=== PATIENT | female | born 1980 | race Caucasian/White ===

== ENCOUNTER → 2016-12-16 | Outpatient (CLI) | payer OTHER ==
--- NOTE | 2016-12-16 15:25 | NM ---
EXAMINATION TYPE: NM hepatobiliary w EF DATE OF EXAM: 12/16/2016 COMPARISON: NONE HISTORY: Pain TECHNIQUE: After the intravenous administration of 5.3 mCi Tc 99m Mebrofenin hepatobiliary scintigrap hy is performed. Immediate images post injection. FINDINGS: There is satisfactory initial accumulation of tracer by the liver. The gallbladder is visualized wit hin 60 minutes. The small bowel activity is noted within 20 minutes. At one hour 8 ounces of oral e nsure plus is given to mimic CCK and gallbladder ejection fraction is calculated at 75 %, in the norm al range. Therefore there is no scintigraphic evidence of cystic or common bile duct obstruction to suggest acute cholecystitis or gallbladder dyskinesia. IMPRESSION: Exam is within normal limits.
[2016-12-16 18:07] LABS: Amorphous Sediment,Urine Rare /hpf; Appearance,Urine Cloudy (Clear); Bacteria,Urine Rare /hpf; Bilirubin,Urine Negative (Negative); Glucose,Urine (UA) Negative (Negative); Ketones,Urine Negative (Negative); Leukocyte Esterase,Urine Negative (Negative); Mucus,Urine Rare /hpf; Nitrite,Urine Negative (Negative); Particle Count 6297; Protein,Urine Negative (Negative); Specific Gravity,Urine 1.012 (1.001-1.035); Squamous Epithelial Cell,Urine 3 /hpf (0-4); UA Billing (MACRO vs. MICRO) MICRO; Urobilinogen,Urine <2.0 mg/dL (<2.0); WBC,Urine 4 /hpf (0-5)
== END | disposition home or self-care (01) ==
LOC: RADNMMAIN 12:53
PROVIDERS: ATTEND Surgery
DX: R10.32 Left lower quadrant pain (principal)
CPT/HCPCS: 81001; 87086; 78226; A9537

== ENCOUNTER 2016-12-28 12:30 | Day surgery (SDC) | payer OTHER ==
[2016-12-22 12:40] VITALS: BMI 25.0
[~2016-12-28 12:30] MED LIST: HEPARIN SODIUM,PORCINE 5,000 UNIT/ML 1 ML VIAL SQ ONE; Pre Op ABX Message 1 EACH MISC MISCELLANE ONE
[2016-12-28] MEDS ORDERED: SCOPOLAMINE 1.5MG/72HR PATCH TRANSDERM ONE (13:25)
[2016-12-28] MEDS ORDERED: DEXAMETHASONE SOD PHOSPHATE 10 MG/ML 1 ML VIAL IV ONE (13:25)
[2016-12-28] MEDS ORDERED: LIDOCAINE 1% 20 ML VIAL (10MG/ML) FOR IV START INTRADERMA PRN (13:25)
[2016-12-28] MEDS ORDERED: MIDAZOLAM 2 MG/2 ML VIAL IV PRN (13:25)
[2016-12-28] MEDS ORDERED: ONDANSETRON 4 MG/2 ML VIAL IVP ONE (13:25)
[2016-12-28] MEDS: LACTATED RINGERS 1,000 ML IV SCH (13:29)
[2016-12-28] MEDS ORDERED: LIDOCAINE 1% 20 ML VIAL (10MG/ML) FOR IV START INTRADERMA ONE ×2 (13:30)
[2016-12-28] MEDS ORDERED: ROCURONIUM BROMIDE 10 MG/ML 10 ML VIAL IV ONE (14:50)
[2016-12-28] MEDS ORDERED: NEOSTIGMINE 1 MG/ML 10 ML VIAL ONE (14:50)
[2016-12-28] MEDS ORDERED: fentaNYL (PF) 50 MCG/ML 2 ML AMP ONE (14:50)
[2016-12-28] MEDS ORDERED: SUCCINYLCHOLINE CHLORIDE 100 MG/5 ML SYR IV ONE (14:50)
[2016-12-28] MEDS ORDERED: MIDAZOLAM 2 MG/2 ML VIAL ONE (14:50)
[2016-12-28] MEDS ORDERED: PROPOFOL 10 MG/ML 20 ML VIAL IV ONE (14:50)
[2016-12-28] MEDS ORDERED: GLYCOPYRROLATE 0.2 MG/ML 2 ML VIAL ONE (14:50)
[2016-12-28] MEDS ORDERED: LIDOCAINE 1% INJ 10MG/ML (20 ML MDV) ONE (14:50)
[2016-12-28] MEDS ORDERED: BUPIVACAINE (PF) 0.25% 30 ML VIAL SQ ONE (15:12)
[2016-12-28] MEDS ORDERED: LACTATED RINGERS 1,000 ML IV ONE (16:04)
--- NOTE | 2016-12-28 16:20 | P.OP ---
Date of Procedure: 12/28/16 Preoperative Diagnosis: Biliary dyskinesia Postoperative Diagnosis: chronic cholecystitis Procedure(s) Performed: Robot assisted laparoscoic choelcystectomy Implants: Anesthesia: SILVIA Surgeon: Claudio Nieto Pathology: other Condition: stable Disposition: PACU Indications for Procedure: Operative Findings: Description of Procedure: Patient is a 36-year-old female who presented with right upper quadrant pain and a clinical diagnosis of chronic cholecystitis was made. After appropriate informed consent and answering all the patient's questions patient taken the operating placement position and given general anesthesia with endotracheal intubation. After an unsuccessful attempt to use the Veress needle for insufflation at the left upper quadrant was identified and Veress needle was used to enter the abdominal cavity and insufflated to 18 mmHg after confirming its position with the drop test. Once the abdomen insufflated 5 mm Optiview was used to enter the abdominal cavity through that site. Three 8 mm ports were then placed for the robot in the left upper quadrant and right upper quadrant. Millimeter port was placed in the supraumbilical incision Once ports were then placed the patient was placed in appropriate position of left side down and reverse Trendelenburg. The robot was docked and Prograsp was taken in arm 3, Cardiere in arm 2. Camera was through the 12 mm umbilical port site. And a hook cautery was taken in the arm 1. Gallbladder was retracted cephalad and superiorly. Inflammatory adhesions were taken down with the help of electrocautery. Appropriate critical view was obtained in cystic duct and artery were isolated. 2 clips proximally and 1 distally were plced in the artery and cystic duct and then and transected sharply with the help of scissors. The gallbladder was then taken off the gallbladder fossa with the help of electrocautery. Gallbladder was then placed in Endo Catch bag and removed through 12 port site after undocking the robot. 12 mm port site was closed with the help of a [place] Mejias under direct laparoscopic view using 0 Vicryl. At this point the procedure was terminated and all ports were removed. Local anesthesia infiltrated into the incisions skin was closed with 4 -0 Monocryl and Dermabond was applied. Patient is tolerated the porcedure well with no complications. She was extubated and taken to recovery room in stable condition. Plan - Discharge Summary New Discharge Prescriptions: No Action Ibuprofen [Motrin] 600 - 800 mg PO DAILY PRN PRN Reason: Pain Albuterol Inhaler [Ventolin Hfa Inhaler] 1 - 2 puff INHALATION Q6HR PRN PRN Reason: Shortness Of Breath Otc Antacid 1 dose PO DAILY PRN PRN Reason: Heartburn Discharge Medication List Albuterol Inhaler [Ventolin Hfa Inhaler] 1 - 2 puff INHALATION Q6HR PRN [History] Ibuprofen [Motrin] 600 - 800 mg PO DAILY PRN 12/22/16 [History] Otc Antacid 1 dose PO DAILY PRN 12/22/16 [History]
[2016-12-28 16:25] VITALS: TEMP 97.9
[2016-12-28] MEDS: HYDROmorphone 1 MG/ML 1 ML SYRINGE IVP PRN ×3 (16:29→16:34)
[2016-12-28] MEDS ORDERED: MEPERIDINE 50 MG/ML SYRINGE IVP ONE ×3 (16:41→17:10)
[2016-12-28] MEDS: MORPHINE SULFATE 4 MG/ML SYRINGE IV ONE ×2 (16:48→16:51)
[2016-12-28 17:05] VITALS: RESP 18
[2016-12-28] MEDS ORDERED: Acetaminophen-Codeine 300-30mg TAB PO ONE (17:50)
[2016-12-28 17:57] VITALS: BP 118/79; PULSE 71
== END 2016-12-28 18:34 | disposition home or self-care (01) ==
LOC: OR 12:30
PROVIDERS: ATTEND Surgery
DX: K81.1 Chronic cholecystitis (principal); J45.909 Unspecified asthma, uncomplicated; F17.200 Nicotine dependence, unspecified, uncomplicated; I25.2 Old myocardial infarction; Z86.73 Personal history of transient ischemic attack (TIA), and cerebral infarction without residual deficits; K21.9 Gastro-esophageal reflux disease without esophagitis; Z79.1 Long term (current) use of non-steroidal anti-inflammatories (NSAID); Z79.899 Other long term (current) drug therapy
CPT/HCPCS: 81025; 47562; J2250; J2270; J1644; J1100; J2710; J2175; J2405; J2001; J3010; J1170; J0330; J2704; 88304

== ENCOUNTER → 2017-06-01 | Outpatient (CLI) | payer OTHER ==
--- NOTE | 2017-06-01 23:53 | MR ---
EXAMINATION TYPE: MR cervical spine wo con DATE OF EXAM: 06/01/2017 COMPARISON: NONE HISTORY: Cervicalgia TECHNIQUE: Multiplanar, multisequence images of the cervical spine were acquired. Findings Cervical vertebra have normal alignment. There is a minimal 2 mm anterior subluxation at C5-6. There is some narrowing of the C6-7 disc space. Cervical spinal cord has normal signal pattern. There is no edema. Brainstem appears normal. There is mild posterior hypertrophic spurring at C6-7 and slight na rrowing of the spinal canal. There are small posterior disc herniations at C5-6 and C6-7. The canal m easures 7.5 mm at C6-7. Canal is 8 mm at C5-6. I see no focal bone destruction. There is no paraspina l mass. Posterior elements are intact. There is no evidence of a fracture.. IMPRESSION: Spondylotic changes in the lower cervical spine. Posterior disc herniations at C5-6 and C6-7 with 7.5 to 8 mm spinal stenosis. There is 2 mm subluxation at C5-6.
== END | disposition home or self-care (01) ==
LOC: RADMRIMAIN 06:11
PROVIDERS: ATTEND Internal Medicine
DX: S13.160A Subluxation of C5/C6 cervical vertebrae, initial encounter (principal); M48.02 Spinal stenosis, cervical region; M50.222 Other cervical disc displacement at C5-C6 level; M47.812 Spondylosis without myelopathy or radiculopathy, cervical region
CPT/HCPCS: 72141

== ENCOUNTER → 2017-09-05 | Outpatient (CLI) | payer OTHER ==
--- NOTE | 2017-09-05 21:35 | MR ---
EXAMINATION TYPE: MR brain/lspine wo con DATE OF EXAM: 09/05/2017 COMPARISON: NONE HISTORY: 37-year-old female with low back pain, bilateral lower extremity radiculopathy, headache TECHNIQUE: Multiplanar, multisequence images of the brain and brainstem were acquired without IV con trast. Diffusion weighted imaging is performed. Subsequent multiplanar, multisequence images of the l umbar spine without IV contrast. FINDINGS: BRAIN: No evidence for acute infarction, hemorrhage, mass, mass effect, midline shift, herniation, effacemen t of basal cisterns, or extra-axial fluid collection. The ventricles and sulci are age-appropriate. Major intracranial flow voids are intact. The left vertebral artery is dominant. T2/FLAIR weighted sequences show no white matter signal abnormality. Midline structures demonstrate normal morphology. The craniocervical junction is normal. Leftward nasal septal deviation and mild mucosal thickening within the ethmoid air cells. Globes appe ar intact. LUMBAR SPINE: Uterus is retroverted. Vertebral body heights are preserved and alignment is maintained. No suspicious bone marrow replacement. Conus medullaris is normal. There may be minimal early facet degenerative change mid to lower lumbar spine. Intervertebral disc spaces and hydration is maintained. No focal disc herniation or significant spina l canal or neuroforaminal stenosis. No prevertebral or paravertebral soft tissue abnormality seen. COMBINED IMPRESSION: BRAIN: 1. No intracranial abnormality seen. LUMBAR SPINE: 1. Minimal early facet degenerative changes mid to lower lumbar spine. No focal disc herniation or si gnificant spinal canal or neuroforaminal stenosis.
== END | disposition home or self-care (01) ==
LOC: RADMRIMAIN 17:37
PROVIDERS: ATTEND Psychiatry & Neurology Pain Medicine
DX: M47.816 Spondylosis without myelopathy or radiculopathy, lumbar region (principal); R51 Headache
CPT/HCPCS: 70551; 72148

== ENCOUNTER 2017-11-03 05:34 | Observation (INO) | payer OTHER ==
[2017-11-03] MEDS ORDERED: NITROGLYCERIN OINT 1 INCH/GM PACKET TOPICAL STA (05:50)
[2017-11-03] MEDS ORDERED: ASPIRIN 81 MG PO STA (05:50)
[2017-11-03] MEDS ORDERED: SODIUM CHLORIDE 0.9% 1,000 ML IV STA (05:50)
[2017-11-03] MEDS ORDERED: MORPHINE SULFATE 4 MG/ML SYRINGE IV STA (05:50)
[2017-11-03] MEDS ORDERED: HYDROmorphone 0.5 MG/0.5 ML SYRINGE IVP STA (05:51)
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
[2017-11-03 06:05] LABS: Basophils % (A) 1 %; Eosinophils # (A) 0.2 k/uL (0-0.7); Eosinophils % (A) 3 %; HCT 39.4 % (34.0-46.0); HGB 13.1 gm/dL (11.4-16.0); Lymphocytes # (A) 3.3 k/uL (1.0-4.8); Lymphocytes % (A) 38 %; MCH 32.8 pg (25.0-35.0); MCHC 33.4 g/dL (31.0-37.0); MCV 98.3 fL (80.0-100.0); Mean Platelet Volume 6.7; Monocytes # (A) 0.5 k/uL (0-1.0); Monocytes % (A) 6 %; Neutrophils # (A) 4.4 k/uL (1.3-7.7); Neutrophils % (A) 51 %; Platelet Count 307 k/uL (150-450); RDW 13.5 % (11.5-15.5); WBC 8.6 k/uL (3.8-10.6)
[2017-11-03 06:15] LABS: ALT 30 U/L (9-52); AST 17 U/L (14-36); Alkaline Phosphatase 57 U/L (38-126); Anion Gap 10 mmol/L; Blood Urea Nitrogen 10 mg/dL (7-17); Calcium 9.3 mg/dL (8.4-10.2); Carbon Dioxide 28 mmol/L (22-30); Chloride 104 mmol/L (98-107); Glucose 98 mg/dL (74-99); Magnesium 1.8 mg/dL (1.6-2.3); Potassium 4.1 mmol/L (3.5-5.1); Sodium 142 mmol/L (137-145); Total Bilirubin 0.2 mg/dL (0.2-1.3); Total Protein 6.4 g/dL (6.3-8.2)
--- NOTE | 2017-11-03 06:15 | XR ---
EXAM: XR Chest, 2 Views CLINICAL HISTORY: Chest Pain TECHNIQUE: Frontal and lateral views of the chest. COMPARISON: No relevant prior studies available. FINDINGS: Lungs: Unremarkable. No consolidation. Pleural space: Unremarkable. No pneumothorax. Heart: Unremarkable. No cardiomegaly. Mediastinum: Unremarkable. Bones/joints: Old left ninth rib fracture. IMPRESSION: No acute findings.
[2017-11-03 06:22] LABS: D-Dimer 0.34 mg/L FEU (<0.60); Prothrombin Time 10.1 sec (9.0-12.0)
[2017-11-03 06:32] LABS: Creatine Kinase 82 U/L (30-135)
[2017-11-03 06:44] LABS: Creatine Kinase MB 0.5 ng/mL (0.0-2.4); Troponin I <0.012 ng/mL (0.000-0.034)
[2017-11-03] MEDS ORDERED: tiZANidine 4 MG TAB PO PRN (07:46)
[2017-11-03] MEDS ORDERED: BUTALB/APAP/CAFF 50-325-40MG TAB PO PRN (07:46)
[2017-11-03] MEDS ORDERED: FAMOTIDINE 20 MG TAB PO PRN (07:46)
[2017-11-03] MEDS: MORPHINE SULFATE 2 MG/ML SYRINGE IV PRN ×5 (08:35→21:24)
[2017-11-03] MEDS: HYDROcodone/APAP 10-325MG 1 EACH TAB PO SCH ×2 (09:52→22:24)
[2017-11-03 11:53] LABS: Creatine Kinase 69 U/L (30-135)
[2017-11-03 12:05] LABS: Creatine Kinase MB 0.4 ng/mL (0.0-2.4); Troponin I <0.012 ng/mL (0.000-0.034)
[2017-11-03] MEDS: NITROGLYCERIN OINT 1 INCH/GM PACKET TOPICAL SCH ×3 (13:46→23:22)
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
[2017-11-03 18:42] LABS: Creatine Kinase 68 U/L (30-135)
[2017-11-03 18:55] LABS: Creatine Kinase MB 0.4 ng/mL (0.0-2.4); Troponin I <0.012 ng/mL (0.000-0.034)
[2017-11-03] MEDS: NICOTINE 14MG/24HR PATCH TRANSDERM SCH (21:25)
[2017-11-03] MEDS: HEPARIN SODIUM,PORCINE 5,000 UNIT/ML 1 ML VIAL SQ SCH (21:25)
[2017-11-04] MEDS: MORPHINE SULFATE 2 MG/ML SYRINGE IV PRN ×2 (01:18→08:16)
[2017-11-04] MEDS: NITROGLYCERIN OINT 1 INCH/GM PACKET TOPICAL SCH ×3 (02:55→16:52)
[2017-11-04 03:10] LABS: Cholesterol 167 mg/dL (<200); HDL Cholesterol 72 mg/dL (40-60); LDL Cholesterol,Calculated 75 mg/dL (0-99); Triglycerides 98 mg/dL (<150)
[2017-11-04] MEDS: HEPARIN SODIUM,PORCINE 5,000 UNIT/ML 1 ML VIAL SQ SCH ×2 (08:17→20:58)
[2017-11-04] MEDS: NICOTINE 14MG/24HR PATCH TRANSDERM SCH (08:17)
[2017-11-04] MEDS ORDERED: ASPIRIN 325 MG TAB PO SCH (09:00)
[2017-11-04] MEDS: HYDROcodone/APAP 10-325MG 1 EACH TAB PO SCH ×2 (12:27→20:45)
--- NOTE | 2017-11-04 12:57 | ECHOS ---
STRESS ECHOCARDIOGRAM INDICATIONS: Chest pain. BASELINE HEART RATE: 66 BASELINE BLOOD PRESSURE: 135/75 MAXIMUM HEART RATE: 170 MAXIMUM BLOOD PRESSURE: 183/58 85% MPHR: 155 100% MPHR: 182 METS: 12.1 MAXIMUM STAGE REACHED: 4 TOTAL EXERCISE TIME: 11:00 CLINICAL INFORMATION: Patient was exercised for a total period of 11 minutes, peak heart rate of 170 was achieved. Maximum blood pressure of 183/58 mmHg was noted. Resting EKG shows normal sinus rhythm with normal RI interval and QRS duration and normal ST-T waves. No ST- segment depression suggestive of ischemia is noted. The baseline echocardiographic images reveals normal left ventricular chamber size with normal left ventricular systolic function. In the immediate post exercise period, normal increase in the wall thickness and contractility is noted. FINAL IMPRESSION: This stress echocardiographic study is negative for stress-induced ischemia. EKG portion of the stress test is not suggestive of ischemia. Patient's exercise tolerance is excellent. MMODL / IJN: [id number] /
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
[2017-11-04] MEDS ORDERED: LIDOCAINE 5% PATCH TOPICAL STA (15:32)
[2017-11-04] MEDS: KETOROLAC 30 MG/ML 1 ML VIAL IVP SCH (15:43)
[2017-11-04] MEDS ORDERED: LIDOCAINE 5% PATCH TOPICAL SCH (16:00)
[2017-11-04] MEDS ORDERED: ALPRAZolam 0.5 MG TAB PO PRN (17:48)
--- NOTE | 2017-11-04 18:15 | P.PN ---
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 it wasn't sudden, nonspecific on the left side of the chest radiating to the left arm, was severe air layers now moderate in severity about 5-6/10, not associated with dyspnea or dizziness. No abdominal pain, no change in bowel habits or urine habits. No fever. Patient denies history of trauma to the area. However she stated about 1 -2 weeks ago she had, and cold symptoms. Newspaper Reporter evaluated the patient. She underwent cardiac stress echo test which was negative for ischemia. Her d- dimer was negative at 0.34, wells score is 0 for example no previous history of DVT, no recent surgery in the last few months, she's been mobile before she comes to the hospital, she denies hemoptysis or history of cancer, she was not tachycardic, and clinically suspicion for DVT and PE was very low. The pain is not tearing or ripping inequality, her blood pressure was checked on both sides. No much difference, on the left side was 108/67 and heart rate 80, on the right side was 106/79 and heart rate 77, with no differences and pulses on both sides, chest x-ray shows unremarkable mediastinum as per radiologist, the suspicion for aortic dissection is very low and anymore test or treatment will have more risks than benefits. Patient chest pain showed partial improvement. pt already takes [place] for her chronic neck pain. Lidocaine patch and Toradol was been prescribed for the patient. This could be due to musculoskeletal, versus pleurisy in view of her recent upper respiratory tract infection, related to stress, versus GI causes and patient was instructed to get a GI workup if it does not resolve which can be done as an outpatient. Appointments made with her PCP which she wants to change it from Dr. Hooper and she agrees with the pcp office new appointment and its date which take her insurance Objective - Vital Signs Vital signs: Vital Signs Temp 98.1 F 11/04/17 12:00 Pulse 74 11/04/17 15:37 Resp 18 11/04/17 15:37 BP 106/74 11/04/17 15:37 Pulse Ox 99 11/04/17 12:00 Intake & Output 11/03/17 11/04/17 11/04/17 18:59 06:59 18:59 Intake Total 375 800 240 Balance 375 800 240 Weight 62.596 kg Intake: IV 800 Sodium Chloride 0.9% 1, 800 000 ml @ 100 mls/hr IV . Q10H STA Rx#:[id number] Oral 375 240 Other: Voiding Method Toilet Toilet Toilet # Voids 3 - Exam GENERAL: The patient is alert and oriented x3, not in any acute distress. Well developed, well nourished. HEENT: Pupils are round and equally reacting to light. EOMI. No scleral icterus. No conjunctival pallor. Normocephalic, atraumatic. No pharyngeal erythema. No thyromegaly. CARDIOVASCULAR: S1 and S2 present. No murmurs, rubs, or gallops. PULMONARY: Chest is clear to auscultation, no wheezing or crackles. Mind chest wall tenderness on the left lateral side ABDOMEN: Soft, nontender, nondistended, normoactive bowel sounds. No palpable organomegaly. MUSCULOSKELETAL: No joint swelling or deformity. EXTREMITIES: No cyanosis, clubbing, or pedal edema. NEUROLOGICAL: Gross neurological examination did not reveal any focal deficits. SKIN: No rashes. - Labs CBC & Chem 7: 11/03/17 05:45 11/03/17 05:45 Labs: Abnormal Lab Results - Last 24 Hours (Table) 11/03/17 Range/Units 05:25 HDL Cholesterol 72 H (40-60) mg/dL Assessment and Plan Plan: -Chest pain syndrome, her d-dimer is negative, well's criteria were 0, Will call for cardiology consultation. Patient is already on aspirin. Also patient noticed to be bradycardic with heart rates in the 50s(resolved) Her chest pain remains uncontrolled despite several pain medication like [place], Toradol, aspirin and lidocaine patch. We'll continue with Protonix and the next for her anxiety. -History of chronic neck pain, follow-up with the neurologist as an outpatient and getting local injection of the cervical spine. Continue with symptomatic treatment, and muscle relaxant. Patient was instructed to avoid epidural injection while she is on a blood thinner, NSAIDs or anticoagulants and instructed to discuss with her doctor before the procedure. Risks benefits and alternatives are explained to the patient including but not limited to paralysis she verbalized understanding and acceptance -History of GERD, continue with Protonix -History of CVA/TIA, continue with aspirin DVT prophylaxis subcutaneous heparin GI prophylaxis continue with Protonix Time with Patient: Greater than 30
[2017-11-04] MEDS: PANTOPRAZOLE 40 MG/10 ML VIAL IVP SCH (18:22)
[2017-11-05] MEDS: KETOROLAC 30 MG/ML 1 ML VIAL IVP SCH ×3 (00:39→13:37)
[2017-11-05] MEDS: NITROGLYCERIN OINT 1 INCH/GM PACKET TOPICAL SCH ×3 (00:50→13:37)
[2017-11-05] MEDS: HYDROcodone/APAP 10-325MG 1 EACH TAB PO SCH (08:04)
[2017-11-05] MEDS: PANTOPRAZOLE 40 MG/10 ML VIAL IVP SCH (08:04)
[2017-11-05] MEDS: NICOTINE 14MG/24HR PATCH TRANSDERM SCH (08:04)
[2017-11-05] MEDS: HEPARIN SODIUM,PORCINE 5,000 UNIT/ML 1 ML VIAL SQ SCH (08:05)
--- NOTE | 2017-11-05 08:32 | ECHOF ---
Referral Reason:cp MEASUREMENTS -------- HEIGHT: 157.5 cm WEIGHT: 62.6 kg BP: 102/64 RVIDd: 2.0 cm (< 3.3) IVSd: 0.9 cm (0.6 - 1.1) LVIDd: 4.4 cm (3.9 - 5.3) LVPWd: 1.0 cm (0.6 - 1.1) IVSs: 1.2 cm LVIDs: 3.2 cm LVPWs: 1.2 cm LAESV Index (A-L): 22.25 ml/m Ao Diam: 3.2 cm (2.0 - 3.7) AV Cusp: 1.9 cm (1.5 - 2.6) LA Diam: 2.6 cm (2.7 - 3.8) EPSS: 0.4 cm MV E Jesse: 0.81 m/s MV DecT: 243 ms MV A Jesse: 0.75 m/s MV E/A Ratio: 1.08 RAP: 5.00 mmHg RVSP: 12.35 mmHg MV EF SLOPE: 128.77 mm/s (70 - 150) MV EXCURSION: 2.01 cm (> 18.000) FINDINGS -------- Sinus rhythm. This was a technically good study. The left ventricular size is normal. Left ventricular wall thickness is normal. Overall left vent ricular systolic function is normal with, an EF between 55 - 60 %. The right ventricle is normal in size and function. Normal LA size by volume 22+/-6 ml/m2. The right atrium is normal in size. The aortic valve is trileaflet, and appears structurally normal. No aortic stenosis or regurgitation. The mitral valve leaflets are mildly thickened. There is trace to mild mitral regurgitation. Trace tricuspid regurgitation present. Right ventricular systolic pressure is normal at < 35 mmHg. There is no evidence of pulmonary hypertension. The pulmonic valve was not well visualized. The aortic root size is normal. Normal inferior vena cava with normal inspiratory collapse consistent with estimated right atrial pre ssure of 5 mmHg. There is no pericardial effusion. CONCLUSIONS -------- 1. Sinus rhythm. 2. This was a technically good study. 3. The left ventricular size is normal. 4. Left ventricular wall thickness is normal. 5. Overall left ventricular systolic function is normal with, an EF between 55 - 60 %. 6. Normal LA size by volume 22+/-6 ml/m2. 7. The aortic valve is trileaflet, and appears structurally normal. No aortic stenosis or regurgitati on. 8. The mitral valve leaflets are mildly thickened. 9. There is trace to mild mitral regurgitation. 10. Trace tricuspid regurgitation present. 11. Right ventricular systolic pressure is normal at < 35 mmHg. 12. There is no evidence of pulmonary hypertension. 13. The pulmonic valve was not well visualized. 14. The aortic root size is normal. 15. There is no pericardial effusion. [employer]: Nelson Roberts RDCS
[2017-11-05] MEDS ORDERED: ASPIRIN 81 MG PO SCH (09:00)
[2017-11-05] MEDS ORDERED: LIDOCAINE 5% PATCH TOPICAL SCH (09:00)
[2017-11-05 12:12] VITALS: BP 109/70; PULSE 64; RESP 16; TEMP 98.7
--- NOTE | 2017-11-05 13:25 | P.DS ---
Providers Date of admission: 11/03/17 07:41 Attending physician: Ophelia Hugo Consults: 11/03/17 07:41 Consult Physician Urgent Consulting Provider: Bruno Thompson Consult Reason/Comments: Chest pain Do you want consulting provider notified?: Yes Primary care physician: Stated None Hospital Course: Ms. 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 it wasn't sudden, nonspecific on the left side of the chest radiating to the left arm, was severe air layers now moderate in severity about 5-6/10, not associated with dyspnea or dizziness. No abdominal pain, no change in bowel habits or urine habits. No fever. Patient denies history of trauma to the area. However she stated about 1-2 weeks ago she had, and cold symptoms. Layout Mechanic evaluated the patient. She underwent cardiac stress echo test which was negative for ischemia. Her d-dimer was negative at 0.34, wells score is 0 for example no previous history of DVT, no recent surgery in the last few months, she's been mobile before she comes to the hospital, she denies hemoptysis or history of cancer, she was not tachycardic, and clinically suspicion for DVT and PE was very low. The pain is not tearing or ripping inequality, her blood pressure was checked on both sides. No much difference, on the left side was 108/67 and heart rate 80, on the right side was 106/79 and heart rate 77, with no differences and pulses on both sides, chest x-ray shows unremarkable mediastinum as per radiologist, the suspicion for aortic dissection is very low and anymore test or treatment will have more risks than benefits. Patient had a stress echocardiogram done on 11/04/2017- that was negative for inducible ischemia. She has been cleared by cardiology to be discharged home. Patient chest pain showed partial improvement. pt already takes [place] for her chronic neck pain. Lidocaine patch and Toradol was been prescribed for the patient. This could be due to musculoskeletal, versus pleurisy in view of her recent upper respiratory tract infection, related to stress, versus GI causes and patient was instructed to get a GI workup if it does not resolve which can be done as an outpatient. Appointments made with her PCP which she wants to change it from Dr. Hooper and she agrees with the pcp office new appointment and its date which take her insurance. Patient's vitals and physical exam at the time of the discharge within normal limits. DISCHARGE DIAGNOSIS Atypical chest pain History of chronic neck pain GERD History of CVA/TIA She is prescribed lidocaine patches for the musculoskeletal chest pain. Patient Condition at Discharge: Good Plan - Discharge Summary Discharge Rx Participant: No New Discharge Prescriptions: New Lidocaine 5% Patch [Lidoderm 5% Patch] 1 patch TOPICAL DAILY 4 Days #4 patch Continue Ibuprofen [Motrin] 800 mg PO Q8H PRN #30 tab PRN Reason: Pain Ranitidine HCl [Zantac] 75 mg PO BID PRN PRN Reason: Heartburn tiZANidine [Zanaflex] 4 mg PO BID PRN PRN Reason: Muscle Pain HYDROcodone/APAP 10-325MG [[place] 10-325] 1 tab PO BID Butalb/APAP/Caff 50-325-40Mg [Fioricet 50-325-40] 1 tab PO TID PRN PRN Reason: Migraine Headache Discharge Medication List Ibuprofen [Motrin] 800 mg PO Q8H PRN #30 tab 12/28/16 [Rx] Butalb/APAP/Caff 50-325-40Mg [Fioricet 50-325-40] 1 tab PO TID PRN 11/03/17 [ History] HYDROcodone/APAP 10-325MG [[place] 10-325] 1 tab PO BID 11/03/17 [History] Ranitidine HCl [Zantac] 75 mg PO BID PRN 11/03/17 [History] tiZANidine [Zanaflex] 4 mg PO BID PRN 11/03/17 [History] Lidocaine 5% Patch [Lidoderm 5% Patch] 1 patch TOPICAL DAILY 4 Days #4 patch 02/14 [Rx] Follow up Appointment(s)/Referral(s): Alessia Reyes MD [STAFF PHYSICIAN] - 2 Weeks None,Stated [Primary Care Provider] - 1-2 days Guanako Doran, BESS [REFERRING] - 11/08/17 11:00 am (your new PCP, please call your health insurance prior to your doctor visit ) Discharge Disposition: HOME SELF-CARE
== END 2017-11-05 13:34 | disposition home or self-care (01) ==
LOC: EC 05:34 → 3OBS 07:41
PROVIDERS: ADMIT Hospitalist; ATTEND Hospitalist
DX: R07.89 Other chest pain (principal); R06.02 Shortness of breath; R07.2 Precordial pain; R53.83 Other fatigue; R00.1 Bradycardia, unspecified; M54.2 Cervicalgia; G89.29 Other chronic pain; J45.909 Unspecified asthma, uncomplicated; K21.9 Gastro-esophageal reflux disease without esophagitis; M19.90 Unspecified osteoarthritis, unspecified site; I25.2 Old myocardial infarction; F41.9 Anxiety disorder, unspecified; F32.9 Major depressive disorder, single episode, unspecified; M06.9 Rheumatoid arthritis, unspecified; R20.2 Paresthesia of skin; R20.0 Anesthesia of skin; E78.5 Hyperlipidemia, unspecified; F17.210 Nicotine dependence, cigarettes, uncomplicated; Z88.5 Allergy status to narcotic agent; Z86.73 Personal history of transient ischemic attack (TIA), and cerebral infarction without residual deficits; Z87.442 Personal history of urinary calculi; Z80.1 Family history of malignant neoplasm of trachea, bronchus and lung; Z82.5 Family history of asthma and other chronic lower respiratory diseases; Z80.9 Family history of malignant neoplasm, unspecified; Z79.899 Other long term (current) drug therapy; Z79.891 Long term (current) use of opiate analgesic; Z90.49 Acquired absence of other specified parts of digestive tract; M50.20 Other cervical disc displacement, unspecified cervical region; Z82.49 Family history of ischemic heart disease and other diseases of the circulatory system
CPT/HCPCS: 99285; 96374 ×2; 96361 ×10; 96375 ×3; 96376 ×5; 96372 ×3; 36415; 94760; 93005; 93306; 93351; 97165; 85379; 80061; 80053; 80176; 82550; 82553; 83735; 84484; 85025; 85610; 85730; 84703; 71046; G0378 ×3; S4990 ×3; J1644 ×3; J1885 ×2; J2270 ×2; C9113 ×2; J1170

== ENCOUNTER → 2018-07-06 | Outpatient (CLI) | payer OTHER ==
[2018-07-06 16:31] LABS: Rheumatoid Factor 8 IU/mL (0-15)
[2018-07-07 22:46] LABS: Cyclic Citrullinated Pep IgG NEGATIVE (NEGATIVE); DNA Double-Stranded Indetermin (NEGATIVE); RNP 0.2 AI; Scleroderma SC-70 Ab <0.2 AI
== END | disposition home or self-care (01) ==
LOC: LABWHC1 09:19
PROVIDERS: ATTEND Psychiatry & Neurology Pain Medicine
DX: M25.50 Pain in unspecified joint (principal)
CPT/HCPCS: 36415; 83516; 85652; 86038; 86140; 86200; 86225; 86235; 86431

== ENCOUNTER → 2018-07-19 | Outpatient (CLI) | payer OTHER ==
--- NOTE | 2018-07-19 15:56 | MR ---
EXAMINATION TYPE: MR cspine/tspine/lspine wo con DATE OF EXAM: 07/19/2018 COMPARISON: MR cervical spine dated 06/01/2017, MR lumbar spine dated 09/05/2017, and radiographs of the spine dated 05/13/2017. HISTORY: numbness tingling upper extremities TECHNIQUE: Multiplanar, multisequence imaging of the lumbar spine is performed without IV contrast. FINDINGS: Cervical spine: There is again 2 mm anterolisthesis of C5 on C6 unchanged from the prior. The remaini ng cervical spine vertebral body heights and alignment are maintained. Cervical cord signal is unrema rkable. Posterior fossa is unremarkable. Bone marrow signal is within normal limits. Multilevel disc desiccation is seen. C2-C3: Small central disc herniation is seen narrowing the ventral subarachnoid space without spinal canal stenosis or neural foraminal narrowing. C3-C4: Facet arthropathy results in mild left neural foraminal narrowing. Small central disc herniati on creates mild spinal canal stenosis. No right-sided neural foraminal narrowing. C4-C5: Small central disc osteophyte complex and uncovertebral hypertrophy are seen creating mild melida ateral neural foraminal narrowing and mild spinal canal stenosis. C5-C6: There is a broad-based disc bulge, uncovertebral hypertrophy and facet arthropathy creating mi ld bilateral neural foraminal narrowing and mild to moderate spinal canal stenosis. This was describe d as a disc herniation on the prior but now appears as a broad-based disc bulge. C6-C7: There is a broad-based disc bulge, uncovertebral hypertrophy and facet arthropathy creating mi ld bilateral neural foraminal narrowing and mild to moderate spinal canal stenosis. This was describe d as a disc herniation on the prior but now appears as a broad-based disc bulge. C7-T1: No significant disc disease, spinal canal stenosis nor neural foraminal narrowing. Thoracic spine: The thoracic spine vertebral bodies maintain normal vertebral body heights and alignm ent. At T1-T2, T2-T3, T3-T4, T4-T5, and T5-T6 there is no significant disc disease, spinal canal sten osis or neural foraminal narrowing. At T6-T7 there is a small right paracentral disc herniation on axial T2 image 3 without spinal canal stenosis or neural foraminal narrowing. At T7-T8 there is a left paracentral disc herniation minimally narrowing the ventral subarachnoid spa ce and creating minimal spinal canal stenosis without neural foraminal narrowing. At T8-T9, and T9-T10, T10-T11, T11-T12 and T12-L1 there is no significant disc disease, spinal canal stenosis nor neural foraminal narrowing. Lumbar spine: The lumbar spine vertebral bodies maintain normal vertebral body heights and alignment. Bone marrow signal is overall slightly decreased but within normal limits. Conus medullaris is also within normal limits. L1-L2: No significant disc disease, spinal canal stenosis nor neural foraminal narrowing. L2-L3: Very small broad-based disc bulge without spinal canal stenosis nor neural foraminal narrowing . L3-L4: Small broad-based disc bulge without spinal canal stenosis nor neural foraminal narrowing. L4-L5: Broad-based disc bulge without spinal canal stenosis or neural foraminal narrowing. L5-S1: Small broad-based disc bulge without spinal canal stenosis nor neural foraminal narrowing. IMPRESSION: 1. Progression of degenerative disc disease of the cervical spine with new small central disc herniat ions at C2-C3, C4-C5, and widening of the previous disc herniations at C5-C6 and C6-C7 to now appear as broad-based disc bulges. Mild multilevel spinal canal stenosis of the cervical spine is noted at C 3-C4 and C4-C5 with mild to moderate spinal canal stenosis at C5-C6 and C6-C7. 2. Persistent grade 1 anterolisthesis of C5 on C6, unchanged from the prior (2 mm) 3. Small right paracentral disc herniation at T6-T7 without spinal canal stenosis. 4. Small left paracentral disc herniation at T7-T8 resulting in minimal spinal canal stenosis. 5. Minimal degenerative disc disease of the lumbar spine without focal herniation or spinal canal dorcas nosis.
== END ==
LOC: RADMRIMAIN 12:30
PROVIDERS: ATTEND Orthopaedic Surgery
DX: M48.02 Spinal stenosis, cervical region (principal); M43.12 Spondylolisthesis, cervical region; M50.221 Other cervical disc displacement at C4-C5 level; M50.223 Other cervical disc displacement at C6-C7 level; M51.24 Other intervertebral disc displacement, thoracic region; M51.36 Other intervertebral disc degeneration, lumbar region
CPT/HCPCS: 72141; 72146; 72148

== ENCOUNTER → 2018-08-30 | Outpatient (CLI) | payer OTHER ==
[2018-08-30 11:25] LABS: Appearance,Urine Clear (Clear); Bilirubin,Urine Negative (Negative); Blood,Urine Negative (Negative); Color,Urine Yellow; Glucose,Urine (UA) Negative (Negative); Ketones,Urine Negative (Negative); Leukocyte Esterase,Urine Negative (Negative); Nitrite,Urine Negative (Negative); Protein,Urine Trace (Negative); Specific Gravity,Urine 1.024 (1.001-1.035); Urobilinogen,Urine <2.0 mg/dL (<2.0)
[2018-08-30 11:39] LABS: Basophils # (A) 0.1 k/uL (0-0.2); Basophils % (A) 1 %; Eosinophils # (A) 0.2 k/uL (0-0.7); Eosinophils % (A) 2 %; HCT 41.3 % (34.0-46.0); HGB 13.3 gm/dL (11.4-16.0); Lymphocytes # (A) 3.3 k/uL (1.0-4.8); Lymphocytes % (A) 44 %; MCH 31.4 pg (25.0-35.0); MCHC 32.3 g/dL (31.0-37.0); MCV 97.4 fL (80.0-100.0); Mean Platelet Volume 6.5; Monocytes # (A) 0.5 k/uL (0-1.0); Monocytes % (A) 7 %; Neutrophils # (A) 3.3 k/uL (1.3-7.7); Neutrophils % (A) 44 %; Platelet Count 307 k/uL (150-450); RBC 4.24 m/uL (3.80-5.40); RDW 13.2 % (11.5-15.5); WBC 7.4 k/uL (3.8-10.6)
[2018-08-30 11:44] LABS: INR 0.9 (<1.2); Prothrombin Time 10.1 sec (9.0-12.0)
[2018-08-30 19:01] LABS: Albumin 4.9 g/dL (3.80-4.90); Albumin/Globulin Ratio 1.96 (1.60-3.17); Anion Gap 7.6 mmol/L (4.00-12.00); Calcium 9.5 mg/dL (8.7-10.3); Carbon Dioxide 25.4 mmol/L (21.6-31.8); Globulin 2.5 g/dL (1.6-3.3); Potassium 4.2 mmol/L (3.5-5.5); Total Bilirubin 0.3 mg/dL (0.3-1.2); Total Protein 7.4 g/dL (6.2-8.2)
== END ==
LOC: LABWHC1 10:12
PROVIDERS: ATTEND Neurological Surgery
DX: M50.123 Cervical disc disorder at C6-C7 level with radiculopathy (principal); M50.00 Cervical disc disorder with myelopathy, unspecified cervical region
CPT/HCPCS: 36415; 80053; 81003; 85025; 85610; 87070

== ENCOUNTER 2019-04-24 16:44 | Emergency (ER) | payer OTHER ==
[2019-04-24 17:04] VITALS: BP 121/75; PULSE 98; RESP 18; TEMP 98.2
[2019-04-24] MEDS ORDERED: AZITHROMYCIN 500 MG TAB PO STA (17:56)
[2019-04-24] MEDS ORDERED: cefTRIAXone 250 MG VIAL IM STA (17:56)
[2019-04-24 18:21] LABS: Amorphous Sediment,Urine Moderate /hpf; Appearance,Urine Cloudy (Clear); Bilirubin,Urine Negative (Negative); Blood,Urine Negative (Negative); Color,Urine Yellow; Glucose,Urine (UA) Negative (Negative); Ketones,Urine Negative (Negative); Leukocyte Esterase,Urine Negative (Negative); Mucus,Urine Rare /hpf; Nitrite,Urine Negative (Negative); Protein,Urine Negative (Negative); Specific Gravity,Urine 1.015 (1.001-1.035); Squamous Epithelial Cell,Urine 2 /hpf (0-4); Urobilinogen,Urine <2.0 mg/dL (<2.0)
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
--- NOTE | 2019-04-24 18:54 | ED ---
Medical Decision Making - Medical Decision Making Upon reevaluation patient patient reports that she believes that she may have bacterial vaginosis. Reports a slightly fishy odor. Requests empiric Treatment. Patient discharged with one week of Flagyl. - Lab Data Lab Results 04/24/19 04/24/19 Range/Units 17:59 17:59 Urine Color Yellow Urine Appearance Cloudy H (Clear) Urine pH 7.0 (5.0-8.0) Ur Specific [place] 1.015 (1.001-1.035) Urine Protein Negative (Negative) Urine Glucose (UA) Negative (Negative) Urine Ketones Negative (Negative) Urine Blood Negative (Negative) Urine Nitrite Negative (Negative) Urine Bilirubin Negative (Negative) Urine Urobilinogen <2.0 (<2.0) mg/dL Ur Leukocyte Esterase Negative (Negative) Ur Squamous Epith Cells 2 (0-4) /hpf Amorphous Sediment Moderate H (None) /hpf Urine Mucus Rare H (None) /hpf Urine HCG, Qual Not Detected (Not Detectd) Disposition Clinical Impression: Possible exposure to STD Disposition: HOME SELF-CARE Condition: Stable Instructions (If sedation given, give patient instructions): Sexually Transmitted Diseases (ED), Safe Sex (ED) Additional Instructions: Follow-up with primary care provider tomorrow. Return to ER if condition worsens in any way. Return to ER if fevers develop or any other symptoms. Prescriptions: metroNIDAZOLE [Flagyl] 500 mg PO BID 7 Days #14 tab Is patient prescribed a controlled substance at d/c from ED?: No Referrals: None,Stated [Primary Care Provider] - 1-2 days [facility] - [facility]-2 days
[2019-04-26 07:49] LABS: C. trachomatis,PCR Negative (Neg,Equiv); Chlamydia trachomatis Source Urine; N. gonorrhoeae,PCR Negative (Neg,Equiv); Neisseria Source Urine
== END 2019-04-24 19:06 | disposition home or self-care (01) ==
LOC: EC 16:44
DX: Z20.2 Contact with and (suspected) exposure to infections with a predominantly sexual mode of transmission (principal); M47.9 Spondylosis, unspecified; K21.9 Gastro-esophageal reflux disease without esophagitis; I25.2 Old myocardial infarction; F17.200 Nicotine dependence, unspecified, uncomplicated; Z79.891 Long term (current) use of opiate analgesic; Z79.899 Other long term (current) drug therapy; Z86.73 Personal history of transient ischemic attack (TIA), and cerebral infarction without residual deficits; Z98.51 Tubal ligation status; Z88.5 Allergy status to narcotic agent
CPT/HCPCS: 81001; 81025; 87491; 87591; 96372; 99284; J0696

== ENCOUNTER → 2019-06-11 | Outpatient (CLI) | payer OTHER ==
[2019-06-11 23:43] LABS: Anti-Smith Ab Interp NEGATIVE (NEGATIVE); Cyclic Citrull Pep IgG Unit <0.5 U/mL; Cyclic Citrullinated Pep IgG NEGATIVE (NEGATIVE); DNA Double-Stranded Indetermin (NEGATIVE); JO-1 IgG Antibody <0.2 AI; Scleroderma SC-70 Ab <0.2 AI
== END | disposition home or self-care (01) ==
LOC: LABWHC1 15:42
PROVIDERS: ATTEND Psychiatry & Neurology Pain Medicine
DX: M25.50 Pain in unspecified joint (principal)
CPT/HCPCS: 36415; 83516; 85652; 86038; 86200; 86225; 86235

== ENCOUNTER → 2019-08-08 | Outpatient (CLI) | payer OTHER ==
--- NOTE | 2019-08-08 08:24 | CT ---
EXAMINATION TYPE: CT cervical spine wo con DATE OF EXAM: 08/08/2019 COMPARISON: MRI 07/19/2018 HISTORY: neck pain with radiation to arms and hands, decreased range of motion. CT DLP: 231.8 mGycm Automated exposure control for dose reduction was used. TECHNIQUE: CT scan of the cervical spine is obtained without contrast, axial images are obtained, sa gittal and coronal reformatted images are also reviewed. FINDINGS: There is postsurgical change at C5-C6 and C6-C7 with straightening of the cervical spine an d loss of the normal lordotic curvature. Assessment spinal canal is limited due to artifact and resol ution. C2-C3 neural foramina are patent. Previously noted disc herniation seen by MRI is not as well identif ied by CAT scan. A chronic appearing deformity of the spinous process At C3-C4 mild hypertrophic change of the facets and uncovertebral joint hypertrophy. Mild right-sided foraminal encroachment. Minimal central disc bulging. At C4-C5 minimal uncovertebral joint hypertrophy. Neural foramina are patent. Minimal central disc bu lging. Neural foramina demonstrate mild bilateral narrowing. C5-6 there is postsurgical change. Artifact distorts the spinal canal. Assessment for disc herniation nondiagnostic. Bilateral mild foraminal encroachment suspected. C6-C7 there is posterior spur formation. Artifact distorts the spinal canal limited assessment for di sc herniation or canal stenosis. Moderate bilateral foraminal encroachment greater on the right suspe cted. At C7-T1 no obvious disc herniation or canal stenosis. No foraminal encroachment. IMPRESSION: 1. Postsurgical change C5-C6 and C6-C7. Bilateral foraminal encroachment at both level suspected. Ass essment spinal canal nondiagnostic due to artifact from the surgical change. 2. Stable appearing disc bulging and foraminal encroachment at remaining levels as discussed above.
== END | disposition home or self-care (01) ==
LOC: RADCTMAIN 07:01
PROVIDERS: ATTEND Neurological Surgery
DX: M50.11 Cervical disc disorder with radiculopathy, high cervical region (principal); Z98.890 Other specified postprocedural states
CPT/HCPCS: 72125

== ENCOUNTER → 2020-06-03 | Outpatient (CLI) | payer OTHER ==
--- NOTE | 2020-06-03 15:29 | XR ---
EXAMINATION TYPE: XR cervical spine limited DATE OF EXAM: 06/03/2020 COMPARISON: None HISTORY: Fusion TECHNIQUE: Three-view cervical spine FINDINGS: Anterior cervical fusion is present C4-C6. Disc spacers are visualized. Plate and screws ar e present. Prevertebral space is normal. No suspicious lucency is identified. IMPRESSION: 1. Post anterior cervical fusion. 2. No suspicious lucency or soft tissue abnormality to suggest underlying infection or osteomyelitis.
== END | disposition home or self-care (01) ==
LOC: RADXRMAIN 12:48
PROVIDERS: ATTEND Psychiatry & Neurology Neurology
DX: M54.2 Cervicalgia (principal); Z98.1 Arthrodesis status
CPT/HCPCS: 72040

== ENCOUNTER → 2020-10-23 | Outpatient (CLI) | payer OTHER ==
--- NOTE | 2020-10-23 09:15 | CT ---
EXAMINATION TYPE: CT cervical spine wo con DATE OF EXAM: 10/23/2020 COMPARISON: CT August 08, 2019. MRI cervical spine July 19, 2018. HISTORY: Cervicalgia, cervical disc disorder C6-C7 level with radiculopathy, status post arthrodesis. CT DLP: 300.7 mGycm. Automated Exposure Control for Dose Reduction was Utilized. TECHNIQUE: CT scan of the cervical spine is obtained without contrast, axial images are obtained, sa gittal and coronal reformatted images are also reviewed. FINDINGS: There is new anterior fusion plate and metallic disc material at C5-C7 levels on current st udy. Vertebral body heights and disc space heights are felt satisfactorily above and below surgical l evels. Mild anterior spurring C4-C5 level redemonstrated. Persistent mild multilevel anterior spurrin g in the upper thoracic spine. Alignment stable and satisfactory. Posterior bony protrusions C6 and s uperior C7 level mildly effacing anterior thecal sac, this is improved from the larger bony protrusio n at C6-C7 level prior study sagittal image 29. Axial images at C2-C3 level redemonstrate tiny central disc protrusion mildly effacing the anterior t hecal sac image 25 series 9. No significant interval change. Axial images at C3-C4 level redemonstrate mild uncovertebral facet degenerative changes with tiny edwin tral disc protrusion mildly effacing the anterior thecal sac on image 32 series 9. Patent bilateral n eural foramina. No significant interval change. Axial images at C4-C5 level show uncovertebral facet degenerative changes bilaterally. Patent bilater al neural foramina. Focal left paracentral disc protrusion image 39 series 9 is suspected slightly mo re prominent from priors. Surgical changes C5-C6 level with stable mild bilateral neural foraminal narrowing. Axial images at C6-C7 level show surgical changes with stable [id number] bilateral neural malgorzata inal narrowing. Axial images at C7-T1 level remain within normal limits. IMPRESSION: New surgical changes C5-C7 level with stable and satisfactory alignment. 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 Mild multilevel degenerative changes as detailed above, possible slightly more prominent disc herniation C4-C5 level otherwise no significant interval progression.
== END | disposition home or self-care (01) ==
LOC: RADCTMAIN 06:53
PROVIDERS: ATTEND Neurological Surgery
DX: M50.121 Cervical disc disorder at C4-C5 level with radiculopathy (principal); M47.22 Other spondylosis with radiculopathy, cervical region; M99.71 Connective tissue and disc stenosis of intervertebral foramina of cervical region; Z98.1 Arthrodesis status
CPT/HCPCS: 72125

== ENCOUNTER → 2020-12-18 | Outpatient (CLI) | payer OTHER ==
--- NOTE | 2020-12-18 15:20 | FL ---
Modified barium swallow. HISTORY: Dysphagia. Modified barium swallow was performed with the department of speech pathology. The patient was prese nted with various consistencies of barium. There is no evidence for aspiration or penetration. Full report is to follow from the department of speech pathology. Impression: Normal study.
== END | disposition home or self-care (01) ==
LOC: RADFLMAIN 10:59
PROVIDERS: ATTEND Psychiatry & Neurology Neurology
DX: R13.10 Dysphagia, unspecified (principal)
CPT/HCPCS: 74230

== ENCOUNTER 2021-01-06 02:10 | Observation (INO) | payer OTHER ==
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
[2021-01-06] MEDS ORDERED: SODIUM CHLORIDE 0.9% 1,000 ML IV STA (02:32)
[2021-01-06] MEDS ORDERED: diphenhydrAMINE 50 MG/ML 1 ML VIAL IVP STA (02:33)
[2021-01-06] MEDS ORDERED: HYDROmorphone 1 MG/ML 1 ML SYRINGE IVP STA (02:33)
[2021-01-06 02:53] LABS: Basophils # (A) 0.1 k/uL (0-0.2); Basophils % (A) 1 %; Eosinophils # (A) 0.2 k/uL (0-0.7); Eosinophils % (A) 3 %; HCT 37.1 % (34.0-46.0); HGB 12.2 gm/dL (11.4-16.0); Lymphocytes # (A) 2.2 k/uL (1.0-4.8); Lymphocytes % (A) 24 %; MCH 32.4 pg (25.0-35.0); MCHC 32.8 g/dL (31.0-37.0); MCV 98.9 fL (80.0-100.0); Macrocytosis Slight; Mean Platelet Volume 6.5; Monocytes # (A) 0.6 k/uL (0-1.0); Monocytes % (A) 6 %; Neutrophils # (A) 5.7 k/uL (1.3-7.7); Neutrophils % (A) 63 %; Platelet Count 520 k/uL (150-450); RBC 3.75 m/uL (3.80-5.40); RDW 15.3 % (11.5-15.5)
[2021-01-06] MEDS: SODIUM CHLORIDE 0.9% 1,000 ML IV STA ×3 (02:54→09:46)
[2021-01-06 03:00] LABS: Amorphous Sediment,Urine Rare /hpf; Appearance,Urine Cloudy (Clear); Bilirubin,Urine Negative (Negative); Blood,Urine Large (Negative); Color,Urine Yellow; Glucose,Urine (UA) Negative (Negative); Ketones,Urine Negative (Negative); Leukocyte Esterase,Urine Negative (Negative); Mucus,Urine Rare /hpf; Nitrite,Urine Negative (Negative); PH, Urine 6.5 (5.0-8.0); Protein,Urine Trace (Negative); RBC,Urine 98 /hpf (0-5); Specific Gravity,Urine 1.018 (1.001-1.035); Squamous Epithelial Cell,Urine <1 /hpf (0-4); Urobilinogen,Urine <2.0 mg/dL (<2.0); WBC,Urine 3 /hpf (0-5)
[2021-01-06 03:05] LABS: ALT 19 U/L (4-34); AST 24 U/L (14-36); African American GFR (CKD) >90 (>60 ml/min/1.73 sqM); Albumin 4.2 g/dL (3.5-5.0); Alkaline Phosphatase 87 U/L (38-126); Anion Gap 9 mmol/L; Blood Urea Nitrogen 13 mg/dL (7-17); Calcium 9.4 mg/dL (8.4-10.2); Carbon Dioxide 24 mmol/L (22-30); Chloride 107 mmol/L (98-107); Creatine Kinase 71 U/L (30-135); Glucose 102 mg/dL (74-99); Magnesium 2.1 mg/dL (1.6-2.3); Non-African American GFR(CKD) >90 (>60 ml/min/1.73 sqM); Phosphorus 4.7 mg/dL (2.5-4.5); Potassium 4.1 mmol/L (3.5-5.1); Sodium 140 mmol/L (137-145); Total Bilirubin 0.2 mg/dL (0.2-1.3); Total Protein 7.2 g/dL (6.3-8.2)
--- NOTE | 2021-01-06 03:21 | CT ---
EXAMINATION TYPE: CT cervical spine wo con DATE OF EXAM: 01/06/2021 COMPARISON: 10/23/2020 HISTORY: Neck pain CT DLP: 256.50 mGycm Automated exposure control for dose reduction was used. Images obtained from the skull base to T1 vertebra with no contrast. There is anterior fusion surgery from C5 to C7. There is a plate with screws. The posterior elements are intact. Facet joints are intact. Vertebra have normal alignment. There is some prevertebral soft tissue swelling at the level from C1 to C5. This measures 11 mm. This area measures 4 mm on previous exam. There is some thickening also the adenoids. The subglottic trac hea appears normal. Prevertebral soft tissues at the subglottic region appear stable compared to old exam. IMPRESSION: There is prevertebral soft tissue swelling in the upper cervical spine region that is a change compar ed to old exam. This could relate to a phlegmon or developing abscess. Follow-up recommended. No acute bony abnormality identified.
--- NOTE | 2021-01-06 03:27 | CT ---
EXAMINATION TYPE: CT ChestAbdPelvis w con DATE OF EXAM: 01/06/2021 COMPARISON: None HISTORY: neck pain CT DLP: 744.20 mGycm Automated exposure control for dose reduction was used. CONTRAST: Performed with IV Contrast, patient injected with 100 mL of Isovue 300. Images obtained from the thoracic inlet to the floor the pelvis with IV contrast. The lungs are clear of infiltrate. There is no pleural effusion. There is no mediastinal adenopathy. There are no hilar masses. Thoracic aorta is intact. There is no aneurysm or dissection. There is no pericardial effusion. Heart size is normal. Liver spleen stomach pancreas appear intact. Bile ducts are not dilated. There is no adrenal mass. Ki dneys show satisfactory contrast opacification. There is no hydronephrosis. Ureters are not dilated. The bladder distends smoothly. There is no inguinal hernia. There are clips from apparent tubal ligat ion. Uterus is normal. I see no pelvic mass. There is no free fluid in the pelvis. Cecum is low in th e right lower quadrant. Appendix is not seen. There is no sign of thickened appendix. There is some r etained fecal material in the large bowel. There is no ascites or free air. There is no sign of a bowel obstruction. There is no mesenteric omar a. The thoracic and lumbar vertebra appear intact. There is no compression fracture. Sternum is intac t. The bony pelvis is intact. Hip joints are intact. The ribs appear intact. The shoulder joints appe ar intact. IMPRESSION: There is evidence for some mild constipation. Appendix not seen. No sign of appendicitis. No signific ant abnormality in the chest.
[2021-01-06] MEDS ORDERED: AMPICILLIN-SULBACTAM 3 GM in SODIUM CHLORIDE 0.9% 100 ML IVPB STA (03:41)
[2021-01-06] MEDS ORDERED: CLINDAMYCIN 900 MG in DEXTROSE 5% IN WATER 50 ML IVPB STA ×2 (03:46)
[2021-01-06] MEDS ORDERED: DEXAMETHASONE SOD PHOSPHATE 10 MG/ML 1 ML VIAL IV STA (03:46)
[2021-01-06] MEDS ORDERED: DEXAMETHASONE SOD PHOSPHATE 4 MG/ML 1 ML VIAL IV PRN (03:46)
[2021-01-06] MEDS ORDERED: NALOXONE 0.4 MG/ML 1 ML VIAL IV PRN (03:47)
[2021-01-06] MEDS ORDERED: ONDANSETRON 4 MG/2 ML VIAL IVP PRN (03:47)
[2021-01-06] MEDS: HYDROmorphone 1 MG/ML 1 ML SYRINGE IVP PRN ×5 (05:25→21:16)
[2021-01-06] MEDS ORDERED: CLINDAMYCIN 300 MG in DEXTROSE 5% IN WATER 50 ML IVPB SCH ×2 (11:00)
[2021-01-06] MEDS: SODIUM CHLORIDE 0.9% 1,000 ML IV SCH (11:06)
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
[2021-01-06] MEDS: AMPICILLIN-SULBACTAM 3 GM in SODIUM CHLORIDE 0.9% 100 ML IVPB SCH ×2 (12:23→20:52)
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
[2021-01-06] MEDS ORDERED: VANCOMYCIN IV PER PHARMACY 1 EACH MISC MISCELLANE PRN (16:21)
[2021-01-06] MEDS: GABAPENTIN 300 MG CAP PO SCH ×2 (17:10→21:15)
[2021-01-06] MEDS: VANCOMYCIN 1,250 MG in SODIUM CHLORIDE 0.9% 250 ML IVPB SCH (17:10)
[2021-01-06] MEDS: NICOTINE 7MG/24HR PATCH TRANSDERM SCH (17:10)
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
[2021-01-06] MEDS: BACLOFEN 10 MG TAB PO SCH (20:27)
[2021-01-06] MEDS: HYDROcodone/APAP 7.5-325MG 1 EACH TAB PO PRN (23:31)
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
[2021-01-07] MEDS: VANCOMYCIN 1,250 MG in SODIUM CHLORIDE 0.9% 250 ML IVPB SCH ×3 (00:03→17:32)
[2021-01-07] MEDS: HYDROmorphone 1 MG/ML 1 ML SYRINGE IVP PRN ×6 (01:52→22:10)
[2021-01-07] MEDS: AMPICILLIN-SULBACTAM 3 GM in SODIUM CHLORIDE 0.9% 100 ML IVPB SCH ×3 (03:54→20:13)
[2021-01-07 06:03] LABS: Basophils % (A) 0 %; Eosinophils # (A) 0.1 k/uL (0-0.7); Eosinophils % (A) 2 %; Lymphocytes # (A) 2.5 k/uL (1.0-4.8); Lymphocytes % (A) 28 %; MCH 33.1 pg (25.0-35.0); MCHC 33.3 g/dL (31.0-37.0); MCV 99.6 fL (80.0-100.0); Macrocytosis Slight; Mean Platelet Volume 7.1; Monocytes # (A) 0.7 k/uL (0-1.0); Monocytes % (A) 7 %; Neutrophils # (A) 5.3 k/uL (1.3-7.7); Neutrophils % (A) 60 %; Platelet Count 407 k/uL (150-450); RBC 3.01 m/uL (3.80-5.40); RDW 14.7 % (11.5-15.5); WBC 8.8 k/uL (3.8-10.6)
[2021-01-07 06:20] LABS: African American GFR (CKD) >90 (>60 ml/min/1.73 sqM); Anion Gap 5 mmol/L; Blood Urea Nitrogen 8 mg/dL (7-17); Calcium 8.8 mg/dL (8.4-10.2); Carbon Dioxide 26 mmol/L (22-30); Chloride 107 mmol/L (98-107); Glucose 99 mg/dL (74-99); Non-African American GFR(CKD) >90 (>60 ml/min/1.73 sqM); Sodium 138 mmol/L (137-145)
[2021-01-07] MEDS: HYDROcodone/APAP 7.5-325MG 1 EACH TAB PO PRN ×4 (07:29→20:12)
[2021-01-07] MEDS ORDERED: bisacodyL 5 MG TABLET.DR PO PRN (07:59)
[2021-01-07] MEDS: SODIUM CHLORIDE 0.9% 1,000 ML IV SCH (08:01)
[2021-01-07] MEDS: ACETAMINOPHEN IV (For NPO) 1,000 MG in EMPTY BAG 1 BAG IVPB PRN ×2 (08:49→17:08)
[2021-01-07] MEDS: CYCLOBENZAPRINE 10 MG TAB PO PRN ×2 (08:50→17:08)
[2021-01-07] MEDS: GABAPENTIN 300 MG CAP PO SCH ×2 (08:50→17:14)
[2021-01-07] MEDS: NICOTINE 7MG/24HR PATCH TRANSDERM SCH ×2 (08:50→17:33)
[2021-01-07] MEDS ORDERED: BACLOFEN 10 MG TAB PO SCH (09:00)
--- NOTE | 2021-01-07 11:31 | P.PN ---
Subjective Progress Note Date: 01/07/21 Patient continues to complain of neck pain today. MRI is still pending. Objective - Vital Signs Vital signs: Vital Signs Temp 98.1 F 01/07/21 08:20 Pulse 76 01/07/21 08:20 Resp 18 01/07/21 08:20 BP 147/92 01/07/21 08:20 Pulse Ox 98 01/07/21 08:20 Intake & Output 01/06/21 01/07/21 01/07/21 18:59 06:59 18:59 Intake Total 440 Balance 440 Weight 61.235 kg Intake: Oral 440 Other: Voiding Method Toilet # Voids 2 1 - Exam General: The patient is awake and alert, in no distress Eye: there is normal conjunctiva bilaterally. Neck: The neck is supple, there is no JVD. Cardiovascular: Normal S1-S2, no S3-S4, no murmurs. Respiratory: Lungs clear to auscultation bilaterally Gastrointestinal: Abdomen is soft, nontender Musculoskeletal: There is no pedal edema. Neurological:. Speech is normal. Skin: Skin is warm and dry - Labs CBC & Chem 7: 01/07/21 05:16 01/07/21 05:16 Labs: Abnormal Lab Results - Last 24 Hours (Table) 01/06/21 01/06/21 01/07/21 Range/Units 03:48 03:48 05:16 RBC 3.01 L (3.80-5.40) m/uL Hgb 10.0 L D (11.4-16.0) gm/dL Hct 30.0 L (34.0-46.0) % ESR 37 H (0-20) mm/hr Creatinine (0.52-1.04) mg/dL C-Reactive Protein 2.1 H (<1.0) mg/dL 01/07/21 Range/Units 05:16 RBC (3.80-5.40) m/uL Hgb (11.4-16.0) gm/dL Hct (34.0-46.0) % ESR (0-20) mm/hr Creatinine 0.51 L (0.52-1.04) mg/dL C-Reactive Protein (<1.0) mg/dL Microbiology - Last 24 Hours (Table) 01/06/21 04:00 Blood Culture - Preliminary Blood No Growth after 24 hours 01/06/21 04:15 Blood Culture - Preliminary Blood No Growth after 24 hours Assessment and Plan Assessment: 1. Acute on chronic neck pain 2. Prevertebral soft tissue swelling noted on computed tomography scan from C1 to C5 concerning for possible underlying abscess 3. History of anterior cervical spine fusion from C5 to C7 Today, I reviewed her medication list and lab work results. Awaiting MRI of the cervical spine. Patient was started on broad-spectrum antibiotic with IV Unasyn and clindamycin. Culture pending. ESR and CRP only slightly elevated. Continue pain control with IV Dilaudid as needed. DVT prophylaxis with SCDs
--- NOTE | 2021-01-07 14:49 | PN ---
PROGRESS NOTE DATE: 01/07/21 REASON FOR FOLLOWUP: Neck pain with concern for prevertebral cellulitis The patient is afebrile. She has been complaining of significant pain to the neck area. Some relief with pain medication. Denies having any chest pain, shortness of breath or cough. No abdominal pain or diarrhea. PHYSICAL EXAMINATION: Blood pressure 147/92 with a pulse of 73, temperature 98.1. She is 98%. Description is a middle-aged female up in the room in no distress. HEENT examination no swelling no redness. Lungs unlabored breathing clear to auscultation anteriorly. Heart S1, S2. Regular rate and rhythm. LABS: Hemoglobin is 10.3, white count 8.8 and 37. is 2.1. MRI is pending. 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 Waiting for the MRI and this patient may be medically transferred to [facility]. Patient is covered with Unasyn and vancomycin. MMODL / IJN: [id number] /
[2021-01-07] MEDS ORDERED: VANCOMYCIN TROUGH DUE 1 EACH MISC MISCELLANE ONE (16:00)
[2021-01-07] MEDS: BACLOFEN 10 MG TAB PO SCH (20:14)
[2021-01-07] MEDS ORDERED: GABAPENTIN 300 MG CAP PO SCH (21:00)
[2021-01-08] MEDS: VANCOMYCIN 1,250 MG in SODIUM CHLORIDE 0.9% 250 ML IVPB SCH ×2 (01:02→08:45)
--- NOTE | 2021-01-08 01:08 | MR ---
EXAMINATION TYPE: MR cervical spine wo/w con DATE OF EXAM: 01/07/2021 COMPARISON: 12/16/2020 HISTORY: possible epidural abcess CONTRAST: Standard multiplanar, multisequence MRI departmental protocol utilizing 6 mL intravenous Gadavist zoya olinium contrast. Cervical vertebra have normal Alignment. There is metal artifact that obscures the cervical spine at C5-6 and C6-7 related to anterior fusion surgery. Cervical cord is somewhat obscured by the metal art ifact. It is difficult to determine if there is spinal stenosis. The upper cervical cord has normal s ignal pattern. Upper thoracic spinal cord has normal signal pattern. Brainstem is intact. There is so me epidural enhancement posteriorly at the level from C4 to C7 which measures 1 1 to 2 mm. It is not clear if this is compromising the spinal canal. this could be epidural veins and appears not changed compared to the previous exam. There is no sign of a compression fracture. The brainstem appears intact. IMPRESSION: Anterior fusion surgery. Evaluation of the size of the spinal canal is very difficult at the level of the surgery at C5-6 and C6-7. No definite evidence for spinal stenosis. There is probably no change compared to recent exam. I do not see convincing evidence for an epidural abscess.
[2021-01-08] MEDS: AMPICILLIN-SULBACTAM 3 GM in SODIUM CHLORIDE 0.9% 100 ML IVPB SCH ×2 (03:04→12:18)
[2021-01-08] MEDS: HYDROmorphone 1 MG/ML 1 ML SYRINGE IVP PRN ×3 (03:09→11:27)
[2021-01-08] MEDS: CYCLOBENZAPRINE 10 MG TAB PO PRN ×2 (03:26→11:37)
[2021-01-08] MEDS: HYDROcodone/APAP 7.5-325MG 1 EACH TAB PO PRN ×3 (04:43→12:53)
[2021-01-08] MEDS: NICOTINE 7MG/24HR PATCH TRANSDERM SCH (08:42)
[2021-01-08] MEDS ORDERED: GABAPENTIN 300 MG CAP PO SCH (09:00)
[2021-01-08 09:03] VITALS: BP 131/86; PULSE 74; RESP 18; TEMP 98.2
--- NOTE | 2021-01-08 11:30 | P.PN ---
Subjective Progress Note Date: 01/08/21 Principal diagnosis: Neck pain Patient is examined today at bedside, she is resting in her hospital bed. She continues to demonstrate the same symptoms from her initial consult. The MRI was done of the cervical spine yesterday. Dr. Hudson was able to review both the images and report from radiology. There are no acute findings suggesting an epidural abscess at this time. No emergent orthopedic spine surgical intervention recommended at this time. Objective - Vital Signs Vital signs: Vital Signs Temp 98.2 F 01/08/21 08:00 Pulse 74 01/08/21 08:00 Resp 18 01/08/21 08:00 BP 131/86 01/08/21 08:00 Pulse Ox 100 01/08/21 08:00 Intake & Output 01/07/21 01/08/21 01/08/21 18:59 06:59 18:59 Intake Total 1531 520 Balance 1531 520 Intake: Intake, IV Titration 451 Amount ACETAMINOPHEN IV (For NPO 101 ) 1,000 mg In Empty Bag 1 bag @ 400 mls/hr IVPB Q6HR PRN Rx#:[id number] Ampicillin-Sulbactam 3 gm 100 In Sodium Chloride 0.9% 100 ml @ 200 mls/hr IVPB Q8H COUNTS INCLUDE 234 BEDS AT THE [facility] Rx#:[id number] Vancomycin 1,250 mg In 250 Sodium Chloride 0.9% 250 ml @ 125 mls/hr IVPB Q8H COUNTS INCLUDE 234 BEDS AT THE [facility] Rx#:[id number] Oral 1080 520 Other: Voiding Method Toilet # Voids 1 1 - Exam Gen: AOx3, NAD VSS stable at this time Integument: Well-healed right-sided anterior neck incision, there is no fluctuance in that area. No skin changes are noted throughout the cervical, thoracic or lumbar spine on the posterior aspect Palpation: Patient has significant tenderness with palpation in the midline and paraspinal region of the cervical and superior thoracic spine. Normal discomfort in the lumbar spine region with palpation in the midline and paraspinal region ROM: Range of motion is intact in all major muscle groups in bilateral upper and lower extremities. Limited motion on the left arm due to the IV fixation on the left upper extremity Sensory Exam: [place] exam to light touch is intact C5-T1 [place] exam to light touch is intact L2-S1 Motor: 55 strength is appreciated in the right upper extremity with shoulder abduction, 40 elevation, elbow flexion, elbow extension, wrist extension, wrist flexion, finger intrinsics 45 strength appreciated in the left upper extremity with support elevation and shoulder abduction, unable to test elbow flexion and elbow extension. 4 out of 5 strength is appreciated with wrist extension and flexion 55 strength appreciated in the right lower extremity with hip flexion, knee extension, knee flexion, plantar flexion, dorsiflexion, EHL, FHL 45 strength is appreciated in the left lower extremity with hip flexion, knee extension, knee flexion, plantar flexion, dorsiflexion, EHL, FHL Reflexes: Negative Elena's bilaterally Negative clonus on the left side, positive clonus on the right 3 beats - Labs CBC & Chem 7: 01/07/21 05:16 01/07/21 05:16 Labs: Microbiology - Last 24 Hours (Table) 01/06/21 04:15 Blood Culture - Preliminary Blood No Growth after 48 hours 01/06/21 04:00 Blood Culture - Preliminary Blood No Growth after 48 hours Assessment and Plan Assessment: Cervicalgia with radiculopathy bilateral upper extremities, left worse than right Prevertebral soft tissue swelling, CT cervical spine finding Status post C5 to C7 ACDF with complicating process of previous infections Other medical comorbidities Plan: At this time, no emergent orthopedic spine surgical intervention is recommended Discussed with the patient today bedside the possibility of follow-up with either Dr. Hudson or a different orthopedic spine/neuro surgeon for further workup of her cervical spine Advise follow-up with Dr. Giles in the outpatient setting for continuing workup of her thoracic spine pathology Pain control, discussed the need to limit the IV pain medication for discharge. She does have a pain contract with Dr. Giles. I advise that she contact him regarding possible changes in medication, this to include [place] every 4 hours GI and DVT prophylaxis per primary medical service Discharge planning: On orthopedic standpoint, patient is stable for discharge and follow-up in the outpatient setting Time with Patient: Less than 30
--- NOTE | 2021-01-08 14:10 | P.DS ---
Providers Date of admission: 01/06/21 03:49 Expected date of discharge: 01/08/21 Attending physician: Rajesh Henley Consults: 01/06/21 03:48 Consult Physician Routine Consulting Provider: Gurmeet Sánchez Consult Reason/Comments: neck pain Do you want consulting provider notified?: Yes 01/06/21 09:04 Consult Physician Routine Consulting Provider: Jonathan Hudson Consult Reason/Comments: prevertebral swelling, neck pain Do you want consulting provider notified?: Yes 01/06/21 12:16 Consult Physician Routine Consulting Provider: Melinda Lua Consult Reason/Comments: Questionable prevertebral abscess Do you want consulting provider notified?: Yes Primary care physician: Stated None Hospital Course: This is a 40-year-old female who presented to the emergency room with acute on chronic neck pain. Patient was evaluated in the ER and cervical computed tomography scan showed evidence of prevertebral soft tissue swelling with possible underlying abscess. Patient was admitted to the hospital on observation and was started on broad spectrum antibiotic with infectious disease, ENT, and orthopedic consultation. Patient's inflammatory marker were within acceptable range and only slightly elevated. Blood culture remained negative and patient remained afebrile. Patient eventually had an MRI showing no evidence of any abscess formation or acute findings other than postsurgical changes involving C5 to C7 cervical spine fusion. Patient is cleared for discharge home. She will follow-up with her pain management clinic as directed. Patient was seen and evaluated by me on the day of discharge. She was requesting prescription for [place] but was advised that this would violate her pain contract with the pain clinic. She was advised to follow-up in the office as directed. Patient Condition at Discharge: Fair Plan - Discharge Summary Discharge Rx Participant: No New Discharge Prescriptions: Continue Ibuprofen [Motrin] 800 mg PO Q8H PRN #30 tab PRN Reason: Pain Butalb/APAP/Caff 50-325-40Mg [Fioricet 50-325-40] 1 tab PO TID PRN PRN Reason: Migraine Headache Gabapentin [Neurontin] 300 mg PO TID HYDROcodone/APAP 7.5-325MG [[place] 7.5-325] 1 tab PO TID PRN PRN Reason: Pain Baclofen [Lioresal] 10 mg PO DAILY Discharge Medication List Ibuprofen [Motrin] 800 mg PO Q8H PRN #30 tab 12/28/16 [Rx] Butalb/APAP/Caff 50-325-40Mg [Fioricet 50-325-40] 1 tab PO TID PRN 11/03/17 [History] Baclofen [Lioresal] 10 mg PO DAILY 01/06/21 [History] Gabapentin [Neurontin] 300 mg PO TID 01/06/21 [History] HYDROcodone/APAP 7.5-325MG [[place] 7.5-325] 1 tab PO TID PRN 01/06/21 [History] Follow up Appointment(s)/Referral(s): Yang Giles MD [Medical Doctor] - 1-2 Days None,Stated [Primary Care Provider] - 1-2 days Jonathan Hudson DO [Doctor of Osteopathic Medicine] - 01/19/21 11:00 am [employer] [NON-STAFF] - As Needed Patient Instructions/Handouts: Cervical Strain (DC), Chronic Neck Pain (DC) Discharge/Stand Alone Forms: Who Do I Call? Discharge Disposition: HOME SELF-CARE
--- NOTE | 2021-01-08 16:32 | PN ---
PROGRESS NOTE DATE OF SERVICE: 01/08/2021. REASON FOR FOLLOWUP VISIT: Neck pain with normal CT concerning for prevertebral cellulitis. INTERVAL HISTORY: Patient was seen on rounds this morning. The patient has been afebrile. Still complaining of pain to the neck area. No worsening though. No difficulty swallowing. No chest pain, shortness of breath or cough. No abdominal pain. No diarrhea. PHYSICAL EXAMINATION: Blood pressure 131/86, pulse of 74, temperature 98.2. She is 100% on room air. General description is a middle-aged female up in the bed in no distress. HEENT examination: No swelling. No redness. Lungs unlabored breathing. Clear to auscultation anteriorly. Heart S1, S2. Regular rate and rhythm. Abdomen soft, no tenderness. LABS: White count is normal. Culture has been negative. MRI did not show any cellulitis or paraspinal abscess. DIAGNOSTIC IMPRESSION AND PLAN: Patient with neck pain with abnormal CT on admission, suspicious for prevertebral cellulitis versus abscess. The patient did have MRI which has been negative. Antibiotic has been discontinued, being followed by Spine Surgery. No need for antibiotic on discharge. This was discussed with the admitting team. MMODL / IJN: [id number] /
[2021-01-09] MEDS ORDERED: VANCOMYCIN TROUGH DUE 1 EACH MISC MISCELLANE ONE (08:00)
== END 2021-01-08 13:24 | disposition home or self-care (01) ==
LOC: EC 02:10 → 6NMEDSUR 03:49 → 6PED 06:32
PROVIDERS: ADMIT Internal Medicine; ATTEND Internal Medicine
DX: G89.4 Chronic pain syndrome (principal); M54.2 Cervicalgia; L03.90 Cellulitis, unspecified; M54.10 Radiculopathy, site unspecified; Z98.1 Arthrodesis status; F17.200 Nicotine dependence, unspecified, uncomplicated; M06.9 Rheumatoid arthritis, unspecified; M19.90 Unspecified osteoarthritis, unspecified site; R20.0 Anesthesia of skin; L05.91 Pilonidal cyst without abscess; K21.9 Gastro-esophageal reflux disease without esophagitis; R20.2 Paresthesia of skin; M54.9 Dorsalgia, unspecified; F41.9 Anxiety disorder, unspecified; I25.2 Old myocardial infarction; J45.909 Unspecified asthma, uncomplicated; K59.00 Constipation, unspecified; Z79.899 Other long term (current) drug therapy; Z86.73 Personal history of transient ischemic attack (TIA), and cerebral infarction without residual deficits; Z87.442 Personal history of urinary calculi; Z80.1 Family history of malignant neoplasm of trachea, bronchus and lung; Z82.5 Family history of asthma and other chronic lower respiratory diseases; Z90.49 Acquired absence of other specified parts of digestive tract
CPT/HCPCS: 96361 ×2; 96365; 96366 ×4; 96376 ×4; 96367; 96375; 99285; 36415; 80053; 80048; 85652; 82550; 83735; 84100; 84484; 85025 ×2; 80202; 86140; 81001; 87040; 72125; 71260; 74177; 72156; G0378 ×4; S4990 ×3; J3370 ×3; J1200; J1100; J1170 ×3; J0295 ×3; J0131; Q9967; A9585

== ENCOUNTER 2021-01-21 00:12 | Emergency (ER) | payer OTHER ==
[2021-01-21] MEDS ORDERED: diazePAM 5 MG TAB PO STA (01:28)
[2021-01-21] MEDS ORDERED: HYDROmorphone 1 MG/ML 1 ML SYRINGE IM STA (01:28)
[2021-01-21] MEDS ORDERED: diphenhydrAMINE 50 MG CAP PO STA (01:28)
[2021-01-21] MEDS ORDERED: ETODOLAC 400 MG TAB PO STA (01:28)
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
[2021-01-21] MEDS ORDERED: haloperidoL 5 MG TAB PO STA (02:37)
[2021-01-21 03:26] VITALS: RESP 20
[2021-01-21 03:28] VITALS: BP 113/75; PULSE 76; TEMP 98.1
== END 2021-01-21 04:11 | disposition home or self-care (01) ==
LOC: EC 00:12
DX: M54.2 Cervicalgia (principal); R07.9 Chest pain, unspecified; J45.909 Unspecified asthma, uncomplicated; K21.9 Gastro-esophageal reflux disease without esophagitis; I25.2 Old myocardial infarction; M19.90 Unspecified osteoarthritis, unspecified site; F17.200 Nicotine dependence, unspecified, uncomplicated; F12.90 Cannabis use, unspecified, uncomplicated; Z79.1 Long term (current) use of non-steroidal anti-inflammatories (NSAID); Z79.899 Other long term (current) drug therapy; Z86.73 Personal history of transient ischemic attack (TIA), and cerebral infarction without residual deficits; Z88.1 Allergy status to other antibiotic agents; Z88.5 Allergy status to narcotic agent; Z88.8 Allergy status to other drugs, medicaments and biological substances; Z90.49 Acquired absence of other specified parts of digestive tract; Z80.1 Family history of malignant neoplasm of trachea, bronchus and lung
CPT/HCPCS: 99283; 96372; J1170

== ENCOUNTER 2021-05-12 07:30 | Inpatient (IN) | payer OTHER ==
[2021-05-19 15:52] VITALS: BMI 24.1
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
[2021-05-26] MEDS ORDERED: TRANEXAMIC ACID 1,000 MG in SODIUM CHLORIDE 0.9% 100 ML IVPB PRN ×4 (05:00)
[2021-05-26] MEDS ORDERED: ONDANSETRON 4 MG/2 ML VIAL IVP PRN ×2 (05:00→21:57)
[2021-05-26] MEDS ORDERED: GABAPENTIN 300 MG CAP PO PRN (05:00)
[2021-05-26] MEDS ORDERED: ACETAMINOPHEN TAB 500 MG TAB PO PRN (05:00)
[2021-05-26] MEDS: LIDOCAINE 1% (10MG/ML) FOR IV START INTRADERMA PRN ×2 (11:15→11:18)
[2021-05-26] MEDS ORDERED: MIDAZOLAM 2 MG/2 ML VIAL IVP ONE (11:18)
[2021-05-26] MEDS: LACTATED RINGERS 1,000 ML IV SCH (11:18)
[2021-05-26] MEDS ORDERED: ROCURONIUM 10 MG/ML (5 ML VIAL) IV ONE (14:29)
[2021-05-26] MEDS ORDERED: KETAMINE 10 MG/ML 20 ML VIAL ONE (14:29)
[2021-05-26] MEDS ORDERED: PHENYLEPHRINE-0.9% NACL SYG 1,000 MCG/10 ML SYRINGE ONE (14:29)
[2021-05-26] MEDS ORDERED: GLYCOPYRROLATE 0.2 MG/ML 2 ML VIAL ONE (14:29)
[2021-05-26] MEDS ORDERED: NEOSTIGMINE 1 MG/ML 10 ML VIAL ONE (14:29)
[2021-05-26] MEDS ORDERED: fentaNYL (PF) 50 MCG/ML 2 ML AMP ONE (14:29)
[2021-05-26] MEDS ORDERED: PROPOFOL 10 MG/ML 20 ML VIAL IV ONE (14:29)
[2021-05-26] MEDS ORDERED: MIDAZOLAM 2 MG/2 ML VIAL ONE (14:29)
[2021-05-26] MEDS ORDERED: HYDROmorphone (PF) 1 MG/ML ONE (14:29)
[2021-05-26] MEDS ORDERED: SUCCINYLCHOLINE CHLORIDE 100 MG/5 ML SYR IV ONE (14:29)
[2021-05-26] MEDS ORDERED: LIDOCAINE 1% INJ 10MG/ML (20 ML MDV) ONE (14:29)
[2021-05-26] MEDS ORDERED: SODIUM CHLORIDE 0.9% 100 ML BAG ONE (14:29)
[2021-05-26] MEDS ORDERED: TRANEXAMIC ACID 1,000 MG/10 ML VIAL ONE (14:29)
[2021-05-26] MEDS ORDERED: THROMBIN (BOVINE) 5,000 UNIT VIAL TOPICAL ONE (15:28)
[2021-05-26] MEDS ORDERED: GELATIN SPONGE,ABSORB (LARGE) 1 EACH SPONGE MISCELLANE ONE (15:28)
[2021-05-26] MEDS ORDERED: LACTATED RINGERS 1,000 ML IV ONE (16:00)
[2021-05-26] MEDS ORDERED: VANCOMYCIN 1,000 MG VIAL MISCELLANE ONE (17:23)
[2021-05-26] MEDS ORDERED: HYDROmorphone 0.5 MG/0.5 ML SYRINGE IVP PRN (18:08)
[2021-05-26] MEDS ORDERED: SENNOSIDES-DOCUSATE SODIUM 1 EACH TAB PO PRN (18:08)
[2021-05-26] MEDS ORDERED: VANCOMYCIN IV PER PHARMACY 1 EACH MISC MISCELLANE PRN (18:13)
[2021-05-26] MEDS: HYDROmorphone 0.5 MG/0.5 ML SYRINGE IVP PRN ×2 (18:15→18:33)
--- NOTE | 2021-05-26 18:30 | FL ---
Fluoroscopy History: C2-T2 DECOMPRESSION C2-T2 DECOMPRESSION for cervical stenosis. Dr Hudson. 8 images saved. fl time 59 sec
[2021-05-26] MEDS: MORPHINE SULF 5MG/10ML VL IVP ONE ×3 (19:00→19:10)
[2021-05-26] MEDS: CYCLOBENZAPRINE 10 MG TAB PO PRN (20:07)
[2021-05-26] MEDS: HYDROmorphone 1 MG/ML 1 ML SYRINGE IVP PRN ×2 (20:26→23:37)
[2021-05-26 20:47] LABS: African American GFR (CKD) >90 (>60 ml/min/1.73 sqM); Non-African American GFR(CKD) >90 (>60 ml/min/1.73 sqM)
[2021-05-26] MEDS: GABAPENTIN 300 MG CAP PO SCH (22:16)
[2021-05-26] MEDS: SODIUM CHLORIDE 0.9% 1,000 ML IV SCH (22:17)
--- NOTE | 2021-05-26 22:24 | XR ---
EXAMINATION TYPE: XR cervical spine limited DATE OF EXAM: 05/26/2021 COMPARISON: NONE HISTORY: Surgery TECHNIQUE: 9 fluoroscopic images were obtained. There is fluoroscopic time of 59 seconds. A series of multiple images show placement of rods and screws fusing posteriorly the cervical spine f rom the level of C2-T1 level. Detail limited. IMPRESSION: Successful posterior multilevel fusion surgery.
[2021-05-27] MEDS: oxyCODONE-APAP 10-325MG 1 EACH TAB PO SCH ×5 (00:52→23:57)
[2021-05-27] MEDS: HYDROmorphone 1 MG/ML 1 ML SYRINGE IVP PRN ×6 (02:52→21:31)
[2021-05-27] MEDS: VANCOMYCIN 1,000 MG in SODIUM CHLORIDE 0.9% 250 ML IVPB SCH ×3 (03:29→20:02)
[2021-05-27] MEDS: CYCLOBENZAPRINE 10 MG TAB PO PRN ×2 (06:12→16:54)
[2021-05-27 06:31] LABS: Basophils % (A) 1 %; Eosinophils # (A) 0.1 k/uL (0-0.7); Eosinophils % (A) 1 %; HCT 37.3 % (34.0-46.0); HGB 11.9 gm/dL (11.4-16.0); Hypochromasia Slight; Lymphocytes # (A) 2.4 k/uL (1.0-4.8); Lymphocytes % (A) 34 %; MCH 32.1 pg (25.0-35.0); MCV 100.4 fL (80.0-100.0); Macrocytosis Slight; Mean Platelet Volume 6.7; Monocytes # (A) 0.4 k/uL (0-1.0); Monocytes % (A) 6 %; Neutrophils # (A) 3.9 k/uL (1.3-7.7); Neutrophils % (A) 57 %; Platelet Count 282 k/uL (150-450); RBC 3.72 m/uL (3.80-5.40)
[2021-05-27 06:39] LABS: African American GFR (CKD) >90 (>60 ml/min/1.73 sqM); Non-African American GFR(CKD) >90 (>60 ml/min/1.73 sqM)
[2021-05-27] MEDS: GABAPENTIN 300 MG CAP PO SCH ×3 (07:17→19:55)
[2021-05-27] MEDS: SODIUM CHLORIDE 0.9% 1,000 ML IV SCH (07:18)
--- NOTE | 2021-05-27 08:06 | P.PN ---
Subjective Progress Note Date: 05/27/21 Patient seen and examined she is fairly sore today however is doing fairly well. She has been up to the bathroom but only once or twice. She is sitting up in bed this morning. Her c-collar is in place. She denies any fevers chills shortness of breath or chest pain overnight. No new numbness or tingling. Objective - Vital Signs Vital signs: Vital Signs Temp 98.2 F 05/27/21 04:08 Pulse 68 05/27/21 04:08 Resp 18 05/27/21 04:08 BP 144/90 05/27/21 04:08 Pulse Ox 100 05/27/21 04:08 Intake & Output 05/26/21 05/27/21 05/27/21 18:59 06:59 18:59 Intake Total 2250 Output Total 425 800 Balance 1825 -800 Weight 57.7 kg Intake: IV 2250 Output: Urine 175 800 Estimated Blood Loss 250 - Exam Patient is alert and oriented 3 appears well-nourished well-hydrated is in no acute distress. They does not appear septic. On exam the patient has no tenderness to palpation of her thoracic or lumbar spine. There is no edema or b allottement sign. Lower extremities with 5 out of 5 strength in all major muscle groups Upper extremities show 5/5 strength in all major muscle groups. 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 They are intact to light touch sensation in L2 to S1 nerve distribution. They are intact to light touch sensation in C5 to T1 nerve distribution Patient has palpable dorsalis pedis was posterior tibial pulses. Compartments are soft and compressible. Patient shows a negative Homans Positive Artis's still on the left, negative on the right negative Babinski's negative clonus bilaterally. negative straight leg raise bilaterally. No tensioning signs. Cranial nerves II through XII are grossly intact. Overall alignment is well-maintained in the sagittal coronal planes. Incision clean and dry Drain has moderate output - Labs CBC & Chem 7: 05/27/21 06:10 05/27/21 06:10 Labs: Abnormal Lab Results - Last 24 Hours (Table) 05/27/21 05/27/21 Range/Units 06:10 06:10 RBC 3.72 L (3.80-5.40) m/uL MCV 100.4 H (80.0-100.0) fL Creatinine 0.50 L (0.52-1.04) mg/dL Assessment and Plan Assessment: 40-year-old female postop day 1 C2 to T1 decompression fusion 1. Pseudoarthrosis C5-C7 2.C4-C5 adjacent segment disease 3. C3-C7 Stenosis severe at C5-6 4.Bilateral UE weakness 5. B/L UE radiculopathy 6. Cervical myelopathy Plan: -Appreciate health management consultant and team management. -Activity: Ambulate QID, OOB all meals, up and about, limit lifting bending twisting to less than 5 lbs. Use walker or cane if needed for stability. -Daily PT/OT, increase ambulation strength and balance. -Brace when up and about, not needed in bed or chair -Pain control: Adequate at this time -Meds: reviewed -GI ppx: senna, Miralax -DC hoang when up and about, bedside commode if needed -DVT PPX: OK to restart Heparin tonight -Hygiene: Shower today. Maintain dressing clean and dry. Meticulous cleaning after BMs away from incision site -Drains: Maintain for now. Record output -Encourage IS 10x/hr -Dispo: Pending
--- NOTE | 2021-05-27 08:47 | CT ---
EXAMINATION TYPE: CT cervical spine wo con DATE OF EXAM: 05/27/2021 COMPARISON: 01/06/2021 HISTORY: s/p C2-T1 decompression fusion CT DLP: [address] of the cervical spine was performed with bone and soft tissue window settings submitted . Coronal and sagittal reconstruction is obtained. There has been interval posterior cervical decompression extending from C2 through T1. Pedicular scre ws and interconnecting rods are in place. Streak artifact limits portions of the examination. At this time alignment appears anatomic. Postsurgical soft tissue changes are noted with foci of air seen. T he overlying skin lelo noted. Previous anterior cervical discectomy and fusion noted at C5-C7 appe aring stable. IMPRESSION: Interval posterior cervical decompression extending from C2 through T1. Pedicular screws and intercon necting rods are in place. Alignment appears near-anatomic. Streak artifact limits portions of the st udy.
[2021-05-27] MEDS: PANTOPRAZOLE 40 MG TABLET PO SCH (16:03)
--- NOTE | 2021-05-27 16:18 | P.OP ---
Date of Procedure: 05/26/21 Preoperative Diagnosis: 1. Cervical myelopathy 2. C3-7 Stenosis 3. s/p C5-7 ACDF 4. b/l UE radiculopathy 5. Mechanical Neck Pain Postoperative Diagnosis: 1. Cervical myelopathy 2. C3-7 Stenosis 3. s/p C5-7 ACDF 4. b/l UE radiculopathy 5. Mechanical Neck Pain Procedure(s) Performed: 1. Posteriorlateral fusion C2-T1 2. Segmental instrumentation C2-T1 3. C3-7 decompressive laminectomy 4. Use of intraoperative neuromonitoring 5. Interpretation of intraoperative flouroscopy <1 hr Implants: Polk posterior cervical Anesthesia: GETA Surgeon: Jonathan Hudson Supervisor Public Message Service #1: Daniel Loza (Was present and necessary due to the complexity of the case) Estimated Blood Loss (ml): 250 IV fluids (ml): 2,500 Urine output (ml): 500 Pathology: none sent Condition: stable Disposition: PACU Indications for Procedure: 40 yo female who has a long history of anterior cervical fusion of which was complicated with infection and revised 3 times presented with continued symptoms and worsening UE radiculopathy, weakness and difficulty with fine motor skills. She had been through conservative measures including PT, HEP, medications and minimally invasive procedures none of which helped her sx. She was found to have continued stenosis C3-7 with arthropathy. We discussed several options for the patient conservative and surgical treatments. Ultimately, she has opted for surgical intervention for her issues. We discussed risks and benefits as outlined in the risk review. She was ready and willing to proceed with surgery. Description of Procedure: The patient was seen and examined in the preoperative area. All preoperative protocols were followed. Informed consent was obtained risks and benefits of the procedure were discussed at length. Risks including bleeding infection damage to the surrounding tissue and risk of reoperation were discussed with the patient. Risk of anesthesia up to and including was a discussed with the patient. These are outlined in the risk review. They were willing to accept these risks and all of the risks of surgery. The patient was given a weight- based dose of antibiotics in the form of 2 g Ancef IVPB. The patient was seen and evaluated by the anesthesia team who deemed them fit for surgery. The site was marked, the patient was willing to proceed with the procedure. The patient was transferred to the operative suite by the Department of anesthesia. They were then drifted off to sleep by the department anesthesia and GETA was performed. The patient tolerated this well. Adams catheter was placed by nursing staff, atraumatically. Once confirmation of lines and ventilation the patient was transferred to a prone Eddi table very carefully. Lutts head clamp was placed on the patient prior to this and was secured. Once she was prone on the Steward was secured to the table with the Lutts wharf tender head is confirmed to be stable and in good position. All bony prominences including wrists, elbows, axilla, chest, hips, and thighs, and feet were padded very well. Special attention was paid to the genitalia and these were padded accordingly. SCDs were placed on bilateral lower extremities and were connected. Arms were well padded and placed tucked at her side well-padded thumbs down. Once in position, again we confirmed good ventilation capabilities and that lines were running appropriately. The patient's posterior cervical and thoracic spine was then exposed. 1010s were placed outlining the incision site. Standard alcohol was used to clean the incision site and allowed to dry. C-arm was used to biomark the patient and confirm level for incision which was marked with a skin marker. Operative briefing was performed with all teams and everyone in agreement to proceed. The patient was then prepped and draped in a normal sterile fashion. Timeout was then performed and all parties were in agreement with the procedure to be performed. Midline skin incision was made over the previously bio marked area electrocautery dissection was taken down midline until the spinous processes of C2 through T1 had been identified. Once there identified subperiosteal dissection was taken out over the lateral masses facet joints and transverse process of C2 through T1 respectively. Once dissection was complete careful dissection of the superior border of the C2 lamina and pars was identified using a Raton 4. This was then held in position by an benefits assistant for a goal post. We then proceeded to place C2 screws bilaterally using the Jones technique. Lateral fluoroscopic images were used to identify and help with starting points. High-speed bur was used to make a airplane pilot helper hole followed by a drill. We then drilled sequentially by 2 mm on the left-hand side to 16 mm and on the right- hand side to 20 mm. We then placed the left-handed screw first under fluoroscopic guidance. We then repeated this on the right-hand side and placed a 20 mm screw. These were then confirmed to be in good position on AP. Then turned our attention to the T1 screws bilaterally these were then placed using lateral fluoroscopic guidance. Bur hole was made followed by pedicle finder followed by tap followed by screw. In between each step a ball tip probe was used to ensure we are within the pedicles. We then placed lateral mass screws using a high-speed bur for airplane pilot helper hole followed by a drill to 12 mm. This is done under lateral fluoroscopic guidance. Then placed the screws. Once all screws were placed within templated a shani and bent it to achieve lordosis as well as maintain reduction at the cervical thoracic junction. Once these rods were bent they were secured into the tulip heads using set screws. Once all set screws were placed and final tightened the set screws into place. We then performed laminectomy of C3 through C7 with a undercut of C2 to allow for decompression in this area. Careful dissection was done of the ligamentum and the lamina was removed atraumatically. Motors were run after this and motors were stable. Then performed meticulous hemostasis of the area with hemostatic agents. Copiously irrigated the wound with 3 L of antibiotic sterile saline solution followed by normal sterile saline solution. We then placed a cross-link over the area Surgicel was placed over the dura and then placed autograft and allograft the posterior lateral gutters after decortication of the facet joints and lamina. This was impacted into place. We then took final fluoroscopic images which confirmed good placement of screws and rods. We then placed a drain deep through separate incision vancomycin 2 g powder was placed within the wound. We then performed a layered closure first in the muscular layer with #1 Vicryl followed by fascial layer with #1 Vicryl then in the deep subcu tissue closed placed over Vicryl in the superficial subcu tissue 2-0 Vicryl and the skin skin lelo. The wound edges approximated very well. Final motors were run and there were no intraoperative neuro monitoring changes. We then cleaned and dressed the wound sterilely with an operative foam dressing drain sponge and Tegaderm drain was secured using a drain stitch. The patient was transferred back to their hospital bed atraumatically. Drain continued to hold suction and were in good position. Patient was then awakened and extubated by the department of anesthesia having tolerated the procedure very well with no complications. They were transferred to the postoperative care unit in stable condition.
[2021-05-27] MEDS ORDERED: BUTALB/APAP/CAFF 50-325-40MG TAB PO PRN (18:21)
[2021-05-27] MEDS: HEPARIN SODIUM,PORCINE/PF 5,000 UNIT/0.5 ML SYRINGE SQ SCH (19:55)
[2021-05-27] MEDS: NICOTINE 14MG/24HR PATCH TRANSDERM SCH (19:55)
[2021-05-27] MEDS: ALBUTEROL NEBULIZED 2.5 MG/3 ML INHALATION SCH (20:13)
--- NOTE | 2021-05-27 20:16 | CONS ---
CONSULTATION REASON FOR CONSULTATION: Advice regarding asthma and other multiple medical issues requested by Dr. Hudson. HISTORY OF PRESENT ILLNESS: This 40-year-old woman with a past medical history of asthma, history of CVA, TIA, history of GERD, history of DJD, rheumatoid arthritis, being followed by Dr. Hooper in the outpatient setting, underwent posterolateral fusion C2-T1 for cervical myelopathy and C3-7 stenosis. Postoperatively, the patient is complaining of severe neck pain. Orthopedic Surgery is doing the pain management at this time. There is no history of fever, rigors or chills. No history of headache, chest pain, palpitations, shortness of breath, hematochezia, melena at this time. PAST MEDICAL HISTORY: History of DJD, history of asthma, CVA, TIA, history of GERD, DJD, rheumatoid arthritis. MEDICATIONS: Prior to admission, home medications are: Flexeril, butalbital, albuterol, Motrin, oxycodone, Neurontin. Doses reviewed. ALLERGIES: FLAGYL AND ULTRAM. FAMILY HISTORY: History of DVT. SOCIAL HISTORY: History of THC, history of smoking. Occasional alcohol intake. REVIEW OF SYSTEMS: ENT: No diminished vision. No diminished hearing. CARDIOVASCULAR system: No angina or palpitations. RESPIRATION as mentioned earlier. GI as mentioned earlier. : No dysuria. NERVOUS SYSTEM: As mentioned earlier. ALLERGY/IMMUNOLOGY: No asthma or hayfever. HEMATOLOGY/ONCOLOGY: No history of anemia. ENDOCRINE: No history of diabetes. CONSTITUTIONAL: As mentioned earlier. DERMATOLOGY: Negative. RHEUMATOLOGY: As mentioned earlier. PSYCHIATRIC: As mentioned earlier. PHYSICAL EXAMINATION: Alert and oriented x3. Pulse is 68, blood pressure 144/90, respiration 18, temperature 98.2. Pulse ox 100 percent on room air. HEENT: Conjunctivae normal. NECK is status post surgery. CARDIOVASCULAR systems: S1, S2 muffled. RESPIRATION: Breath sounds diminished in the bases. No rhonchi. No crackles. ABDOMEN: Soft, nontender. No mass palpable. LEGS: No edema. No swelling. NERVOUS SYSTEM: Higher functions as mentioned earlier. Moves all 4 limbs. No focal motor or sensory deficits. LYMPHATICS: No lymph nodes palpable in the neck, axillae or groin. SKIN: No ulcer, no rash and no bleeding. JOINTS: No active deforming arthropathy. LABS: WBC 7, MCV 100.4. ASSESSMENT: 1. Cervical myelopathy and C3 to C7 stenosis, status post posterolateral fusion C2-T1 and segmental instrumentation C2-T1 and C3-7 decompressive laminectomy. 2. Postoperative pain. 3. History of asthma. 4. History of chest pain/angina. 5. History of cerebrovascular accident, transient ischemic attack. 6. History of gastroesophageal reflux disease. 7. Degenerative joint disease. 8. History of rheumatoid arthritis. 9. History of nephrolithiasis. 10.History of lupus. 11.History of adenoidectomy. 12.History of back surgery. 13.History of cholecystectomy. 14.History of anxiety. 15.History of continued ongoing nicotine dependence. 16.History of THC. 17.FULL CODE. RECOMMENDATIONS AND DISCUSSION: This 40-year-old woman presented after surgery, at this time I recommend to continue current treatment. Resume the home medications. Smoking cessation. Otherwise DVT prophylaxis. Incentive spirometry. We will follow the patient closely with you. Pain management per Orthopedic surgery and we will follow the patient with you. The patient may be asked to follow with Dr. Hooper closely after discharge. Thank you Dr. Hudson for letting us participate in the care of this patient. See orders for details. MMODL / IJN: [id number] /
[2021-05-27] MEDS: LORazepam 0.5 MG TAB PO PRN (23:57)
[2021-05-28] MEDS: HYDROmorphone 1 MG/ML 1 ML SYRINGE IVP PRN ×6 (02:01→23:06)
[2021-05-28] MEDS: SODIUM CHLORIDE 0.9% 1,000 ML IV SCH ×2 (02:04→11:57)
[2021-05-28] MEDS: VANCOMYCIN 1,000 MG in SODIUM CHLORIDE 0.9% 250 ML IVPB SCH ×2 (04:12→11:56)
[2021-05-28] MEDS: CYCLOBENZAPRINE 10 MG TAB PO PRN ×3 (04:12→23:08)
[2021-05-28] MEDS: LACTATED RINGERS 1,000 ML IV SCH (04:13)
[2021-05-28 06:02] LABS: Basophils % (A) 0 %; Eosinophils # (A) 0.1 k/uL (0-0.7); Eosinophils % (A) 1 %; HCT 36.9 % (34.0-46.0); HGB 11.9 gm/dL (11.4-16.0); Lymphocytes # (A) 1.5 k/uL (1.0-4.8); Lymphocytes % (A) 20 %; MCH 31.5 pg (25.0-35.0); MCHC 32.3 g/dL (31.0-37.0); MCV 97.6 fL (80.0-100.0); Mean Platelet Volume 7.1; Monocytes # (A) 0.6 k/uL (0-1.0); Monocytes % (A) 8 %; Neutrophils # (A) 5.3 k/uL (1.3-7.7); Neutrophils % (A) 70 %; Platelet Count 267 k/uL (150-450); RBC 3.78 m/uL (3.80-5.40); RDW 14.4 % (11.5-15.5); WBC 7.5 k/uL (3.8-10.6)
[2021-05-28] MEDS: oxyCODONE-APAP 10-325MG 1 EACH TAB PO SCH ×4 (06:34→20:17)
[2021-05-28] MEDS: NICOTINE 14MG/24HR PATCH TRANSDERM SCH (08:07)
[2021-05-28] MEDS: PANTOPRAZOLE 40 MG TABLET PO SCH (08:07)
[2021-05-28] MEDS: HEPARIN SODIUM,PORCINE/PF 5,000 UNIT/0.5 ML SYRINGE SQ SCH ×2 (08:07→20:18)
[2021-05-28] MEDS: GABAPENTIN 300 MG CAP PO SCH ×3 (08:07→20:18)
[2021-05-28 09:47] LABS: African American GFR (CKD) 149.9 (60.0-200.0); Anion Gap 9.8 mmol/L (10.00-18.00); Blood Urea Nitrogen 2.8 mg/dL (9.0-27.0); Calcium 8.4 mg/dL (8.7-10.3); Carbon Dioxide 22.2 mmol/L (20.0-27.5); Non-African American GFR(CKD) 129.4 (60.0-200.0); Potassium 3.7 mmol/L (3.5-5.5)
[2021-05-28 10:45] LABS: African American GFR (CKD) >90 (>60 ml/min/1.73 sqM); Non-African American GFR(CKD) >90 (>60 ml/min/1.73 sqM)
[2021-05-28] MEDS ORDERED: VANCOMYCIN TROUGH DUE 1 EACH MISC MISCELLANE ONE (11:00)
[2021-05-28] MEDS: ALBUTEROL NEBULIZED 2.5 MG/3 ML INHALATION SCH (11:30)
--- NOTE | 2021-05-28 13:43 | P.PN ---
Subjective Progress Note Date: 05/28/21 Principal diagnosis: 1. Pseudoarthrosis C5-C7 2.C4-C5 adjacent segment disease 3. C3-C7 Stenosis severe at C5-6 4.Bilateral UE weakness 5. B/L UE radiculopathy 6. Cervical myelopathy Patient was seen at bedside this afternoon resting comfortably sitting up with c-collar in place. Family was at bedside throughout encounter. Patient states she is still moderate amount of pain. She says she is needing to take her pain medications every few hours to help control the pain. Patient says she does have a burning sensation in the upper part of her neck and back of her head. Patient still feels weak in her upper extremities and does feel burning sensation in both shoulders. Patient says she has not had bowel movement yet, however, patient says she has been passing gas. Patient says she had something to eat breakfast this morning and has been up around the room a couple times already today. Patient denies chest pain, fever, shortness breath, nausea, vomiting, change in vision, loss of bowel/bladder control. Objective - Vital Signs Vital signs: Vital Signs Temp 98.2 F 05/28/21 12:40 Pulse 113 H 05/28/21 12:40 Resp 18 05/28/21 12:40 BP 137/91 05/28/21 12:40 Pulse Ox 97 05/28/21 12:40 Intake & Output 05/27/21 05/28/21 05/28/21 18:59 06:59 18:59 Output Total 3630 2060 Balance -3630 -2060 Output: Drainage 30 60 Right 30 60 Urine 3600 2000 Other: Voiding Method Toilet - Exam Focused Incision clean, dry, intact. Negative for any fluctuance/purulence. Moderate output in drain. Patient sensation is equal, symmetric, bilaterally intact. Moderate TTP along incision. Patient is able to move arms bilaterally. Patient has good ROM in bilateral elbows/wrists and digits. Patient still weak in arms bilaterally. Neurovascular status intact. Cap refill <3 sec bilaterally in digits of hands. radial pulses intact bilaterally, 2+. - Labs CBC & Chem 7: 05/28/21 05:47 05/28/21 09:53 Labs: Abnormal Lab Results - Last 24 Hours (Table) 12/30/21 12/30/21 12/30/21 Range/Units 05:47 05:47 09:53 RBC 3.78 L (3.80-5.40) m/uL Anion Gap 9.80 L (10.00-18.00) mmol/L BUN 2.8 L (9.0-27.0) mg/dL Creatinine 0.4 L 0.44 L (0.6-1.5) mg/dL BUN/Creatinine Ratio 7.00 L (12.00-20.00) Ratio Calcium 8.4 L (8.7-10.3) mg/dL Assessment and Plan Assessment: 40-year-old female postop day 2 C2 to T1 decompression fusion 1. Pseudoarthrosis C5-C7 2.C4-C5 adjacent segment disease 3. C3-C7 Stenosis severe at C5-6 4.Bilateral UE weakness 5. B/L UE radiculopathy 6. Cervical myelopathy Plan: Plan: 1. Pseudoarthrosis C5-C7; C4-C5 adjacent segment disease; C3-C7 Stenosis severe at C5-6; Bilateral UE weakness; B/L UE radiculopathy; Cervical myelopathy - surgery performed 05/26/2021C2-T1 decompression/fusion - patient stable at bedside this afternoon resting comfortably sitting up in bed with C- collar in place. Drain output moderate this time. Plan to pull drain tomorrow. 2. Appreciate medical management 3. Pain management - OxyIR; gabapentin; Flexeril; Percocet 10/325 4. GI prophylaxis - Protonix; senna 5. DVT prophylaxis - mechanical 6. Encourage incentive spirometer use 7. PT/OT - weightbearing as tolerated with walker as needed. Hard cervical collar on at all times a day when up and about 8. Discharge planning - discharge home tomorrow, 05/29/2021 versus 05/30/2021 Time with Patient: Less than 30
[2021-05-28] MEDS: VANCOMYCIN 1,250 MG in SODIUM CHLORIDE 0.9% 250 ML IVPB SCH (18:05)
[2021-05-28] MEDS ORDERED: diazePAM 5 MG TAB PO STA (19:04)
--- NOTE | 2021-05-28 19:44 | PN ---
PROGRESS NOTE DATE OF SERVICE: 05/28/2021 This 40-year-old woman was admitted with cervical surgery is complaining of severe pain. No chest pain. No palpitations. No fever. PHYSICAL EXAMINATION: Alert and oriented x3. Pulse is 113, blood pressure 130/90, respiration 18, temperature 98.2, pulse ox 97% on room air. HEENT: Conjunctivae normal. Oral mucosa moist. NECK: No jugular venous distention. No lymph node enlargement. CARDIOVASCULAR: S1, S2, muffled. No S3, no S4, RESPIRATORY: Diminished breath sounds at the bases. No rhonchi, no crackles. ABDOMEN: Soft, nontender. LEGS: No edema, no swelling. NERVOUS SYSTEM: No focal deficits. LABS: Glucose 104. Other labs, CBC within normal limits. ASSESSMENT: 1. Cervical myelopathy, C3 to C7 stenosis, status post posterolateral fusion C2-T1 and segmental instrumentation C2-T1 and as well as C3-7 decompression laminectomy. 2. Postoperative pain, improving. 3. History of asthma, chronic, intermittent. 4. History of chest pain, angina. 5. History of cerebrovascular accident, transient ischemic attack. 6. History of gastroesophageal reflux disease. 7. History of degenerative joint disease. 8. History of rheumatoid arthritis. 9. History of nephrolithiasis. 10.History of lupus. 11.History of adenoidectomy. 12.History of back surgery. 13.History of cholecystectomy. 14.History of anxiety. 15.Continued ongoing nicotine dependence. 16.History of THC. 17.FULL CODE. RECOMMENDATIONS AND DISCUSSION: Recommend to continue current medications, continue symptomatic treatment. Otherwise, the pain medications. DVT prophylaxis. Incentive spirometry. Closely follow with Orthopedic Surgery. Further recommendations to follow. MMODL / IJN: [id number] /
[2021-05-29] MEDS: LORazepam 0.5 MG TAB PO PRN ×2 (01:21→07:12)
[2021-05-29] MEDS: oxyCODONE-APAP 10-325MG 1 EACH TAB PO SCH ×3 (02:27→11:41)
[2021-05-29] MEDS: HYDROmorphone 1 MG/ML 1 ML SYRINGE IVP PRN ×4 (02:28→11:42)
[2021-05-29] MEDS: LACTATED RINGERS 1,000 ML IV SCH (02:30)
[2021-05-29] MEDS: VANCOMYCIN 1,250 MG in SODIUM CHLORIDE 0.9% 250 ML IVPB SCH ×2 (02:30→10:08)
[2021-05-29] MEDS: SODIUM CHLORIDE 0.9% 1,000 ML IV SCH (04:16)
[2021-05-29] MEDS: HEPARIN SODIUM,PORCINE/PF 5,000 UNIT/0.5 ML SYRINGE SQ SCH (07:11)
[2021-05-29] MEDS: CYCLOBENZAPRINE 10 MG TAB PO PRN (07:11)
[2021-05-29] MEDS: NICOTINE 14MG/24HR PATCH TRANSDERM SCH ×2 (07:11→07:22)
[2021-05-29] MEDS: PANTOPRAZOLE 40 MG TABLET PO SCH (07:11)
[2021-05-29] MEDS: GABAPENTIN 300 MG CAP PO SCH (07:12)
[2021-05-29 07:24] LABS: African American GFR (CKD) >90 (>60 ml/min/1.73 sqM); Non-African American GFR(CKD) >90 (>60 ml/min/1.73 sqM)
[2021-05-29] MEDS: ALBUTEROL NEBULIZED 2.5 MG/3 ML INHALATION SCH (08:23)
--- NOTE | 2021-05-29 11:19 | P.PN ---
Subjective Progress Note Date: 05/29/21 Principal diagnosis: Status post C2 to T1 decompression and posterior lateral fusion Dr. Hudson and myself for both available today to examine the patient. She is resting sitting up in bed. She is ready to be discharged home today. She is having generalized pain, the medication seems to be helping. She currently denies any headaches, lightheadedness, chest pain or shortness of breath. She denies any fevers or chills at this time. Objective - Vital Signs Vital signs: Vital Signs Temp 97.8 F 05/29/21 05:20 Pulse 90 05/29/21 08:35 Resp 18 05/29/21 05:20 BP 133/85 05/29/21 05:20 Pulse Ox 97 05/29/21 05:20 Intake & Output 05/28/21 05/29/21 05/29/21 18:59 06:59 18:59 Output Total 90 Balance -90 Output: Drainage 90 Right 90 Other: Voiding Method Toilet Toilet Toilet # Voids 2 - Exam Gen: AOx3, NAD VSS stable at this time Integument: Postop bandage and drain was removed today. Incision is well healing, lelo are in good position and condition. There is no obvious fluctuance appreciated, there is no erythema or active drainage. Palpation: mild tenderness with palpation of the paraspinal region of the cervical spine, no significant tenderness noted in the midline region ROM: For range of motion in all major muscle groups of the bilateral upper and lower extremities Sensory Exam: Sensory exam to light touch is intact C5-T1 Sensory exam to light touch is intact L2-S1 Motor: 55 strength is appreciated in the bilateral upper extremities with shoulder elevation, abduction, elbow extension, elbow flexion, wrist extension, wrist flexion 55 strength is appreciated in the bilateral lower extremities with hip flexion, knee extension, knee flexion, plantar flexion, dorsiflexion, EHL, FHL Reflexes: 2/4 in all UE and LE Negative Elena's bilaterally, Babinski bilaterally, negative clonus bilaterally - Labs CBC & Chem 7: 05/28/21 05:47 05/29/21 06:42 Labs: Abnormal Lab Results - Last 24 Hours (Table) 05/29/21 Range/Units 06:42 Creatinine 0.44 L (0.52-1.04) mg/dL Assessment and Plan Assessment: Postoperative day #3 status post C2-T1 decompression and posterior lateral fusion Plan: Pain control, I did adjust medications for discharge. She'll be discharged home on Percocet 10 milligrams/325 mg. She'll also continue with Flexeril 10 mg 3 times a day. Gabapentin will also be utilized, set up taking 300 mg 3 times a day, she will take 300 mg in the morning and afternoon and increase to 600 mg at night. Valium was also prescribed to help with anxiety. We discussed at length the safety when using his medications and not overtake. She normally is prescribed most of these medications by her neurologist, we will be prescribing these medications for a short period of time. Plan is to have her switch back to her normal doses over the next 2-4 weeks. Stool softeners have been prescribed, this to include senna and MiraLAX. Recommend taking them daily until bowel regimen becomes normal Wound care, new dressing was placed. She will leave this dressing in place over the next 3 days. We did discuss showering instructions Prescription was placed for soft c-collar to be fitted prior to discharge. Patient does have a hard c-collar, is not fitting well at this time. A prescription was placed to have her follow-up Alyse Snyder this next week for adjustment Activity level instructions were discussed with the patient Medical recommendations Discharge planning: Patient is stable for discharge and follow-up on an outpatient setting Time with Patient: Less than 30
--- NOTE | 2021-05-29 11:22 | P.DS ---
Providers Date of admission: 05/26/21 10:35 Expected date of discharge: 05/29/21 Attending physician: Jonathan Hudson DO Consults: 05/27/21 15:30 Consult Physician Routine Consulting Provider: Ophelia Hugo Consult Reason/Comments: Medical Management Do you want consulting provider notified?: Yes Primary care physician: Sandie Garrett [facility] Course: Date of admission: [05/26/2021] Date of discharge: 05/29/2021 Admission diagnosis: 1. Pseudoarthrosis C5-C7 2.C4-C5 adjacent segment disease 3. 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 Bilateral UE weakness 5. B/L UE radiculopathy 6. Cervical myelopathy Discharge diagnosis: Same, status post C2-T1 decompression and posterior lateral fusion Attending physician: Dr. Hudson Surgical procedures: C2-T1 decompression and posterior lateral fusion Brief history: Patient is a 40-year-old female who was evaluated in the outpatient setting by Dr. Hudson with regards to bilateral upper extremity weakness/radiculopathy. It was determined after a lengthy workup that the patient had significant cervical pseudoarthrosis of C5-C7 along with adjacent segment disease at C4-C5. She was also diagnosed with C3-C7 stenosis most severe at C5-C6. Conservative measures were first attempted, when this was unachievable, patient was scheduled for surgical intervention. Hospital course: Details of patient's surgery can be found in operative report. Patient tolerated the procedure well and was subsequently transported to orthopedic floor. Patient's orthopeidc and medical care was provided daily. Patient had daily laboratory tests performed for evaluation of overall blood counts. Patient had daily physical therapy to include strengthening range of motion as well as education with walker ambulation. Patient was treated with heparin for their postoperative DVT prophylaxis during their inpatient stay. Patient was noted to have a relatively uneventful postoperative course. Patient reported satisfactory pain control with oral pain medications by postoperative day 2. Patient showed satisfactory progress with physical therapy. Patient moved steadily through the program and had no difficulty meeting the goals by postoperative day 3. Given patient's otherwise satisfactory course and having met physical therapy goals, plan is to discharge patient [home] on postoperative day 3. Discharge condition/disposition: Patient will be discharged [home] in stable condition. Discharge medications: Instructions are given on resumption of patient's normal daily medications per primary care recommendation, in addition patient will be prescribed Percocet 10 mg/325 mg, Flexeril 10 mg, gabapentin 300 mg, Valium 5 mg, Duricef 500 mg, senna S, MiraLAX. Spine Discharge and Recovery Instructions Medications: See medication list All medication refills should be obtained through your primary care doctor or your clinic spine surgeon. Please discuss prescription refills at your follow up appointment. Do not call the hospital for medication refills. Dressing: Leave your dressing in place for a total of 5 days post operatively. Then you may remove your dressing and leave open to air. Keep the area clean and if not able to keep area clean, then cover with sterile gauze and tape. Showering: You may shower 3 days after your procedure allowing soap and water to run over incision. Do not scrub. Do not soak. Blot dry. Follow up: Please confirm a follow up appointment with your surgeon 3 weeks post operatively. Please make an appointment to follow up with your PCP in 1-2 weeks after surgery for evaluation 3 phase, 3-week plan POST OP WEEKS 1-3 1. Lifting/carrying/pushing/pulling limited to less than 5 pounds. 2. Do not sit for longer than 15 minutes at one time. Get up and walk around. Prolonged sitting is NOT advised. If you lay down, see if you can tolerate laying down on you front (belly side) 3. Walk for periods of 15 minutes = 1 mile but no longer; do it multiple times times each day. 4. Ice your low back after activity. POST OP WEEKS 3-6 1. Lifting limited to less than 20 pounds. 2. Do not sit for longer than 30 minutes at a time. Frequently change positions. Use a sit-to stand workstation or take frequent breaks from sitting if you have returned to work. 3. Walk for 30 minutes each day. If possible, do these three or more times a day POST OP WEEKS 6+ At your 6-week appointment we will give you a physical therapy referral to focus on a core stabilization and strengthening program. You should also work on leg & buttock strengthening, hamstring & quadriceps stretching, and continue a low impact aerobic activity program such as swimming, walking, or riding a stationary bicycle. During the initial 6 weeks after your surgery, you are at the highest risk of re-injuring your spine. You should generally avoid BLTs (bending, lifting and twisting combination motions) and follow the above guidelines to reduce the chance of reinjury. You can anticipate post op appointments in our office at approximately 3 weeks and 6 weeks after your surgery. INCISION CARE: If your incision is not draining you do NOT need to cover it with a dressing. Keep your incision clean, dry and intact. In most cases, we apply skin glue, lelo or sutures to the incision at the time of surgery. This will be like a crust or have the appearance of a scab and will fall off in time on its own. The stitches or lelo need to be removed at 3 weeks post op appointment. You may begin to shower 3 days after surgery (this allows the glue to graham well). However, please avoid scrubbing the incision site or peeling off any of the skin glue. This will ensure optimal healing of your incision. Also, during this time avoid soaking the incision area in water - this includes swimming pools, hot tubs or baths. No ointments, lotions or oils on the incision until your surgeon allows. Leave lelo, sutures or glue in place. Neurological dysfunction that comes on suddenly can also be a sign of a stroke. Below some common symptoms of a stroke are listed: B - balance difficulty such as sudden onset walking or leaning to one side - NEW E - eye problem such as sudden double vision or trouble seeing on one side - NEW F - Facial weakness or numbness on one side - NEW A - Arm or leg weakness or numbness on one side - NEW S - Slurred speech or difficulty with word finding - NEW T - Time is BRAIN! Call 911 as soon as you recognize these symptoms Diet: Consume a regular diet rich in vegetables and lean protein such as chicken or fish. You should consume in a ratio of approximately 20% fats|40% carbohydrates|40%protein. Vegetables, sweet potatoes, brown rice or quinoa are examples of good carbohydrates. Chips, white bread, cookies and sweets/sugar are examples of bad carbohydrates. Limit your bad carbs, go wild with good carbs. "Life's Simple 7" Guidelines as per [place] [employer] These will help you reclaim your life after surgery and stained glass glazier helper in your recov german, keeping in mind your restrictions. (1) Get Active. Physical activity can help people lose weight, control high blood pressure and cholesterol, feel emotionally better, and sleep better. (2) Control Cholesterol. Avoid a diet high in saturated fat, trans fat, & cholesterol. Limit whole milk & cream, ice cream, butter, egg yolks, processed meats (like sausage and hot dogs), and fatty meats. Choose healthy foods that are low in saturated fat, trans fat and cholesterol which include: Fruits and vegetables, fiber rich grain products (like whole grain pasta and brown rice), lean meat such as chicken, fish, nuts, seeds, and legumes. (3) Eat Better. Eat small portions. Shop at the grocery with a list and do not stray from it. Tips for a healthy diet include: Limit sodium intake to less than 1500mg daily, avoid prepackaged, processed, and fast foods, choose a diet rich in fruits, vegetables, and whole grain, high fiber foods, and limit saturated & cholesterol in your diet. (4) Manage Blood Pressure. If you have high blood pressure, you should have a cuff at home so that you can check your blood pressure regularly. Be sure you have a good cuff. An arm one is generally better than a wrist one. Bring the cuff to a doctor's appointment to validate that the measurements that your cuff are taking are accurate. Take your blood pressure twice daily when you are sitting down and relaxing. Record the numbers in a log and bring this log with you to your doctors' appointments. (5) Lose Weight if your BMI is above 25. A healthy BMI is between 19-25. To calculate Your BMI, you may use a Standard BMI Calculator on the NIH BMI website: <www.nhlbi.nih.gov/guidelines/obesity/BMI/bmicalc.htm>. Weigh oneself daily. If you are overweight, set a goal to lose weight. A pound a week loss if needed is a good target. (6) Reduce Blood Sugar. Limit foods and liquids with "added sugars." (Added sugars include sucrose, fructose, glucose, maltose, dextrose, high fructose corn syrup, corn syrup, concentrated fruit juice and honey). (7) Stop Smoking. If you smoke, quitting smoking is one of the best things that you can do for your health. Smoking increases your risk of heart attack, stroke, and peripheral vascular disease, which is a build-up of plaque in your arteries. Please discard all the cigarettes and lighters in your house. Have a plan for what you will do when you have the urge to smoke. Direct and second- hand smoke shortens your life as well as the lives of your family, friends and others around you. For your health and the health of those around you, please consider quitting! Proper Bending Body Mechanics: Maintain a wide stance with one foot slightly in front of the other. Keep your back straight. Bend utilizing the strength in your hips and knees. Do not bend at the waist. Maintain the lifted object at your waist-level close to your body. Avoid lifting weight that causes immediately pain or pain anywhere in the body afterwards. Smoking/Nicotine If there was ever one thing that you could do to increase your overall health, decrease your risk of cardiovascular problems by about 39% the second you make the choice, it is to STOP SMOKING. Your body's most instant gratification is the second you stop smoking. We have all heard the studies, read the articles but it is true, smoking is extremely bad for your overall health, and moreover it is detrimental to your bone health. Nicotine, IN ANY FORM, kills bone cells, prevents your body from healing fractures, and significantly prolongs healing after surgery. In spine surgery specifically, it increases your risk of not healing your bones to create a fusion and increases your risk of having a revision surgery due to this up to 60%. I know it is hard. I know it feels impossible. But there are ways. Take control of your life. We are here to help you through it. And when you are ready, ask us and we can direct you to help if you desire. Use the START Plan to Quit Smoking (please visit the Helpguide.org website listed below for more information): S = Set a quit date. Choose a date within the next 2 weeks, so you have enough time to prepare without losing your motivation to quit. If you mainly smoke at work, quit on the weekend, so you have a few days to adjust to the change. T = Tell family, friends, and co-workers that you plan to quit. Let your friends and family in on your plan to quit smoking and tell them you need their support and encouragement to stop. Look for a quit charan who wants to stop smoking as well. You can help each other get through the rough times. A = Anticipate and plan for the challenges you'll face while quitting. Most people who begin smoking again do so within the first 3 months. You can help yourself make it through by preparing ahead for common challenges, such as nicotine withdrawal and cigarette cravings. R = Remove cigarettes and other tobacco products from your home, car, and work. Throw away all your cigarettes (no emergency pack!), lighters, ashtrays, and matches. Wash your clothes and freshen up anything that smells like smoke. Shampoo your car, clean your drapes and carpet, and steam your furniture. T = Talk to your doctor about getting help to quit. Your doctor can prescribe medication to help with withdrawal and suggest other alternatives. If you can't see a doctor, you can get many products over the counter at your local pharmacy or grocery store, including the nicotine patch, nicotine lozenges, and nicotine gum. Resources for Quitting Smoking: <https://www.[place].gov/documents/[facility]/Quit_Tobacco_Resources_for_patients_313 480_7.pdf> Supplementation: Take recommended dosages of Vitamin D and Calcium to help fortify your bones and help them to heal. See your health maintenance packet for dosages and recommended levels. DVT/VTE prophylaxis: You will be given compression stockings from the hospital. Wear these daily for the first two weeks after surgery. You may take them off at night. You may be prescribed a medication to help thin your blood. Take this as directed. If you are not prescribed this medication, early and frequent ambulation has been shown to be the best prophylaxis to deep vein thrombosis and sequelae related to this event. Procedures: C2T1 decompression and posterior lateral fusion Patient Condition at Discharge: Fair Plan - Discharge Summary Discharge Rx Participant: No New Discharge Prescriptions: New Cyclobenzaprine [Flexeril] 10 mg PO TID #42 tab Sennosides/Docusate Sodium [Senna-S 8.6-50 mg Tablet] 1 each PO DAILY #30 tablet diazePAM [Valium] 5 mg PO BID PRN #21 tab PRN Reason: Anxiety cefaDROXiL [Duricef] 500 mg PO Q12HR #14 cap Gabapentin 300 mg PO TID #180 cap polyethylene glycoL 3350 [Miralax] 17 gm PO DAILY #30 packet oxyCODONE-APAP 10-325MG [Percocet 10-325 mg] 1 - 2 tab PO Q6HR PRN 7 Days #56 tab PRN Reason: Pain No Action Butalb/APAP/Caff 50-325-40Mg [Fioricet 50-325-40] 1 tab PO TID PRN PRN Reason: Migraine Headache Albuterol Inhaler [Ventolin Hfa Inhaler] 1 puff INHALATION DAILY PRN PRN Reason: Dyspnea Discharge Medication List Butalb/APAP/Caff 50-325-40Mg [Fioricet 50-325-40] 1 tab PO TID PRN 11/03/17 [History] Albuterol Inhaler [Ventolin Hfa Inhaler] 1 puff INHALATION DAILY PRN 05/19/21 [History] Cyclobenzaprine [Flexeril] 10 mg PO TID #42 tab 05/29/21 [Rx] Gabapentin 300 mg PO TID #180 cap 05/29/21 [Rx] Sennosides/Docusate Sodium [Senna-S 8.6-50 mg Tablet] 1 each PO DAILY #30 tablet 05/29/21 [Rx] cefaDROXiL [Duricef] 500 mg PO Q12HR #14 cap 05/29/21 [Rx] diazePAM [Valium] 5 mg PO BID PRN #21 tab 05/29/21 [Rx] oxyCODONE-APAP 10-325MG [Percocet 10-325 mg] 1 - 2 tab PO Q6HR PRN 7 Days #56 tab 05/29/21 [Rx] polyethylene glycoL 3350 [Miralax] 17 gm PO DAILY #30 packet 05/29/21 [Rx] Follow up Appointment(s)/Referral(s): Jonathan Hudson DO [Doctor of Osteopathic Medicine] - 2 Weeks Radames Valdes [NON-STAFF] - 1 Week Patient Instructions/Handouts: Cervical Radiculopathy (GEN) Activity/Diet/Wound Care/Special Instructions: Spine Discharge and Recovery Instructions Medications: See medication list All medication refills should be obtained through your primary care doctor or your clinic spine surgeon. Please discuss prescription refills at your follow up appointment. Do not call the hospital for medication refills. Dressing: Leave your dressing in place for a total of 5 days post operatively. Then you may remove your dressing and leave open to air. Keep the area clean and if not able to keep area clean, then cover with sterile gauze and tape. Showering: You may shower 3 days after your procedure allowing soap and water to run over incision. Do not scrub. Do not soak. Blot dry. Follow up: Please confirm a follow up appointment with your surgeon 3 weeks post operatively. Please make an appointment to follow up with your PCP in 1-2 weeks after surgery for evaluation 3 phase, 3-week plan POST OP WEEKS 1-3 1. Lifting/carrying/pushing/pulling limited to less than 5 pounds. 2. Do not sit for longer than 15 minutes at one time. Get up and walk around. Prolonged sitting is NOT advised. If you lay down, see if you can tolerate laying down on you front (belly side) 3. Walk for periods of 15 minutes = 1 mile but no longer; do it multiple times times each day. 4. Ice your low back after activity. POST OP WEEKS 3-6 1. Lifting limited to less than 20 pounds. 2. Do not sit for longer than 30 minutes at a time. Frequently change posi tions. Use a sit-to stand workstation or take frequent breaks from sitting if you have returned to work. 3. Walk for 30 minutes each day. If possible, do these three or more times a day POST OP WEEKS 6+ At your 6-week appointment we will give you a physical therapy referral to focus on a core stabilization and strengthening program. You should also work on leg & buttock strengthening, hamstring & quadriceps stretching, and continue a low impact aerobic activity program such as swimming, walking, or riding a stationary bicycle. During the initial 6 weeks after your surgery, you are at the highest risk of re-injuring your spine. You should generally avoid BLTs (bending, lifting and twisting combination motions) and follow the above guidelines to reduce the chance of reinjury. You can anticipate post op appointments in our office at approximately 3 weeks and 6 weeks after your surgery. INCISION CARE: If your incision is not draining you do NOT need to cover it with a dressing. Keep your incision clean, dry and intact. In most cases, we apply skin glue, lelo or sutures to the incision at the time of surgery. This will be like a crust or have the appearance of a scab and will fall off in time on its own. The stitches or lelo need to be removed at 3 weeks post op appointment. You may begin to shower 3 days after surgery (this allows the glue to graham well). However, please avoid scrubbing the incision site or peeling off any of the skin glue. This will ensure optimal healing of your incision. Also, during this time avoid soaking the incision area in water - this includes swimming pools, hot tubs or baths. No ointments, lotions or oils on the incision until your surgeon allows. Leave lelo, sutures or glue in place. Neurological dysfunction that comes on suddenly can also be a sign of a stroke. Below some common symptoms of a stroke are listed: B - balance difficulty such as sudden onset walking or leaning to one side - NEW E - eye problem such as sudden double vision or trouble seeing on one side - NEW F - Facial weakness or numbness on one side - NEW A - Arm or leg weakness or numbness on one side - NEW S - Slurred speech or difficulty with word finding - NEW T - Time is BRAIN! Call 911 as soon as you recognize these symptoms Diet: Consume a regular diet rich in vegetables and lean protein such as chicken or fish. You should consume in a ratio of approximately 20% fats|40% carbohydrates|40%protein. Vegetables, sweet potatoes, brown rice or quinoa are examples of good carbohydrates. Chips, white bread, cookies and sweets/sugar are examples of bad carbohydrates. Limit your bad carbs, go wild with good carbs. "Life's Simple 7" Guidelines as per [place] [employer] These will help you reclaim your life after surgery and stained glass glazier helper in your recovery, keeping in mind your restrictions. (1) Get Active. Physical activity can help people lose weight, control high blood pressure and cholesterol, feel emotionally better, and sleep better. (2) Control Cholesterol. Avoid a diet high in saturated fat, trans fat, & cholesterol. Limit whole milk & cream, ice cream, butter, egg yolks, processed meats (like sausage and hot dogs), and fatty meats. Choose healthy foods that are low in saturated fat, trans fat and cholesterol which include: Fruits and vegetables, fiber rich grain products (like whole grain pasta and brown rice), lean meat such as chicken, fish, nuts, seeds, and legumes. (3) Eat Better. Eat small portions. Shop at the grocery with a list and do not stray from it. Tips for a healthy diet include: Limit sodium intake to less than 1500mg daily, avoid prepackaged, processed, and fast foods, choose a diet rich in fruits, vegetables, and whole grain, high fiber foods, and limit saturated & cholesterol in your diet. (4) Manage Blood Pressure. If you have high blood pressure, you should have a cuff at home so that you can check your blood pressure regularly. Be sure you have a good cuff. An arm one is generally better than a wrist one. Bring the cuff to a doctor's appointment to validate that the measurements that your cuff are taking are accurate. Take your blood pressure twice daily when you are sitting down and relaxing. Record the numbers in a log and bring this log with you to your doctors' appointments. (5) Lose Weight if your BMI is above 25. A healthy BMI is between 19-25. To calculate Your BMI, you may use a Standard BMI Calculator on the NIH BMI website: <www.nhlbi.nih.gov/guidelines/obesity/BMI/bmicalc.htm>. Weigh oneself daily. If you are overweight, set a goal to lose weight. A pound a week loss if needed is a good target. (6) Reduce Blood Sugar. Limit foods and liquids with "added sugars." (Added sugars include sucrose, fructose, glucose, maltose, dextrose, high fructose corn syrup, corn syrup, concentrated fruit juice and honey). (7) Stop Smoking. If you smoke, quitting smoking is one of the best things that you can do for your health. Smoking increases your risk of heart attack, stroke, and peripheral vascular disease, which is a build-up of plaque in your arteries. Please discard all the cigarettes and lighters in your house. Have a plan for what you will do when you have the urge to smoke. Direct and second- hand smoke shortens your life as well as the lives of your family, friends and others around you. For your health and the health of those around you, please consider quitting! Proper Bending Body Mechanics: Maintain a wide stance with one foot slightly in front of the other. Keep your back straight. Bend utilizing the strength in your hips and knees. Do not bend at the waist. Maintain the lifted object at your waist-level close to your body. Avoid lifting weight that causes immediately pain or pain anywhere in the body afterwards. Smoking/Nicotine If there was ever one thing that you could do to increase your overall health, decrease your risk of cardiovascular problems by about 39% the second you make the choice, it is to STOP SMOKING. Your body's most instant gratification is the second you stop smoking. We have all heard the studies, read the articles but it is true, smoking is extremely bad for your overall health, and moreover it is detrimental to your bone health. Nicotine, IN ANY FORM, kills bone cells, prevents your body from healing fractures, and significantly prolongs healing after surgery. In spine surgery specifically, it increases your risk of not healing your bones to create a fusion and increases your risk of having a revision surgery due to this up to 60%. I know it is hard. I know it feels impossible. But there are ways. Take control of your life. We are here to help you through it. And when you are ready, ask us and we can direct you to help if you desire. Use the START Plan to Quit Smoking (please visit the [employer].org website listed below for more information): S = Set a quit date. Choose a date within the next 2 weeks, so you have enough time to prepare without losing your motivation to quit. If you mainly smoke at work, quit on the weekend, so you have a few days to adjust to the change. T = Tell family, friends, and co-workers that you plan to quit. Let your friends and family in on your plan to quit smoking and tell them you need their support and encouragement to stop. Look for a quit charan who wants to stop smoking as well. You can help each other get through the rough times. A = Anticipate and plan for the challenges you'll face while quitting. Most people who begin smoking again do so within the first 3 months. You can help yourself make it through by preparing ahead for common challenges, such as nicotine withdrawal and cigarette cravings. R = Remove cigarettes and other tobacco products from your home, car, and work. Throw away all your cigarettes (no emergency pack!), lighters, ashtrays, and matches. Wash your clothes and freshen up anything that smells like smoke. Shampoo your car, clean your drapes and carpet, and steam your furniture. T = Talk to your doctor about getting help to quit. Your doctor can prescribe medication to help with withdrawal and suggest other alternatives. If you can't see a doctor, you can get many products over the counter at your local pharmacy or grocery store, including the nicotine patch, nicotine lozenges, and nicotine gum. Resources for Quitting Smoking: <https://www.[place].gov/documents/[facility]/Quit_Tobacco_Resources_for_patients_313 480_7.pdf> Supplementation: Take recommended dosages of Vitamin D and Calcium to help fortify your bones and help them to heal. See your health maintenance packet for dosages and recommended levels. DVT/VTE prophylaxis: You will be given compression stockings from the hospital. Wear these daily for the first two weeks after surgery. You may take them off at night. You may be prescribed a medication to help thin your blood. Take this as directed. If you are not prescribed this medication, early and frequent ambulation has been shown to be the best prophylaxis to deep vein thrombosis and sequelae related to this event. Discharge Disposition: HOME SELF-CARE
[2021-05-29 12:32] VITALS: BP 129/88; PULSE 103; RESP 17; TEMP 98.9
--- NOTE | 2021-05-29 17:54 | PN ---
PROGRESS NOTE DATE OF SERVICE: 05/29/2021 This 40-year-old woman who was admitted with neck surgery is improving significantly. No chest pain. No palpitations. No fever. PHYSICAL EXAMINATION: Alert and oriented x3. The pulse is 103, blood pressure 129/80, respirations 17, temperature 98.9, pulse ox 92% on room air. HEENT: Conjunctivae normal. NECK: No jugular venous distention. CARDIOVASCULAR: S1, S2 muffled. RESPIRATION: A few scattered rhonchi. ABDOMEN: Soft. NERVOUS SYSTEM: No focal deficit. LABS: Creatinine 0.44. Other labs are noted. ASSESSMENT: 1. Cervical myelopathy, C3 to 7, and stenosis, status post posterolateral fusion, C2- T1, as well as segmental instrumentation C2-T1 as well as C3-7, decompression laminectomy. 2. Postoperative pain, improved. 3. History of asthma, chronic intermittent. 4. History of chest pain, angina. 5. History of cerebrovascular accident, transient ischemic attack. 6. History of gastroesophageal reflux disease. 7. History of degenerative joint disease. 8. History of rheumatoid arthritis. 9. History of nephrolithiasis. 10.History of lupus. 11.History of adenoidectomy. 12.History of back surgery. 13.History of cholecystectomy. 14.History of anxiety. 15.Continued ongoing nicotine dependence. 16.History of THC. 17.FULL CODE. RECOMMENDATIONS AND DISCUSSION: I recommend to continue current medications, continue with the monitoring, symptomatic treatment. I would recommend that she regularly take inhalers for the next couple of weeks and incentive spirometry. Closely follow with the primary physician. Rest of the recommendations per Dr. Hudson. MMVERNONL / IJN: [id number] /
== END 2021-05-29 13:54 | disposition home or self-care (01) | DRG 472 ==
LOC: 2ORMAIN 05-26 10:35 → 5NMEDONC 05-26 18:22
PROVIDERS: ADMIT Orthopaedic Surgery; ATTEND Orthopaedic Surgery
PROC: 0RG407J Fusion of Cervicothoracic Vertebral Joint with Autologous Tissue Substitute, Posterior Approach, Anterior Column, Open Approach (ICD-10-PCS; 2021-05-26)
PROC: 01N10ZZ Release Cervical Nerve, Open Approach (ICD-10-PCS; 2021-05-26)
PROC: 01N80ZZ Release Thoracic Nerve, Open Approach (ICD-10-PCS; 2021-05-26)
PROC: 4A11X4G Monitoring of Peripheral Nervous Electrical Activity, Intraoperative, External Approach (ICD-10-PCS; 2021-05-26)
PROC: 8E09XBF Computer Assisted Procedure of Head and Neck Region, With Fluoroscopy (ICD-10-PCS; 2021-05-26)
PROC: 0RG207J Fusion of 2 or more Cervical Vertebral Joints with Autologous Tissue Substitute, Posterior Approach, Anterior Column, Open Approach (ICD-10-PCS; principal; 2021-05-26 12:30)
DX: M96.0 Pseudarthrosis after fusion or arthrodesis (principal); M50.03 Cervical disc disorder with myelopathy, cervicothoracic region; M48.03 Spinal stenosis, cervicothoracic region; M50.13 Cervical disc disorder with radiculopathy, cervicothoracic region; M46.93 Unspecified inflammatory spondylopathy, cervicothoracic region; Z20.822 Contact with and (suspected) exposure to COVID-19; D50.9 Iron deficiency anemia, unspecified; K21.9 Gastro-esophageal reflux disease without esophagitis; Y84.8 Other medical procedures as the cause of abnormal reaction of the patient, or of later complication, without mention of misadventure at the time of the procedure; F17.210 Nicotine dependence, cigarettes, uncomplicated; J45.909 Unspecified asthma, uncomplicated; M06.9 Rheumatoid arthritis, unspecified; M19.90 Unspecified osteoarthritis, unspecified site; Z79.899 Other long term (current) drug therapy; Z86.73 Personal history of transient ischemic attack (TIA), and cerebral infarction without residual deficits; Z87.442 Personal history of urinary calculi; Z90.49 Acquired absence of other specified parts of digestive tract; Z98.1 Arthrodesis status; Z88.1 Allergy status to other antibiotic agents; Z88.5 Allergy status to narcotic agent; Z82.61 Family history of arthritis; Z80.1 Family history of malignant neoplasm of trachea, bronchus and lung; Z82.5 Family history of asthma and other chronic lower respiratory diseases; Z88.8 Allergy status to other drugs, medicaments and biological substances
CPT/HCPCS: 36415; 72040; 72125; 80048; 80202; 81025; 82565; 85025; 86850; 86900; 86901; 87635; 94640

== ENCOUNTER → 2021-05-21 | Outpatient (CLI) | payer OTHER | END | disposition home or self-care (01) | LOC: LABPAT 08:22 | PROVIDERS: ATTEND Orthopaedic Surgery | DX: Z01.812 Encounter for preprocedural laboratory examination (principal); M48.02 Spinal stenosis, cervical region | CPT/HCPCS: 87070 ==

== ENCOUNTER → 2021-06-17 | Outpatient (CLI) | payer OTHER ==
--- NOTE | 2021-06-17 14:24 | US ---
EXAMINATION TYPE: US pelvis complete transvag DATE OF EXAM: 06/17/2021 COMPARISON: NONE CLINICAL HISTORY: N92.1 excessive and frequent menstruation. Heavy, painful, and long menstruation, w ith history of endometrioses and Uterine Didelphys. TECHNIQUE: Transvaginal (TV) and Transabdominal (TA) . Transabdominal sonographic images of the pel vis were acquired. Transvaginal sonographic images were medically necessary to better assess the fol lowing anatomy: Uterus Date of LMP: Patient unsure EXAM MEASUREMENTS: Right Uterus: 7.5 x 3.7 x 3.8 cm Left Uterus 6.7 x 3.3 x 2.9 cm Right Endometrial Stripe: 0.6 cm Left Endometrial Stripe: 0.5 cm Right Ovary: 2.5 x 1.3 x 1.4 cm Left Ovary: 2.7 x 1.8 x 1.6 cm 1. Uterus: Retroverted Double uterus, both are retroverted 2. Endometrium: both are wnl 3. Right Ovary: wnl 4. Left Ovary: Anechoic areas measuring 1).1.1 x 1.1 x 1.1cm 2). 1.1 x 1.4 x 1.0cm 5. Bilateral Adnexa: wnl 6. Posterior cul-de-sac: wnl Double Uterus seen with anechoic areas in the Left ovary. IMPRESSION: 1. Duplication of the uterus. 2. Left ovarian cysts.
== END | disposition home or self-care (01) ==
LOC: RADUSWWP 10:32
PROVIDERS: ATTEND Internal Medicine
DX: N83.202 Unspecified ovarian cyst, left side (principal); Q51.28 Other and unspecified doubling of uterus
CPT/HCPCS: 76830; 76856

== ENCOUNTER 2021-08-30 13:41 | Emergency (ER) | payer OTHER ==
[2021-08-30 14:19] VITALS: BP 152/93; PULSE 84; RESP 18; TEMP 98.3
[2021-08-30] MEDS ORDERED: SODIUM CHLORIDE 0.9% 500 ML 500 ML IV STA (15:26)
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
[2021-08-30 16:06] LABS: Basophils % (A) 1 %; Eosinophils # (A) 0.1 k/uL (0-0.7); Eosinophils % (A) 1 %; HCT 35.3 % (34.0-46.0); HGB 11.3 gm/dL (11.4-16.0); Lymphocytes # (A) 2.4 k/uL (1.0-4.8); Lymphocytes % (A) 33 %; MCH 30.9 pg (25.0-35.0); MCV 96.6 fL (80.0-100.0); Mean Platelet Volume 6.7; Monocytes # (A) 0.5 k/uL (0-1.0); Monocytes % (A) 6 %; Neutrophils # (A) 4.2 k/uL (1.3-7.7); Neutrophils % (A) 58 %; Platelet Count 443 k/uL (150-450); RBC 3.66 m/uL (3.80-5.40); RDW 15.8 % (11.5-15.5); WBC 7.3 k/uL (3.8-10.6)
[2021-08-30 16:16] LABS: ALT 17 U/L (4-34); AST 22 U/L (14-36); African American GFR (CKD) >90 (>60 ml/min/1.73 sqM); Albumin 3.7 g/dL (3.5-5.0); Alkaline Phosphatase 80 U/L (38-126); Anion Gap 7 mmol/L; Blood Urea Nitrogen 10 mg/dL (7-17); C Reactive Protein 1.3 mg/dL (<1.0); Calcium 8.8 mg/dL (8.4-10.2); Carbon Dioxide 24 mmol/L (22-30); Chloride 106 mmol/L (98-107); Glucose 91 mg/dL (74-99); Non-African American GFR(CKD) >90 (>60 ml/min/1.73 sqM); Potassium 3.9 mmol/L (3.5-5.1); Sodium 137 mmol/L (137-145); Total Bilirubin 0.4 mg/dL (0.2-1.3); Total Protein 6.9 g/dL (6.3-8.2)
--- NOTE | 2021-08-30 16:27 | CT ---
EXAMINATION TYPE: CT cervical spine w con DATE OF EXAM: 08/30/2021 COMPARISON: CT cervical spine 05/27/2021 HISTORY: Left sided neck pain, headache and metallic taste. History of C2-T1 fusion x3 months ago. CT DLP: 259.2 mGycm. Automated Exposure Control for Dose Reduction was Utilized. TECHNIQUE: Multiple contiguous axial CT images of the cervical spine was performed from the skull bases through the lung apices after the administration of intravenous contrast: 100 mL of Isovue-300. 2-D sagittal and coronal reformats were obtained. FINDINGS: Postsurgical changes with ACDF of C5-C7 and posterior cervical fusion of C2-T1 with total laminectomi es of C3-C7. There is interbody osseous fusion of C5-C7. Hardware appears intact. No periprosthetic l ucency. The anterior C5 screws project into the C4-5 disc space which is unchanged from prior. Interbody osseous fusion of C5-C7. Cervical vertebral body heights are maintained. Grade 1 retrolisth esis of C4-5, which is unchanged from prior. No acute fracture or traumatic subluxation. Partial degenerative osseous fusion of C4-5. Mild degenerative disc changes at the level of C7-T1 wit h osteophyte formation and disc height loss, which is unchanged from prior. Mild degenerative disc ch anges of the upper thoracic spine with osteophyte formation and normal disc height loss. Evaluation of the spinal canal due to hardware artifact; however, there is no new bony spinal canal s tenosis. There is stable mild residual neural foraminal narrowing at the level of C6-7 due to uncover tebral hypertrophy. No prevertebral soft tissue swelling. There is a nonspecific fluid collection within the laminectomy bed from the level of C3-T1, overall measuring 21 x 37 x 103 mm in the transverse, AP, CC dimensions. IMPRESSION: 1. Post surgical changes consistent with ACDF of C5-C7 with interbody osseous fusion and degenerative partial osseous fusion of C4-5, as well as posterior cervical fusion of C2-T1 with total laminectomi es of C3-C7. 2. Nonspecific fluid collection within the laminectomy bed posteriorly from C3-T1. Findings may repre sent postoperative seroma; however, underlying infection is not excluded. Appropriate clinical correl ation is recommended. 3. Evaluation of the spinal canal is limited due to hardware artifact.
[2021-08-30 16:54] LABS: Erythrocyte Sedimentation Rate 37 mm/hr (0-20)
[2021-08-30] MEDS ORDERED: KETOROLAC 15 MG/ML 1 ML VIAL IVP STA (17:11)
== END 2021-08-30 17:26 | disposition home or self-care (01) ==
LOC: EC 13:41
DX: R51.9 Headache, unspecified (principal); G89.18 Other acute postprocedural pain; J45.909 Unspecified asthma, uncomplicated; K21.9 Gastro-esophageal reflux disease without esophagitis; M19.90 Unspecified osteoarthritis, unspecified site; F41.9 Anxiety disorder, unspecified; F17.200 Nicotine dependence, unspecified, uncomplicated; F12.90 Cannabis use, unspecified, uncomplicated; Z20.822 Contact with and (suspected) exposure to COVID-19; Z88.1 Allergy status to other antibiotic agents; Z86.73 Personal history of transient ischemic attack (TIA), and cerebral infarction without residual deficits; Z87.442 Personal history of urinary calculi; Z90.49 Acquired absence of other specified parts of digestive tract; Z98.51 Tubal ligation status
CPT/HCPCS: 99284; 96374; 96361; 36415; 80053; 85652; 83605; 85025; 86140; 87635; 72126; J1885; Q9967

== ENCOUNTER 2021-09-23 14:27 | Observation (INO) | payer OTHER ==
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
[~2021-09-23 14:27] MED LIST changes: +ACETAMINOPHEN TAB 500 MG TAB PO PRN; +GABAPENTIN 300 MG CAP PO PRN; -HEPARIN SODIUM,PORCINE 5,000 UNIT/ML 1 ML VIAL SQ ONE; +ONDANSETRON 4 MG/2 ML VIAL IVP PRN; -Pre Op ABX Message 1 EACH MISC MISCELLANE ONE; +TRANEXAMIC ACID IN NACL,ISO-OS 1,000 MG in SALINE 1 100ML.BAG IVPB PRN
[2021-09-23] MEDS ORDERED: HYDROmorphone 0.5 MG/0.5 ML SYRINGE IVP PRN ×2 (14:44→17:45)
[2021-09-23] MEDS ORDERED: LACTATED RINGERS 1,000 ML IV SCH (14:44)
[2021-09-23] MEDS ORDERED: LIDOCAINE 1% (10MG/ML) FOR IV START INTRADERMA PRN ×2 (14:44)
[2021-09-23] MEDS: LACTATED RINGERS 1,000 ML IV SCH (14:53)
[2021-09-23] MEDS ORDERED: ONDANSETRON 4 MG/2 ML VIAL ONE (15:18)
[2021-09-23] MEDS ORDERED: DEXAMETHASONE SOD PHOSPHATE 4 MG/ML 1 ML VIAL IVP ONE (15:21)
[2021-09-23] MEDS ORDERED: ONDANSETRON 4 MG/2 ML VIAL IVP ONE (15:21)
[2021-09-23] MEDS ORDERED: ROCURONIUM 10 MG/ML (5 ML VIAL) IV ONE (16:04)
[2021-09-23] MEDS ORDERED: GLYCOPYRROLATE 0.2 MG/ML 2 ML VIAL ONE (16:04)
[2021-09-23] MEDS ORDERED: ePHEDrine 50 MG/ML 1 ML VIAL ONE (16:04)
[2021-09-23] MEDS ORDERED: LIDOCAINE 2% INJ 20 MG/ML (2 ML VIAL) ONE (16:04)
[2021-09-23] MEDS ORDERED: NEOSTIGMINE 1 MG/ML 10 ML VIAL ONE (16:04)
[2021-09-23] MEDS ORDERED: PHENYLEPHRINE-0.9% NACL SYG 1,000 MCG/10 ML SYRINGE ONE (16:04)
[2021-09-23] MEDS ORDERED: HYDROmorphone (PF) 1 MG/ML ONE (16:04)
[2021-09-23] MEDS ORDERED: PROPOFOL 10 MG/ML 20 ML VIAL IV ONE (16:04)
[2021-09-23] MEDS ORDERED: MIDAZOLAM 2 MG/2 ML VIAL ONE (16:04)
[2021-09-23] MEDS ORDERED: fentaNYL (PF) 50 MCG/ML 2 ML AMP ONE (16:04)
[2021-09-23] MEDS ORDERED: ceFAZolin 3,000 MG in SODIUM CHLORIDE 0.9% IRRIGATIO 3,000 ML IRRIGATION ONE (16:56)
[2021-09-23] MEDS ORDERED: LACTATED RINGERS 1,000 ML IV ONE (17:32)
[2021-09-23] MEDS ORDERED: MAGNESIUM HYDROXIDE 2,400 MG/10 ML CUP PO PRN (17:45)
[2021-09-23] MEDS ORDERED: bisacodyL 10 MG SUPP RECTAL PRN (17:45)
[2021-09-23] MEDS ORDERED: ONDANSETRON 4 MG/2 ML VIAL IVP PRN (17:45)
[2021-09-23] MEDS ORDERED: SENNOSIDES-DOCUSATE SODIUM 1 EACH TAB PO PRN (17:45)
[2021-09-23] MEDS ORDERED: NA PHOS,M-B/NA PHOS,DI-BA 133 ML ENEMA RECTAL PRN (17:45)
[2021-09-23] MEDS ORDERED: MAG HYDROX/AL HYDROX/SIMETH 30 ML CUP PO PRN (17:45)
[2021-09-23] MEDS ORDERED: ACETAMINOPHEN TAB 500 MG TAB PO PRN (17:49)
[2021-09-23] MEDS: HYDROmorphone 0.5 MG/0.5 ML SYRINGE IVP PRN ×4 (18:04→18:43)
[2021-09-23] MEDS: HYDROmorphone 1 MG/ML 1 ML SYRINGE IVP PRN ×2 (20:16→23:32)
[2021-09-23] MEDS: CYCLOBENZAPRINE 10 MG TAB PO PRN (21:11)
[2021-09-23] MEDS ORDERED: VANCOMYCIN IV PER PHARMACY 1 EACH MISC MISCELLANE SCH (21:45)
--- NOTE | 2021-09-23 21:55 | P.PN ---
Progress Note - Text Progress Note Date: 09/23/21 Postop: . Patient seen and examined they are doing well. Their pain is under control at this time. They are moving all 4 extremities without any issues. Vital signs are stable.. They are currently recovering and will be transferred to the floor once deemed stable by the PACU team and anesthesiologist. No Other issues at this time they deny fever chills shortness of breath or chest pain. C collar in place, well fitting Medical management pending Continue with intravenous fluids, pain medication, muscle relaxers, home medication Soft diet to start to advance as tolerated We will evaluate the patient in the morning.
[2021-09-23 22:23] LABS: African American GFR (CKD) >90 (>60 ml/min/1.73 sqM); Anion Gap 7 mmol/L; Blood Urea Nitrogen 7 mg/dL (7-17); Calcium 8.7 mg/dL (8.4-10.2); Carbon Dioxide 25 mmol/L (22-30); Chloride 104 mmol/L (98-107); Glucose 115 mg/dL (74-99); Non-African American GFR(CKD) >90 (>60 ml/min/1.73 sqM); Potassium 4.4 mmol/L (3.5-5.1); Sodium 136 mmol/L (137-145)
[2021-09-23] MEDS: GABAPENTIN 400 MG CAP PO SCH (22:42)
[2021-09-23] MEDS ORDERED: VANCOMYCIN 1,000 MG in SODIUM CHLORIDE 0.9% 250 ML IVPB ONE (23:00)
[2021-09-24] MEDS: HYDROmorphone 1 MG/ML 1 ML SYRINGE IVP PRN ×2 (02:35→06:22)
[2021-09-24] MEDS: CYCLOBENZAPRINE 10 MG TAB PO PRN ×3 (08:04→23:45)
[2021-09-24] MEDS: GABAPENTIN 400 MG CAP PO SCH ×3 (08:04→23:45)
[2021-09-24] MEDS ORDERED: GABAPENTIN 300 MG CAP PO SCH (09:00)
--- NOTE | 2021-09-24 09:26 | P.PN ---
Subjective Progress Note Date: 09/24/21 Principal diagnosis: Cervical Seroma Patient seen and examined today at bedside. Patient sitting up in bed with complaints of uncontrolled pain. Pain medications have been modified. Surgical dressing to posterior neck is clean dry and intact. EMERITA drain present with 65 mL of output throughout the night. Patient states she has slight numbness to bilateral upper extremities that was present prior to procedure. Patient was requesting to be discharged today, educated patient on the need for IV antibiotics and pending wound cultures. Patient verbalized understanding. Patient has remained afebrile. Patient denies nausea/vomiting or chest pain. Objective - Vital Signs Vital signs: Vital Signs Temp 98.9 F 09/24/21 08:00 Pulse 90 09/24/21 08:00 Resp 18 09/24/21 08:00 BP 121/80 09/24/21 08:00 Pulse Ox 100 09/24/21 08:00 Intake & Output 09/23/21 09/24/21 09/24/21 18:59 06:59 18:59 Intake Total 1401 Output Total 45 40 Balance 1356 -40 Weight 59.4 kg 59.4 kg Intake: IV 1401 Output: Drainage 40 Posterior Neck 40 Estimated Blood Loss 45 Other: Voiding Method Toilet # Voids 3 - Exam Physical Examination General: The patient is awake and alert, in no acute distress Skin: Skin is warm and dry with no obvious rashes or lesions. Hairy patches absent, no dorsal skin dimples, no cafe au lait spots. Surgical incision to posterior cervical region, EMERITA drain intact. Eye: Pupils are equal, round and reactive to light, extra-ocular movements are intact; there is normal conjunctiva bilaterally. Neck: The neck is supple, there is slight tenderness. FROM limited due to pain from surgery. Cardiovascular: There is a regular rate and rhythm. No murmur, rub or gallop is appreciated. Respiratory: Lungs are clear to auscultation, respirations are non-labored, breath sounds are equal. Gastrointestinal: Soft, non-distended, non-tender abdomen . Back: There is no tenderness to palpation in the midline, paralumbar, parathoracic or buttocks region. There is no obvious deformity . Musculoskeletal: ROM limited secondary to pain and stiffness from surgical procedure. Shoulder abduction 4/5, elbow flexors 4/5, wrist dorsiflexors 4/5. finger abductor 4/5, retail marketing coordinator 4/5, hip flexor 5/5, knee flexor 5/5, ankle dorsiflexor 5/5, ankle plantarflexion 5/5 and extensor hallucis 5/5. Neurological: CN 2-12 intact. There are no obvious motor or sensory deficits. Movement and coordination equal and intact. Sensory exam to light touch intact C5-T1 and intact from L2-S1. Reflexes 2/4 in bilateral upper and lower extremities. Negative Hoffmans, babinski, and clonus signs. Psychiatric: Cooperative, appropriate mood & affect, normal judgment. - Labs CBC & Chem 7: 09/23/21 20:56 Labs: Abnormal Lab Results - Last 24 Hours (Table) 09/23/21 09/23/21 Range/Units 20:46 20:56 ESR 29 H (0-20) mm/hr Sodium 136 L (137-145) mmol/L Glucose 115 H (74-99) mg/dL Assessment and Plan Assessment: 1. Post Op Day #1 Incision and Drainage with revision of fascial closure posterior cervical spine. 2. Cervical seroma Plan: Plan: -Appreciate recruiting operations consultant and team management. -Activity: Ambulate QID, OOB all meals, up and about, limit lifting bending twisting to less than 5 lbs. Use walker or cane if needed for stability. -Daily PT/OT, increase ambulation strength and balance. -Cervical collar when up and about, not needed in bed or chair -Pain control: Adequate at this time -Meds: reviewed -GI ppx: senna, Miralax -Hygiene: Shower today. Maintain dressing clean and dry. -Drains: Maintain for now. DC later today pending out put and PT -DVT prophylaxis: Lowell Box -Encourage IS 10x/hr -Dispo: Anticipate discharge home tomorrow with homecare pending wound cultures. *I reviewed and discussed this case with my attending Dr. Hudson, whom has reviewed this chart and films and is in agreement with assessment and plan of care as outlined above. I have personally seen and examined the patient, performed the documentation and the assessment and plan as written. Number of minutes spent on the visit: 20m. Time with Patient: Less than 30
[2021-09-24 10:07] LABS: Basophils # (A) 0.03 X 10*3/uL (0.00-0.10); Basophils % (A) 0.3 %; Eosinophils % (A) 1.1 %; HCT 29.6 % (37.2-46.3); HGB 9.5 g/dL (12.0-15.0); Immature Grans, Automated 0.2 %; Lymphocytes % (A) 29.5 %; MCH 30.4 pg (27.0-32.0); MCHC 32.1 g/dL (32.0-37.0); MCV 94.6 fL (80.0-97.0); Mean Platelet Volume 8.7 fL (9.5-12.2); Monocytes # (A) 0.83 X 10*3/uL (0.20-1.00); Monocytes % (A) 9.4 %; NRBC Per 100 WBC 0 /100 WBCS (0.0-0.0); Neutrophils # (A) 5.22 X 10*3/uL (1.80-7.70); Neutrophils % (A) 59.5 %; Platelet Count 358 X 10*3/uL (140-440); RBC 3.13 X 10*6/uL (4.10-5.20); RDW 15.6 % (11.5-14.5)
[2021-09-24] MEDS: diazePAM 5 MG TAB PO PRN ×2 (10:47→23:45)
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
[2021-09-24] MEDS ORDERED: ALBUTEROL HFA INHALER INHALATION PRN (11:04)
--- NOTE | 2021-09-24 12:08 | P.OP ---
Date of Procedure: 09/23/21 Preoperative Diagnosis: 1. Posterior neck facial dehiscence 2. Draining wound posterior neck 3. s/p C2-T1 decompression fusion 4. Tobacco abuse Postoperative Diagnosis: 1. Posterior neck facial dehiscence 2. Draining wound posterior neck 3. s/p C2-T1 decompression fusion 4. Tobacco abuse Procedure(s) Performed: 1. Incision and drainage posterior neck (73238) 2. Irrigation and debridement posterior neck skin, soft tissue, muscle and bone 25 x 10 x 5 cm using the following (41105) -Knife to remove scarred skin -Rongure to remove bone fragments and Sp that was protruding through facia -Curette to freshen edges and remove scar tissue 3. Exploration of fusion posterior cervical (70500) 3. Complex closure 3 layers posterior neck 25 x 10 x 5 cm (16935) Implants: None Anesthesia: GETA Surgeon: Jonathan Hudson Power Project Manager #1: Daniel Loza (Was present for the entire case and assisted with positioning, debridment, closure and dressing) Estimated Blood Loss (ml): 100 IV fluids (ml): 500 Urine output (ml): 0 Pathology: other (x2 posterior neck cultures) Condition: stable Disposition: PACU Indications for Procedure: Maria Ortiz is presenting for evaluation of cervical pain with fascial dehiscence and seroma. It was my pleasure to have seen and examined Maria Ortiz. In our visit today we have had a chance to go over subjective complaints, physical examination findings and treatments including the natural course history without intervention and various interventional options. The patients imaging demonstrates MRI: this is reviewed and demonstrates postsurgical changes with hardware placement and good position with good decompression there is postoperative seromatous changes secondary to fascial dehiscence noted. There is splaying of the longissimus muscles as well as fascial planes starting at C3 through C6. The fluid collection extends down to the spinous process of T1. It is non-compressive in nature. There is good decompression and good space for the cervical cord. No other complicating processes at this time. On physical exam, Maria Ortiz demonstrates: No fevers or chills, mild/clear drainage from pinhole on the incision, EEE, edema, ecchymosis, no TTP about the surgical sites. Gentle ROM testing tolerated without issues. No focal deficits of the upper extremities. No hoarse voice and improved swallowing. She is having improving sensation about the right ring, middle, and index fingers. c/o some numbness over R hand in the C8 distribution but this was present before surgery. I have explained to the patient that as their condition progresses it will cause further neurological deficits and eventual paralysis. Based on the patients eva ging, physical exam, and the rapid progression and disabling nature of their symptoms, at this time I recommend surgery in the form or a: I&D w/ revision fascial closure posterior neck . I discussed the risk and benefits of this procedure at length with Maria Ortiz. The patient agreed to considered pursuing the procedure abovementioned. Prior to surgery, she should follow up with her PCP (Cardio, ID, IM etc) for clearance. Questions were invited and answered, and the patient wishes to proceed as outlined below. Currently, I am recommendin.Incision and drainage with irrigation and debridement and revision facial closure posterior neck 2.Follow up with PCP for surgical clearance 3.Review of surgical risks and benefits as well as an educational packet on the proposed surgical procedure. Description of Procedure: The patient was seen and examined in the preoperative area. All preoperative protocols were followed. Informed consent was obtained risks and benefits of the procedure were discussed at length. Risks including bleeding infection damage to the surrounding tissue and risk of reoperation were discussed with the patient. Risk of anesthesia up to and including was a discussed with the patient. These are outlined in the risk review. They were willing to accept these risks and all of the risks of surgery. The patient was given a weight- based dose of antibiotics in the form of 2 g Ancef. The patient was seen and evaluated by the anesthesia team who deemed them fit for surgery. The site was marked, the patient was willing to proceed with the procedure. The patient was transferred to the operative suite by the Department of anesthesia. They were then drifted off to sleep by the department anesthesia and GETA was performed. The patient tolerated this well. Once confirmation of lines and ventilation the patient was transferred to a prone Eddi table very carefully. All bony prominences including wrists, elbows, axilla, chest, hips, and thighs, and feet were padded very well. Special attention was paid to the genitalia and these were padded accordingly. SCDs were placed on bilateral lower extremities and were connected. Arms were well padded and placed tucked at her side well-padded thumbs down. Once in position, again we confirmed good ventilation capabilities and that lines were running appropriately. The patient's posterior cervical spine was then exposed. 1010s were placed outlining the incision site. Standard alcohol was used to clean the incision site and allowed to dry. C-arm was used to biomark the patient and confirm level for incision which was marked with a skin marker. Operative briefing was performed with all teams and everyone in agreement to proceed. The patient was then prepped and draped in a normal sterile fashion. Timeout was then performed and all parties were in agreement with the procedure to be performed. Midline skin incision was made over the previous marked area and previous scar. Dissection was taken down until the D has fascia was encountered we then encountered a seroma in this area. The patient had dehisced her fascia between the levels of C4 through T1 about the seroma had built up in this area. We evacuated the seroma took cultures of the area and sent these off. We then performed a formal debridement of the area with curettes for debridement of the soft tissue muscle and Schwarz for debridement of bone. The T1 spinous process was somewhat prominent and so this was shaved down with a Keenan in order to create less tension in this area. We used a curette then to remove any scar tissue in the area the surrounding fusion was investigated and the hardware was in good position with no evidence of any purulence infective process or other issues there was good formation of bone in the posterior lateral areas. After this we then irrigated the wound first with 3 L of antibiotic irrigant followed by 6 L of normal sterile saline while debriding the soft tissue with a curet. Once this was complete we then freshened the skin edges with a 10 blade. We then placed a drain deep to the fascia and secured in position. We then performed a complex closure first in the deep fascia and muscle layers with #1 PDS in a tension stitch fashion this allowed for a watertight closure in this area. We then oversewed this area with 0 PDS. The deep subcu tissue was then closed with 0 PDS superficial subcu tissue closed with 2-0 PDS and the skin was closed with 2-0 nylon. The wound edges approximated very well and there were no complications. The wound was then cleaned and dressed sterilely with an operative foam dressing 4 x 4 and Tegaderm. The patient was transferred back to their hospital bed atraumatically. Drain continued to hold suction and were in good position. Patient was then awakened and extubated by the department of anesthesia having tolerated the procedure very well with no complications. They were transferred to the postoperative care unit in stable condition.
[2021-09-24] MEDS: VANCOMYCIN 1,000 MG in SODIUM CHLORIDE 0.9% 250 ML IVPB SCH (13:03)
[2021-09-24] MEDS: SENNOSIDES-DOCUSATE SODIUM 1 EACH TAB PO SCH (13:11)
[2021-09-24] MEDS: LACTATED RINGERS 1,000 ML IV SCH (19:31)
[2021-09-24] MEDS: FAMOTIDINE 20 MG TAB PO SCH (21:00)
[2021-09-25] MEDS: VANCOMYCIN 1,000 MG in SODIUM CHLORIDE 0.9% 250 ML IVPB SCH ×3 (01:26→13:00)
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
[2021-09-25 07:44] VITALS: RESP 17
[2021-09-25] MEDS: GABAPENTIN 400 MG CAP PO SCH ×2 (08:13→15:45)
[2021-09-25] MEDS: diazePAM 5 MG TAB PO PRN (08:13)
[2021-09-25] MEDS: SENNOSIDES-DOCUSATE SODIUM 1 EACH TAB PO SCH (08:13)
[2021-09-25] MEDS: CYCLOBENZAPRINE 10 MG TAB PO PRN ×2 (08:13→15:45)
[2021-09-25] MEDS: FAMOTIDINE 20 MG TAB PO SCH (08:13)
[2021-09-25] MEDS ORDERED: VANCOMYCIN TROUGH DUE 1 EACH MISC MISCELLANE ONE (12:00)
--- NOTE | 2021-09-25 12:48 | P.PN ---
Subjective Progress Note Date: 09/25/21 Principal diagnosis: Cervical Seroma Patient seen and examined today at bedside. Patient ambulating in room. She states she is tolerating activity well. Patient was requesting to be discharged again today, re-educated patient on the need for IV antibiotics and pending wound cultures. Patient verbalized understanding, but states she can be doing the same thing from home. Surgical dressing has been changed incision is well approximated, sutures intact. EMERITA drain has been removed with an output of 10 mL's overnight. Patient has remained afebrile. Patient denies nausea/vomiting or chest pain. Objective - Vital Signs Vital signs: Vital Signs Temp 98.0 F 09/25/21 07:44 Pulse 85 09/25/21 07:44 Resp 17 09/25/21 07:44 BP 121/76 09/25/21 07:44 Pulse Ox 100 09/25/21 07:44 Intake & Output 09/24/21 09/25/21 09/25/21 18:59 06:59 18:59 Intake Total 250 Output Total 60 Balance 190 Intake: Intake, IV Titration 250 Amount Vancomycin 1,000 mg In 250 Sodium Chloride 0.9% 250 ml @ 125 mls/hr IVPB Q12H [facility] Rx#:[id number] Output: Drainage 60 Posterior Neck 60 Other: Voiding Method Toilet Toilet - Exam Physical Examination General: The patient is awake and alert, in no acute distress Skin: Skin is warm and dry with no obvious rashes or lesions. Hairy patches absent, no dorsal skin dimples, no cafe au lait spots. Surgical incision to posterior cervical region, EMERITA removed at this time and dressing changed. Eye: Pupils are equal, round and reactive to light, extra-ocular movements are intact; there is normal conjunctiva bilaterally. Neck: The neck is supple, there is slight tenderness. FROM limited due to pain from surgery. Cardiovascular: There is a regular rate and rhythm. No murmur, rub or gallop is appreciated. Respiratory: Lungs are clear to auscultation, respirations are non-labored, breath sounds are equal. Gastrointestinal: Soft, non-distended, non-tender abdomen . Back: There is no tenderness to palpation in the midline, paralumbar, parathoracic or buttocks region. There is no obvious deformity . Musculoskeletal: ROM limited secondary to pain and stiffness from surgical procedure. Shoulder abduction 4/5, elbow flexors 4/5, wrist dorsiflexors 4/5. finger abductor 4/5, injection wax molder 4/5, hip flexor 5/5, knee flexor 5/5, ankle dorsiflexor 5/5, ankle plantarflexion 5/5 and extensor hallucis 5/5. Neurological: CN 2-12 intact. There are no obvious motor or sensory deficits. Movement and coordination equal and intact. Sensory exam to light touch intact C5-T1 and intact from L2-S1. Reflexes 2/4 in bilateral upper and lower extremities. Negative Hoffmans, babinski, and clonus signs. Psychiatric: Cooperative, appropriate mood & affect, normal judgment. - Labs CBC & Chem 7: 09/24/21 06:13 09/23/21 20:56 Assessment and Plan Assessment: 1. Post Op Day #2 Incision and Drainage with revision of fascial closure posterior cervical spine. 2. Cervical seroma Plan: Plan: -Appreciate integration consultant and team management. -Activity: Ambulate QID, OOB all meals, up and about, limit lifting bending twisting to less than 5 lbs. Use walker or cane if needed for stability. -Daily PT/OT, increase ambulation strength and balance. -Cervical collar when up and about, not needed in bed or chair -Pain control: Adequate at this time -Meds: reviewed -GI ppx: senna, Miralax -Hygiene: Shower today. Maintain dressing clean and dry. -Drains: removed today 09/25/21 -DVT prophylaxis: [place] Box -Encourage IS 10x/hr -Dispo: Anticipate discharge home today or tomorrow with homecare pending wound cultures. *I reviewed and discussed this case with my attending Dr. Hudson, whom has reviewed this chart and films and is in agreement with assessment and plan of care as outlined above. I have personally seen and examined the patient, performed the documentation and the assessment and plan as written. Number of minutes spent on the visit: 20m. Time with Patient: Less than 30
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
[2021-09-25 13:27] LABS: African American GFR (CKD) >90 (>60 ml/min/1.73 sqM); Non-African American GFR(CKD) >90 (>60 ml/min/1.73 sqM)
[2021-09-25 14:03] VITALS: BP 155/90; PULSE 87; TEMP 97.8
--- NOTE | 2021-09-25 14:26 | P.DS ---
Providers Date of admission: 09/24/21 02:59 Expected date of discharge: 09/25/21 Attending physician: Jonathan Hudson DO Consults: 09/23/21 17:45 Consult Physician Routine Consulting Provider: Melinda Lua Consult Reason/Comments: Antibiotic treatment Do you want consulting provider notified?: Yes 09/23/21 17:51 Consult Physician Routine Consulting Provider: Sergey Taveras Consult Reason/Comments: Medical Management Do you want consulting provider notified?: Yes Primary care physician: Sandie Cesar [facility] Course: Hospital Course: The patient was evaluated preoperatively and found to have the diagnosis of cervical seroma. They underwent appropriate preoperative care and were willing to undergo the intended procedure. They underwent a successful incision and drainage with revision of fascial closure posterior cervical spine, were recovered appropriately and sent to the floor. While on the floor they worked with physical therapy, occupational therapy and nursing to enhance their recovery experience. Their pain was well controlled through their stay and they were started on appropriate medications, DVT ppx modalities, activity and dietary needs. Daily labs were monitored closely, and transfusions were only used when necessary. Medicine as well as other consulting services have made their input and have helped with our team approach and multidisciplinary care. PT milestones have been met and passed and they have made the recommendation of home with homecare for this patient and treating providers agree with this care path. The patient will be discharged home with appropriate medications, instructions and follow-up information and in stable condition. Patient Condition at Discharge: Good Plan - Discharge Summary Discharge Rx Participant: Yes New Discharge Prescriptions: New Cyclobenzaprine [Flexeril] 10 mg PO TID #90 tab Gabapentin [Neurontin] 800 mg PO TID #90 tab oxyCODONE HCL [oxyCODONE HCL (IR)] 15 mg PO Q4-6H PRN #56 tab PRN Reason: Pain diazePAM [Valium] 5 mg PO BID #14 tab Sulfamethox-Tmp 800-160Mg [Bactrim DS 800-160 mg] 1 tab PO Q12HR 10 Days #20 tab Polyethylene Glycol 3350 [Miralax] 17 gm PO DAILY PRN #527 gm PRN Reason: Constipation Sennosides/Docusate Sodium [Senna Plus 8.6-50 mg Tablet] 1 each PO DAILY PRN #20 tablet PRN Reason: Constipation No Action Butalb/APAP/Caff 50-325-40Mg [Fioricet 50-325-40] 1 tab PO TID PRN PRN Reason: Migraine Headache Albuterol Inhaler [Ventolin Hfa Inhaler] 1 puff INHALATION DAILY PRN PRN Reason: Dyspnea Cyclobenzaprine [Flexeril] 10 mg PO TID #42 tab Sennosides/Docusate Sodium [Senna-S 8.6-50 mg Tablet] 1 each PO DAILY #30 tablet diazePAM [Valium] 5 mg PO BID PRN #21 tab PRN Reason: Anxiety Ibuprofen [Motrin] 800 mg PO Q8H Gabapentin 600 mg PO TID polyethylene glycoL 3350 [Miralax] 17 gm PO DAILY #30 packet oxyCODONE-APAP 10-325MG [Percocet 10-325 mg] 1 - 2 tab PO Q6HR PRN 7 Days #56 tab PRN Reason: Pain methocarbamoL [Robaxin] 500 mg PO QID Discharge Medication List Butalb/APAP/Caff 50-325-40Mg [Fioricet 50-325-40] 1 tab PO TID PRN 11/03/17 [History] Albuterol Inhaler [Ventolin Hfa Inhaler] 1 puff INHALATION DAILY PRN 05/19/21 [History] Cyclobenzaprine [Flexeril] 10 mg PO TID #42 tab 05/29/21 [Rx] Sennosides/Docusate Sodium [Senna-S 8.6-50 mg Tablet] 1 each PO DAILY #30 tablet 05/29/21 [Rx] diazePAM [Valium] 5 mg PO BID PRN #21 tab 05/29/21 [Rx] oxyCODONE-APAP 10-325MG [Percocet 10-325 mg] 1 - 2 tab PO Q6HR PRN 7 Days #56 tab 05/29/21 [Rx] polyethylene glycoL 3350 [Miralax] 17 gm PO DAILY #30 packet 05/29/21 [Rx] Gabapentin 600 mg PO TID 09/23/21 [History] Ibuprofen [Motrin] 800 mg PO Q8H 09/23/21 [History] methocarbamoL [Robaxin] 500 mg PO QID 09/23/21 [History] Cyclobenzaprine [Flexeril] 10 mg PO TID #90 tab 09/25/21 [Rx] Gabapentin [Neurontin] 800 mg PO TID #90 tab 09/25/21 [Rx] Polyethylene Glycol 3350 [Miralax] 17 gm PO DAILY PRN #527 gm 09/25/21 [Rx] Sennosides/Docusate Sodium [Senna Plus 8.6-50 mg Tablet] 1 each PO DAILY PRN #20 tablet 09/25/21 [Rx] Sulfamethox-Tmp 800-160Mg [Bactrim DS 800-160 mg] 1 tab PO Q12HR 10 Days #20 tab 09/25/21 [Rx] diazePAM [Valium] 5 mg PO BID #14 tab 09/25/21 [Rx] oxyCODONE HCL [oxyCODONE HCL (IR)] 15 mg PO Q4-6H PRN #56 tab 09/25/21 [Rx] Follow up Appointment(s)/Referral(s): Gerry Hooper MD [Primary Care Provider] - 1 Week (Office closed. Please call Tuesday for your appointment.) Jonathan Hudson DO [Doctor of Osteopathic Medicine] - 2 Weeks Patient Instructions/Handouts: *Surgery [facility] - ([place]) Cervical Surgery Discharge Instructions, Anterior Cervical Discectomy (DC) Activity/Diet/Wound Care/Special Instructions: Spine Discharge and Recovery Instructions Date of Surgery: 09/23/2021 Diagnosis: Cervical seroma Procedure: Incision and drainage with revision of fascial closure posterior cervical spine Medications: See medication list All medication refills should be obtained through your primary care doctor or your clinic spine surgeon. Please discuss prescription refills at your follow up appointment. Do not call the hospital for medication refills. Dressing: Leave your dressing in place for a total of 5 days post operatively. Then you may remove your dressing and leave open to air. Keep the area clean and if not able to keep area clean, then cover with sterile gauze and tape. Showering: You may shower 3 days after your procedure allowing soap and water to run over incision. Do not scrub. Do not soak. Blot dry. Follow up: Please confirm a follow up appointment with your surgeon 3 weeks post operatively. Please make an appointment to follow up with your PCP in 1-2 weeks after surgery for evaluation 3 phase, 3-week plan POST OP WEEKS 1-3 1. Lifting/carrying/pushing/pulling limited to less than 5 pounds. 2. Do not sit for longer than 15 minutes at one time. Get up and walk around. Prolonged sitting is NOT advised. If you lay down, see if you can tolerate laying down on you front (belly side) 3. Walk for periods of 15 minutes = 1 mile but no longer; do it multiple times times each day. 4. Ice your low back after activity. POST OP WEEKS 3-6 1. Lifting limited to less than 20 pounds. 2. Do not sit for longer than 30 minutes at a time. Frequently change positions. Use a sit-to stand workstation or take frequent breaks from sitting if you have returned to work. 3. Walk for 30 minutes each day. If possible, do these three or more times a day POST OP WEEKS 6+ At your 6-week appointment we will give you a physical therapy referral to focus on a core stabilization and strengthening program. You should also work on leg & buttock strengthening, hamstring & quadriceps stretching, and continue a low impact aerobic activity program such as swimming, walking, or riding a stationary bicycle. During the initial 6 weeks after your surgery, you are at the highest risk of re-injuring your spine. You should generally avoid BLTs (bending, lifting and twisting combination motions) and follow the above guidelines to reduce the chance of reinjury. You can anticipate post op appointments in our office at approximately 3 weeks and 6 weeks after your surgery. INCISION CARE: If your incision is not draining you do NOT need to cover it with a dressing. Keep your incision clean, dry and intact. In most cases, we apply skin glue, lelo or sutures to the incision at the time of surgery. This will be like a crust or have the appearance of a scab and will fall off in time on its own. The stitches or lelo need to be removed at 3 weeks post op appointment. You may begin to shower 3 days after surgery (this allows the glue to graham well). However, please avoid scrubbing the incision site or peeling off any of the skin glue. This will ensure optimal healing of your incision. Also, during this time avoid soaking the incision area in water - this includes swimming pools, hot tubs or baths. No ointments, lotions or oils on the incision until your surgeon allows. Leave lelo, sutures or glue in place. Neurological dysfunction that comes on suddenly can also be a sign of a stroke. Below some common symptoms of a stroke are listed: B - balance difficulty such as sudden onset walking or leaning to one side - NEW E - eye problem such as sudden double vision or trouble seeing on one side - NEW F - Facial weakness or numbness on one side - NEW A - Arm or leg weakness or numbness on one side - NEW S - Slurred speech or difficulty with word finding - NEW T - Time is BRAIN! Call 911 as soon as you recognize these symptoms Diet: Consume a regular diet rich in vegetables and lean protein such as chicken or fish. You should consume in a ratio of approximately 20% fats|40% carbohydrates|40%protein. Vegetables, sweet potatoes, brown rice or quinoa are examples of good carbohydrates. Chips, white bread, cookies and sweets/sugar are examples of bad carbohydrates. Limit your bad carbs, go wild with good carbs. "Life's Simple 7" Guidelines as per [place] [employer] These will help you reclaim your life after surgery and hardwood floor installation helper in your recovery, keeping in mind your restrictions. (1) Get Active. Physical activity can help people lose weight, control high blood pressure and cholesterol, feel emotionally better, and sleep better. (2) Control Cholesterol. Avoid a diet high in saturated fat, trans fat, & cholesterol. Limit whole milk & cream, ice cream, butter, egg yolks, processed meats (like sausage and hot dogs), and fatty meats. Choose healthy foods that are low in saturated fat, trans fat and cholesterol which include: Fruits and vegetables, fiber rich grain products (like whole grain pasta and brown rice), lean meat such as chicken, fish, nuts, seeds, and legumes. (3) Eat Better. Eat small portions. Shop at the grocery with a list and do not stray from it. Tips for a healthy diet include: Limit sodium intake to less than 1500mg daily, avoid prepackaged, processed, and fast foods, choose a diet rich in fruits, vegetables, and whole grain, high fiber foods, and limit saturated & cholesterol in your diet. (4) Manage Blood Pressure. If you have high blood pressure, you should have a cuff at home so that you can check your blood pressure regularly. Be sure you have a good cuff. An arm one is generally better than a wrist one. Bring the cuff to a doctor's appointment to validate that the measurements that your cuff are taking are accurate. Take your blood pressure twice daily when you are sitting down and relaxing. Record the numbers in a log and bring this log with you to your doctors' appointments. (5) Lose Weight if your BMI is above 25. A healthy BMI is between 19-25. To calculate Your BMI, you may use a Standard BMI Calculator on the NIH BMI website: <www.nhlbi.nih.gov/guidelines/obesity/BMI/bmicalc.htm>. Weigh oneself daily. If you are overweight, set a goal to lose weight. A pound a week loss if needed is a good target. (6) Reduce Blood Sugar. Limit foods and liquids with "added sugars." (Added sugars include sucrose, fructose, glucose, maltose, dextrose, high fructose corn syrup, corn syrup, concentrated fruit juice and honey). (7) Stop Smoking. If you smoke, quitting smoking is one of the best things that you can do for your health. Smoking increases your risk of heart attack, stroke, and peripheral vascular disease, which is a build-up of plaque in your arteries. Please discard all the cigarettes and lighters in your house. Have a plan for what you will do when you have the urge to smoke. Direct and second- hand smoke shortens your life as well as the lives of your family, friends and others around you. For your health and the health of those around you, please consider quitting! Proper Bending Body Mechanics: Maintain a wide stance with one foot slightly in front of the other. Keep your back straight. Bend utilizing the strength in your hips and knees. Do not bend at the waist. Maintain the lifted object at your waist-level close to your body. Avoid lifting weight that causes immediately pain or pain anywhere in the body afterwards. Smoking/Nicotine If there was ever one thing that you could do to increase your overall health, decrease your risk of cardiovascular problems by about 39% the second you make the choice, it is to STOP SMOKING. Your body's most instant gratification is the second you stop smoking. We have all heard the studies, read the articles but it is true, smoking is extremely bad for your overall health, and moreover it is detrimental to your bone health. Nicotine, IN ANY FORM, kills bone cells, prevents your body from healing fractures, and significantly prolongs healing after surgery. In spine surgery specifically, it increases your risk of not healing your bones to create a fusion and increases your risk of having a revision surgery due to this up to 60%. I know it is hard. I know it feels impossible. But there are ways. Take control of your life. We are here to help you through it. And when you are ready, ask us and we can direct you to help if you desire. Use the START Plan to Quit Smoking (please visit the Helpguide.org website listed below for more information): S = Set a quit date. Choose a date within the next 2 weeks, so you have enough time to prepare without losing your motivation to quit. If you mainly smoke at work, quit on the weekend, so you have a few days to adjust to the change. T = Tell family, friends, and co-workers that you plan to quit. Let your friends and family in on your plan to quit smoking and tell them you need their support and encouragement to stop. Look for a quit charan who wants to stop smoking as well. You can help each other get through the rough times. A = Anticipate and plan for the challenges you'll face while quitting. Most people who begin smoking again do so within the first 3 months. You can help yourself make it through by preparing ahead for common challenges, such as nicotine withdrawal and cigarette cravings. R = Remove cigarettes and other tobacco products from your home, car, and work. Throw away all your cigarettes (no emergency pack!), lighters, ashtrays, and matches. Wash your clothes and freshen up anything that smells like smoke. Shampoo your car, clean your drapes and carpet, and steam your furniture. T = Talk to your doctor about getting help to quit. Your doctor can prescribe medication to help with withdrawal and suggest other alternatives. If you can't see a doctor, you can get many products over the counter at your local pharmacy or grocery store, including the nicotine patch, nicotine lozenges, and nicotine gum. Resources for Quitting Smoking: <https://www.[place].gov/documents/[facility]/Quit_Tobacco_Resources_for_patients_313 480_7.pdf> Supplementation: Take recommended dosages of Vitamin D and Calcium to help fortify your bones and help them to heal. See your health maintenance packet for dosages and recommended levels. DVT/VTE prophylaxis: You will be given compression stockings from the hospital. Wear these daily for the first two weeks after surgery. You may take them off at night. You may be prescribed a medication to help thin your blood. Take this as directed. If you are not prescribed this medication, early and frequent ambulation has been shown to be the best prophylaxis to deep vein thrombosis and sequelae related to this event. Discharge Disposition: HOME WITH HOME HEALTH SERVICES
[2021-09-25] MEDS ORDERED: VANCOMYCIN 1,000 MG in SODIUM CHLORIDE 0.9% 250 ML IVPB SCH (21:00)
--- NOTE | 2021-10-02 14:57 | P.PN ---
Subjective Progress Note Date: 09/25/21 Principal diagnosis: Surgical site infection Patient is a 41-year-old female who is status post C2 to T1 posterolateral fusion with C3 to C7 laminectomy in this patient admitted to the hospital with drainage from her cervical incision status post debridement and deep cultures which are currently pending. On today's evaluation that is 09/25/21 the patient denies having any fever or chills, the patient pain to the posterior neck is currently controlled, patient denies having any chest pain or shortness of breath or cough no nausea no vomiting no abdominal pain and has been insisting on going home and do not want to wait for the culture Objective - Vital Signs Vital signs: Vital Signs Temp 98.0 F 09/25/21 07:44 Pulse 85 09/25/21 07:44 Resp 17 09/25/21 07:44 BP 121/76 09/25/21 07:44 Pulse Ox 100 09/25/21 07:44 Intake & Output 09/24/21 09/25/21 09/25/21 18:59 06:59 18:59 Intake Total 250 Output Total 60 Balance 190 Intake: Intake, IV Titration 250 Amount Vancomycin 1,000 mg In 250 Sodium Chloride 0.9% 250 ml @ 125 mls/hr IVPB Q12H [facility] Rx#:[id number] Output: Drainage 60 Posterior Neck 60 Other: Voiding Method Toilet Toilet - Exam GENERAL DESCRIPTION: A middle-age female lying in bed in no distress HEENT: Posterior neck incision is currently dressed no drainage on the dressing RESPIRATORY SYSTEM: Unlabored breathing , decreased breath sounds at bases HEART: S1 S2 regular rate and rhythm , ABDOMEN: Soft , no tenderness EXTREMITIES: No edema feet - Labs CBC & Chem 7: 09/24/21 06:13 09/25/21 11:54 Assessment and Plan (1) Neck pain Status: Acute Code(s): M54.2 - CERVICALGIA SNOMED Code(s): 37931686 Plan: 1patient admitted to hospital with posterior cervical fascial dehiscence and drainage in this patient status post I&D however cultures are currently pending, patient did not have any fever normal white count and normal CRP could be more likely related to seroma infected seroma not excluded however with no cultures that could not be determined. 2 Patient has been insisting on going home and do not want to wait for the cultures. Given short course of Bactrim DS 1 twice a day for 7-10 days with close outpatient follow-up Time with Patient: Less than 30
== END 2021-09-25 15:56 | disposition home health service (06) ==
LOC: OR 14:27 → 4SSUR 17:41 → OR 09-24 02:59 → 4SSUR 09-24 02:59
PROVIDERS: ADMIT Orthopaedic Surgery; ATTEND Orthopaedic Surgery
DX: T81.31XA Disruption of external operation (surgical) wound, not elsewhere classified, initial encounter (principal); L76.34 Postprocedural seroma of skin and subcutaneous tissue following other procedure; Z98.1 Arthrodesis status; J45.909 Unspecified asthma, uncomplicated; F41.9 Anxiety disorder, unspecified; Z86.73 Personal history of transient ischemic attack (TIA), and cerebral infarction without residual deficits; K21.9 Gastro-esophageal reflux disease without esophagitis; M19.90 Unspecified osteoarthritis, unspecified site; G89.29 Other chronic pain; M54.9 Dorsalgia, unspecified; M54.2 Cervicalgia; Z87.442 Personal history of urinary calculi; F17.210 Nicotine dependence, cigarettes, uncomplicated; Q51.828 Other congenital malformations of cervix; Z98.891 History of uterine scar from previous surgery; Z90.49 Acquired absence of other specified parts of digestive tract; Z98.51 Tubal ligation status; Z98.890 Other specified postprocedural states; Z79.1 Long term (current) use of non-steroidal anti-inflammatories (NSAID); Z79.899 Other long term (current) drug therapy; Z82.49 Family history of ischemic heart disease and other diseases of the circulatory system; Z82.61 Family history of arthritis; Z83.6 Family history of other diseases of the respiratory system; Z80.1 Family history of malignant neoplasm of trachea, bronchus and lung; Z80.52 Family history of malignant neoplasm of bladder; Z88.3 Allergy status to other anti-infective agents; Z88.5 Allergy status to narcotic agent
CPT/HCPCS: 94640; 97161; 80048; 85652; 82565; 85025; 80202; 86140; 84703; 11044; 10140; 22830; G0378 ×2; C1762 ×2; J2250; J3370 ×2; J1100; J2710; J0690 ×2; J2405; J3010; J1170 ×3; J2370; J2704; J2001

== ENCOUNTER → 2021-11-04 | Outpatient (CLI) | payer OTHER ==
[2021-11-04 13:27] LABS: Prothrombin Time 10.5 sec (9.0-12.0)
[2021-11-04 17:40] LABS: Basophils # (A) 0.05 X 10*3/uL (0.00-0.10); Basophils % (A) 0.7 %; Eosinophils # (A) 0.06 X 10*3/uL (0.04-0.35); Eosinophils % (A) 0.8 %; HGB 11.5 g/dL (12.0-15.0); Immature Grans, Automated 0.4 %; Lymphocytes # (A) 1.95 X 10*3/uL (0.90-5.00); Lymphocytes % (A) 25.8 %; MCH 28.8 pg (27.0-32.0); MCHC 31.1 g/dL (32.0-37.0); MCV 92.7 fL (80.0-97.0); Mean Platelet Volume 8.9 fL (9.5-12.2); Monocytes # (A) 0.44 X 10*3/uL (0.20-1.00); Monocytes % (A) 5.8 %; NRBC Per 100 WBC 0 /100 WBCS (0.0-0.0); Neutrophils # (A) 5.04 X 10*3/uL (1.80-7.70); Neutrophils % (A) 66.5 %; Platelet Count 504 X 10*3/uL (140-440); RBC 3.99 X 10*6/uL (4.10-5.20); WBC 7.57 X 10*3/uL (4.50-10.00)
[2021-11-04 18:21] LABS: African American GFR (CKD) 128.8 (60.0-200.0); Anion Gap 12.6 mmol/L (10.00-18.00); BUN/Creat Ratio 12.09 Ratio (12.00-20.00); Blood Urea Nitrogen 7.5 mg/dL (9.0-27.0); Calcium 8.9 mg/dL (8.7-10.3); Carbon Dioxide 22.4 mmol/L (20.0-27.5); Non-African American GFR(CKD) 111.2 (60.0-200.0); Potassium 4.2 mmol/L (3.5-5.5)
== END | disposition home or self-care (01) ==
LOC: LABPAT 11:02
PROVIDERS: ATTEND Orthopaedic Surgery
DX: Z01.812 Encounter for preprocedural laboratory examination (principal); T81.31XA Disruption of external operation (surgical) wound, not elsewhere classified, initial encounter; L76.34 Postprocedural seroma of skin and subcutaneous tissue following other procedure; Y79.2 Prosthetic and other implants, materials and accessory orthopedic devices associated with adverse incidents
CPT/HCPCS: 80048; 85025; 85610; 85730; 86850; 86900; 86901

== ENCOUNTER → 2021-11-06 | Outpatient (CLI) | payer OTHER | END | disposition home or self-care (01) | LOC: LABPAT 15:22 | PROVIDERS: ATTEND Orthopaedic Surgery | DX: Z01.812 Encounter for preprocedural laboratory examination (principal); Z22.322 Carrier or suspected carrier of Methicillin resistant Staphylococcus aureus; T81.31XA Disruption of external operation (surgical) wound, not elsewhere classified, initial encounter; L76.34 Postprocedural seroma of skin and subcutaneous tissue following other procedure; Y79.2 Prosthetic and other implants, materials and accessory orthopedic devices associated with adverse incidents | CPT/HCPCS: 87070 ==

== ENCOUNTER 2021-11-10 12:25 | Inpatient (IN) | payer OTHER ==
[2021-11-06 11:47] VITALS: BMI 23.6
[~2021-11-10 12:25] MED LIST changes: +DEXAMETHASONE SOD PHOSPHATE 4 MG/ML 1 ML VIAL IV ONE; +LIDOCAINE 1% (10MG/ML) FOR IV START INTRADERMA PRN; +MIDAZOLAM 2 MG/2 ML VIAL IV PRN; +ONDANSETRON 4 MG/2 ML VIAL IVP ONE
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
[2021-11-10] MEDS: LACTATED RINGERS 1,000 ML IV SCH (14:46)
[2021-11-10] MEDS ORDERED: HYDROmorphone 1 MG/ML 1 ML SYRINGE IVP ONE ×2 (16:30→16:45)
--- NOTE | 2021-11-10 18:06 | P.PN ---
Progress Note - Text Progress Note Date: 11/10/21 History and Physical UPDATE I have seen and examined the patient and reviewed the history and physical. There appear to be no significant changes in the patient's current medical status as outlined in the current History and Physical.
[2021-11-10] MEDS ORDERED: LIDOCAINE 2% INJ 20 MG/ML (2 ML VIAL) ONE (18:21)
[2021-11-10] MEDS ORDERED: ROCURONIUM 10 MG/ML (5 ML VIAL) IV ONE (18:21)
[2021-11-10] MEDS ORDERED: TRANEXAMIC ACID IN NACL,ISO-OS 1,000 MG/100 ML BAG ONE (18:21)
[2021-11-10] MEDS ORDERED: PHENYLEPHRINE-0.9% NACL SYG 1,000 MCG/10 ML SYRINGE ONE (18:21)
[2021-11-10] MEDS ORDERED: PROPOFOL 10 MG/ML 20 ML VIAL IV ONE (18:21)
[2021-11-10] MEDS ORDERED: SUCCINYLCHOLINE CHLORIDE 100 MG/5 ML SYR IV ONE (18:21)
[2021-11-10] MEDS ORDERED: fentaNYL (PF) 50 MCG/ML 2 ML AMP ONE (18:21)
[2021-11-10] MEDS ORDERED: MIDAZOLAM 2 MG/2 ML VIAL ONE (18:21)
[2021-11-10] MEDS ORDERED: LACTATED RINGERS 1,000 ML IV ONE ×2 (19:09→20:07)
[2021-11-10] MEDS ORDERED: VANCOMYCIN 1,000 MG VIAL MISCELLANE ONE (19:25)
[2021-11-10] MEDS ORDERED: HYDROcodone/APAP 5-325MG 1 EACH TAB PO PRN (20:27)
[2021-11-10] MEDS ORDERED: HYDROmorphone 0.5 MG/0.5 ML SYRINGE IVP PRN (20:27)
[2021-11-10] MEDS ORDERED: HYDROcodone/APAP 10-325MG 1 EACH TAB PO PRN (20:27)
[2021-11-10] MEDS: HYDROmorphone 0.5 MG/0.5 ML SYRINGE IVP PRN ×6 (20:35→21:08)
[2021-11-10] MEDS ORDERED: oxyCODONE-APAP 5-325MG 1 EACH TAB PO PRN (20:41)
[2021-11-10] MEDS: oxyCODONE-APAP 7.5-325MG 1 EACH TAB PO PRN (22:16)
[2021-11-10] MEDS: HYDROmorphone 1 MG/ML 1 ML SYRINGE IVP PRN (22:16)
[2021-11-10] MEDS: GABAPENTIN 300 MG CAP PO SCH (22:16)
[2021-11-10] MEDS: CYCLOBENZAPRINE 5 MG TAB PO PRN (22:16)
[2021-11-10] MEDS: ACETAMINOPHEN TAB 325 MG TAB PO SCH (23:05)
[2021-11-11] MEDS: HYDROmorphone 1 MG/ML 1 ML SYRINGE IVP PRN ×8 (00:56→22:42)
--- NOTE | 2021-11-11 01:43 | P.PN ---
Progress Note - Text Progress Note Date: 11/11/21 Brief post op: Pt s/e. She is currently restring comfortably but earlier was in pain per julius molina. No other issues. VSS a this time. Moving all 4 ext with good strength. Drain with 20 cc. No other issues. We will see her in the AM.
[2021-11-11] MEDS: oxyCODONE-APAP 7.5-325MG 1 EACH TAB PO PRN ×4 (04:06→21:18)
[2021-11-11] MEDS: GABAPENTIN 300 MG CAP PO SCH ×3 (06:07→21:18)
[2021-11-11] MEDS: ACETAMINOPHEN TAB 325 MG TAB PO SCH ×3 (06:07→17:53)
[2021-11-11] MEDS: CYCLOBENZAPRINE 5 MG TAB PO PRN (06:07)
[2021-11-11] MEDS: LACTATED RINGERS 1,000 ML IV SCH (06:08)
[2021-11-11 07:09] LABS: Basophils # (A) 0.1 k/uL (0-0.2); Basophils % (A) 1 %; Eosinophils # (A) 0.1 k/uL (0-0.7); Eosinophils % (A) 1 %; HCT 32.3 % (34.0-46.0); Lymphocytes # (A) 2.7 k/uL (1.0-4.8); Lymphocytes % (A) 33 %; MCH 29.5 pg (25.0-35.0); MCHC 31.1 g/dL (31.0-37.0); MCV 94.8 fL (80.0-100.0); Mean Platelet Volume 7.1; Monocytes # (A) 0.6 k/uL (0-1.0); Monocytes % (A) 7 %; Neutrophils # (A) 4.6 k/uL (1.3-7.7); Neutrophils % (A) 57 %; Platelet Count 373 k/uL (150-450); RBC 3.41 m/uL (3.80-5.40); RDW 15.4 % (11.5-15.5); WBC 8.2 k/uL (3.8-10.6)
[2021-11-11] MEDS ORDERED: ALBUTEROL HFA INHALER INHALATION PRN (10:15)
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
[2021-11-11] MEDS ORDERED: VANCOMYCIN IV PER PHARMACY 1 EACH MISC MISCELLANE PRN (11:45)
[2021-11-11] MEDS: VANCOMYCIN 1,000 MG in SODIUM CHLORIDE 0.9% 250 ML IVPB SCH ×2 (12:22→21:18)
--- NOTE | 2021-11-11 13:36 | P.PN ---
Subjective Progress Note Date: 11/11/21 Principal diagnosis: Facial dehiscence Delayed wound healing Pt s/e. C/o pain. Denies any other issues. no f/c/sob/cp at this time. Drain in place. No numbness/tingling. Objective - Vital Signs Vital signs: Vital Signs Temp 98.3 F 11/11/21 12:06 Pulse 78 11/11/21 12:06 Resp 18 11/11/21 12:06 BP 113/72 11/11/21 12:06 Pulse Ox 98 11/11/21 12:06 FiO2 Intake & Output 11/10/21 11/11/21 11/11/21 18:59 06:59 18:59 Intake Total 850 410 Output Total 150 10 Balance 850 260 -10 Weight 57.5 kg Intake: IV 850 200 Intake, IV Titration 210 Amount Lactated Ringers 1,000 ml 160 @ 20 mls/hr IV .Q24H PETEY Rx#:[id number] ceFAZolin 2 gm In Sodium 50 Chloride 0.9% 50 ml @ 100 mls/hr IVPB Q8H PETEY Rx#: [id number] Output: Drainage 10 Posterior Neck 10 Estimated Blood Loss 150 Other: Voiding Method Toilet Toilet - Exam Neck pain with motion C collar in place Dressing CDI Incision CDI Drain in place, serous out put 100 cc Cultures neg so far 5/5 UE and LE b/l motor no focal deficits SILT C5-T1 and L2-S1 2/4 distal pulses No pathologicla reflexes CNII-XII grossly intact - EENT Eyes: Present: PERRLA - Peripheral pulses dorsalis pedis Peripheral Pulses: bilateral: Normal - Integumentary Integumentary: Present: normal - Neurologic Neurologic: Present: CNII-XII intact - Musculoskeletal Musculoskeletal: Present: generalized weakness - Psychiatric Psychiatric: Present: A&O x's 3 - Allied health notes Allied health notes reviewed: nursing - Labs CBC & Chem 7: 11/11/21 05:31 Labs: Abnormal Lab Results - Last 24 Hours (Table) 11/11/21 Range/Units 05:31 RBC 3.41 L (3.80-5.40) m/uL Hgb 10.0 L (11.4-16.0) gm/dL Hct 32.3 L (34.0-46.0) % Microbiology - Last 24 Hours (Table) 11/10/21 19:19 Gram Stain - Preliminary Neck Wound Culture - Preliminary 11/10/21 19:19 Gram Stain - Preliminary Neck Wound Culture - Preliminary 11/10/21 19:19 Anaerobic Culture - Preliminary Neck 11/10/21 19:19 Anaerobic Culture - Preliminary Neck Assessment and Plan Assessment: -Delayed wound healing posterior neck -Facial dehiscence posterior neck -Seroma -Possible irritable hardware crosslink posterior neck -s/p C2-T1 posterolateral fusion with C3-C7 laminectomy -s/pI&D w/ revision fascial closure posterior neck .DX:Diagnosis: Delayed healing of surgical wound : ICD10 = T81.89XD / SNOMED = [id number] Plan: -Reg diet -No push pull, no lifting bending twisting -Nothing >5lbs -Change pain meds to equal what she takes normally -Ambulate daily -IS -ID recs for abx -Post op abx -Await final cx -GI/DVT ppx TEDs SCDs -Dispo: pending
[2021-11-11] MEDS ORDERED: HYDROcodone/APAP 5-325MG 1 EACH TAB PO PRN (14:15)
[2021-11-11] MEDS: HYDROcodone/APAP 10-325MG 1 EACH TAB PO PRN ×2 (14:34→19:16)
[2021-11-11] MEDS: CYCLOBENZAPRINE 10 MG TAB PO SCH ×2 (15:21→21:18)
[2021-11-11] MEDS: SENNOSIDES-DOCUSATE SODIUM 1 EACH TAB PO PRN (18:08)
[2021-11-11] MEDS: FAMOTIDINE 20 MG TAB PO SCH (21:18)
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
[2021-11-12] MEDS: ACETAMINOPHEN TAB 325 MG TAB PO SCH ×5 (00:26→23:58)
[2021-11-12] MEDS: HYDROmorphone 1 MG/ML 1 ML SYRINGE IVP PRN ×7 (04:05→23:47)
[2021-11-12] MEDS: oxyCODONE-APAP 7.5-325MG 1 EACH TAB PO PRN ×4 (04:06→22:39)
[2021-11-12] MEDS: HYDROcodone/APAP 10-325MG 1 EACH TAB PO PRN ×5 (04:06→20:42)
[2021-11-12] MEDS: CYCLOBENZAPRINE 10 MG TAB PO SCH ×3 (08:21→22:39)
[2021-11-12] MEDS: FAMOTIDINE 20 MG TAB PO SCH ×2 (08:21→22:39)
[2021-11-12] MEDS: VANCOMYCIN 1,000 MG in SODIUM CHLORIDE 0.9% 250 ML IVPB SCH ×3 (08:21→20:45)
[2021-11-12] MEDS: GABAPENTIN 300 MG CAP PO SCH ×3 (08:21→22:39)
--- NOTE | 2021-11-12 09:08 | P.PN ---
Subjective Progress Note Date: 11/12/21 Principal diagnosis: Facial dehiscence Delayed wound healing Patient seen and examined she is doing fairly well as morning much better than yesterday she denies any changes overnight denies any fevers or chills. States that she has no numbness or tingling she does have pain in the back of her neck but no other issues at this time. Drain is still in place she is wearing her c- collar she does not have her [id number]-mn-obavc brace yet her mom's bring it today Objective - Vital Signs Vital signs: Vital Signs Temp 98.4 F 11/12/21 04:42 Pulse 76 11/12/21 04:42 Resp 18 11/12/21 04:42 BP 104/66 11/12/21 04:42 Pulse Ox 100 11/12/21 04:42 FiO2 Intake & Output 11/11/21 11/12/21 11/12/21 18:59 06:59 18:59 Intake Total 4550 1580 Output Total 20 10 Balance 4530 1570 Intake: Intake, IV Titration 300 Amount Vancomycin 1,000 mg In 250 Sodium Chloride 0.9% 250 ml @ 125 mls/hr IVPB Q12HR [facility]EY Rx#:[id number] ceFAZolin 2 gm In Sodium 50 Chloride 0.9% 50 ml @ 100 mls/hr IVPB Q8H PETEY Rx#: [id number] Oral 4250 1580 Output: Drainage 20 10 Posterior Neck 20 10 Other: Voiding Method Toilet Toilet # Voids 4 2 - Exam Exam is repeated today changes noted below Neck pain with motion C collar in place Dressing CDI Incision CDI Drain in place, serous out put 25 cc Cultures neg so far 5/5 UE and LE b/l motor no focal deficits SILT C5-T1 and L2-S1 2/4 distal pulses No pathologicla reflexes CNII-XII grossly intact - Labs CBC & Chem 7: 11/11/21 05:31 Labs: Microbiology - Last 24 Hours (Table) 11/10/21 19:19 Gram Stain - Preliminary Neck Wound Culture - Preliminary 11/10/21 19:19 Gram Stain - Preliminary Neck Wound Culture - Preliminary Assessment and Plan Assessment: 41-year-old female postoperative day 2 incision and drainage with re-repair of fascial dehiscence posterior neck with removal of hardware Plan: -Reg diet -No push pull, no lifting bending twisting -Nothing >5lbs -Change pain meds to equal what she takes normally -Ambulate daily -IS 10 times daily -ID recs appreciated -Post op abx -Await final cx -GI/DVT ppx TEDs SCDs -Dispo: pending
[2021-11-12 09:30] LABS: Basophils # (A) 0.04 X 10*3/uL (0.00-0.10); Basophils % (A) 0.5 %; Eosinophils # (A) 0.28 X 10*3/uL (0.04-0.35); Eosinophils % (A) 3.4 %; HCT 28.9 % (37.2-46.3); HGB 9.2 g/dL (12.0-15.0); Immature Grans, Automated 0.2 %; Lymphocytes # (A) 2.44 X 10*3/uL (0.90-5.00); Lymphocytes % (A) 29.9 %; MCH 29.4 pg (27.0-32.0); MCHC 31.8 g/dL (32.0-37.0); MCV 92.3 fL (80.0-97.0); Mean Platelet Volume 9.2 fL (9.5-12.2); Monocytes # (A) 0.91 X 10*3/uL (0.20-1.00); Monocytes % (A) 11.1 %; NRBC Per 100 WBC 0 /100 WBCS (0.0-0.0); Neutrophils # (A) 4.48 X 10*3/uL (1.80-7.70); Neutrophils % (A) 54.9 %; Platelet Count 370 X 10*3/uL (140-440); RBC 3.13 X 10*6/uL (4.10-5.20); RDW 17.3 % (11.5-14.5); WBC 8.17 X 10*3/uL (4.50-10.00)
--- NOTE | 2021-11-12 09:50 | P.OP ---
Date of Procedure: 11/10/21 Preoperative Diagnosis: 1. Delayed wound healing posterior neck 2. Possible irritable hardware posterior neck 3. S/p I&D for seroma formation with facial dehiscence 4. s/p Posterior C2-T1 cervical decompression and fusion 5. Hx of Lupus and RA Postoperative Diagnosis: 1. Delayed wound healing posterior neck 2. Irritable hardware posterior neck 3. Re-dehiscence of facia posterior neck 4. S/p I&D for seroma formation with facial dehiscence 5. s/p Posterior C2-T1 cervical decompression and fusion 6. Hx of Lupus and RA Procedure(s) Performed: 1. Posterior midline approach to cervical spine 2. Incision and drainage with irrigation and debriement of skin, soft tissue and bone posterior cervical spine [id number] using the following: Skin knife to debride skin Curette to debride soft tissue and muscle and remove scar tissue Rongure to remove bone Suction to evacuate seroma 9L irrigation 3. Removal of irritable hardware posterior cervical spine, removal of crosslink 4. Revision repair of facial splaying and dehiscence posterior neck with 3 layered complex closure [id number] Implants: none Anesthesia: SILVIA Surgeon: Jonathan Hudson Erp Project Manager #1: Daniel Loza Estimated Blood Loss (ml): 150 IV fluids (ml): 1,500 Urine output (ml): 0 Pathology: other (x2 posterior neck) Condition: stable Disposition: PACU Indications for Procedure: Maria Ortiz is a 41 yo female presenting for evaluation of delayed wound healing posterio neck. It was my pleasure to have seen and examined Maria. In our visit today we have had a chance to go over subjective complaints, physical examination findings and treatments including the natural course history without intervention and various interventional options. The patients imaging demonstrates Stable post operative findings s/p C2-T1 decompression and fusion as well as washout for facial dehiscence and closure. On physical exam, Maria demonstrates Continued drainage from small pin hole overlying the area of her crosslink. She is a very small individual with hx of RA and lupus and she has healing difficulties which could be the reason for this. No purulent drainage. I have explained to the patient that as their condition progresses it will cause further neurological deficits and eventual paralysis. Based on the patients imaging, physical exam, and the rapid progression and disabling nature of their symptoms, at this time I recommend surgery in the form or a: Incision and drainage with possible removal of hardware posterior neck. I discussed the risk and benefits of this procedure at length with Maria . The patient has co nsidered pursuing the procedure abovementioned. Prior to surgery, she should follow up with her PCP (Cardio, ID, IM etc) for clearance. Questions were invited and answered, and the patient wishes to proceed as outlined below. Currently, I am recommendin. Incision and drainage posterior neck with possible removal of hardware Description of Procedure: The patient was seen and examined in the preoperative area. All preoperative protocols were followed. Informed consent was obtained risks and benefits of the procedure were discussed at length. Risks including bleeding infection damage to the surrounding tissue and risk of reoperation were discussed with the patient. Risk of anesthesia up to and including was a discussed with the patient. These are outlined in the risk review. They were willing to accept these risks and all of the risks of surgery. The patient was given a weight- based dose of antibiotics in the form of vancomycin weight-based dose. The patient was seen and evaluated by the anesthesia team who deemed them fit for surgery. The site was marked, the patient was willing to proceed with the procedure. The patient was transferred to the operative suite by the Department of anesthesia. They were then drifted off to sleep by the department anesthesia and GETA was performed. The patient tolerated this well. Once confirmation of lines and ventilation the patient was transferred to a prone Eddi table very carefully. All bony prominences including wrists, elbows, axilla, chest, hips, and thighs, and feet were padded very well. Special attention was paid to the genitalia and these were padded accordingly. SCDs were placed on bilateral lower extremities and were connected. Arms were well padded and placed tucked at her side thumbs down and well-padded. Once in position, again we confirmed good ventilation capabilities and that lines were running appropriately. The patient's posterior cervical spine was then exposed. 1010s were placed outlining the incision site. Standard alcohol was used to clean the incision site and allowed to dry. C-arm was used to biomark the patient and confirm level for incision which was marked with a skin marker. Operative briefing was performed with all teams and everyone in agreement to proceed. The patient was then prepped and draped in a normal sterile fashion. Timeout was then performed and all parties were in agreement with the procedure to be performed. Midline skin incision was made over the previously bowel marked and incised area. Dissection was taken down until a fluid collection was encountered around the mid to distal portion the incision just underneath the deep subcu tissue this was cultured immediately and then evacuated as we dissected deep we found that she once again had dehisced the deep portion of her fascia between the C4 and T1 region the sutures were all still tied and essentially pulled straight through her friable tissue and fascia in this area so the sutures were removed and the area was cleaned and debrided using curettes for the skin soft tissue skin knife to freshen skin edges and removed any tracks as well as rongeur to remove some more of the spinous process as well as scar tissue in this area to freshen edges. We then dissected proximally until the cross-link was found which was putting pressure in this area and so the cross-link was then removed atraumatically. We then cultured the bed where it was. There was good scar formation laterally which was noted and actually decent perfusion noted out laterally and this was left alone. We then used curettes to scrape around this area and remove any other scar tissue and debride any other areas. Then proceeded with irrigation irrigated through 9 L of irrigation. 3 L of antibiotic irrigation followed by 6 L of normal sterile saline while curetting and debriding at the same time. Once the debridements irrigation were complete and we were satisfied and the edges were freshened and bleeding a deep drain was placed. Vancomycin powder was placed throughout the wound. We then created flaps of the fascia once again so that it would not mobilize once it was mobile we will able to close it once again using #1 PDS suture in a [id number] fashion we are able to perform a layered closure first in the deep fascia over this area of the edges were able to be approximated with less tension than before. This was then oversewn with #1 PDS and then 0 PDS in a simple fashion to allow for redundancy as well as wide stitching. Once this was accomplished and then closed the deep subcu tissue with 0 PDS followed by the superficial subcu tissue with 2-0 PDS. The skin edges were then approximated with 2-0 nylon in a simple fashion. The drain was sewn into position. Wound edges approximated very well. The wound was then cleaned and dressed sterilely with an operative foam dressing drain sponge and Tegaderm. The patient was transferred back to their hospital bed atraumatically. Drain continued to hold suction and were in good position. Patient was then awakened and extubated by the department of anesthesia having tolerated the procedure very well with no complications. They were transferred to the postoperative care unit in stable condition.
[2021-11-12] MEDS: LACTATED RINGERS 1,000 ML IV SCH (09:56)
[2021-11-12 10:33] LABS: Erythrocyte Sedimentation Rate 20 mm/Hr (0-20)
[2021-11-12] MEDS: SENNOSIDES-DOCUSATE SODIUM 1 EACH TAB PO PRN (10:47)
--- NOTE | 2021-11-12 13:45 | CDI ---
Documentation Clarification Form Date: 11/12/2021 01:29:00 PM From: Kary Scales RN CCDS Admit Date: 11/10/2021 12:25:00 PM Patient Name: Maria Ortiz Visit Number: [id number] Discharge Date: ATTENTION: The Clinical Documentation Specialists (CDI) and [facility] Coding Staff appreciate your assistance in clarifying documentation. Please respond to the clarification below the line at the bottom and electronically sign. The CDI & [facility] Coding staff will review the response and follow-up if needed. Please note: Queries are made part of the Legal Health Record. If you have any questions, please contact the author of this message via ITS. Dr. Jonathan Tafoya debridement is documented 11/10, procedure note. Additional clarification regarding the procedure is requested. History/Risk Factors: 41-year-old female presents to [facility] for elective surgery for Delayed wound healing with dehiscence of posterior neck, Irritable hardware, Seroma and posterior C2 -T1 decompression and fusion. Medical History: Lupus, RA and Asthma Clinical Indicators: Procedure: 1.Posterior midline approach to cervical spine 2.Incision and drainage with irrigation and debridement of skin, soft tissue and bone posterior cervical spine [id number] using the following: Skin knife to debride skin Curette to debride soft tissue and muscle and remove scar tissue Rongure to remove bone Suction to evacuate seroma Treatment: 11/10 Surgical debridement Please clarify the type of procedure performed: [ ] Excisional debridement (the removal of necrotic, devitalized tissue or slough by means of cutting away of tissue) [ ] Non-excisional debridement (the removal of necrotic, devitalized tissue or slough by means of flushing, brushing, or washing. (Irrigation) [ ] Other; please specify [ ] Unable to determine Five elements required for accurate and compliant documentation of a debridement: Technique used (e.g., excisional, excised, cutting, brushing, jet lavage etc.) Instrument(s) used (e.g., scalpel, curette, etc.) Nature of the tissue removed (e.g., necrotic, devitalized tissues, non-viable tissue, etc.) Appearance and size of the wound (e.g., down to fresh bleeding tissue, 7cm x 10cm, etc.) Depth of the debridement* (e.g., skin, subcutaneous tissue, fascia, muscle, bone, etc.) (Template Last Revised: July 2020) Both Excisional debridement (the removal of necrotic, devitalized tissue or slough by means of cutting away of tissue) and Non-excisional debridement (the removal of necrotic, devitalized tissue or slough by means of flushing, brushing, or washing. (Irrigation) were performed on different portions of the incision. Deep we excised tissue, superficially we did not excise. MARSD
--- NOTE | 2021-11-12 15:17 | P.PN ---
Subjective Progress Note Date: 11/12/21 41-year-old female with multiple back surgeries in the past came in because of irritable hardware in the posterior neck. Patient denied any fever chills patient denied any dysuria . Had neck surgery and removal of hardware. 11/12/2021 Patient evaluated today sitting up in bed. She continues with a soft cervical collar. States that her family is pitting in her port placed today however she will be fitted for a new one on the hospital. She reports falling asleep easily last night however she has difficulty staying asleep. She is requesting Valium. She is on Flexeril as needed as well as Percocet and [place] we will recommend more conservative sleep aid. Cultures so far negative. Cultures showing a white count of 8.17, hemoglobin 9.2. She is afebrile, heart rate 74, blood pressure 119/79, 98% room air. She is also being evaluated by infectious disease, she is on IV vancomycin. Review of Systems Constitutional: Denied any fatigue denied any fever. Cardio vascular: denied any chest pain, palpitations Gastrointestinal: denied any nausea, vomiting, diarrhea Pulmonary: Denied any shortness of breath cough Neurologic denied any new focal deficits All inpatient medications were reviewed and appropriate changes in these medications as dictated in the interval history and assessment and plan. PHYSICAL EXAMINATION: GENERAL: The patient is alert and oriented x3, not in any acute distress. Well developed, well nourished. HEENT: Pupils are round and equally reacting to light. EOMI. No scleral icterus. No conjunctival pallor. Normocephalic, atraumatic. No pharyngeal erythema. No t hyromegaly. CARDIOVASCULAR: S1 and S2 present. No murmurs, rubs, or gallops. PULMONARY: Chest is clear to auscultation, no wheezing or crackles. ABDOMEN: Soft, nontender, nondistended, normoactive bowel sounds. No palpable organomegaly. MUSCULOSKELETAL: No joint swelling or deformity. EXTREMITIES: No cyanosis, clubbing, or pedal edema. NEUROLOGICAL: Gross neurological examination did not reveal any focal deficits. SKIN: Surgical site area exam deferred to orthopedic surgery She is in soft cervical neck color. Dressing intact appears clean. Assessment and plan -Neck surgery with removal of hardware: Pain management as per primary service patient pain appears to be fairly controlled, she is also on gabapentin, flexeril -Asthma without any acute exacerbation -Nicotine use: Counseling was provided -Gastroesophageal reflux disease for which we'll use Pepcid DVT prophylaxis: As per primary service Full Code Back brace has been ordered for fitting. She will be evaluated by PT/OT. In fectious disease is on the case and patient is continued on IV vancomycin. She continues on pain management by primary and bowel regimin. Cultures are pending finalized. CMPs been ordered for AM. Melatonin has been added. The impression and plan of care has been dictated by Taina Delgado, Nurse Practitioner as directed. Dr. Darcy MD I have performed a history and physical examination and medical decision making of this patient, discussed the same with the dictator, and agree with the dictators assessment and plan as written, documented as a scribe. Based on total visit time, I have performed more than 50% of this visit. Objective - Vital Signs Vital signs: Vital Signs Temp 98.3 F 11/12/21 12:09 Pulse 74 11/12/21 12:09 Resp 15 11/12/21 12:09 BP 119/79 11/12/21 12:09 Pulse Ox 98 11/12/21 12:09 FiO2 Intake & Output 11/11/21 11/12/21 11/12/21 18:59 06:59 18:59 Intake Total 4550 1580 Output Total 20 10 Balance 4530 1570 Intake: Intake, IV Titration 300 Amount Vancomycin 1,000 mg In 250 Sodium Chloride 0.9% 250 ml @ 125 mls/hr IVPB Q12HR [facility] Rx#:[id number] ceFAZolin 2 gm In Sodium 50 Chloride 0.9% 50 ml @ 100 mls/hr IVPB Q8H [facility] Rx#: [id number] Oral 4250 1580 Output: Drainage 20 10 Posterior Neck 20 10 Other: Voiding Method Toilet Toilet # Voids 4 2 - Labs CBC & Chem 7: 11/12/21 05:59 Labs: Abnormal Lab Results - Last 24 Hours (Table) 11/12/21 Range/Units 05:59 RBC 3.13 L (4.10-5.20) X 10*6/uL Hgb 9.2 L (12.0-15.0) g/dL Hct 28.9 L (37.2-46.3) % MCHC 31.8 L (32.0-37.0) g/dL RDW 17.3 H (11.5-14.5) % MPV 9.2 L (9.5-12.2) fL Microbiology - Last 24 Hours (Table) 11/10/21 19:19 Gram Stain - Preliminary Neck Wound Culture - Preliminary 11/10/21 19:19 Gram Stain - Preliminary Neck Wound Culture - Preliminary Assessment and Plan Time with Patient: Less than 30
[2021-11-12] MEDS: MELATONIN 5 MG TABLET PO SCH (22:39)
[2021-11-13] MEDS: HYDROcodone/APAP 10-325MG 1 EACH TAB PO PRN ×3 (00:56→09:03)
[2021-11-13] MEDS: HYDROmorphone 1 MG/ML 1 ML SYRINGE IVP PRN ×5 (03:38→18:19)
[2021-11-13] MEDS: oxyCODONE-APAP 7.5-325MG 1 EACH TAB PO PRN (05:05)
[2021-11-13] MEDS: ACETAMINOPHEN TAB 325 MG TAB PO SCH ×3 (05:35→16:59)
[2021-11-13] MEDS ORDERED: VANCOMYCIN TROUGH DUE 1 EACH MISC MISCELLANE ONE (08:00)
[2021-11-13] MEDS: CYCLOBENZAPRINE 10 MG TAB PO SCH ×3 (09:10→22:11)
[2021-11-13] MEDS: FAMOTIDINE 20 MG TAB PO SCH ×2 (09:10→22:11)
[2021-11-13] MEDS: SENNOSIDES-DOCUSATE SODIUM 1 EACH TAB PO PRN (09:10)
[2021-11-13] MEDS: GABAPENTIN 300 MG CAP PO SCH ×3 (09:10→22:11)
[2021-11-13] MEDS: VANCOMYCIN 1,000 MG in SODIUM CHLORIDE 0.9% 250 ML IVPB SCH ×2 (09:10→17:09)
--- NOTE | 2021-11-13 09:55 | P.PN ---
Subjective Progress Note Date: 11/13/21 Principal diagnosis: Facial dehiscence Delayed wound healing Patient seen and examined she is doing much better this morning pain is controlled she is resting comfortably she has not eaten breakfast Which plans on at her drain is in place is wearing her [id number] brace now as well as her c-collar. Denies any fevers chills shortness of breath or chest pain overnight denies any perineal numbness or tingling denies any upper extremity symptoms that are new. Objective - Vital Signs Vital signs: Vital Signs Temp 98.2 F 11/13/21 04:30 Pulse 78 11/13/21 04:30 Resp 18 11/13/21 04:30 BP 104/66 11/13/21 04:30 Pulse Ox 97 11/13/21 04:30 FiO2 Intake & Output 11/12/21 11/13/21 11/13/21 18:59 06:59 18:59 Intake Total 1450 Balance 1450 Intake: Intake, IV Titration 250 Amount Vancomycin 1,000 mg In 250 Sodium Chloride 0.9% 250 ml @ 125 mls/hr IVPB Q12HR [facility] Rx#:[id number] Oral 1200 Other: Voiding Method Toilet Toilet # Voids 3 2 - Exam No new exam findings at this time drain has serous output 10 mL Neck pain with motion C collar in place Dressing CDI Incision CDI Drain in place, serous out put 10 cc Cultures neg so far 5/5 UE and LE b/l motor no focal deficits SILT C5-T1 and L2-S1 2/4 distal pulses No pathologicla reflexes CNII-XII grossly intact - Labs CBC & Chem 7: 11/12/21 05:59 Labs: Abnormal Lab Results - Last 24 Hours (Table) 11/12/21 Range/Units 05:59 RBC 3.13 L (4.10-5.20) X 10*6/uL Hgb 9.2 L (12.0-15.0) g/dL Hct 28.9 L (37.2-46.3) % MCHC 31.8 L (32.0-37.0) g/dL RDW 17.3 H (11.5-14.5) % MPV 9.2 L (9.5-12.2) fL Microbiology - Last 24 Hours (Table) 11/11/21 12:00 Blood Culture - Preliminary Blood No Growth after 24 hours 11/10/21 19:19 Gram Stain - Preliminary Neck Wound Culture - Preliminary 11/10/21 19:19 Gram Stain - Preliminary Neck Wound Culture - Preliminary Assessment and Plan Assessment: 41-year-old female postoperative day 3 incision and drainage with re-repair of fascial dehiscence posterior neck with removal of hardware Plan: -Reg diet -No push pull, no lifting bending twisting -Nothing >5lbs -Change pain meds to equal what she takes normally -Ambulate daily -IS 10 times daily -ID recs appreciated -Post op abx -Await final cx -GI/DVT ppx TEDs SCDs -Dispo: Likely home Tuesday
[2021-11-13] MEDS ORDERED: HYDROmorphone 1 MG/ML 1 ML SYRINGE IM PRN (09:56)
[2021-11-13] MEDS: oxyCODONE-APAP 10-325MG 1 EACH TAB PO PRN ×4 (10:18→22:11)
[2021-11-13 13:20] LABS: African American GFR (CKD) >90 (>60 ml/min/1.73 sqM); Anion Gap 9 mmol/L; Blood Urea Nitrogen 7 mg/dL (7-17); Calcium 8.7 mg/dL (8.4-10.2); Carbon Dioxide 23 mmol/L (22-30); Chloride 105 mmol/L (98-107); Glucose 128 mg/dL (74-99); Non-African American GFR(CKD) >90 (>60 ml/min/1.73 sqM); Potassium 4.1 mmol/L (3.5-5.1); Sodium 137 mmol/L (137-145)
--- NOTE | 2021-11-13 14:31 | P.PN ---
Subjective Progress Note Date: 11/13/21 41-year-old female with multiple back surgeries in the past came in because of irritable hardware in the posterior neck. Patient denied any fever chills patient denied any dysuria . Had neck surgery and removal of hardware. 11/12/2021 Patient evaluated today sitting up in bed. She continues with a soft cervical collar. States that her family is pitting in her port placed today however she will be fitted for a new one on the hospital. She reports falling asleep easily last night however she has difficulty staying asleep. She is requesting Valium. She is on Flexeril as needed as well as Percocet and [place] we will recommend more conservative sleep aid. Cultures so far negative. Cultures showing a white count of 8.17, hemoglobin 9.2. She is afebrile, heart rate 74, blood pressure 119/79, 98% room air. She is also being evaluated by infectious disease, she is on IV vancomycin. 11/13/2021 Patient evaluated today resting in bed. She states that she has increased her activity is walking around the room as tolerated. She has been fitted for figure 8 collar and continues in a soft cervical collar. She denies any numbness or tingling to her upper extremities. Otherwise she continues with surgical drain, dressing intact. She is tolerating pain, and medications were adjusted by primary. Repors no nausea, vomiting, diarrhea postoperatively. She has not had a BM in 3 days, is passing gas, and tolerating diet. Pending finalized cultures and she is being followed by infectious disease, on IV vancomycin. Labs today showing unremarkable chemistry panel, blood glucose is elevated at 128. Blood pressure 123/80, afebrile, heart rate 78, 99% room air. Review of Systems Constitutional: Denied any fatigue denied any fever. Cardio vascular: denied any chest pain, palpitations Gastrointestinal: denied any nausea, vomiting, diarrhea, no BM for 3 days. Pulmonary: Denied any shortness of breath cough Neurologic denied any new focal deficits All inpatient medications were reviewed and appropriate changes in these medications as dictated in the interval history and assessment and plan. PHYSICAL EXAMINATION: GENERAL: The patient is alert and oriented x3, not in any acute distress. Well developed, well nourished. HEENT: Pupils are round and equally reacting to light. EOMI. No scleral icterus. No conjunctival pallor. Normocephalic, atraumatic. No pharyngeal erythema. No thyromegaly. CARDIOVASCULAR: S1 and S2 present. No murmurs, rubs, or gallops. PULMONARY: Chest is clear to auscultation, no wheezing or crackles. ABDOMEN: Soft, nontender, nondistended, normoactive bowel sounds. No palpable organomegaly. MUSCULOSKELETAL: No joint swelling or deformity. EXTREMITIES: No cyanosis, clubbing, or pedal edema. NEUROLOGICAL: Gross neurological examination did not reveal any focal deficits. SKIN: Surgical site area exam deferred to orthopedic surgery She is in soft cer vical neck color. Dressing intact appears clean. Assessment and plan -Neck surgery with removal of hardware: Pain management as per primary service patient pain appears to be fairly controlled, she is also on gabapentin, flexeril -Asthma without any acute exacerbation -Nicotine use: Counseling was provided -Gastroesophageal reflux disease for which we'll use Pepcid DVT prophylaxis: As per primary service Full Code She will be evaluated by PT/OT. Infectious disease is on the case and patient is continued on IV vancomycin, pending finalized cultures for discharge. She continues on pain management by primary and bowel regimin. Melatonin has been added. She is on senna HS as needed, will add colace. Can hold for diarrhea. Discharge expected around tuesday. Thank you kindly for this consultation. The impression and plan of care has been dictated by Taina Delgado, Nurse Practitioner as directed. Dr. Darcy MD I have performed a history and physical examination and medical decision making of this patient, discussed the same with the dictator, and agree with the d ictators assessment and plan as written, documented as a scribe. Based on total visit time, I have performed more than 50% of this visit. Objective - Vital Signs Vital signs: Vital Signs Temp 98.3 F 11/13/21 12:37 Pulse 78 11/13/21 12:37 Resp 16 11/13/21 12:37 BP 123/80 11/13/21 12:37 Pulse Ox 99 11/13/21 12:37 FiO2 Intake & Output 11/12/21 11/13/21 11/13/21 18:59 06:59 18:59 Intake Total 1450 Balance 1450 Intake: Intake, IV Titration 250 Amount Vancomycin 1,000 mg In 250 Sodium Chloride 0.9% 250 ml @ 125 mls/hr IVPB Q12HR [facility] Rx#:[id number] Oral 1200 Other: Voiding Method Toilet Toilet Toilet # Voids 3 2 - Labs CBC & Chem 7: 11/12/21 05:59 11/13/21 08:26 Labs: Abnormal Lab Results - Last 24 Hours (Table) 11/13/21 Range/Units 08:26 Glucose 128 H (74-99) mg/dL Microbiology - Last 24 Hours (Table) 11/11/21 12:00 Blood Culture - Preliminary Blood No Growth after 48 hours 11/10/21 19:19 Anaerobic Culture - Preliminary Neck 11/10/21 19:19 Anaerobic Culture - Preliminary Neck 11/10/21 19:19 Gram Stain - Final Neck Wound Culture - Final 11/10/21 19:19 Gram Stain - Final Neck Wound Culture - Final Assessment and Plan Time with Patient: Less than 30
--- NOTE | 2021-11-13 15:53 | P.PN ---
Subjective Progress Note Date: 11/12/21 Principal diagnosis: Cervical spine infection Patient is a 41-year-old female who is status post C2-T1 posterior lateral fusion along with C3 to C7 laminectomy seemed to have a problem with ongoing leakage from an incision with a previous I&D on 09/23/2021 culture were negative, patient is status post repeat I&D on 11/10/2021. On today's evaluation that is 11/12/2021, the patient denies having any fever or chills, still complaining of pain to the posterior neck incision area, patient denies having any chest pain or shortness of breath or cough no nausea no vomiting no abdominal pain or diarrhea Objective - Vital Signs Vital signs: Vital Signs Temp 98.3 F 11/12/21 12:09 Pulse 74 11/12/21 12:09 Resp 15 11/12/21 12:09 BP 119/79 11/12/21 12:09 Pulse Ox 98 11/12/21 12:09 FiO2 Intake & Output 11/11/21 11/12/21 11/12/21 18:59 06:59 18:59 Intake Total 4550 1580 Output Total 20 10 Balance 4530 1570 Intake: Intake, IV Titration 300 Amount Vancomycin 1,000 mg In 250 Sodium Chloride 0.9% 250 ml @ 125 mls/hr IVPB Q12HR [facility] Rx#:[id number] ceFAZolin 2 gm In Sodium 50 Chloride 0.9% 50 ml @ 100 mls/hr IVPB Q8H [facility] Rx#: [id number] Oral 4250 1580 Output: Drainage 20 10 Posterior Neck 20 10 Other: Voiding Method Toilet Toilet Toilet # Voids 4 2 - Exam GENERAL DESCRIPTION: An elderly male lying in bed in no distress HEENT: Posterior neck incision is currently dressed no drainage on the dressing RESPIRATORY SYSTEM: Unlabored breathing , decreased breath sounds at bases HEART: S1 S2 regular rate and rhythm , ABDOMEN: Soft , no tenderness EXTREMITIES: No edema feet - Labs CBC & Chem 7: 11/12/21 05:59 11/13/21 08:26 Labs: Abnormal Lab Results - Last 24 Hours (Table) 11/12/21 Range/Units 05:59 RBC 3.13 L (4.10-5.20) X 10*6/uL Hgb 9.2 L (12.0-15.0) g/dL Hct 28.9 L (37.2-46.3) % MCHC 31.8 L (32.0-37.0) g/dL RDW 17.3 H (11.5-14.5) % MPV 9.2 L (9.5-12.2) fL Microbiology - Last 24 Hours (Table) 11/11/21 12:00 Blood Culture - Preliminary Blood No Growth after 24 hours 11/10/21 19:19 Gram Stain - Preliminary Neck Wound Culture - Preliminary 11/10/21 19:19 Gram Stain - Preliminary Neck Wound Culture - Preliminary Assessment and Plan (1) Neck pain Current Visit: No Status: Acute Code(s): M54.2 - CERVICALGIA SNOMED Code(s): 74519835 Plan: 1patient with the drainage from her posterior neck incision and this patient who is status post C2-T1 posterior lateral fusion and laminectomy with subsequent dehiscence of the wound and status postrepair back on 09/23/2021 cultures were negative now with 3 incision debridement and cultures which are currently pending. 2the patient sed rate only 20 and normal, blood cultures currently pending 3patient will continue with vancomycin pharmacy to dose while waiting for the cultures to be finalized. Time with Patient: Less than 30
--- NOTE | 2021-11-13 15:55 | P.PN ---
Subjective Progress Note Date: 11/13/21 Principal diagnosis: Cervical spine infection Patient is a 41-year-old female who is status post C2-T1 posterior lateral fusion along with C3 to C7 laminectomy seemed to have a problem with ongoing leakage from an incision with a previous I&D on 09/23/2021 culture were negative, patient is status post repeat I&D on 11/10/2021. On today's evaluation that is 11/13/2021, the patient denies any fever or chills, the patient denies any worsening pain to the posterior neck incision area, patient denies having any chest pain or shortness of breath or cough no nausea no vomiting no abdominal pain or diarrhea Objective - Vital Signs Vital signs: Vital Signs Temp 98.3 F 11/13/21 12:37 Pulse 78 11/13/21 12:37 Resp 16 11/13/21 12:37 BP 123/80 11/13/21 12:37 Pulse Ox 99 11/13/21 12:37 FiO2 Intake & Output 11/12/21 11/13/21 11/13/21 18:59 06:59 18:59 Intake Total 1450 Balance 1450 Intake: Intake, IV Titration 250 Amount Vancomycin 1,000 mg In 250 Sodium Chloride 0.9% 250 ml @ 125 mls/hr IVPB Q12HR [facility] Rx#:[id number] Oral 1200 Other: Voiding Method Toilet Toilet Toilet # Voids 3 2 - Exam GENERAL DESCRIPTION: An elderly male lying in bed in no distress HEENT: Posterior neck incision is currently dressed no drainage on the dressing RESPIRATORY SYSTEM: Unlabored breathing , decreased breath sounds at bases HEART: S1 S2 regular rate and rhythm , ABDOMEN: Soft , no tenderness EXTREMITIES: No edema feet - Labs CBC & Chem 7: 11/12/21 05:59 11/13/21 08:26 Labs: Microbiology - Last 24 Hours (Table) 11/11/21 12:00 Blood Culture - Preliminary Blood No Growth after 24 hours 11/10/21 19:19 Gram Stain - Preliminary Neck Wound Culture - Preliminary 11/10/21 19:19 Gram Stain - Preliminary Neck Wound Culture - Preliminary Assessment and Plan (1) Neck pain Current Visit: No Status: Acute Code(s): M54.2 - CERVICALGIA SNOMED Code(s): 01361082 Plan: 1patient with the drainage from her posterior neck incision and this patient who is status post C2-T1 posterior lateral fusion and laminectomy with subsequent dehiscence of the wound and status postrepair back on 09/23/2021 cultures were negative now with 3 incision debridement and cultures which are currently pending. 2the patient sed rate only 20 and normal, blood cultures currently pending 3patient to continue vancomycin pharmacy to dose while waiting for the cultures to be finalized and monitor clinical course closely. Time with Patient: Less than 30
[2021-11-13] MEDS: MELATONIN 5 MG TABLET PO SCH (22:11)
[2021-11-13] MEDS: DOCUSATE 100 MG CAP PO SCH (22:11)
[2021-11-14] MEDS: ACETAMINOPHEN TAB 325 MG TAB PO SCH ×4 (00:20→17:51)
[2021-11-14] MEDS: VANCOMYCIN 1,000 MG in SODIUM CHLORIDE 0.9% 250 ML IVPB SCH ×3 (00:20→17:52)
[2021-11-14] MEDS: HYDROmorphone 1 MG/ML 1 ML SYRINGE IVP PRN ×6 (00:21→23:25)
[2021-11-14] MEDS: oxyCODONE-APAP 10-325MG 1 EACH TAB PO PRN ×5 (02:20→19:59)
[2021-11-14] MEDS: DOCUSATE 100 MG CAP PO SCH ×2 (08:27→22:17)
[2021-11-14] MEDS: GABAPENTIN 300 MG CAP PO SCH ×3 (08:27→22:17)
[2021-11-14] MEDS: FAMOTIDINE 20 MG TAB PO SCH ×2 (08:27→22:17)
[2021-11-14] MEDS: CYCLOBENZAPRINE 10 MG TAB PO SCH ×3 (08:27→22:17)
--- NOTE | 2021-11-14 09:06 | P.PN ---
Subjective Progress Note Date: 11/14/21 Principal diagnosis: Facial dehiscence Delayed wound healing Pt s/e. No issues overnight. Pain controlled. Drain in place. 50 cc out serous fluid. Dressing CDI. C collar in place. Figure of [address] No f/c/sob/cp. Cx have been neg and remain neg Blood cx pending still Objective - Vital Signs Vital signs: Vital Signs Temp 98.3 F 11/14/21 04:40 Pulse 83 11/14/21 04:40 Resp 16 11/14/21 04:40 BP 104/62 11/14/21 04:40 Pulse Ox 97 11/14/21 04:40 FiO2 Intake & Output 11/13/21 11/14/21 11/14/21 18:59 06:59 18:59 Intake Total 250 Balance 250 Intake: Intake, IV Titration 250 Amount Vancomycin 1,000 mg In 250 Sodium Chloride 0.9% 250 ml @ 125 mls/hr IVPB Q12HR [facility] Rx#:[id number] Other: Voiding Method Toilet Toilet # Voids 3 - Exam Exam stable at this time. No significant changes. Drain 20 cc out Neck pain with motion C collar in place Dressing CDI Incision CDI Drain in place, serous out put 20 cc Cultures neg so far 5/5 UE and LE b/l motor no focal deficits SILT C5-T1 and L2-S1 2/4 distal pulses No pathologicla reflexes CNII-XII grossly intact - Labs CBC & Chem 7: 11/12/21 05:59 11/13/21 08:26 Labs: Abnormal Lab Results - Last 24 Hours (Table) 11/13/21 Range/Units 08:26 Glucose 128 H (74-99) mg/dL Microbiology - Last 24 Hours (Table) 11/11/21 12:00 Blood Culture - Preliminary Blood No Growth after 48 hours 11/10/21 19:19 Anaerobic Culture - Preliminary Neck 11/10/21 19:19 Anaerobic Culture - Preliminary Neck 11/10/21 19:19 Gram Stain - Final Neck Wound Culture - Final 11/10/21 19:19 Gram Stain - Final Neck Wound Culture - Final Assessment and Plan Assessment: 41-year-old female postoperative day 4 incision and drainage with re-repair of fascial dehiscence posterior neck with removal of hardware Plan: -Reg diet -No push pull, no lifting bending twisting -Nothing >5lbs -Change pain meds to equal what she takes normally -Ambulate daily -IS 10 times daily -ID recs appreciated -Post op abx -Await final cx -GI/DVT ppx TEDs SCDs -Dispo: home Tuesday after final cx, final abx recs and drain slows
--- NOTE | 2021-11-14 14:14 | P.PN ---
Subjective Progress Note Date: 11/14/21 41-year-old female with multiple back surgeries in the past came in because of irritable hardware in the posterior neck. Patient denied any fever chills patient denied any dysuria . Had neck surgery and removal of hardware. 11/12/2021 Patient evaluated today sitting up in bed. She continues with a soft cervical collar. States that her family is pitting in her port placed today however she will be fitted for a new one on the hospital. She reports falling asleep easily last night however she has difficulty staying asleep. She is requesting Valium. She is on Flexeril as needed as well as Percocet and [place] we will recommend more conservative sleep aid. Cultures so far negative. Cultures showing a white count of 8.17, hemoglobin 9.2. She is afebrile, heart rate 74, blood pressure 119/79, 98% room air. She is also being evaluated by infectious disease, she is on IV vancomycin. 11/13/2021 Patient evaluated today resting in bed. She states that she has increased her activity is walking around the room as tolerated. She has been fitted for figure 8 collar and continues in a soft cervical collar. She denies any numbness or tingling to her upper extremities. Otherwise she continues with surgical drain, dressing intact. She is tolerating pain, and medications were adjusted by primary. Repors no nausea, vomiting, diarrhea postoperatively. She has not had a BM in 3 days, is passing gas, and tolerating diet. Pending finalized cultures and she is being followed by infectious disease, on IV vancomycin. Labs today showing unremarkable chemistry panel, blood glucose is elevated at 128. Blood pressure 123/80, afebrile, heart rate 78, 99% room air. 11/14/2021 Patient evaluated today sitting up in bed. She is postoperative day #4 incision and drainage with re-pair of fascial dehiscence posterior neck with removal of hardware which is managed by primary. She reports pain to her upper back, stable without worsening pain. She is wearing figure 8 brace. Cultures so far are negat aristides, pending finalized cultures. She continues on IV vancomycin and is being followed closely by infectious disease. Per patient plan is to remove surgical drain tomorrow and monitor overnight. She denies chest pain, shortness of breath. She denies numbness or tingling upper extremities. She remains afebrile, heart rate 85, blood pressure 147/79, 99% room air. Repeat labs for the morning. Plan is for tentative discharge Tuesday pending finalized cultures and antibiotic recommendations. Review of Systems Constitutional: Denied any fatigue denied any fever. Cardio vascular: denied any chest pain, palpitations Gastrointestinal: denied any nausea, vomiting, diarrhea, no BM for 3 days. Pulmonary: Denied any shortness of breath cough Neurologic denied any new focal deficits All inpatient medications were reviewed and appropriate changes in these medications as dictated in the interval history and assessment and plan. PHYSICAL EXAMINATION: GENERAL: The patient is alert and oriented x3, not in any acute distress. Well developed, well nourished. HEENT: Pupils are round and equally reacting to light. EOMI. No scleral icterus. No conjunctival pallor. Normocephalic, atraumatic. No pharyngeal erythema. No thyromegaly. CARDIOVASCULAR: S1 and S2 present. No murmurs, rubs, or gallops. PULMONARY: Chest is clear to auscultation, no wheezing or crackles. ABDOMEN: Soft, nontender, nondistended, normoactive bowel sounds. No palpable organomegaly. MUSCULOSKELETAL: No joint swelling or deformity. EXTREMITIES: No cyanosis, clubbing, or pedal edema. NEUROLOGICAL: Gross neurological examination did not reveal any focal deficits. SKIN: Surgical site area exam deferred to orthopedic surgery She is in soft cervical neck color. Dressing intact appears clean. Assessment and plan -Neck surgery with removal of hardware: Pain management as per primary service patient pain appears to be fairly controlled, she is also on gabapentin, flexeril -Asthma without any acute exacerbation -Nicotine use: Counseling was provided -Gastroesophageal reflux disease for which we'll use Pepcid DVT prophylaxis: As per primary service Full Code She will be evaluated by PT/OT. Infectious disease is on the case and patient is continued on IV vancomycin, pending finalized cultures for discharge. She continues on pain management by primary and bowel regimin. Melatonin has been added. She is on senna HS as needed and colace. Can hold for diarrhea. Discharge expected around tuesday. Repeat labs have been placed for the morning. Thank you kindly for this consultation. The impression and plan of care has been dictated by Taina Delgado, Nurse Practitioner as directed. Dr. Darcy MD I have performed a history and physical examination and medical decision making of this patient, discussed the same with the dictator, and agree with the dictators assessment and plan as written, documented as a scribe. Based on total visit time, I have performed more than 50% of this visit. Objective - Vital Signs Vital signs: Vital Signs Temp 98.3 F 11/14/21 04:40 Pulse 83 11/14/21 04:40 Resp 16 11/14/21 04:40 BP 104/62 11/14/21 04:40 Pulse Ox 97 11/14/21 04:40 FiO2 Intake & Output 11/13/21 11/14/21 11/14/21 18:59 06:59 18:59 Intake Total 250 240 Balance 250 240 Intake: Intake, IV Titration 250 Amount Vancomycin 1,000 mg In 250 Sodium Chloride 0.9% 250 ml @ 125 mls/hr IVPB Q12HR [facility] Rx#:[id number] Oral 240 Other: Voiding Method Toilet Toilet # Voids 3 - Labs CBC & Chem 7: 11/12/21 05:59 11/13/21 08:26 Labs: Abnormal Lab Results - Last 24 Hours (Table) 11/13/21 Range/Units 08:26 Glucose 128 H (74-99) mg/dL Microbiology - Last 24 Hours (Table) 11/11/21 12:00 Blood Culture - Preliminary Blood No Growth after 48 hours 11/10/21 19:19 Anaerobic Culture - Preliminary Neck 11/10/21 19:19 Anaerobic Culture - Preliminary Neck 11/10/21 19:19 Gram Stain - Final Neck Wound Culture - Final 11/10/21 19:19 Gram Stain - Final Neck Wound Culture - Final Assessment and Plan Time with Patient: Less than 30
--- NOTE | 2021-11-14 22:03 | P.PN ---
Subjective Progress Note Date: 11/14/21 Principal diagnosis: Cervical spine infection Patient is a 41-year-old female who is status post C2-T1 posterior lateral fusion along with C3 to C7 laminectomy seemed to have a problem with ongoing leakage from an incision with a previous I&D on 09/23/2021 culture were negative, patient is status post repeat I&D on 11/10/2021. On today's evaluation that is 11/14/2021, the patient remains to be afebrile, the patient pain to the posterior neck is currently controlled, patient denies having any chest pain or shortness of breath or cough no nausea no vomiting no abdominal pain or diarrhea Objective - Vital Signs Vital signs: Vital Signs Temp 98.3 F 11/14/21 04:40 Pulse 83 11/14/21 04:40 Resp 16 11/14/21 04:40 BP 104/62 11/14/21 04:40 Pulse Ox 97 11/14/21 04:40 FiO2 Intake & Output 11/13/21 11/14/21 11/14/21 18:59 06:59 18:59 Intake Total 250 240 Balance 250 240 Intake: Intake, IV Titration 250 Amount Vancomycin 1,000 mg In 250 Sodium Chloride 0.9% 250 ml @ 125 mls/hr IVPB Q12HR [facility] Rx#:[id number] Oral 240 Other: Voiding Method Toilet Toilet # Voids 3 - Exam GENERAL DESCRIPTION: An elderly male lying in bed in no distress HEENT: Posterior neck incision is currently dressed no drainage on the dressing RESPIRATORY SYSTEM: Unlabored breathing , decreased breath sounds at bases HEART: S1 S2 regular rate and rhythm , ABDOMEN: Soft , no tenderness EXTREMITIES: No edema feet - Labs CBC & Chem 7: 11/12/21 05:59 11/13/21 08:26 Labs: Abnormal Lab Results - Last 24 Hours (Table) 11/13/21 Range/Units 08:26 Glucose 128 H (74-99) mg/dL Microbiology - Last 24 Hours (Table) 11/11/21 12:00 Blood Culture - Preliminary Blood No Growth after 48 hours 11/10/21 19:19 Anaerobic Culture - Preliminary Neck 11/10/21 19:19 Anaerobic Culture - Preliminary Neck 11/10/21 19:19 Gram Stain - Final Neck Wound Culture - Final 11/10/21 19:19 Gram Stain - Final Neck Wound Culture - Final Assessment and Plan (1) Neck pain Current Visit: No Status: Acute Code(s): M54.2 - CERVICALGIA SNOMED Code(s): 57129328 Plan: 1patient with the drainage from her posterior neck incision and this patient who is status post C2-T1 posterior lateral fusion and laminectomy with subsequent dehiscence of the wound and status postrepair back on 09/23/2021 cultures were negative now with 3 incision debridement and cultures which are so far negative 2the patient sed rate only 20 and normal, blood cultures negative 3patient to continue vancomycin pharmacy to dose however with negative cultures suspicious for underlying infection remains to below will recheck her extremity markers with a.m. lab Time with Patient: Less than 30
[2021-11-14] MEDS: MELATONIN 5 MG TABLET PO SCH (22:17)
[2021-11-15] MEDS: oxyCODONE-APAP 10-325MG 1 EACH TAB PO PRN ×6 (01:29→23:04)
[2021-11-15] MEDS: VANCOMYCIN 1,000 MG in SODIUM CHLORIDE 0.9% 250 ML IVPB SCH ×3 (01:30→17:08)
[2021-11-15] MEDS: HYDROmorphone 1 MG/ML 1 ML SYRINGE IVP PRN ×5 (03:39→21:04)
[2021-11-15] MEDS: ACETAMINOPHEN TAB 325 MG TAB PO SCH ×2 (05:01→18:07)
[2021-11-15] MEDS ORDERED: VANCOMYCIN TROUGH DUE 1 EACH MISC MISCELLANE ONE (08:00)
--- NOTE | 2021-11-15 08:06 | P.PN ---
Subjective Progress Note Date: 11/15/21 Principal diagnosis: Facial dehiscence Delayed wound healing s/e no issues overnight. doing well. Cx neg so far. Pain controlled. Drain pulled today minimal drainage. Incision CDI no f/c/sob/cp Objective - Vital Signs Vital signs: Vital Signs Temp 97.8 F 11/15/21 05:00 Pulse 82 11/15/21 05:00 Resp 16 11/15/21 05:00 BP 101/66 11/15/21 05:00 Pulse Ox 99 11/15/21 05:00 FiO2 Intake & Output 11/14/21 11/15/21 11/15/21 18:59 06:59 18:59 Intake Total 720 Output Total 40 2 Balance 680 -2 Intake: Oral 720 Output: Drainage 40 2 Posterior Neck 40 2 Other: # Voids 3 1 - Exam Exam stable at this time. No significant changes. Drain min out. DC today Neck pain with motion C collar in place Dressing CDI Incision CDI Cultures neg so far 5/5 UE and LE b/l motor no focal deficits SILT C5-T1 and L2-S1 2/4 distal pulses No pathologicla reflexes CNII-XII grossly intact - Labs CBC & Chem 7: 11/12/21 05:59 11/13/21 08:26 Labs: Microbiology - Last 24 Hours (Table) 11/11/21 12:00 Blood Culture - Preliminary Blood No Growth after 72 hours Assessment and Plan Assessment: 41-year-old female postoperative day 5 incision and drainage with re-repair of fascial dehiscence posterior neck with removal of hardware Plan: -Reg diet -No push pull, no lifting bending twisting -Nothing >5lbs -Change pain meds to equal what she takes normally -Ambulate daily -IS 10 times daily -ID recs appreciated -Post op abx -Cx neg so far -GI/DVT ppx TEDs SCDs -Dispo: home Tuesday after final cx, final abx recs and drain slows
[2021-11-15] MEDS: CYCLOBENZAPRINE 10 MG TAB PO SCH ×3 (08:11→23:03)
[2021-11-15] MEDS: FAMOTIDINE 20 MG TAB PO SCH ×2 (08:11→21:04)
[2021-11-15] MEDS: GABAPENTIN 300 MG CAP PO SCH ×3 (08:11→23:04)
[2021-11-15] MEDS: DOCUSATE 100 MG CAP PO SCH ×2 (08:11→21:04)
[2021-11-15] MEDS: SENNOSIDES-DOCUSATE SODIUM 1 EACH TAB PO PRN (08:26)
[2021-11-15 09:09] LABS: African American GFR (CKD) >90 (>60 ml/min/1.73 sqM); Anion Gap 6 mmol/L; Blood Urea Nitrogen 11 mg/dL (7-17); Calcium 8.7 mg/dL (8.4-10.2); Carbon Dioxide 25 mmol/L (22-30); Chloride 104 mmol/L (98-107); Glucose 87 mg/dL (74-99); Non-African American GFR(CKD) >90 (>60 ml/min/1.73 sqM); Potassium 4.4 mmol/L (3.5-5.1); Sodium 135 mmol/L (137-145)
[2021-11-15 09:23] LABS: C Reactive Protein 1.8 mg/dL (<1.0)
[2021-11-15 11:49] LABS: Basophils # (A) 0.03 X 10*3/uL (0.00-0.10); Basophils % (A) 0.5 %; Eosinophils # (A) 0.25 X 10*3/uL (0.04-0.35); Eosinophils % (A) 4.5 %; HCT 32.6 % (37.2-46.3); HGB 10.4 g/dL (12.0-15.0); Immature Grans, Automated 0.2 %; Lymphocytes # (A) 2.08 X 10*3/uL (0.90-5.00); Lymphocytes % (A) 37.5 %; MCH 29.5 pg (27.0-32.0); MCHC 31.9 g/dL (32.0-37.0); MCV 92.6 fL (80.0-97.0); Mean Platelet Volume 8.8 fL (9.5-12.2); Monocytes # (A) 0.55 X 10*3/uL (0.20-1.00); Monocytes % (A) 9.9 %; NRBC Per 100 WBC 0 /100 WBCS (0.0-0.0); Neutrophils # (A) 2.62 X 10*3/uL (1.80-7.70); Neutrophils % (A) 47.4 %; Platelet Count 362 X 10*3/uL (140-440); RBC 3.52 X 10*6/uL (4.10-5.20); RDW 17.4 % (11.5-14.5); WBC 5.54 X 10*3/uL (4.50-10.00)
[2021-11-15] MEDS: MAGNESIUM HYDROXIDE 2,400 MG/10 ML CUP PO PRN (16:26)
--- NOTE | 2021-11-15 17:40 | P.PN ---
Subjective 41-year-old female with multiple back surgeries in the past came in because of irritable hardware in the posterior neck. Patient denied any fever chills patient denied any dysuria . Had neck surgery and removal of hardware. 11/12/2021 Patient evaluated today sitting up in bed. She continues with a soft cervical collar. States that her family is pitting in her port placed today however she will be fitted for a new one on the hospital. She reports falling asleep easily last night however she has difficulty staying asleep. She is requesting Valium. She is on Flexeril as needed as well as Percocet and [place] we will recommend more conservative sleep aid. Cultures so far negative. Cultures showing a white count of 8.17, hemoglobin 9.2. She is afebrile, heart rate 74, blood pressure 119/79, 98% room air. She is also being evaluated by infectious disease, she is on IV vancomycin. 11/13/2021 Patient evaluated today resting in bed. She states that she has increased her activity is walking around the room as tolerated. She has been fitted for figure 8 collar and continues in a soft cervical collar. She denies any numbness or tingling to her upper extremities. Otherwise she continues with surgical drain, dressing intact. She is tolerating pain, and medications were adjusted by primary. Repors no nausea, vomiting, diarrhea postoperatively. She has not had a BM in 3 days, is passing gas, and tolerating diet. Pending finali zed cultures and she is being followed by infectious disease, on IV vancomycin. Labs today showing unremarkable chemistry panel, blood glucose is elevated at 128. Blood pressure 123/80, afebrile, heart rate 78, 99% room air. 11/14/2021 Patient evaluated today sitting up in bed. She is postoperative day #4 incision and drainage with re-pair of fascial dehiscence posterior neck with removal of hardware which is managed by primary. She reports pain to her upper back, stable without worsening pain. She is wearing figure 8 brace. Cultures so far are negative, pending finalized cultures. She continues on IV vancomycin and is being followed closely by infectious disease. Per patient plan is to remove surgical drain tomorrow and monitor overnight. She denies chest pain, shortness of breath. She denies numbness or tingling upper extremities. She remains afebrile, heart rate 85, blood pressure 147/79, 99% room air. Repeat labs for the morning. Plan is for tentative discharge Tuesday pending finalized cultures and antibiotic recommendations. 11/15/2021 Patient status post surgical repair of her fascial dehiscence by surgery/orthopedic team and removal of hardware. Surgical wound with dressing in place, surgical team R following closely. Wound culture showing no growth and patient on IV vancomycin. Infectious disease team on the case. Labs and vitals reviewed and looks stable. She looks bloated and wants something for constipation, she wants specifically milk of magnesium which is added. Also she is on other laxative. Denies any other symptoms Objective - Vital Signs Vital signs: Vital Signs Temp 97.8 F 11/15/21 05:00 Pulse 82 11/15/21 05:00 Resp 16 11/15/21 05:00 BP 101/66 11/15/21 05:00 Pulse Ox 99 11/15/21 05:00 FiO2 Intake & Output 11/14/21 11/15/21 11/15/21 18:59 06:59 18:59 Intake Total 720 Output Total 40 2 Balance 680 -2 Intake: Oral 720 Output: Drainage 40 2 Posterior Neck 40 2 Other: # Voids 3 1 - Exam GENERAL: The patient is alert and oriented x3, not in any acute distress. Well developed, well nourished. HEENT: Pupils are round and equally reacting to light. EOMI. No scleral icterus. No conjunctival pallor. Normocephalic, atraumatic. No pharyngeal erythema. No thyromegaly. CARDIOVASCULAR: S1 and S2 present. No murmurs, rubs, or gallops. PULMONARY: Chest is clear to auscultation, no wheezing or crackles. ABDOMEN: Soft, nontender, nondistended, normoactive bowel sounds. No palpable organomegaly. -MUSCULOSKELETAL: No joint swelling or deformity. Status post neck surgery, rest of exam is deferred to surgery team EXTREMITIES: No cyanosis, clubbing, or pedal edema. NEUROLOGICAL: Gross neurological examination did not reveal any focal deficits. SKIN: No rashes. no petechiae. - Labs CBC & Chem 7: 11/15/21 07:27 11/15/21 07:27 Labs: Abnormal Lab Results - Last 24 Hours (Table) 11/15/21 Range/Units 07:27 Sodium 135 L (137-145) mmol/L C-Reactive Protein 1.8 H (<1.0) mg/dL Microbiology - Last 24 Hours (Table) 11/11/21 12:00 Blood Culture - Preliminary Blood No Growth after 72 hours Assessment and Plan Assessment: -Neck surgery with removal of hardware: Pain management as per primary service patient pain appears to be fairly controlled, she is also on gabapentin, flexeril -Asthma without any acute exacerbation -Nicotine use: Counseling was provided -Gastroesophageal reflux disease for which we'll use Pepcid DVT prophylaxis: As per primary service Full Code
[2021-11-15] MEDS: MELATONIN 5 MG TABLET PO SCH (23:03)
[2021-11-16] MEDS: VANCOMYCIN 1,000 MG in SODIUM CHLORIDE 0.9% 250 ML IVPB SCH ×3 (01:06→17:53)
[2021-11-16] MEDS: HYDROmorphone 1 MG/ML 1 ML SYRINGE IVP PRN ×6 (01:06→21:52)
[2021-11-16] MEDS: oxyCODONE-APAP 10-325MG 1 EACH TAB PO PRN ×5 (03:16→20:35)
[2021-11-16] MEDS: ACETAMINOPHEN TAB 325 MG TAB PO SCH ×2 (04:59→17:51)
--- NOTE | 2021-11-16 07:52 | P.PN ---
Subjective Progress Note Date: 11/15/21 Principal diagnosis: Cervical spine infection Patient is a 41-year-old female who is status post C2-T1 posterior lateral fusion along with C3 to C7 laminectomy seemed to have a problem with ongoing leakage from an incision with a previous I&D on 09/23/2021 culture were negative, patient is status post repeat I&D on 11/10/2021. On today's evaluation that is 11/15/2021, the patient denies any fever or chills, the patient denies any worsening pain to the posterior neck, patient denies having any chest pain or shortness of breath or cough no nausea no vomiting no abdominal pain or diarrhea Objective - Vital Signs Vital signs: Vital Signs Temp 98.1 F 11/15/21 12:50 Pulse 80 11/15/21 12:50 Resp 15 11/15/21 12:50 BP 120/76 11/15/21 12:50 Pulse Ox 99 11/15/21 12:50 FiO2 Intake & Output 11/14/21 11/15/21 11/15/21 18:59 06:59 18:59 Intake Total 720 Output Total 40 2 Balance 680 -2 Intake: Oral 720 Output: Drainage 40 2 Posterior Neck 40 2 Other: # Voids 3 1 - Exam GENERAL DESCRIPTION: An elderly male lying in bed in no distress HEENT: Posterior neck incision is currently dressed no drainage on the dressing RESPIRATORY SYSTEM: Unlabored breathing , decreased breath sounds at bases HEART: S1 S2 regular rate and rhythm , ABDOMEN: Soft , no tenderness EXTREMITIES: No edema feet - Labs CBC & Chem 7: 11/15/21 07:27 11/15/21 07:27 Labs: Abnormal Lab Results - Last 24 Hours (Table) 11/15/21 11/15/21 Range/Units 07:27 07:27 RBC 3.52 L (4.10-5.20) X 10*6/uL Hgb 10.4 L (12.0-15.0) g/dL Hct 32.6 L (37.2-46.3) % MCHC 31.9 L (32.0-37.0) g/dL RDW 17.4 H (11.5-14.5) % MPV 8.8 L (9.5-12.2) fL Sodium 135 L (137-145) mmol/L C-Reactive Protein 1.8 H (<1.0) mg/dL Microbiology - Last 24 Hours (Table) 11/11/21 12:00 Blood Culture - Preliminary Blood No Growth after 96 hours 11/10/21 19:19 Anaerobic Culture - Final Neck 11/10/21 19:19 Anaerobic Culture - Final Neck Assessment and Plan (1) Neck pain Current Visit: No Status: Acute Code(s): M54.2 - CERVICALGIA SNOMED Code(s): 05868168 Plan: 1patient with the drainage from her posterior neck incision and this patient who is status post C2-T1 posterior lateral fusion and laminectomy with subsequent dehiscence of the wound and status postrepair back on 09/23/2021 cultures were negative now with 3 incision debridement and cultures which are so far negative 2the patient sed rate only 20 and normal, blood cultures negative 3patient currently being treated with vancomycin pharmacy to dose however with negative cultures suspicious for underlying infection remains to be low , may transition to short course of oral antibiotics on discharge Time with Patient: Less than 30
[2021-11-16] MEDS: GABAPENTIN 300 MG CAP PO SCH ×3 (07:54→21:52)
[2021-11-16] MEDS: FAMOTIDINE 20 MG TAB PO SCH ×2 (07:55→20:35)
[2021-11-16] MEDS: DOCUSATE 100 MG CAP PO SCH ×2 (07:55→20:35)
[2021-11-16] MEDS: CYCLOBENZAPRINE 10 MG TAB PO SCH ×3 (07:55→21:52)
[2021-11-16] MEDS: SENNOSIDES-DOCUSATE SODIUM 1 EACH TAB PO PRN (07:55)
[2021-11-16 09:05] LABS: African American GFR (CKD) 130.3 (60.0-200.0); Anion Gap 11.8 mmol/L (10.00-18.00); BUN/Creat Ratio 14.67 Ratio (12.00-20.00); Blood Urea Nitrogen 8.8 mg/dL (9.0-27.0); Calcium 8.4 mg/dL (8.7-10.3); Carbon Dioxide 21.2 mmol/L (20.0-27.5); Non-African American GFR(CKD) 112.4 (60.0-200.0); Potassium 4.5 mmol/L (3.5-5.5)
--- NOTE | 2021-11-16 12:33 | P.PN ---
Subjective 41-year-old female with multiple back surgeries in the past came in because of irritable hardware in the posterior neck. Patient denied any fever chills patient denied any dysuria . Had neck surgery and removal of hardware. 11/12/2021 Patient evaluated today sitting up in bed. She continues with a soft cervical collar. States that her family is pitting in her port placed today however she will be fitted for a new one on the hospital. She reports falling asleep easily last night however she has difficulty staying asleep. She is requesting Valium. She is on Flexeril as needed as well as Percocet and [place] we will recommend more conservative sleep aid. Cultures so far negative. Cultures showing a white count of 8.17, hemoglobin 9.2. She is afebrile, heart rate 74, blood pressure 119/79, 98% room air. She is also being evaluated by infectious disease, she is on IV vancomycin. 11/13/2021 Patient evaluated today resting in bed. She states that she has increased her activity is walking around the room as tolerated. She has been fitted for figure 8 collar and continues in a soft cervical collar. She denies any numbness or tingling to her upper extremities. Otherwise she continues with surgical drain, dressing intact. She is tolerating pain, and medications were adjusted by primary. Repors no nausea, vomiting, diarrhea postoperatively. She has not had a BM in 3 days, is passing gas, and tolerating diet. Pending finali zed cultures and she is being followed by infectious disease, on IV vancomycin. Labs today showing unremarkable chemistry panel, blood glucose is elevated at 128. Blood pressure 123/80, afebrile, heart rate 78, 99% room air. 11/14/2021 Patient evaluated today sitting up in bed. She is postoperative day #4 incision and drainage with re-pair of fascial dehiscence posterior neck with removal of hardware which is managed by primary. She reports pain to her upper back, stable without worsening pain. She is wearing figure 8 brace. Cultures so far are negative, pending finalized cultures. She continues on IV vancomycin and is being followed closely by infectious disease. Per patient plan is to remove surgical drain tomorrow and monitor overnight. She denies chest pain, shortness of breath. She denies numbness or tingling upper extremities. She remains afebrile, heart rate 85, blood pressure 147/79, 99% room air. Repeat labs for the morning. Plan is for tentative discharge Tuesday pending finalized cultures and antibiotic recommendations. 11/15/2021 Patient status post surgical repair of her fascial dehiscence by surgery/orthopedic team and removal of hardware. Surgical wound with dressing in place, surgical team R following closely. Wound culture showing no growth and patient on IV vancomycin. Infectious disease team on the case. Labs and vitals reviewed and looks stable. She looks bloated and wants something for constipation, she wants specifically milk of magnesium which is added. Also she is on other laxative. Denies any other symptoms 11/16/2021 Patient complains from some neck pain at the surgical site with a orthopedic team following her closely. No neurological deficits. Her constipation improved and she has good bowel movement yesterday. Cultures were negative so far. Continue with antibiotics as per infectious disease. Patient currently on IV vancomycin Creatinine normal Objective - Vital Signs Vital signs: Vital Signs Temp 97.9 F 11/16/21 05:00 Pulse 72 11/16/21 05:00 Resp 16 11/16/21 05:00 BP 97/65 11/16/21 05:00 Pulse Ox 97 11/16/21 05:00 FiO2 Intake & Output 11/15/21 11/16/21 11/16/21 18:59 06:59 18:59 Intake Total 1430 Balance 1430 Intake: Oral 1430 Other: Voiding Method Toilet # Voids 4 # Bowel Movements 0 - Exam GENERAL: The patient is alert and oriented x3, not in any acute distress. Well developed, well nourished. HEENT: Pupils are round and equally reacting to light. EOMI. No scleral icterus. No conjunctival pallor. Normocephalic, atraumatic. No pharyngeal erythema. No thyromegaly. CARDIOVASCULAR: S1 and S2 present. No murmurs, rubs, or gallops. PULMONARY: Chest is clear to auscultation, no wheezing or crackles. ABDOMEN: Soft, nontender, nondistended, normoactive bowel sounds. No palpable organomegaly. -MUSCULOSKELETAL: No joint swelling or deformity. Status post neck surgery, rest of exam is deferred to surgery team EXTREMITIES: No cyanosis, clubbing, or pedal edema. NEUROLOGICAL: Gross neurological examination did not reveal any focal deficits. SKIN: No rashes. no petechiae. - Labs CBC & Chem 7: 11/15/21 07:27 11/16/21 05:55 Labs: Abnormal Lab Results - Last 24 Hours (Table) 11/15/21 11/16/21 Range/Units 07:27 05:55 RBC 3.52 L (4.10-5.20) X 10*6/uL Hgb 10.4 L (12.0-15.0) g/dL Hct 32.6 L (37.2-46.3) % MCHC 31.9 L (32.0-37.0) g/dL RDW 17.4 H (11.5-14.5) % MPV 8.8 L (9.5-12.2) fL BUN 8.8 L (9.0-27.0) mg/dL Glucose 142 H (70-110) mg/dL Calcium 8.4 L (8.7-10.3) mg/dL Microbiology - Last 24 Hours (Table) 11/11/21 12:00 Blood Culture - Preliminary Blood No Growth after 96 hours 11/10/21 19:19 Anaerobic Culture - Final Neck 11/10/21 19:19 Anaerobic Culture - Final Neck Assessment and Plan Assessment: -Neck surgery with removal of hardware: Pain management as per primary service patient pain appears to be fairly controlled, she is also on gabapentin, flexeril -Asthma without any acute exacerbation -Nicotine use: Counseling was provided -Gastroesophageal reflux disease for which we'll use Pepcid DVT prophylaxis: As per primary service Full Code
[2021-11-16] MEDS: MAGNESIUM HYDROXIDE 2,400 MG/10 ML CUP PO PRN (14:24)
--- NOTE | 2021-11-16 16:21 | P.PN ---
Subjective Progress Note Date: 11/16/21 Principal diagnosis: Facial dehiscence Delayed wound healing Pt s/e. No issues overnight pain control no drainage at this time no fevers or chills Objective - Vital Signs Vital signs: Vital Signs Temp 97.9 F 11/16/21 05:00 Pulse 72 11/16/21 05:00 Resp 16 11/16/21 05:00 BP 97/65 11/16/21 05:00 Pulse Ox 97 11/16/21 05:00 FiO2 Intake & Output 11/15/21 11/16/21 11/16/21 18:59 06:59 18:59 Intake Total 1430 Balance 1430 Intake: Oral 1430 Other: Voiding Method Toilet # Voids 4 # Bowel Movements 0 - Exam No changes in exam drain was out incision is clean and dry Neck pain with motion C collar in place Dressing CDI Incision CDI Cultures neg so far 5/5 UE and LE b/l motor no focal deficits SILT C5-T1 and L2-S1 2/4 distal pulses No pathologicla reflexes CNII-XII grossly intact - Labs CBC & Chem 7: 11/15/21 07:27 11/16/21 05:55 Labs: Abnormal Lab Results - Last 24 Hours (Table) 11/15/21 11/15/21 Range/Units 07:27 07:27 RBC 3.52 L (4.10-5.20) X 10*6/uL Hgb 10.4 L (12.0-15.0) g/dL Hct 32.6 L (37.2-46.3) % MCHC 31.9 L (32.0-37.0) g/dL RDW 17.4 H (11.5-14.5) % MPV 8.8 L (9.5-12.2) fL Sodium 135 L (137-145) mmol/L C-Reactive Protein 1.8 H (<1.0) mg/dL Microbiology - Last 24 Hours (Table) 11/11/21 12:00 Blood Culture - Preliminary Blood No Growth after 96 hours 11/10/21 19:19 Anaerobic Culture - Final Neck 11/10/21 19:19 Anaerobic Culture - Final Neck Assessment and Plan Assessment: 41-year-old female postoperative day 6 incision and drainage with re-repair of fascial dehiscence posterior neck with removal of hardware Plan: -Reg diet -No push pull, no lifting bending twisting -Nothing >5lbs -Change pain meds to equal what she takes normally -Ambulate daily -IS 10 times daily -ID recs appreciated -Post op abx -Cx neg so far away final antibiotic recommendations -GI/DVT ppx TEDs SCDs -Dispo: Home tomorrow
[2021-11-16] MEDS: MELATONIN 5 MG TABLET PO SCH (21:52)
[2021-11-17] MEDS: VANCOMYCIN 1,000 MG in SODIUM CHLORIDE 0.9% 250 ML IVPB SCH ×2 (01:06→09:22)
[2021-11-17] MEDS: oxyCODONE-APAP 10-325MG 1 EACH TAB PO PRN ×3 (01:07→09:30)
[2021-11-17] MEDS: ACETAMINOPHEN TAB 325 MG TAB PO SCH (04:57)
[2021-11-17 05:36] VITALS: BP 94/54; PULSE 72; RESP 18; TEMP 97
[2021-11-17 06:42] LABS: African American GFR (CKD) >90 (>60 ml/min/1.73 sqM); Anion Gap 6 mmol/L; Blood Urea Nitrogen 10 mg/dL (7-17); Calcium 8.3 mg/dL (8.4-10.2); Carbon Dioxide 24 mmol/L (22-30); Chloride 106 mmol/L (98-107); Glucose 91 mg/dL (74-99); Non-African American GFR(CKD) >90 (>60 ml/min/1.73 sqM); Potassium 4.5 mmol/L (3.5-5.1); Sodium 136 mmol/L (137-145)
[2021-11-17] MEDS: HYDROmorphone 1 MG/ML 1 ML SYRINGE IVP PRN ×2 (07:30→11:50)
--- NOTE | 2021-11-17 07:44 | P.PN ---
Subjective Progress Note Date: 11/16/21 Principal diagnosis: Cervical spine infection Patient is a 41-year-old female who is status post C2-T1 posterior lateral fusion along with C3 to C7 laminectomy seemed to have a problem with ongoing leakage from an incision with a previous I&D on 09/23/2021 culture were negative, patient is status post repeat I&D on 11/10/2021. On today's evaluation that is 11/16/2021, the patient remains to be afebrile, the patient still complaining of pain to the posterior neck but no worsening, patient denies having any chest pain or shortness of breath or cough no nausea no vomiting no abdominal pain or diarrhea Objective - Vital Signs Vital signs: Vital Signs Temp 97.9 F 11/16/21 05:00 Pulse 72 11/16/21 05:00 Resp 16 11/16/21 05:00 BP 97/65 11/16/21 05:00 Pulse Ox 97 11/16/21 05:00 FiO2 Intake & Output 11/15/21 11/16/21 11/16/21 18:59 06:59 18:59 Intake Total 1430 Balance 1430 Intake: Oral 1430 Other: Voiding Method Toilet # Voids 4 # Bowel Movements 0 - Exam GENERAL DESCRIPTION: An elderly male lying in bed in no distress HEENT: Posterior neck incision is currently dressed no drainage on the dressing RESPIRATORY SYSTEM: Unlabored breathing , decreased breath sounds at bases HEART: S1 S2 regular rate and rhythm , ABDOMEN: Soft , no tenderness EXTREMITIES: No edema feet - Labs CBC & Chem 7: 11/15/21 07:27 11/17/21 05:34 Labs: Abnormal Lab Results - Last 24 Hours (Table) 11/15/21 11/16/21 Range/Units 07:27 05:55 RBC 3.52 L (4.10-5.20) X 10*6/uL Hgb 10.4 L (12.0-15.0) g/dL Hct 32.6 L (37.2-46.3) % MCHC 31.9 L (32.0-37.0) g/dL RDW 17.4 H (11.5-14.5) % MPV 8.8 L (9.5-12.2) fL BUN 8.8 L (9.0-27.0) mg/dL Glucose 142 H (70-110) mg/dL Calcium 8.4 L (8.7-10.3) mg/dL Microbiology - Last 24 Hours (Table) 11/11/21 12:00 Blood Culture - Preliminary Blood No Growth after 96 hours 11/10/21 19:19 Anaerobic Culture - Final Neck 11/10/21 19:19 Anaerobic Culture - Final Neck Assessment and Plan (1) Neck pain Current Visit: No Status: Acute Code(s): M54.2 - CERVICALGIA SNOMED Code(s): 64503867 Plan: 1patient with the drainage from her posterior neck incision and this patient who is status post C2-T1 posterior lateral fusion and laminectomy with subsequent dehiscence of the wound and status postrepair back on 09/23/2021 cultures were negative now with 3 incision debridement and cultures which are so far negative 2the patient sed rate only 20 which is normal, blood cultures negative 3patient May continue with vancomycin pharmacy to dose however with negative cultures suspicious for underlying infection remains to be low , will consider short course of oral antibiotics on discharge Time with Patient: Less than 30
[2021-11-17] MEDS: CYCLOBENZAPRINE 10 MG TAB PO SCH (09:22)
[2021-11-17] MEDS: DOCUSATE 100 MG CAP PO SCH (09:22)
[2021-11-17] MEDS: GABAPENTIN 300 MG CAP PO SCH (09:22)
[2021-11-17] MEDS: FAMOTIDINE 20 MG TAB PO SCH (09:22)
--- NOTE | 2021-11-17 10:52 | P.DS ---
Providers Date of admission: 11/10/21 12:25 Expected date of discharge: 11/17/21 Attending physician: Jonathan Hudson DO Consults: 11/10/21 20:44 Consult Physician Routine Consulting Provider: Sergey Taveras Consult Reason/Comments: Medical Management s/p posterior cervical wound revision I&D Do you want consulting provider notified?: Yes 11/10/21 20:45 Consult Physician Routine Consulting Provider: Melinda Lua Consult Reason/Comments: ID management s/p posterior cervical wound revision I&D Do you want consulting provider notified?: Yes Primary care physician: Sandie Garrett [facility] Course: Date of admission: 11/10/2021 Date of discharge: 11/17/2021 Admission diagnosis: 1. Delayed wound healing posterior neck 2. Irritable hardware posterior neck 3. Re-dehiscence of facia posterior neck 4. S/p I&D for seroma formation with facial dehiscence 5. s/p Posterior C2-T1 cervical decompression and fusion 6. Hx of Lupus and RA Discharge diagnosis: Same Attending physician: Dr. Hudson Surgical procedures: 1. Posterior midline approach to cervical spine 2. Incision and drainage with irrigation and debriement of skin, soft tissue and bone posterior cervical spine [id number] using the following: Skin knife to debride skin Curette to debride soft tissue and muscle and remove scar tissue Rongure to remove bone Suction to evacuate seroma 9L irrigation 3. Removal of irritable hardware posterior cervical spine, removal of crosslink 4. Revision repair of facial splaying and dehiscence posterior neck with 3 layered complex closure [id number] cm Brief history: Patient is a 41-year-old female with a history of Delayed wound healing posterior neck; Irritable hardware posterior neck; Re-dehiscence of facia posterior neck; S/p I&D for seroma formation with facial dehiscence. At this point patient has failed conservative treatment measures and has opted to proceed with a elective I&D with irrigation and debridement skin, soft tissue and bone posterior cervical spine; removal of irritable hardware posterior cervical spine, removal of cross-link; revision repair of facial splaying indications posterior neck. Hospital course: Details of patient's surgery can be found in operative report. Patient tolerated the procedure well and was subsequently transported to orthopedic floor. Patient's orthopeidc and medical care was provided daily. Patient had daily laboratory tests performed for evaluation of overall blood counts. Patient had daily physical therapy to include strengthening range of motion as well as education with walker ambulation. Patient was noted to have a relatively uneventful postoperative course. Patient reported satisfactory pain control with oral pain medications by postoperative day 7. Patient showed satisfactory progress with physical therapy. Patient moved steadily through the program and had no difficulty meeting the goals by postoperative day 7. Given patient's otherwise satisfactory course and having met physical therapy goals, plan is to discharge patient home on postoperative day 7. Discharge condition/disposition: Patient will be discharged home in stable condition. Discharge medications: Instructions are given on resumption of patient's normal daily medications per primary care recommendation, in addition patient will be prescribed Percocet 10/325 mg; gabapentin 600 mg; senna; Duricef; Flexeril. Assessment: 1. Delayed wound healing posterior neck 2. Irritable hardware posterior neck 3. Re-dehiscence of facia posterior neck 4. S/p I&D for seroma formation with facial dehiscence 5. s/p Posterior C2-T1 cervical decompression and fusion 6. Hx of Lupus and RA Procedures: 1. Posterior midline approach to cervical spine 2. Incision and drainage with irrigation and debriement of skin, soft tissue and bone posterior cervical spine [id number] using the following: Skin knife to debride skin Curette to debride soft tissue and muscle and remove scar tissue Rongure to remove bone Suction to evacuate seroma 9L irrigation 3. Removal of irritable hardware posterior cervical spine, removal of crosslink 4. Revision repair of facial splaying and dehiscence posterior neck with 3 layered complex closure [id number] cm Patient Condition at Discharge: Good Plan - Discharge Summary Discharge Rx Participant: Yes New Discharge Prescriptions: New cefaDROXiL [Duricef] 500 mg PO Q12HR 5 Days #10 cap Doxycycline Hyclate 100 mg PO BID 10 Days #20 tab Cyclobenzaprine [Flexeril] 10 mg PO TID #30 tab Sennosides/Docusate Sodium [Senna-S 8.6-50 mg Tablet] 1 each PO DAILY #20 tablet Gabapentin 600 mg PO TID #40 tab oxyCODONE-APAP 10-325MG [Percocet 10-325 mg] 1 tab PO Q6HR PRN 3 Days #36 tab PRN Reason: Pain No Action Butalb/APAP/Caff 50-325-40Mg [Fioricet 50-325-40] 1 tab PO TID PRN PRN Reason: Migraine Headache Albuterol Inhaler [Ventolin Hfa Inhaler] 1 puff INHALATION DAILY PRN PRN Reason: Dyspnea Ibuprofen [Motrin] 800 mg PO Q8H Cyclobenzaprine [Flexeril] 10 mg PO TID #90 tab Gabapentin [Neurontin] 800 mg PO TID #90 tab oxyCODONE-APAP 10-325MG [Percocet 10-325 mg] 1 - 2 tab PO Q6HR PRN 7 Days #56 tab PRN Reason: Pain Discharge Medication List Butalb/APAP/Caff 50-325-40Mg [Fioricet 50-325-40] 1 tab PO TID PRN 11/03/17 [History] Albuterol Inhaler [Ventolin Hfa Inhaler] 1 puff INHALATION DAILY PRN 05/19/21 [History] oxyCODONE-APAP 10-325MG [Percocet 10-325 mg] 1 - 2 tab PO Q6HR PRN 7 Days #56 tab 05/29/21 [Rx] Ibuprofen [Motrin] 800 mg PO Q8H 09/23/21 [History] Cyclobenzaprine [Flexeril] 10 mg PO TID #90 tab 09/25/21 [Rx] Gabapentin [Neurontin] 800 mg PO TID #90 tab 09/25/21 [Rx] Cyclobenzaprine [Flexeril] 10 mg PO TID #30 tab 11/17/21 [Rx] Doxycycline Hyclate 100 mg PO BID 10 Days #20 tab 11/17/21 [Rx] Gabapentin 600 mg PO TID #40 tab 11/17/21 [Rx] Sennosides/Docusate Sodium [Senna-S 8.6-50 mg Tablet] 1 each PO DAILY #20 tablet 11/17/21 [Rx] cefaDROXiL [Duricef] 500 mg PO Q12HR 5 Days #10 cap 11/17/21 [Rx] oxyCODONE-APAP 10-325MG [Percocet 10-325 mg] 1 tab PO Q6HR PRN 3 Days #36 tab 11/17/21 [Rx] Follow up Appointment(s)/Referral(s): [facility], [NON-STAFF] - 1 Week [facility],Infusion [NON-STAFF] - 1 Week Jonathan Hudson DO [Doctor of Osteopathic Medicine] - 2 Weeks Patient Instructions/Handouts: Incision and Drainage (DC), Incision and Drainage (GEN) Activity/Diet/Wound Care/Special Instructions: Orthopedic discharge instructions: -Maintain incision clean dry and intact may remove dressing in 3 days and shower do not submerge incisions blot dry -Take pain medications as needed -Take other medications as instructed including antibiotics -No lifting or twisting no pushing or pulling and overhead motions nothing over 2 pounds at this time -Wear c-collar at all times may remove to shower. Wear [id number] brace at all times when up and about -Ice for pain control -No smoking Discharge Disposition: HOME SELF-CARE
--- NOTE | 2021-11-17 11:11 | P.PN ---
Progress Note - Text Progress Note Date: 11/17/21 Diagnosis: 1. Delayed wound healing posterior neck 2. Irritable hardware posterior neck 3. Re-dehiscence of facia posterior neck 4. S/p I&D for seroma formation with facial dehiscence 5. s/p Posterior C2-T1 cervical decompression and fusion 6. Hx of Lupus and RA Subjective: Patient was seen at bedside this morning sitting up in chair with figure 8 brace on and soft cervical collar in place. Patient mentions she is doing okay. No new complaints at this time. Patient denies chest pain, fever, shortness breath, nausea, vomiting, change in vision, loss of bowel/bladder control. Objective: 4 x 4's and foam tape present over incision on posterior cervical spine. Incision appears to be healing well at this time. There is currently no drainage from incision. There is a scant amount of straw-colored drainage on 4 x 4's. Negative for any fluctuance/purulence. Sensation is equal, symmetric, bilaterally intact throughout the upper and lower extremities. Patient has full range of motion bilateral upper and lower extremities. 4+/5 in all major motor groups. Patient is neurovascularly intact. Cap refill under 3 seconds in digits upper extremities. Radial pulses intact, 2+ bilaterally. Negative Homans bilaterally. Assessment: 1. Delayed wound healing posterior neck 2. Irritable hardware posterior neck 3. Re-dehiscence of facia posterior neck 4. S/p I&D for seroma formation with facial dehiscence 5. s/p Posterior C2-T1 cervical decompression and fusion 6. Hx of Lupus and RA -Postoperative day 7 status post - 1. Posterior midline approach to cervical spine 2. Incision and drainage with irrigation and debriement of skin, soft tissue and bone posterior cervical spine [id number] using the following: Skin knife to debride skin Curette to debride soft tissue and muscle and remove scar tissue Rongure to remove bone Suction to evacuate seroma 9L irrigation 3. Removal of irritable hardware posterior cervical spine, removal of crosslink 4. Revision repair of facial splaying and dehiscence posterior neck with 3 layered complex closure [id number] cm Plan: 1. Delayed wound healing posterior neck; Irritable hardware posterior neck; Re- dehiscence of facia posterior neck - patient still bedside this morning. New optifoam dressing on upon discharge home. Discharge home today. Follow up in office in 1 week. 2. Appreciate medical and ID management - patient going home with doxycycline per ID 3. Pain management - patient going home with oxycodone 10 mg/325 mg; gabapentin 600 mg 4. DVT prophylaxis - mechanical 5. GI prophylaxis - senna 6. PT/OT - figure 8 brace on at all times. Soft c-collar on while up and about 7. Encourage incentive spirometer use 8. Maintain dressings clean, dry, intact. 9. Discharge planning - discharge home today, 11/17/2021
--- NOTE | 2021-11-17 22:52 | P.PN ---
Subjective 41-year-old female with multiple back surgeries in the past came in because of irritable hardware in the posterior neck. Patient denied any fever chills patient denied any dysuria . Had neck surgery and removal of hardware. 11/12/2021 Patient evaluated today sitting up in bed. She continues with a soft cervical collar. States that her family is pitting in her port placed today however she will be fitted for a new one on the hospital. She reports falling asleep easily last night however she has difficulty staying asleep. She is requesting Valium. She is on Flexeril as needed as well as Percocet and [place] we will recommend more conservative sleep aid. Cultures so far negative. Cultures showing a white count of 8.17, hemoglobin 9.2. She is afebrile, heart rate 74, blood pressure 119/79, 98% room air. She is also being evaluated by infectious disease, she is on IV vancomycin. 11/13/2021 Patient evaluated today resting in bed. She states that she has increased her activity is walking around the room as tolerated. She has been fitted for figure 8 collar and continues in a soft cervical collar. She denies any numbness or tingling to her upper extremities. Otherwise she continues with surgical drain, dressing intact. She is tolerating pain, and medications were adjusted by primary. Repors no nausea, vomiting, diarrhea postoperatively. She has not had a BM in 3 days, is passing gas, and tolerating diet. Pending finali zed cultures and she is being followed by infectious disease, on IV vancomycin. Labs today showing unremarkable chemistry panel, blood glucose is elevated at 128. Blood pressure 123/80, afebrile, heart rate 78, 99% room air. 11/14/2021 Patient evaluated today sitting up in bed. She is postoperative day #4 incision and drainage with re-pair of fascial dehiscence posterior neck with removal of hardware which is managed by primary. She reports pain to her upper back, stable without worsening pain. She is wearing figure 8 brace. Cultures so far are negative, pending finalized cultures. She continues on IV vancomycin and is being followed closely by infectious disease. Per patient plan is to remove surgical drain tomorrow and monitor overnight. She denies chest pain, shortness of breath. She denies numbness or tingling upper extremities. She remains afebrile, heart rate 85, blood pressure 147/79, 99% room air. Repeat labs for the morning. Plan is for tentative discharge Tuesday pending finalized cultures and antibiotic recommendations. 11/15/2021 Patient status post surgical repair of her fascial dehiscence by surgery/orthopedic team and removal of hardware. Surgical wound with dressing in place, surgical team R following closely. Wound culture showing no growth and patient on IV vancomycin. Infectious disease team on the case. Labs and vitals reviewed and looks stable. She looks bloated and wants something for constipation, she wants specifically milk of magnesium which is added. Also she is on other laxative. Denies any other symptoms 11/16/2021 Patient complains from some neck pain at the surgical site with a orthopedic team following her closely. No neurological deficits. Her constipation improved and she has good bowel movement yesterday. Cultures were negative so far. Continue with antibiotics as per infectious disease. Patient currently on IV vancomycin Creatinine normal 11/17/2021 Patient is clinically doing well, she is fully awake and oriented, she still have some mild numbness in her fingers and time but his morning she denies any numbness, no weakness in extremities upper or lower extremities. No neck pain, her vitals are stable. Basic metabolic panel from today is reviewed and was unremarkable for significant abnormality. She denies any other symptoms and she has good bowel movement. No chest pain or dyspnea. No abdominal pain or vomiting. She denies any depression or suicidal ideation. She remains on antibiotic per ID team Objective - Vital Signs Vital signs: Vital Signs Temp 97.0 F L 11/17/21 05:00 Pulse 72 11/17/21 05:00 Resp 18 11/17/21 05:00 BP 94/54 11/17/21 05:00 Pulse Ox 96 11/17/21 05:00 FiO2 Intake & Output 11/16/21 11/17/21 11/17/21 18:59 06:59 18:59 Intake Total 500 710 Balance 500 710 Intake: Intake, IV Titration 500 Amount Vancomycin 1,000 mg In 500 Sodium Chloride 0.9% 250 ml @ 125 mls/hr IVPB Q8H [facility] Rx#:[id number] Oral 710 Other: Voiding Method Toilet # Voids 2 # Bowel Movements 1 - Exam GENERAL: The patient is alert and oriented x3, not in any acute distress. Well developed, well nourished. HEENT: Pupils are round and equally reacting to light. EOMI. No scleral icterus. No conjunctival pallor. Normocephalic, atraumatic. No pharyngeal erythema. No thyromegaly. CARDIOVASCULAR: S1 and S2 present. No murmurs, rubs, or gallops. PULMONARY: Chest is clear to auscultation, no wheezing or crackles. ABDOMEN: Soft, nontender, nondistended, normoactive bowel sounds. No palpable organomegaly. -MUSCULOSKELETAL: No joint swelling or deformity. Status post neck surgery, rest of exam is deferred to surgery team EXTREMITIES: No cyanosis, clubbing, or pedal edema. NEUROLOGICAL: Gross neurological examination did not reveal any focal deficits. SKIN: No rashes. no petechiae. - Labs CBC & Chem 7: 11/15/21 07:27 11/17/21 05:34 Labs: Abnormal Lab Results - Last 24 Hours (Table) 11/17/21 Range/Units 05:34 Sodium 136 L (137-145) mmol/L Calcium 8.3 L (8.4-10.2) mg/dL Microbiology - Last 24 Hours (Table) 11/11/21 12:00 Blood Culture - Preliminary Blood No Growth after 120 hours Assessment and Plan Assessment: -Neck surgery with removal of hardware: Pain management as per primary service patient pain appears to be fairly controlled, she is also on gabapentin, flexeril. Antibiotic as per ID team -Constipation: Improved -Asthma without any acute exacerbation -Nicotine use: Counseling was provided -Gastroesophageal reflux disease for which we'll use Pepcid DVT prophylaxis: As per primary service Full Code Thank you for consulting us
== END 2021-11-17 16:11 | disposition home health service (06) | DRG 909 ==
LOC: 2ORMAIN 12:25 → 5NMEDONC 21:14
PROVIDERS: ADMIT Orthopaedic Surgery; ATTEND Orthopaedic Surgery
PROC: 0JD70ZZ Extraction of Back Subcutaneous Tissue and Fascia, Open Approach (ICD-10-PCS; principal; 2021-11-10 14:00)
PROC: 0PP304Z Removal of Internal Fixation Device from Cervical Vertebra, Open Approach (ICD-10-PCS; principal; 2021-11-10 14:00)
PROC: 0PB30ZZ Excision of Cervical Vertebra, Open Approach (ICD-10-PCS; principal; 2021-11-10 14:00)
DX: T81.32XA Disruption of internal operation (surgical) wound, not elsewhere classified, initial encounter (principal); D64.9 Anemia, unspecified; M06.9 Rheumatoid arthritis, unspecified; J45.909 Unspecified asthma, uncomplicated; G89.29 Other chronic pain; G43.909 Migraine, unspecified, not intractable, without status migrainosus; K21.9 Gastro-esophageal reflux disease without esophagitis; K59.00 Constipation, unspecified; M19.90 Unspecified osteoarthritis, unspecified site; G47.9 Sleep disorder, unspecified; Q51.28 Other and unspecified doubling of uterus; F17.210 Nicotine dependence, cigarettes, uncomplicated; Z71.6 Tobacco abuse counseling; Z79.1 Long term (current) use of non-steroidal anti-inflammatories (NSAID); Z79.899 Other long term (current) drug therapy; Z86.73 Personal history of transient ischemic attack (TIA), and cerebral infarction without residual deficits; Z56.0 Unemployment, unspecified; Z87.828 Personal history of other (healed) physical injury and trauma; Z87.442 Personal history of urinary calculi; Z86.16 Personal history of COVID-19; Z90.89 Acquired absence of other organs; Z90.49 Acquired absence of other specified parts of digestive tract; Z98.51 Tubal ligation status; Z87.19 Personal history of other diseases of the digestive system; Z98.1 Arthrodesis status; Z86.69 Personal history of other diseases of the nervous system and sense organs; Z86.59 Personal history of other mental and behavioral disorders; Z98.891 History of uterine scar from previous surgery; Z98.890 Other specified postprocedural states; Z88.5 Allergy status to narcotic agent; Z88.8 Allergy status to other drugs, medicaments and biological substances; Y83.8 Other surgical procedures as the cause of abnormal reaction of the patient, or of later complication, without mention of misadventure at the time of the procedure; Z80.1 Family history of malignant neoplasm of trachea, bronchus and lung; Z82.5 Family history of asthma and other chronic lower respiratory diseases; Z83.2 Family history of diseases of the blood and blood-forming organs and certain disorders involving the immune mechanism
CPT/HCPCS: 80048; 80202; 81025; 85025; 85652; 86140; 87040; 87070; 87075; 87205

== ENCOUNTER → 2021-12-22 | Outpatient (CLI) | payer OTHER ==
[2021-12-22 19:05] LABS: Rheumatoid Factor, Qnt <10 IU/mL (0-15)
[2021-12-22 19:11] LABS: % Iron Saturation 4.01 (12.00-45.00); ALT 16 U/L (8-44); AST 20 U/L (13-35); African American GFR (CKD) 129.8 (60.0-200.0); Albumin 4.4 g/dL (3.8-4.9); Albumin/Globulin Ratio 1.65 (1.60-3.17); Alkaline Phosphatase 82 U/L (41-126); BUN/Creat Ratio 15.96 Ratio (12.00-20.00); Blood Urea Nitrogen 9.7 mg/dL (9.0-27.0); C Reactive Protein <0.30 mg/dL (0.00-0.80); Calcium 9.1 mg/dL (8.7-10.3); Carbon Dioxide 21.4 mmol/L (20.0-27.5); Chloride 103 mmol/L (96-109); Globulin 2.6 g/dL (1.6-3.3); Glucose 83 mg/dL (70-110); Iron 17 ug/dL (50-170); Potassium 4.3 mmol/L (3.5-5.5); Sodium 140 mmol/L (135-145); Total Bilirubin <0.15 mg/dL (0.30-1.20); Total Iron Binding Capacity 419 ug/dL (228-460)
[2021-12-22 19:21] LABS: HCT 33.1 % (37.2-46.3); HGB 10.3 g/dL (12.0-15.0); MCHC 31.1 g/dL (32.0-37.0); MCV 93.2 fL (80.0-97.0); Mean Platelet Volume 9.5 fL (9.5-12.2); NRBC Per 100 WBC 0 /100 WBCS (0.0-0.0); Platelet Count 385 X 10*3/uL (140-440); RBC 3.55 X 10*6/uL (4.10-5.20); RDW 17.6 % (11.5-14.5); WBC 5.78 X 10*3/uL (4.50-10.00)
[2021-12-22 20:42] LABS: Cardiolipin Ab IgG Interp NEGATIVE (NEGATIVE); Cardiolipin Ab IgM Interp NEGATIVE (NEGATIVE); Cardiolipin IgA Antibody 4.2 U/mL; Cardiolipin IgM Antibody <1.5 U/mL; DNA Double-Stranded Indetermin (NEGATIVE)
[2021-12-22 22:00] LABS: Erythrocyte Sedimentation Rate 19 mm/Hr (0-20)
[2021-12-23 12:15] LABS: APTT 38 Sec(s) (<43); Dilute Russell Viper Venom 40 Sec(s) (<44)
== END | disposition home or self-care (01) ==
LOC: LABWHC1 11:29
PROVIDERS: ATTEND Psychiatry & Neurology Neurology
DX: M25.50 Pain in unspecified joint (principal)
CPT/HCPCS: 36415; 80053; 82306; 82607; 82746; 83036; 83090; 83540; 83550; 84207; 84439; 84443; 84481; 85027; 85303; 85306; 85384; 85613; 85652; 85730; 86038; 86140; 86147; 86225; 86431

== ENCOUNTER → 2022-04-28 | Outpatient (CLI) | payer OTHER ==
[2022-04-28 19:08] LABS: HCT 37.6 % (37.2-46.3); HGB 12.2 g/dL (12.0-15.0); MCH 30.6 pg (27.0-32.0); MCHC 32.4 g/dL (32.0-37.0); MCV 94.2 fL (80.0-97.0); Mean Platelet Volume 9.3 fL (9.5-12.2); NRBC Per 100 WBC 0 /100 WBCS (0.0-0.0); Platelet Count 357 X 10*3/uL (140-440); RBC 3.99 X 10*6/uL (4.10-5.20); RDW 17.5 % (11.5-14.5)
[2022-04-28 20:48] LABS: INR 0.9 (0.90-1.11); Prothrombin Time 10.2 sec (9.9-11.9)
[2022-04-28 21:44] LABS: African American GFR (CKD) 130.4 (60.0-200.0); Anion Gap 16.5 mmol/L (10.00-18.00); BUN/Creat Ratio 14.43 Ratio (12.00-20.00); Blood Urea Nitrogen 8.6 mg/dL (9.0-27.0); Calcium 9.4 mg/dL (8.7-10.3); Carbon Dioxide 19.8 mmol/L (20.0-27.5); Non-African American GFR(CKD) 112.6 (60.0-200.0)
== END | disposition home or self-care (01) ==
LOC: LABPAT 12:54
PROVIDERS: ATTEND Orthopaedic Surgery
DX: Z01.812 Encounter for preprocedural laboratory examination (principal); Z22.322 Carrier or suspected carrier of Methicillin resistant Staphylococcus aureus
CPT/HCPCS: 80048; 85027; 85610; 87070

== ENCOUNTER 2022-05-06 12:01 | Inpatient (IN) | payer OTHER ==
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
[~2022-05-06 12:01] MED LIST changes: -LIDOCAINE 1% (10MG/ML) FOR IV START INTRADERMA PRN; -MIDAZOLAM 2 MG/2 ML VIAL IV PRN
[2022-05-06] MEDS: LACTATED RINGERS 1,000 ML IV SCH (12:34)
[2022-05-06] MEDS ORDERED: PROPOFOL 10 MG/ML 20 ML VIAL IV ONE (13:39)
[2022-05-06] MEDS ORDERED: WATER FOR INJECTION, STERILE 10 ML VIAL IV ONE (13:39)
[2022-05-06] MEDS ORDERED: PHENYLEPHRINE-0.9% NACL SYG 1,000 MCG/10 ML SYRINGE ONE (13:39)
[2022-05-06] MEDS ORDERED: SUCCINYLCHOLINE CHLORIDE 200 MG/10 ML VIAL IV ONE (13:39)
[2022-05-06] MEDS ORDERED: ePHEDrine 50 MG/ML 1 ML VIAL ONE (13:39)
[2022-05-06] MEDS ORDERED: fentaNYL (PF) 50 MCG/ML 2 ML AMP ONE (13:39)
[2022-05-06] MEDS ORDERED: MIDAZOLAM 2 MG/2 ML VIAL ONE (13:39)
[2022-05-06] MEDS ORDERED: LIDOCAINE 2% INJ 20 MG/ML (2 ML VIAL) ONE (13:39)
[2022-05-06] MEDS ORDERED: GENTAMICIN 40 MG/ML 2 ML VIAL IRRIGATION ONE (13:47)
[2022-05-06] MEDS ORDERED: GELATIN SPONGE,ABSORB (LARGE) 1 EACH SPONGE TOPICAL ONE (13:47)
[2022-05-06] MEDS ORDERED: BUPIVACAIN-EPI 0.25%-1:200,000 30 ML VIAL SQ ONE (13:47)
[2022-05-06] MEDS ORDERED: THROMBIN (BOVINE) 5,000 UNIT VIAL TOPICAL ONE (13:47)
[2022-05-06] MEDS ORDERED: ceFAZolin 3,000 MG in SODIUM CHLORIDE 0.9% IRRIGATIO 3,000 ML IRRIGATION ONE (14:21)
[2022-05-06] MEDS ORDERED: VANCOMYCIN 1,000 MG VIAL MISCELLANE ONE (14:36)
[2022-05-06] MEDS ORDERED: LACTATED RINGERS 1,000 ML IV ONE (14:55)
[2022-05-06] MEDS ORDERED: ONDANSETRON 4 MG/2 ML VIAL IVP PRN (15:04)
[2022-05-06] MEDS: HYDROmorphone 0.5 MG/0.5 ML SYRINGE IVP PRN ×3 (15:30→16:32)
[2022-05-06] MEDS ORDERED: ONDANSETRON 4 MG/2 ML VIAL IVP ONE (15:58)
[2022-05-06] MEDS ORDERED: diphenhydrAMINE 50 MG/ML 1 ML VIAL IVP ONE (15:58)
[2022-05-06] MEDS ORDERED: GABAPENTIN 300 MG CAP PO SCH (16:00)
[2022-05-06] MEDS: oxyCODONE-APAP 10-325MG 1 EACH TAB PO PRN ×2 (17:41→21:48)
[2022-05-06] MEDS: CYCLOBENZAPRINE 10 MG TAB PO SCH ×2 (17:50→21:49)
[2022-05-06] MEDS ORDERED: CYCLOBENZAPRINE 10 MG TAB PO ONE (19:00)
[2022-05-06] MEDS: HYDROmorphone 1 MG/ML 1 ML SYRINGE IVP PRN ×2 (19:16→23:16)
[2022-05-06] MEDS: GABAPENTIN 400 MG CAP PO SCH (20:47)
[2022-05-07] MEDS: oxyCODONE-APAP 10-325MG 1 EACH TAB PO PRN ×2 (01:15→06:53)
[2022-05-07] MEDS: HYDROmorphone 1 MG/ML 1 ML SYRINGE IVP PRN ×7 (02:32→23:58)
[2022-05-07] MEDS: GABAPENTIN 400 MG CAP PO SCH ×3 (08:54→21:59)
[2022-05-07] MEDS: CYCLOBENZAPRINE 10 MG TAB PO SCH ×3 (08:54→21:59)
[2022-05-07] MEDS: oxyCODONE-APAP 10-325MG 1 EACH TAB PO SCH ×5 (08:55→23:56)
[2022-05-07] MEDS ORDERED: MELOXICAM 7.5 MG TAB PO SCH (09:00)
--- NOTE | 2022-05-07 09:05 | P.PN ---
Subjective Progress Note Date: 05/07/22 Principal diagnosis: Wound drainage of posterior cervical incision Patient seen and examined at bedside. Patient was sitting up in bed with complaint of pain management. Medications have been reviewed and adjusted. Prevena wound VAC to posterior cervical incision may be removed today with placement of an Optifoam dressing. Maintain dressing clean and dry. Patient denies numbness and tingling into bilateral upper extremities. Patient is to receive a PICC line today for IV antibiotic. Patient has been afebrile, denies nausea/vomiting, or chest pain. Objective - Vital Signs Vital signs: Vital Signs Temp 99.7 F H 05/07/22 02:00 Pulse 82 05/07/22 02:00 Resp 16 05/07/22 02:00 BP 100/61 05/07/22 02:00 Pulse Ox 98 05/07/22 02:00 FiO2 Intake & Output 05/06/22 05/07/22 05/07/22 18:59 06:59 18:59 Intake Total 1601 Output Total 135 400 Balance 1466 -400 Weight 59.5 kg Intake: IV 1601 Output: Urine 85 400 Uretheral (Adams) 400 Estimated Blood Loss 50 Other: Voiding Method Indwelling Catheter - Exam Physical Examination General: The patient is awake and alert, in no acute distress Skin: Skin is warm and dry with no obvious rashes or lesions. Hairy patches absent, no dorsal skin dimples, no cafe au lait spots. Surgical incision to posterior cervical, Prevana in place. Eye: Pupils are equal, round and reactive to light, extra-ocular movements are intact; there is normal conjunctiva bilaterally. Neck: The neck is supple, there is no tenderness and ROM intact. Cardiovascular: There is a regular rate and rhythm. No murmur, rub or gallop is appreciated. Respiratory: Lungs are clear to auscultation, respirations are non-labored, breath sounds are equal. Gastrointestinal: Soft, non-distended, non-tender abdomen. Back: There is no tenderness to palpation in the midline, paralumbar, parathoracic or buttocks region. There is no obvious deformity . Musculoskeletal: ROM limited secondary to pain and stiffness from surgical procedure. Muscle strength in all major muscle groups of bilateral upper extremities 5/5, bilateral lower extremities 5/5. Neurological: CN 2-12 intact. There are no obvious motor or sensory deficits. Movement and coordination equal and intact. Sensory exam to light touch intact C5-T1 and intact from L2-S1. Reflexes 2/4 in bilateral upper and lower extremities. Negative Hoffmans, babinski, and clonus signs. Psychiatric: Cooperative, appropriate mood & affect, normal judgment. Assessment and Plan Assessment: Post Op Day 1: Cervical Irrigation and Debridement of wound Plan: -Appreciate data center consultant and team management. -Activity: Ambulate QID, OOB all meals, up and about, limit lifting bending twisting to less than 5 lbs. -Daily PT/OT, increase ambulation strength and balance. -Pain control: Adequate at this time -Meds: reviewed -GI ppx: senna, Miralax -DVT PPX: Heparin -Hygiene: Shower today. Do not get incision wet, maintain CDI. -Encourage IS 10x/hr -Dispo: Anticipate discharge home with homecare -Patient to receive PICC Line today 05/07/22 *I reviewed and discussed this case with my attending Dr. Hudson, whom has reviewed this chart and films and is in agreement with assessment and plan of care as outlined above. I have personally seen and examined the patient, performed the documentation and the assessment and plan as written. Number of minutes spent on the visit: 15m.
[2022-05-07] MEDS: LACTATED RINGERS 1,000 ML IV SCH (10:27)
[2022-05-07 10:40] LABS: Basophils # (A) 0.05 X 10*3/uL (0.00-0.10); Basophils % (A) 0.6 %; Eosinophils # (A) 0.11 X 10*3/uL (0.04-0.35); Eosinophils % (A) 1.3 %; HCT 31.9 % (37.2-46.3); HGB 10.2 g/dL (12.0-15.0); Immature Grans, Automated 0.2 %; Lymphocytes # (A) 3.22 X 10*3/uL (0.90-5.00); Lymphocytes % (A) 36.6 %; MCH 30.7 pg (27.0-32.0); MCV 96.1 fL (80.0-97.0); Monocytes # (A) 0.74 X 10*3/uL (0.20-1.00); Monocytes % (A) 8.4 %; NRBC Per 100 WBC 0 /100 WBCS (0.0-0.0); Neutrophils # (A) 4.65 X 10*3/uL (1.80-7.70); Neutrophils % (A) 52.9 %; Platelet Count 307 X 10*3/uL (140-440); RBC 3.32 X 10*6/uL (4.10-5.20); RDW 17.7 % (11.5-14.5); WBC 8.79 X 10*3/uL (4.50-10.00)
[2022-05-07 10:51] LABS: African American GFR (CKD) 138.4 (60.0-200.0); Anion Gap 8.6 mmol/L (10.00-18.00); BUN/Creat Ratio 19.4 Ratio (12.00-20.00); Blood Urea Nitrogen 9.7 mg/dL (9.0-27.0); Calcium 8.3 mg/dL (8.7-10.3); Carbon Dioxide 23.4 mmol/L (20.0-27.5); Non-African American GFR(CKD) 119.4 (60.0-200.0); Potassium 4.1 mmol/L (3.5-5.5)
--- NOTE | 2022-05-07 12:16 | IR ---
PICC LINE PLACEMENT: HISTORY: Infection requiring long-term antibiotic therapy PROCEDURE: Ultrasound and fluoroscopic guidance of PICC line placement. COMPLICATIONS: None ANESTHESIA: 1. 1% Lidocaine locally. FINDINGS/TECHNIQUE: The procedure was explained to the patient. The risks, complications, benefits and alternatives were discussed and any questions were answered. Informed consent was obtained. The patient was placed supine on the fluoroscopic table and prepped and draped in the usual sterile fash ion. Utilizing a 21 gauge needle and sonographic and fluoroscopic guidance, access in the left basi lic vein was achieved and there is placement of a 0.018 guidewire. The vein is patent. A 4-F sheath was placed over the guidewire. The guidewire and dilator were removed and a 4-F. PICC line was plac ed through the sheath with the tip at the level of the SVC. The sheath was removed, the catheter was flushed and sutured into position. The patient was stable throughout the procedure and remained sta ble upon discharge from the Department of Radiology. The vein puncture was patent under ultrasound. A lechuga scale image was obtained to document patency of the vein punctured. All elements of the maximal barrier technique were utilized. FLUOROSCOPY TIME: 0.1 minutes and one image submitted IMPRESSION: Successful PICC line placement under ultrasound and fluoroscopic guidance.
[2022-05-07] MEDS: BUTALB/APAP/CAFF 50-325-40MG TAB PO SCH (21:59)
[2022-05-07] MEDS: SENNOSIDES 8.6 MG TAB PO PRN (22:04)
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
[2022-05-08] MEDS: oxyCODONE-APAP 10-325MG 1 EACH TAB PO SCH ×5 (04:31→20:10)
[2022-05-08] MEDS: HYDROmorphone 1 MG/ML 1 ML SYRINGE IVP PRN ×5 (05:00→20:11)
[2022-05-08] MEDS: MELOXICAM 7.5 MG TAB PO SCH (06:18)
[2022-05-08] MEDS: GABAPENTIN 400 MG CAP PO SCH ×3 (06:18→21:53)
[2022-05-08] MEDS: CYCLOBENZAPRINE 10 MG TAB PO SCH ×3 (06:19→21:53)
[2022-05-08] MEDS: BUTALB/APAP/CAFF 50-325-40MG TAB PO SCH ×2 (07:46→21:53)
[2022-05-08] MEDS: polyethylene glycoL 3350 17 GM POWD.PACK PO SCH (07:47)
[2022-05-08] MEDS: LACTATED RINGERS 1,000 ML IV SCH (07:47)
--- NOTE | 2022-05-08 09:09 | P.OP ---
Date of Procedure: 05/06/22 Preoperative Diagnosis: 1. Delayed healing posterior neck wound Postoperative Diagnosis: 1. Delayed healing posterior neck wound Procedure(s) Performed: 1. Incision and drainage with excisional debridement skin soft tissue fascia posterior neck 10 cm x 5 cm x 2 cm using the following -skin knife was used to excise tract skin and soft tissue - curet was used to scrape edges and remove foreign material 2. Complex closure 3 layered posterior neck Implants: none Anesthesia: GETA Surgeon: Jonathan Hudson Vortex Operator #1: Laureen Bernabe Estimated Blood Loss (ml): 50 IV fluids (ml): 1,000 Urine output (ml): 250 Pathology: other (x2 superficial neck, for lab and pathology) Condition: stable Disposition: PACU Indications for Procedure: Maria Ortiz is presenting for evaluation of cervical pain with fascial dehiscence and seroma. It was my pleasure to have seen and examined Maria Ortiz. In our visit today we have had a chance to go over subjective complaints, physical examination findings and treatments including the natural course history without intervention and various interventional options. The patients imaging demonstrates MRI: this is reviewed and demonstrates postsurgical changes with hardware placement and good position with good decompression there is postoperative seromatous changes secondary to fascial dehiscence noted. There is splaying of the longissimus muscles as well as fascial planes starting at C3 through C6. The fluid collection extends down to the spinous process of T1. It is non-compressive in nature. There is good decompression and good space for the cervical cord. No other complicating processes at this time. On physical exam, Maria Ortiz demonstrates: No fevers or chills, mild/clear drainage from pinhole on the incision, EEE, edema, ecchymosis, no TTP about the surgical sites. Gentle ROM testing tolerated without issues. No focal deficits of the upper extremities. No hoarse voice and improved swallowing. She is having improving sensation about the right ring, middle, and index fingers. c/o some numbness over R hand in the C8 distribution but this was present before surgery. I have explained to the patient that as their condition progresses it will cause further neurological deficits and eventual paralysis. Based on the patients imaging, physical exam, and the rapid progression and disabling nature of their symptoms, at this time I recommend surgery in the form or a: I&D w/ revision fascial closure posterior neck . I discussed the risk and benefits of this procedure at length with Maria Ortiz. The patient agreed to considered pursuing the procedure abovementioned. Prior to surgery, she should follow up with her PCP (Cardio, ID, IM etc) for clearance. Questions were invited and answered, and the patient wishes to proceed as outlined below. Currently, I am recommendin.Incision and drainage posterior neck wound Description of Procedure: The patient was seen and examined in the preoperative area. All preoperative protocols were followed. Informed consent was obtained risks and benefits of the procedure were discussed at length. Risks including bleeding infection damage to the surrounding tissue and risk of reoperation were discussed with the patient. Risk of anesthesia up to and including was a discussed with the patient. These are outlined in the risk review. They were willing to accept these risks and all of the risks of surgery. The patient was given a weight- based dose of antibiotics in the form of 2 g Ancef. The patient was seen and evaluated by the anesthesia team who deemed them fit for surgery. The site was marked, the patient was willing to proceed with the procedure. The patient was transferred to the operative suite by the Department of anesthesia. They were then drifted off to sleep by the department anesthesia and GETAwas performed. The patient tolerated this well. [Adams catheter was placed by nursing staff, atraumatically]. Once confirmation of lines and ventilation the patient was transferred to a [prone Eddi table very carefully]. All bony prominences including wrists, elbows, axilla, chest, hips, and thighs, and feet were padded very well. Special attention was paid to the genitalia and these were padded accordingly. SCDs were placed on bilateral lower extremities and were connected. Arms were well padded and placed well-padded tucked at her side thumbs down. Once in position, again we confirmed good ventilation capabilities and that lines were running appropriately. The patient's posterior cervical spine was then exposed. 1010s were placed outlining the incision site. Standard alcohol was used to clean the incision site and allowed to dry. C-arm was used to biomark the patient and confirm level for incision which was marked with a skin marker. Operative briefing was performed with all teams and everyone in agreement to proceed. The patient was then prepped and draped in a normal sterile fashion. Timeout was then performed and all parties were in agreement with the procedure to be performed. elliptical skin incision was made over the previously bio marked and tracked area to excise the small draining tract that was still present in the midportion of the incision this was resected and then dissection taken down to the fascial layer which was intact. There was a stitch that was irritating this area and likely causing most of the issues. There is no tracked deep there was no drainage coming from deep the fascia has healed. We took 2 samples for culture as well as pathology. We used a curet to scrape the area and freshen the edges and obtain sample. We then copiously irrigated the wound with 3 L of antibiotic solution and so first followed by gentamicin followed by normal sterile saline. We then placed 2 g of vancomycin deep within the wound as well as Cellerate powder. A complex closure was performed layered first in the deep subcu with 0 Vicryl in the superficial subcu with 2-0 Vicryl and the skin with 2-0 nylon. The wound was then cleaned and dressed sterilely with an operative foam dressing The patient was transferred back to their hospital bed atraumatically. Patient was then awakened and extubated by the department of anesthesia having tolerated the procedure very well with no complications. They were transferred to the postoperative care unit in stable condition.
--- NOTE | 2022-05-08 11:43 | P.PN ---
Subjective Progress Note Date: 05/08/22 Principal diagnosis: Status post I&D cervical wound Patient is examined today at bedside, she is resting in her hospital bed. She's having some generalized discomfort on the posterior aspect of the neck. The wound has been draining, no change the dressing time since initial surgery. She denies any chills this time. She denies any numbness or tingling in the upper extremities. She denies any headaches, lightheadedness, chest pain or shortness of breath. Objective - Vital Signs Vital signs: Vital Signs Temp 97.8 F 05/08/22 08:00 Pulse 70 05/08/22 08:00 Resp 16 05/08/22 08:00 BP 117/78 05/08/22 08:00 Pulse Ox 100 05/08/22 08:00 FiO2 Intake & Output 05/07/22 05/08/22 05/08/22 18:59 06:59 18:59 Output Total 400 Balance -400 Output: Urine 400 Uretheral (Adams) 400 Other: Voiding Method Toilet # Voids 2 2 - Exam Cervical spine: Opteform dressing was removed today at bedside. There was mild serosanguineous drainage present on the bandage. The sutures are all in good position and c ondition. There is no obvious fluctuance, there is no active drainage, there is no erythema. For range of motion as well as her muscle groups in the bilateral upper extremities, no focal deficits appreciated. Her sensory exam light touch is intact throughout the extremity. Her radial and ulnar pulses 2+ bilaterally. - Labs CBC & Chem 7: 05/07/22 06:12 05/07/22 06:12 Labs: Microbiology - Last 24 Hours (Table) 05/06/22 14:30 Anaerobic Culture - Preliminary Neck 05/06/22 14:30 Gram Stain - Preliminary Neck Wound Culture - Preliminary Assessment and Plan Assessment: Postoperative day #2 status post I&D cervical wound Plan: Pain control, continue current medications Continue to monitor dressings, change as needed DVT prophylaxis, ji leach I did contact inpatient lab, they did receive the specimens surgery, they were placed in the incorrect area. They are now in chart, await final results for outpatient IV antibiotics Other medical specialty recommendations Continue to follow during inpatient stay Time with Patient: Less than 30
[2022-05-08] MEDS: SENNOSIDES 8.6 MG TAB PO PRN (22:55)
[2022-05-09] MEDS: oxyCODONE-APAP 10-325MG 1 EACH TAB PO SCH ×6 (00:19→20:02)
[2022-05-09] MEDS: HYDROmorphone 0.5 MG/0.5 ML SYRINGE IVP PRN ×2 (00:19→04:29)
[2022-05-09] MEDS: CYCLOBENZAPRINE 10 MG TAB PO SCH ×3 (06:06→22:09)
[2022-05-09] MEDS: GABAPENTIN 400 MG CAP PO SCH ×3 (06:06→22:09)
[2022-05-09] MEDS: MELOXICAM 7.5 MG TAB PO SCH (06:06)
[2022-05-09] MEDS: LACTATED RINGERS 1,000 ML IV SCH (07:22)
[2022-05-09] MEDS: HYDROmorphone 1 MG/ML 1 ML SYRINGE IVP PRN ×4 (08:03→20:03)
[2022-05-09] MEDS: polyethylene glycoL 3350 17 GM POWD.PACK PO SCH (08:03)
[2022-05-09] MEDS: BUTALB/APAP/CAFF 50-325-40MG TAB PO SCH ×2 (08:03→22:09)
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
--- NOTE | 2022-05-09 12:02 | P.PN ---
Subjective Progress Note Date: 05/08/22 HISTORY OF PRESENT ILLNESS: This is a 41-year-old female Seen Today for the First Time with a Prior Medical History Significant for Significant Degenerative Disc Disease of the Cervical Spine Developed to Have a Significant Pain and Weakness in Both Upper Extremities Back in 2015 2016 When She Was Seen by Her Neurologist and She Underwent Epidural Injections with Myofascial Injection without Any Relief She Was Referred to See One of the Neurosurgeon at [facility] at that time she underwent anterior cervical discectomy with fusion of C5 and C7 back in 2018 initial procedure did not hold and the patient did up for second procedure back in 2019 with fusion she developed to have a significant staph infection at that time she went to [facility] in [place] and she underwent incision and drainage and she was hospitalized for 1. Family due to staph infection with sepsis 7 month later patient continued to have significant problem in her neck and she was complaining of increased pain and discomfort in the neck along with significant weakness and numbness in both upper extremities she was seen in consultation by Dr. Goodman olvera and she underwent C2 to T1 discectomy with fusion that was 05/26/2021 where she had posterior cervical discectomy with fusion patient developed to have a significant infection in April and now in April again so she underwent posterior incision and drainage and resection of the fascia with complex 3 layer closure I was asked as the patient for medical management. Patient also reported history of systemic lupus erythematosus she was on methotrexate but she was taken off with due to side effects she also reported history of rheumatoid arthritis I do not see any evidence of any synovitis at the time of her evaluation. 05/08: Patient is sitting up in bed in apparent distress, she has her wound VAC removed because it was leaking, she did have cultures results are pending at the time of dictation, she was started on Ancef 2 g IV piggyback every 8 hours, infectious disease is following along with the spine surgery, continue current pain management as outlined by spine surgery, continue with incentive spirometer, increase activity, patient is medically stable for discharge home when deemed appropriate by ID and spine surgery she already has a PICC line in place. REVIEW OF SYSTEMS: Constitutional: No documented fever, no chills, no night sweats. No weight change. No weakness, fatigue or lethargy. No daytime sleepiness. HEENT: No headache. No blurred vision or double vision, no loss of vision. No loss of Hearing, no ringing in the ears, no dizziness. No nasal drainage or congestion. No epistaxis. No sore throat. Lungs: No shortness of breath, no cough, no sputum production. No wheezing. Reports dyspnea with activity. Cardiovascular: No chest pain, no lower extremity edema. No palpitations. No paroxysmal nocturnal dyspnea. No orthopnea. No lightheadedness or dizziness. No syncopal episodes. Abdominal: Reports abdominal pain. No nausea, vomiting. No diarrhea. No constipation. No bloody or tarry stools reports loss of appetite. Genitourinary: No dysuria, increased frequency, urgency. No urinary retention. Musculoskeletal: No myalgias. No muscle weakness, no gait dysfunction, no frequent falls. No back pain. Positive for neck pain. Integumentary: No wounds, no lesions. No rash or pruritus. No unusual bruising. No change in hair or nails. Neurologic: No aphasia. No facial droop. No change in mentation. No head injury. No headache. No paralysis. No paresthesia. Psychiatric: No depression. No anxiety. No mood swings. Endocrine: No abnormal blood sugars. No weight change. PHYSICAL EXAMINATION: General: 41-year-old female laying down in bed in no apparent distress HEENT: Head is atraumatic, normocephalic, pupils were equal round reactive to light and recommendation, extraocular muscle movement were intact, sclera nonicteric, conjunctivae were pale, mucous membranes of the mouth are somewhat dry. Neck: Supple, no JVP, normal carotid upstroke bilaterally, no lymphadenopathy. Chest: Decreased breath sounds at the bases, few rhonchi, no expiratory wheezes, no chest wall tenderness, no intercostal retractions. Heart: First heart sound is normal, second heart sounds normal there is no gallop or murmur. Abdomen: Soft, nontender, nondistended, positive bowel sounds, no hepatomegaly. Extremities: There is no edema no calf tenderness DP +2 bilaterally. Neurologic examination: Patient is awake alert and oriented X 3, cranial nerves II-12 appear grossly intact, muscle power were 5 out of 5 in upper extremities and 5 out of 5 in bilateral lower extremities, deep tendon reflexes normal bilaterally. skin : There is a wound VAC in posterior neck. ASSESSMENT AND PLAN: 1. postoperative day #2 status post incision and drainage of wound with resection of the fascia and complex 3 layer closure. Cultures were obtained, patient was started on IV antibiotic in the form of Ancef 2 g IV piggyback every 8 hours, infectious disease and spine surgery are following, we'll continue to monitor the patient very closely. The patient was instructed to use incentive spirometer to reduce the incidence of atelectasis and hospital-acquired pneumonia, early and relation to reduce venous thromboembolic competitions. Continue current pain regimen as per spine surgery. 2. Significant history of degenerative disc disease of the cervical spine with multiple surgical intervention that is competent located by staph infection according to the patient was not MRSA. Continue IV antibiotic, continue current pain management, continue current treatment as per spine surgery and infectious disease. Resume the patient gabapentin 800 mg orally 3 times every day. 3. Chronic tobacco use and dependence. Patient was counseled about smoking cessation and increased risk of CAD, CVA and malignancy. 4. Chronic marijuana use and dependence. Counseled against its use. 5. Reported history of SLE and rheumatoid arthritis patient does not appear to have an active diagnoses. 6. DVT prophylaxis. Early ambulation. 7. GI prophylaxis. Continue PPI. 8. We will continue to follow. Objective - Vital Signs Vital signs: Vital Signs Temp 97.8 F 05/08/22 08:00 Pulse 70 05/08/22 08:00 Resp 16 05/08/22 08:00 BP 117/78 05/08/22 08:00 Pulse Ox 100 05/08/22 08:00 FiO2 Intake & Output 05/07/22 05/08/22 05/08/22 18:59 06:59 18:59 Output Total 400 Balance -400 Output: Urine 400 Uretheral (Adams) 400 Other: Voiding Method Toilet # Voids 2 2 - Labs CBC & Chem 7: 05/07/22 06:12 05/07/22 06:12 Labs: Abnormal Lab Results - Last 24 Hours (Table) 05/07/22 05/07/22 Range/Units 06:12 06:12 RBC 3.32 L (4.10-5.20) X 10*6/uL Hgb 10.2 L (12.0-15.0) g/dL Hct 31.9 L (37.2-46.3) % RDW 17.7 H (11.5-14.5) % MPV 9.0 L (9.5-12.2) fL Anion Gap 8.60 L (10.00-18.00) mmol/L Creatinine 0.5 L (0.6-1.5) mg/dL Calcium 8.3 L (8.7-10.3) mg/dL
[2022-05-09] MEDS: LACTULOSE 20 GM/30 ML CUP PO SCH ×2 (12:18→22:09)
--- NOTE | 2022-05-09 12:29 | P.PN ---
Subjective Progress Note Date: 05/09/22 HISTORY OF PRESENT ILLNESS: This is a 41-year-old female Seen Today for the First Time with a Prior Medical History Significant for Significant Degenerative Disc Disease of the Cervical Spine Developed to Have a Significant Pain and Weakness in Both Upper Extremities Back in 2015 2016 When She Was Seen by Her Neurologist and She Underwent Epidural Injections with Myofascial Injection without Any Relief She Was Referred to See One of the Neurosurgeon at [facility] at that time she underwent anterior cervical discectomy with fusion of C5 and C7 back in 2018 initial procedure did not hold and the patient did up for second procedure back in 2019 with fusion she developed to have a significant staph infection at that time she went to [facility] in [place] and she underwent incision and drainage and she was hospitalized for 1. Family due to staph infection with sepsis 7 month later patient continued to have significant problem in her neck and she was complaining of increased pain and discomfort in the neck along with significant weakness and numbness in both upper extremities she was seen in consultation by Dr. Goodman olvera and she underwent C2 to T1 discectomy with fusion that was 05/26/2021 where she had posterior cervical discectomy with fusion patient developed to have a significant infection in April and now in April again so she underwent posterior incision and drainage and resection of the fascia with complex 3 layer closure I was asked as the patient for medical management. Patient also reported history of systemic lupus erythematosus she was on methotrexate but she was taken off with due to side effects she also reported history of rheumatoid arthritis I do not see any evidence of any synovitis at the time of her evaluation. 05/08: Patient is sitting up in bed in apparent distress, she has her wound VAC removed because it was leaking, she did have cultures results are pending at the time of dictation, she was started on Ancef 2 g IV piggyback every 8 hours, infectious disease is following along with the spine surgery, continue current pain management as outlined by spine surgery, continue with incentive spirometer, increase activity, patient is medically stable for discharge home when deemed appropriate by ID and spine surgery she already has a PICC line in place. 05/09: Patient sitting up in bed in no apparent distress, she has no issues last night, she continues to be on gabapentin 800 mg orally 3 times every day, she continues to be on Dilaudid for pain control, she continues to be on c yclobenzaprine 10 mg for muscle relaxer, increase activity, patient is tolerating her treatment very well, awaiting the final result of the culture for the patient be discharged home. REVIEW OF SYSTEMS: Constitutional: No documented fever, no chills, no night sweats. No weight change. No weakness, fatigue or lethargy. No daytime sleepiness. HEENT: No headache. No blurred vision or double vision, no loss of vision. No loss of Hearing, no ringing in the ears, no dizziness. No nasal drainage or congestion. No epistaxis. No sore throat. Lungs: No shortness of breath, no cough, no sputum production. No wheezing. Reports dyspnea with activity. Cardiovascular: No chest pain, no lower extremity edema. No palpitations. No paroxysmal nocturnal dyspnea. No orthopnea. No lightheadedness or dizziness. No syncopal episodes. Abdominal: Reports abdominal pain. No nausea, vomiting. No diarrhea. No constipation. No bloody or tarry stools reports loss of appetite. Genitourinary: No dysuria, increased frequency, urgency. No urinary retention. Musculoskeletal: No myalgias. No muscle weakness, no gait dysfunction, no frequent falls. No back pain. Positive for neck pain. Integumentary: No wounds, no lesions. No rash or pruritus. No unusual bruising. No change in hair or nails. Neurologic: No aphasia. No facial droop. No change in mentation. No head injury. No headache. No paralysis. No paresthesia. Psychiatric: No depression. No anxiety. No mood swings. Endocrine: No abnormal blood sugars. No weight change. PHYSICAL EXAMINATION: General: 41-year-old female laying down in bed in no apparent distress HEENT: Head is atraumatic, normocephalic, pupils were equal round reactive to light and recommendation, extraocular muscle movement were intact, sclera nonicteric, conjunctivae were pale, mucous membranes of the mouth are somewhat dry. Neck: Supple, no JVP, normal carotid upstroke bilaterally, no lymphadenopathy. Chest: Decreased breath sounds at the bases, few rhonchi, no expiratory wheezes, no chest wall tenderness, no intercostal retractions. Heart: First heart sound is normal, second heart sounds normal there is no gallop or murmur. Abdomen: Soft, nontender, nondistended, positive bowel sounds, no hepatomegaly. Extremities: There is no edema no calf tenderness DP +2 bilaterally. Neurologic examination: Patient is awake alert and oriented X 3, cranial nerves II-12 appear grossly intact, muscle power were 5 out of 5 in upper extremities and 5 out of 5 in bilateral lower extremities, deep tendon reflexes normal bilaterally. skin : There is a wound VAC in posterior neck. ASSESSMENT AND PLAN: 1. postoperative day #3 status post incision and drainage of wound with resection of the fascia and complex 3 layer closure. Cultures were obtained, patient was started on IV antibiotic in the form of Ancef 2 g IV piggyback every 8 hours, infectious disease and spine surgery are following, we'll continue to monitor the patient very closely. The patient was instructed to use incentive spirometer to reduce the incidence of atelectasis and hospital-acquired pneumonia, early and relation to reduce venous thromboembolic competitions. Continue current pain regimen as per spine surgery. 2. Significant history of degenerative disc disease of the cervical spine with multiple surgical intervention that is competent located by staph infection according to the patient was not MRSA. Continue IV antibiotic, continue current pain management, continue current treatment as per spine surgery and infectious disease. Resume the patient gabapentin 800 mg orally 3 times every day. 3. Chronic tobacco use and dependence. Patient was counseled about smoking cessation and increased risk of CAD, CVA and malignancy. 4. Chronic marijuana use and dependence. Counseled against its use. 5. Reported history of SLE and rheumatoid arthritis patient does not appear to have an active diagnoses. 6. DVT prophylaxis. Early ambulation. 7. Constipation. Continue with Senokot and MiraLAX and add lactulose 20 g orally twice every day. 8. We will continue to follow. Objective - Vital Signs Vital signs: Vital Signs Temp 97.9 F 05/09/22 08:00 Pulse 73 05/09/22 08:00 Resp 16 05/09/22 08:00 BP 97/53 05/09/22 08:00 Pulse Ox 100 05/09/22 08:00 FiO2 Intake & Output 05/08/22 05/09/22 05/09/22 18:59 06:59 18:59 Other: Voiding Method Toilet # Voids 2 - Labs CBC & Chem 7: 05/07/22 06:12 05/07/22 06:12 Labs: Microbiology - Last 24 Hours (Table) 05/08/22 07:03 Blood Culture - Preliminary Blood No Growth after 24 hours 05/06/22 14:30 Anaerobic Culture - Preliminary Neck 05/06/22 14:30 Gram Stain - Preliminary Neck Wound Culture - Preliminary
--- NOTE | 2022-05-09 13:44 | P.PN ---
Subjective Progress Note Date: 05/09/22 Principal diagnosis: Status post I&D cervical wound Patient is examined today at bedside, she is resting in her hospital bed. She's having some generalized discomfort on the posterior aspect of the neck. She denies any chills this time. She denies any numbness or tingling in the upper extremities. She denies any headaches, lightheadedness, chest pain or shortness of breath. Objective - Vital Signs Vital signs: Vital Signs Temp 97.9 F 05/09/22 08:00 Pulse 73 05/09/22 08:00 Resp 16 05/09/22 08:00 BP 97/53 05/09/22 08:00 Pulse Ox 100 05/09/22 08:00 FiO2 Intake & Output 05/08/22 05/09/22 05/09/22 18:59 06:59 18:59 Other: Voiding Method Toilet # Voids 2 - Exam Cervical spine: Surgical dressing is clean, dry and intact. There is no obvious fluctuance, there is no active drainage, there is no erythema. For range of motion as well as her muscle groups in the bilateral upper extremities, no focal deficits appre ciated. Her sensory exam light touch is intact throughout the extremity. Her radial and ulnar pulses 2+ bilaterally. - Labs CBC & Chem 7: 05/07/22 06:12 05/07/22 06:12 Labs: Microbiology - Last 24 Hours (Table) 05/08/22 07:03 Blood Culture - Preliminary Blood No Growth after 24 hours 05/06/22 14:30 Anaerobic Culture - Preliminary Neck 05/06/22 14:30 Gram Stain - Preliminary Neck Wound Culture - Preliminary Assessment and Plan Assessment: Postoperative day #3 status post I&D cervical wound Plan: Pain control, continue current medications Continue to monitor dressings, change as needed DVT prophylaxis, ji hose Await final culture and sensitivity Other medical specialty recommendations Continue to follow during inpatient stay Time with Patient: Less than 30
--- NOTE | 2022-05-09 17:11 | P.PN ---
Subjective Progress Note Date: 05/08/22 Principal diagnosis: Cervical spine wound infection Patient is a 41-year-old female with a past medical history significant for C2-T1 posterior lateral fusion with C3-C7 laminectomy in this patient seem to have a problem with the postop drainage from the incision and di d have a previous revision in October 2021, cultures at that time negative now admitted to the hospital with draining wound and status post repeat revision. On today's evaluation that is 05/08/2022, the patient denies having any fever or any chills still complaining of pain to the neck area and did have some drainage and mention the dressing has been changed 3 times daily, the patient denies any chest pain shortness of breath or cough no abdominal pain or diarrhea Objective - Vital Signs Vital signs: Vital Signs Temp 97.9 F 05/08/22 14:00 Pulse 74 05/08/22 14:00 Resp 18 05/08/22 14:00 BP 114/74 05/08/22 14:00 Pulse Ox 98 05/08/22 14:00 FiO2 Intake & Output 05/07/22 05/08/22 05/08/22 18:59 06:59 18:59 Output Total 400 Balance -400 Output: Urine 400 Uretheral (Adams) 400 Other: Voiding Method Toilet # Voids 2 2 - Exam GENERAL DESCRIPTION: Middle-age female lying in bed in no distress Posterior neck incision is intact no significant swelling or redness was noticed RESPIRATORY SYSTEM: Unlabored breathing , decreased breath sounds at bases HEART: S1 S2 regular rate and rhythm , ABDOMEN: Soft , no tenderness EXTREMITIES: No edema feet - Labs CBC & Chem 7: 05/07/22 06:12 05/07/22 06:12 Labs: Microbiology - Last 24 Hours (Table) 05/06/22 14:30 Anaerobic Culture - Preliminary Neck 05/06/22 14:30 Gram Stain - Preliminary Neck Wound Culture - Preliminary Assessment and Plan (1) Disruption of external operation (surgical) wound, not elsewhere classified, initial encounter Current Visit: Yes Status: Acute Code(s): T81.31XA - DISRUPTION OF EXTERNAL OPERATION (SURGICAL) WOUND, NEC, INIT SNOMED Code(s): 468995959105774 Plan: 1patient with postop cervical incision drainage in this patient who did have a previous revision and debridement in October 2021 with negative cultures at that point no did have a repeat revision done 05/06/2022, cultures were not develop initially however now we can see them in the micro-section and pending, patient did have a normal sed rate and CRP however 2patient to continue with the empiric cefazolin while waiting for the culture finalized Time with Patient: Less than 30
--- NOTE | 2022-05-09 17:12 | P.PN ---
Subjective Progress Note Date: 05/09/22 Principal diagnosis: Cervical spine wound infection Patient is a 41-year-old female with a past medical history significant for C2-T1 posterior lateral fusion with C3-C7 laminectomy in this patient seem to have a problem with the postop drainage from the incision and di d have a previous revision in October 2021, cultures at that time negative now admitted to the hospital with draining wound and status post repeat revision. On today's evaluation that is 05/09/2022, the patient remains to be afebrile, patient denies any worsening pain to the neck area no chest pain shortness of breath or cough no abdominal pain or diarrhea Objective - Vital Signs Vital signs: Vital Signs Temp 97.8 F 05/09/22 14:00 Pulse 80 05/09/22 14:00 Resp 18 05/09/22 14:00 BP 101/67 05/09/22 14:00 Pulse Ox 100 05/09/22 14:00 FiO2 Intake & Output 05/08/22 05/09/22 05/09/22 18:59 06:59 18:59 Other: Voiding Method Toilet # Voids 2 - Exam GENERAL DESCRIPTION: Middle-age female lying in bed in no distress Posterior neck incision is currently dressed no drainage on the dressing RESPIRATORY SYSTEM: Unlabored breathing , decreased breath sounds at bases HEART: S1 S2 regular rate and rhythm , ABDOMEN: Soft , no tenderness EXTREMITIES: No edema feet - Labs CBC & Chem 7: 05/07/22 06:12 05/07/22 06:12 Labs: Microbiology - Last 24 Hours (Table) 05/08/22 07:03 Blood Culture - Preliminary Blood No Growth after 24 hours Assessment and Plan (1) Disruption of external operation (surgical) wound, not elsewhere classified, initial encounter Current Visit: Yes Status: Acute Code(s): T81.31XA - DISRUPTION OF EXTERNAL OPERATION (SURGICAL) WOUND, NEC, INIT SNOMED Code(s): 720207729991304 Plan: 1patient with postop cervical incision drainage in this patient who did have a previous revision and debridement in October 2021 with negative cultures at that point no did have a repeat revision done 05/06/2022, cultures are currently pending she did have normal CRP and a sed rate as well as pro-calcitonin 2patient to continue with the empiric cefazolin while waiting for the culture finalized and monitor clinical course closely Time with Patient: Less than 30
[2022-05-10] MEDS: oxyCODONE-APAP 10-325MG 1 EACH TAB PO SCH ×7 (00:02→23:58)
[2022-05-10] MEDS: HYDROmorphone 0.5 MG/0.5 ML SYRINGE IVP PRN ×6 (00:02→23:59)
[2022-05-10] MEDS: GABAPENTIN 400 MG CAP PO SCH ×3 (06:05→22:26)
[2022-05-10] MEDS: MELOXICAM 7.5 MG TAB PO SCH (06:05)
[2022-05-10] MEDS: CYCLOBENZAPRINE 10 MG TAB PO SCH ×3 (06:05→22:27)
[2022-05-10] MEDS: LACTATED RINGERS 1,000 ML IV SCH (06:05)
[2022-05-10] MEDS: LACTULOSE 20 GM/30 ML CUP PO SCH ×2 (08:15→22:27)
[2022-05-10] MEDS: BUTALB/APAP/CAFF 50-325-40MG TAB PO SCH ×2 (08:15→22:27)
[2022-05-10] MEDS: polyethylene glycoL 3350 17 GM POWD.PACK PO SCH (08:16)
[2022-05-10] MEDS: HYDROmorphone 1 MG/ML 1 ML SYRINGE IVP PRN (08:17)
[2022-05-10 09:02] LABS: ALT 9 U/L (8-44); AST 18 U/L (13-35); African American GFR (CKD) 125.5 (60.0-200.0); Albumin 3.8 g/dL (3.8-4.9); Albumin/Globulin Ratio 1.68 (1.60-3.17); Alkaline Phosphatase 83 U/L (41-126); BUN/Creat Ratio 19.49 Ratio (12.00-20.00); Blood Urea Nitrogen 13.1 mg/dL (9.0-27.0); Carbon Dioxide 25.5 mmol/L (20.0-27.5); Chloride 102 mmol/L (96-109); Globulin 2.3 g/dL (1.6-3.3); Glucose 83 mg/dL (70-110); Non-African American GFR(CKD) 108.3 (60.0-200.0); Sodium 136 mmol/L (135-145); Total Bilirubin <0.15 mg/dL (0.30-1.20); Total Protein 6.1 g/dL (6.2-8.2)
[2022-05-10 09:19] LABS: Basophils # (A) 0.04 X 10*3/uL (0.00-0.10); Basophils % (A) 0.8 %; Eosinophils # (A) 0.21 X 10*3/uL (0.04-0.35); Eosinophils % (A) 4.2 %; HCT 32.6 % (37.2-46.3); HGB 10.4 g/dL (12.0-15.0); Immature Grans, Automated 0.2 %; Lymphocytes # (A) 2.42 X 10*3/uL (0.90-5.00); Lymphocytes % (A) 48.3 %; MCH 30.5 pg (27.0-32.0); MCHC 31.9 g/dL (32.0-37.0); MCV 95.6 fL (80.0-97.0); Mean Platelet Volume 8.8 fL (9.5-12.2); Monocytes # (A) 0.43 X 10*3/uL (0.20-1.00); Monocytes % (A) 8.6 %; NRBC Per 100 WBC 0 /100 WBCS (0.0-0.0); Neutrophils % (A) 37.9 %; Platelet Count 328 X 10*3/uL (140-440); RBC 3.41 X 10*6/uL (4.10-5.20); RDW 17.1 % (11.5-14.5); WBC 5.01 X 10*3/uL (4.50-10.00)
--- NOTE | 2022-05-10 13:31 | P.PN ---
Subjective Progress Note Date: 05/10/22 HISTORY OF PRESENT ILLNESS: This is a 41-year-old female Seen Today for the First Time with a P rior Medical History Significant for Significant Degenerative Disc Disease of the Cervical Spine Developed to Have a Significant Pain and Weakness in Both Upper Extremities Back in 2015 2016 When She Was Seen by Her Neurologist and She Underwent Epidural Injections with Myofascial Injection without Any Relief She Was Referred to See One of the Neurosurgeon at [facility] at that time she underwent anterior cervical discectomy with fusion of C5 and C7 back in 2018 initial procedure did not hold and the patient did up for second procedure back in 2019 with fusion she developed to have a significant staph infection at that time she went to [facility] [place] and she underwent incision and drainage and she was hospitalized for 1. Family due to staph infection with sepsis 7 month later patient continued to have significant problem in her neck and she was complaining of increased pain and discomfort in the neck along with significant weakness and numbness in both upper extremities she was seen in consultation by Dr. Goodman olvera and she underwent C2 to T1 discectomy with fusion that was 05/26/2021 where she had posterior cervical discectomy with fusion patient developed to have a significant infection in April and now in April again so she underwent posterior incision and drainage and resection of the fascia with complex 3 layer closure I was asked as the patient for medical management. Patient also reported history of systemic lupus erythematosus she was on methotrexate but she was taken off with due to side effects she also reported history of rheumatoid arthritis I do not see any evidence of any synovitis at the time of her evaluation. 05/08: Patient is sitting up in bed in apparent distress, she has her wound VAC removed because it was leaking, she did have cultures results are pending at the time of dictation, she was started on Ancef 2 g IV piggyback every 8 hours, infectious disease is following along with the spine surgery, continue current pain management as outlined by spine surgery, continue with incentive spirometer, increase activity, patient is medically stable for discharge home when deemed appropriate by ID and spine surgery she already has a PICC line in place. 05/09: Patient sitting up in bed in no apparent distress, she has no issues last night, she continues to be on gabapentin 800 mg orally 3 times every day, she continues to be on Dilaudid for pain control, she continues to be on cy clobenzaprine 10 mg for muscle relaxer, increase activity, patient is tolerating her treatment very well, awaiting the final result of the culture for the patient be discharged home. 05/10: Wound culture is in process. Blood culture no growth at 48 hours. Patient remains afebrile, heart rate in the 70s, blood pressure 101/63, pulse ox 97% on room air. Dr. Lua is following closely and patient is continued on Kefzol. PICC line was placed last week with anticipation of IV antibiotics at the time of discharge from the hospital. Patient continues to complain of significant pain and has been continued on Flexeril, IV Dilaudid, meloxicam, Percocet, gabapentin. Patient is eating well with no nausea or vomiting. Most likely patient will be ready for discharge tomorrow. REVIEW OF SYSTEMS: Constitutional: No documented fever, no chills, no night sweats. No weight change. No weakness, fatigue or lethargy. No daytime sleepiness. HEENT: No headache. No blurred vision or double vision, no loss of vision. No loss of Hearing, no ringing in the ears, no dizziness. No nasal drainage or congestion. No epistaxis. No sore throat. Lungs: No shortness of breath, no cough, no sputum production. No wheezing. Reports dyspnea with activity. Cardiovascular: No chest pain, no lower extremity edema. No palpitations. No paroxysmal nocturnal dyspnea. No orthopnea. No lightheadedness or dizziness. No syncopal episodes. Abdominal: Reports abdominal pain. No nausea, vomiting. No diarrhea. No constipation. No bloody or tarry stools reports loss of appetite. Genitourinary: No dysuria, increased frequency, urgency. No urinary retention. Musculoskeletal: No myalgias. No muscle weakness, no gait dysfunction, no frequent falls. No back pain. Positive for neck pain. Integumentary: No wounds, no lesions. No rash or pruritus. No unusual bruising. No change in hair or nails. Neurologic: No aphasia. No facial droop. No change in mentation. No head injury. No headache. No paralysis. No paresthesia. Psychiatric: No depression. No anxiety. No mood swings. Endocrine: No abnormal blood sugars. No weight change. PHYSICAL EXAMINATION: General: 41-year-old female laying down in bed in no apparent distress HEENT: Head is atraumatic, normocephalic, pupils were equal round reactive to light and recommendation, extraocular muscle movement were intact, sclera n onicteric, conjunctivae were pale, mucous membranes of the mouth are somewhat dry. Neck: Supple, no JVP, normal carotid upstroke bilaterally, no lymphadenopathy. Chest: Decreased breath sounds at the bases, few rhonchi, no expiratory wheezes, no chest wall tenderness, no intercostal retractions. Heart: First heart sound is normal, second heart sounds normal there is no gallop or murmur. Abdomen: Soft, nontender, nondistended, positive bowel sounds, no hepatomegaly. Extremities: There is no edema no calf tenderness DP +2 bilaterally. Neurologic examination: Patient is awake alert and oriented X 3, cranial nerves II-12 appear grossly intact, muscle power were 5 out of 5 in upper extremities and 5 out of 5 in bilateral lower extremities, deep tendon reflexes normal bilaterally. skin : There is a wound VAC in posterior neck. ASSESSMENT AND PLAN: 1. postoperative day #4 status post incision and drainage of wound with resection of the fascia and complex 3 layer closure. Cultures in process, patient was started on IV antibiotic in the form of Ancef 2 g IV piggyback every 8 hours, infectious disease and spine surgery are following, we'll continue to monitor the patient very closely. The patient was instructed to use incentive spirometer to reduce the incidence of atelectasis and hospital-acquired pneumonia, early and relation to reduce venous thromboembolic competitions. C ontinue current pain regimen as per spine surgery. 2. Significant history of degenerative disc disease of the cervical spine with multiple surgical intervention that is competent located by staph infection according to the patient was not MRSA. Continue IV antibiotic, continue current pain management, continue current treatment as per spine surgery and infectious disease. Resume the patient gabapentin 800 mg orally 3 times every day. 3. Chronic tobacco use and dependence. Patient was counseled about smoking cessation and increased risk of CAD, CVA and malignancy. 4. Chronic marijuana use and dependence. Counseled against its use. 5. Reported history of SLE and rheumatoid arthritis patient does not appear to have an active diagnoses. 6. DVT prophylaxis. Early ambulation. 7. Constipation. Continue with Senokot and MiraLAX and add lactulose 20 g orally twice every day. 8. We will continue to follow. Impression and plan of care have been directed as dictated by the signing physician. Bsesy Manjarrez nurse practitioner acting as scribe for signing physician. Possible discharge by tomorrow. Objective - Vital Signs Vital signs: Vital Signs Temp 97.3 F L 05/10/22 08:00 Pulse 72 05/10/22 08:17 Resp 16 05/10/22 08:17 BP 101/63 05/10/22 08:00 Pulse Ox 97 05/10/22 08:00 FiO2 Intake & Output 05/09/22 05/10/22 05/10/22 18:59 06:59 18:59 Other: Voiding Method Toilet Toilet # Voids 2 - Labs CBC & Chem 7: 05/10/22 06:13 05/10/22 06:13 Labs: Abnormal Lab Results - Last 24 Hours (Table) 05/10/22 05/10/22 Range/Units 06:13 06:13 RBC 3.41 L (4.10-5.20) X 10*6/uL Hgb 10.4 L (12.0-15.0) g/dL Hct 32.6 L (37.2-46.3) % MCHC 31.9 L (32.0-37.0) g/dL RDW 17.1 H (11.5-14.5) % MPV 8.8 L (9.5-12.2) fL Anion Gap 8.10 L (10.00-18.00) mmol/L Total Bilirubin <0.15 L (0.30-1.20) mg/dL Total Protein 6.1 L (6.2-8.2) g/dL Microbiology - Last 24 Hours (Table) 05/08/22 07:03 Blood Culture - Preliminary Blood No Growth after 48 hours
--- NOTE | 2022-05-11 00:06 | US ---
EXAMINATION TYPE: US venous doppler duplex LE DATE OF EXAM: 05/10/2022 11:48 PM COMPARISON: NONE CLINICAL HISTORY: New onset edema. edema that started today. No hx of DVT SIDE PERFORMED: Bilateral TECHNIQUE: The lower extremity deep venous system is examined utilizing real time linear array sonog daniel with graded compression, doppler sonography and color-flow sonography. VESSELS IMAGED: Common Femoral Vein Deep Femoral Vein Greater Saphenous Vein * Femoral Vein Popliteal Vein Small Saphenous Vein * Proximal Calf Veins (* superficial vessels) Right Leg: Negative for DVT Left Leg: Negative for DVT Multiple lymph nodes visualized in bilateral groins IMPRESSION: No evidence of deep vein thrombosis in both legs.
[2022-05-11] MEDS: oxyCODONE-APAP 10-325MG 1 EACH TAB PO SCH ×5 (04:28→20:29)
[2022-05-11] MEDS: MELOXICAM 7.5 MG TAB PO SCH (06:01)
[2022-05-11] MEDS: GABAPENTIN 400 MG CAP PO SCH ×3 (06:02→20:31)
[2022-05-11] MEDS: CYCLOBENZAPRINE 10 MG TAB PO SCH ×3 (06:02→20:30)
[2022-05-11] MEDS: POTASSIUM CHLORIDE ER 20 MEQ TAB.ER PO SCH (07:18)
[2022-05-11] MEDS: BUTALB/APAP/CAFF 50-325-40MG TAB PO SCH ×2 (07:18→20:30)
[2022-05-11] MEDS: FUROSEMIDE 40 MG TAB PO SCH (07:18)
[2022-05-11] MEDS: polyethylene glycoL 3350 17 GM POWD.PACK PO SCH (07:19)
[2022-05-11] MEDS: LACTULOSE 20 GM/30 ML CUP PO SCH ×2 (07:19→20:31)
[2022-05-11] MEDS: LACTATED RINGERS 1,000 ML IV SCH (07:26)
[2022-05-11] MEDS: HYDROmorphone 0.5 MG/0.5 ML SYRINGE IVP PRN ×5 (07:49→21:50)
--- NOTE | 2022-05-11 13:16 | P.PN ---
Subjective Progress Note Date: 05/11/22 Principal diagnosis: Status post I&D cervical wound Patient is examined today at bedside, she is resting in her hospital bed. She's having some generalized discomfort on the posterior aspect of the neck. She denies any chills this time. She does admit to swelling in the lower extremities. Doppler was yesterday, this was negative. She denies any numbness or tingling in the upper extremities. She denies any headaches, lightheadedness, chest pain or shortness of breath. Objective - Vital Signs Vital signs: Vital Signs Temp 97.5 F L 05/11/22 07:55 Pulse 84 05/11/22 07:55 Resp 19 05/11/22 07:55 BP 104/70 05/11/22 07:55 Pulse Ox 99 05/11/22 07:55 FiO2 Intake & Output 05/10/22 05/11/22 05/11/22 18:59 06:59 18:59 Other: Voiding Method Toilet Toilet # Voids 6 - Exam Cervical spine: Surgical dressing is clean, dry and intact. There is no obvious fluctuance, there is no active drainage, there is no erythema. For range of motion as well as her muscle groups in the bilateral upper extremities, no focal deficits a ppreciated. Her sensory exam light touch is intact throughout the extremity. Her radial and ulnar pulses 2+ bilaterally. - Labs CBC & Chem 7: 05/10/22 06:13 05/10/22 06:13 Labs: Microbiology - Last 24 Hours (Table) 05/08/22 07:03 Blood Culture - Preliminary Blood No Growth after 72 hours Assessment and Plan Assessment: Postoperative day #5 status post I&D cervical wound Plan: Pain control, continue current medications Continue to monitor dressings, change as needed DVT prophylaxis, ji hose Await final culture and sensitivity, anticipate discharge home on IV antibiotics, infectious disease recommendations appreciated. Other medical specialty recommendations Discharge planning: Will change dressing at bedside tomorrow prior to discharge Time with Patient: Less than 30
[2022-05-11 13:36] VITALS: BMI 24.0
--- NOTE | 2022-05-11 14:13 | P.PN ---
Subjective Progress Note Date: 05/11/22 HISTORY OF PRESENT ILLNESS: This is a 41-year-old female Seen Today for the First Time with a P rior Medical History Significant for Significant Degenerative Disc Disease of the Cervical Spine Developed to Have a Significant Pain and Weakness in Both Upper Extremities Back in 2015 2016 When She Was Seen by Her Neurologist and She Underwent Epidural Injections with Myofascial Injection without Any Relief She Was Referred to See One of the Neurosurgeon at [facility] at that time she underwent anterior cervical discectomy with fusion of C5 and C7 back in 2018 initial procedure did not hold and the patient did up for second procedure back in 2019 with fusion she developed to have a significant staph infection at that time she went to [facility] in [place] and she underwent incision and drainage and she was hospitalized for 1. Family due to staph infection with sepsis 7 month later patient continued to have significant problem in her neck and she was complaining of increased pain and discomfort in the neck along with significant weakness and numbness in both upper extremities she was seen in consultation by Dr. Goodman olvera and she underwent C2 to T1 discectomy with fusion that was 05/26/2021 where she had posterior cervical discectomy with fusion patient developed to have a significant infection in April and now in April again so she underwent posterior incision and drainage and resection of the fascia with complex 3 layer closure I was asked as the patient for medical management. Patient also reported history of systemic lupus erythematosus she was on methotrexate but she was taken off with due to side effects she also reported history of rheumatoid arthritis I do not see any evidence of any synovitis at the time of her evaluation. 05/08: Patient is sitting up in bed in apparent distress, she has her wound VAC removed because it was leaking, she did have cultures results are pending at the time of dictation, she was started on Ancef 2 g IV piggyback every 8 hours, infectious disease is following along with the spine surgery, continue current pain management as outlined by spine surgery, continue with incentive spirometer, increase activity, patient is medically stable for discharge home when deemed appropriate by ID and spine surgery she already has a PICC line in place. 05/09: Patient sitting up in bed in no apparent distress, she has no issues last night, she continues to be on gabapentin 800 mg orally 3 times every day, she continues to be on Dilaudid for pain control, she continues to be on cy clobenzaprine 10 mg for muscle relaxer, increase activity, patient is tolerating her treatment very well, awaiting the final result of the culture for the patient be discharged home. 05/10: Wound culture is in process. Blood culture no growth at 48 hours. Patient remains afebrile, heart rate in the 70s, blood pressure 101/63, pulse ox 97% on room air. Dr. Lua is following closely and patient is continued on Kefzol. PICC line was placed last week with anticipation of IV antibiotics at the time of discharge from the hospital. Patient continues to complain of significant pain and has been continued on Flexeril, IV Dilaudid, meloxicam, Percocet, gabapentin. Patient is eating well with no nausea or vomiting. Most likely patient will be ready for discharge tomorrow. 05/11: Orthopedics is planning to change her dressing tomorrow prior to discharge. Patient continues to have difficulty managing pain control. Ultrasound of the bilateral lower extremities completed yesterday was negative for DVT. Patient is continued on IV Kefzol. Wound culture is showing strep agalactiae group B. Blood culture no growth after 72 hours. Patient remains afebrile, heart rate 84, blood pressure 104/70, pulse ox 99% on room air. Repeat blood work completed yesterday revealed WBC of 5, hemoglobin 10.4, platelet count 328. Sodium 136, potassium 5, chloride 102, CO2 25, BUN 13 creatinine 0.7. C-reactive protein is 0.4. REVIEW OF SYSTEMS: Constitutional: No documented fever, no chills, no night sweats. No weight change. No weakness, fatigue or lethargy. No daytime sleepiness. HEENT: No headache. No blurred vision or double vision, no loss of vision. No loss of Hearing, no ringing in the ears, no dizziness. No nasal drainage or congestion. No epistaxis. No sore throat. Lungs: No shortness of breath, no cough, no sputum production. No wheezing. Reports dyspnea with activity. Cardiovascular: No chest pain, no lower extremity edema. No palpitations. No paroxysmal nocturnal dyspnea. No orthopnea. No lightheadedness or dizziness. No syncopal episodes. Abdominal: Reports abdominal pain. No nausea, vomiting. No diarrhea. No constipation. No bloody or tarry stools reports loss of appetite. Genitourinary: No dysuria, increased frequency, urgency. No urinary retention. Musculoskeletal: No myalgias. No muscle weakness, no gait dysfunction, no frequent falls. No back pain. Positive for neck pain. Integumentary: No wounds, no lesions. No rash or pruritus. No unusual bruising. No change in hair or nails. Neurologic: No aphasia. No facial droop. No change in mentation. No head injury. No headache. No paralysis. No paresthesia. Psychiatric: No depression. No anxiety. No mood swings. Endocrine: No abnormal blood sugars. No weight change. PHYSICAL EXAMINATION: General: 41-year-old female laying down in bed in no apparent distress HEENT: Head is atraumatic, normocephalic, pupils were equal round reactive to light and recommendation, extraocular muscle movement were intact, sclera nonicteric, conjunctivae were pale, mucous membranes of the mouth are somewhat dry. Neck: Supple, no JVP, normal carotid upstroke bilaterally, no lymphadenopathy. Chest: Decreased breath sounds at the bases, few rhonchi, no expiratory wheezes, no chest wall tenderness, no intercostal retractions. Heart: First heart sound is normal, second heart sounds normal there is no gallop or murmur. Abdomen: Soft, nontender, nondistended, positive bowel sounds, no hepatomegaly. Extremities: There is no edema no calf tenderness DP +2 bilaterally. Neurologic examination: Patient is awake alert and oriented X 3, cranial nerves II-12 appear grossly intact, muscle power were 5 out of 5 in upper extremities and 5 out of 5 in bilateral lower extremities, deep tendon reflexes normal bilaterally. ASSESSMENT AND PLAN: 1. postoperative day #5 status post incision and drainage of wound with resection of the fascia and complex 3 layer closure. Cultures in process, patient was started on IV antibiotic in the form of Ancef 2 g IV piggyback every 8 hours, infectious disease and spine surgery are following, we'll continue to monitor the patient very closely. The patient was instructed to use incentive spirometer to reduce the incidence of atelectasis and hospital-acquired pneumonia, early and relation to reduce venous thromboembolic competitions. Continue current pain regimen as per spine surgery. 2. Significant history of degenerative disc disease of the cervical spine with multiple surgical intervention that is competent located by staph infection according to the patient was not MRSA. Continue IV antibiotic, continue current pain management, continue current treatment as per spine surgery and infectious disease. Resume the patient gabapentin 800 mg orally 3 times every day. 3. Chronic tobacco use and dependence. Patient was counseled about smoking cessation and increased risk of CAD, CVA and malignancy. 4. Chronic marijuana use and dependence. Counseled against its use. 5. Reported history of SLE and rheumatoid arthritis patient does not appear to have an active diagnoses. 6. DVT prophylaxis. Early ambulation. 7. Constipation. Continue with Senokot and MiraLAX and add lactulose 20 g orally twice every day. 8. We will continue to follow. Impression and plan of care have been directed as dictated by the signing physician. Bessy Manjarrez nurse practitioner acting as scribe for signing physician. Possible discharge by tomorrow. Objective - Vital Signs Vital signs: Vital Signs Temp 97.5 F L 05/11/22 07:55 Pulse 84 05/11/22 07:55 Resp 19 05/11/22 07:55 BP 104/70 05/11/22 07:55 Pulse Ox 99 05/11/22 07:55 FiO2 Intake & Output 05/10/22 05/11/22 05/11/22 18:59 06:59 18:59 Other: Voiding Method Toilet Toilet # Voids 6 - Labs CBC & Chem 7: 05/10/22 06:13 05/10/22 06:13 Labs: Microbiology - Last 24 Hours (Table) 05/08/22 07:03 Blood Culture - Preliminary Blood No Growth after 72 hours
--- NOTE | 2022-05-11 14:20 | P.PN ---
Subjective Progress Note Date: 05/07/22 HISTORY OF PRESENT ILLNESS: This is a 41-year-old female Seen Today for the First Time with a P rior Medical History Significant for Significant Degenerative Disc Disease of the Cervical Spine Developed to Have a Significant Pain and Weakness in Both Upper Extremities Back in 2015 2016 When She Was Seen by Her Neurologist and She Underwent Epidural Injections with Myofascial Injection without Any Relief She Was Referred to See One of the Neurosurgeon at [facility] at that time she underwent anterior cervical discectomy with fusion of C5 and C7 back in 2018 initial procedure did not hold and the patient did up for second procedure back in 2019 with fusion she developed to have a significant staph infection at that time she went to [facility] in [place] and she underwent incision and drainage and she was hospitalized for 1. Family due to staph infection with sepsis 7 month later patient continued to have significant problem in her neck and she was complaining of increased pain and discomfort in the neck along with significant weakness and numbness in both upper extremities she was seen in consultation by Dr. Goodman olvera and she underwent C2 to T1 discectomy with fusion that was 05/26/2021 where she had posterior cervical discectomy with fusion patient developed to have a significant infection in April and now in April again so she underwent posterior incision and drainage and resection of the fascia with complex 3 layer closure I was asked as the patient for medical management. Patient also reported history of systemic lupus erythematosus she was on methotrexate but she was taken off with due to side effects she also reported history of rheumatoid arthritis I do not see any evidence of any synovitis at the time of her evaluation. 05/07: Patient is resting in bed and appears to be somewhat uncomfortable with complaints of pain in the posterior neck area. Prevana wound VAC is in place. Patient is scheduled for PICC line insertion today with plan for IV antibiotics at the time of discharge. Wound cultures are in progress and patient is followed by infectious disease. Doubt that we will be able to make any arrangements for discharge until early next week. REVIEW OF SYSTEMS: Constitutional: No documented fever, no chills, no night sweats. No weight change. No weakness, fatigue or lethargy. No daytime sleepiness. HEENT: No headache. No blurred vision or double vision, no loss of vision. No loss of Hearing, no ringing in the ears, no dizziness. No nasal drainage or congestion. No epistaxis. No sore throat. Lungs: No shortness of breath, no cough, no sputum production. No wheezing. Reports dyspnea with activity. Cardiovascular: No chest pain, no lower extremity edema. No palpitations. No paroxysmal nocturnal dyspnea. No orthopnea. No lightheadedness or dizziness. No syncopal episodes. Abdominal: Reports abdominal pain. No nausea, vomiting. No diarrhea. No constipation. No bloody or tarry stools reports loss of appetite. Genitourinary: No dysuria, increased frequency, urgency. No urinary retention. Musculoskeletal: No myalgias. No muscle weakness, no gait dysfunction, no frequent falls. No back pain. Positive for neck pain. Integumentary: No wounds, no lesions. No rash or pruritus. No unusual bruising. No change in hair or nails. Neurologic: No aphasia. No facial droop. No change in mentation. No head injury. No headache. No paralysis. No paresthesia. Psychiatric: No depression. No anxiety. No mood swings. Endocrine: No abnormal blood sugars. No weight change. PHYSICAL EXAMINATION: General: 41-year-old female resting in bed in no apparent distress HEENT: Head is atraumatic, normocephalic, pupils were equal round, sclera nonicteric, conjunctivae were pale, mucous membranes of the mouth are somewhat dry. Neck: Supple, no JVP, normal carotid upstroke bilaterally, no lymphadenopathy. Chest: Decreased breath sounds at the bases, few rhonchi, no expiratory wheezes, no chest wall tenderness, no intercostal retractions. Heart: First heart sound is normal, second heart sounds normal there is no gallop or murmur. Abdomen: Soft, nontender, nondistended, positive bowel sounds, no hepatomegaly. Extremities: There is no edema no calf tenderness DP +2 bilaterally. Neurologic examination: Patient is awake alert and oriented X 3, cranial nerves II-12 appear grossly intact, muscle power were 5 out of 5 in upper extremities and 5 out of 5 in bilateral lower extremities, deep tendon reflexes normal bilaterally. ASSESSMENT AND PLAN: 1. postoperative day #1 status post incision and drainage of wound with resection of the fascia and complex 3 layer closure. Cultures in process, patient was started on IV antibiotic in the form of Ancef 2 g IV piggyback every 8 hours, infectious disease and spine surgery are following, we'll continue to monitor the patient very closely. The patient was instructed to use incentive spirometer to reduce the incidence of atelectasis and hospital-acquired pneumonia, early and relation to reduce venous thromboembolic competitions. Continue current pain regimen as per spine surgery. 2. Significant history of degenerative disc disease of the cervical spine with multiple surgical intervention that is competent located by staph infection according to the patient was not MRSA. Continue IV antibiotic, continue current pain management, continue current treatment as per spine surgery and infectious disease. Resume the patient gabapentin 800 mg orally 3 times every day. 3. Chronic tobacco use and dependence. Patient was counseled about smoking cessation and increased risk of CAD, CVA and malignancy. 4. Chronic marijuana use and dependence. Counseled against its use. 5. Reported history of SLE and rheumatoid arthritis patient does not appear to have an active diagnoses. 6. DVT prophylaxis. Early ambulation. 7. Constipation. Continue with Senokot and MiraLAX and add lactulose 20 g orally twice every day. 8. We will continue to follow. Impression and plan of care have been directed as dictated by the signing physician. Bessy Manjarrez nurse practitioner acting as scribe for signing physician. Possible discharge by tomorrow. Objective - Vital Signs Vital signs: Vital Signs Temp 98 F 05/07/22 08:00 Pulse 69 05/07/22 08:00 Resp 17 05/07/22 08:00 BP 128/87 05/07/22 08:00 Pulse Ox 100 05/07/22 08:00 FiO2 Intake & Output 05/06/22 05/07/22 05/07/22 18:59 06:59 18:59 Intake Total 1601 Output Total 135 400 Balance 1466 -400 Weight 59.5 kg Intake: IV 1601 Output: Urine 85 400 Uretheral (Adams) 400 Estimated Blood Loss 50 Other: Voiding Method Indwelling Catheter - Labs CBC & Chem 7: 05/10/22 06:13 05/10/22 06:13 Labs: Abnormal Lab Results - Last 24 Hours (Table) 05/07/22 05/07/22 Range/Units 06:12 06:12 RBC 3.32 L (4.10-5.20) X 10*6/uL Hgb 10.2 L (12.0-15.0) g/dL Hct 31.9 L (37.2-46.3) % RDW 17.7 H (11.5-14.5) % MPV 9.0 L (9.5-12.2) fL Anion Gap 8.60 L (10.00-18.00) mmol/L Creatinine 0.5 L (0.6-1.5) mg/dL Calcium 8.3 L (8.7-10.3) mg/dL
--- NOTE | 2022-05-11 22:51 | P.PN ---
Subjective Progress Note Date: 05/10/22 Principal diagnosis: Cervical spine wound infection Patient is a 41-year-old female with a past medical history significant for C2-T1 posterior lateral fusion with C3-C7 laminectomy in this patient seem to have a problem with the postop drainage from the incision and di d have a previous revision in October 2021, cultures at that time negative now admitted to the hospital with draining wound and status post repeat revision. On today's evaluation that is 05/10/2022, the patient continues to be afebrile, patient pain to the neck area has decreased in intensity, the patient denies chest pain shortness of breath or cough no abdominal pain or diarrhea Objective - Vital Signs Vital signs: Vital Signs Temp 97.3 F L 05/10/22 08:00 Pulse 72 05/10/22 08:17 Resp 16 05/10/22 08:17 BP 101/63 05/10/22 08:00 Pulse Ox 97 05/10/22 08:00 FiO2 Intake & Output 05/09/22 05/10/22 05/10/22 18:59 06:59 18:59 Other: Voiding Method Toilet Toilet # Voids 2 - Exam GENERAL DESCRIPTION: Middle-age female lying in bed in no distress Posterior neck incision is currently dressed no drainage on the dressing RESPIRATORY SYSTEM: Unlabored breathing , decreased breath sounds at bases HEART: S1 S2 regular rate and rhythm , ABDOMEN: Soft , no tenderness EXTREMITIES: No edema feet - Labs CBC & Chem 7: 05/10/22 06:13 05/10/22 06:13 Labs: Abnormal Lab Results - Last 24 Hours (Table) 05/10/22 05/10/22 Range/Units 06:13 06:13 RBC 3.41 L (4.10-5.20) X 10*6/uL Hgb 10.4 L (12.0-15.0) g/dL Hct 32.6 L (37.2-46.3) % MCHC 31.9 L (32.0-37.0) g/dL RDW 17.1 H (11.5-14.5) % MPV 8.8 L (9.5-12.2) fL Anion Gap 8.10 L (10.00-18.00) mmol/L Total Bilirubin <0.15 L (0.30-1.20) mg/dL Total Protein 6.1 L (6.2-8.2) g/dL Microbiology - Last 24 Hours (Table) 05/08/22 07:03 Blood Culture - Preliminary Blood No Growth after 48 hours Assessment and Plan (1) Disruption of external operation (surgical) wound, not elsewhere classified, initial encounter Current Visit: Yes Status: Acute Code(s): T81.31XA - DISRUPTION OF EXTERNAL OPERATION (SURGICAL) WOUND, NEC, INIT SNOMED Code(s): 017266685646411 Plan: 1patient with postop cervical incision drainage in this patient who did have a previous revision and debridement in October 2021 with negative cultures at that point no did have a repeat revision done 05/06/2022, cultures are currently pending she did have normal CRP and a sed rate as well as pro-calcitonin 2patient seemed to showing some clinical improvement and continue with the empiric cefazolin while waiting for the culture finalized and monitor clinical course closely Time with Patient: Less than 30
--- NOTE | 2022-05-11 22:52 | P.PN ---
Subjective Progress Note Date: 05/11/22 Principal diagnosis: Cervical spine wound infection Patient is a 41-year-old female with a past medical history significant for C2-T1 posterior lateral fusion with C3-C7 laminectomy in this patient seem to have a problem with the postop drainage from the incision and di d have a previous revision in October 2021, cultures at that time negative now admitted to the hospital with draining wound and status post repeat revision. On today's evaluation that is 05/11/2022, the patient remains to be afebrile, patient pain to the neck area has decreased in intensity, the patient denies chest pain shortness of breath or cough. Denies having any nausea or vomiting no abdominal pain no diarrhea Objective - Vital Signs Vital signs: Vital Signs Temp 98.5 F 05/11/22 14:00 Pulse 85 05/11/22 14:00 Resp 19 05/11/22 14:00 BP 105/66 05/11/22 14:00 Pulse Ox 97 05/11/22 14:00 FiO2 Intake & Output 05/10/22 05/11/22 05/11/22 18:59 06:59 18:59 Weight 59.5 kg Other: Voiding Method Toilet Toilet # Voids 6 - Exam GENERAL DESCRIPTION: Middle-age female lying in bed in no distress Posterior neck incision is currently dressed no drainage on the dressing RESPIRATORY SYSTEM: Unlabored breathing , decreased breath sounds at bases HEART: S1 S2 regular rate and rhythm , ABDOMEN: Soft , no tenderness EXTREMITIES: No edema feet - Labs CBC & Chem 7: 05/10/22 06:13 05/10/22 06:13 Labs: Microbiology - Last 24 Hours (Table) 05/06/22 14:30 Anaerobic Culture - Final Neck 05/06/22 14:30 Gram Stain - Final Neck Wound Culture - Final Strep agalactiae - (group b) 05/08/22 07:03 Blood Culture - Preliminary Blood No Growth after 72 hours Assessment and Plan (1) Disruption of external operation (surgical) wound, not elsewhere classified, initial encounter Current Visit: Yes Status: Acute Code(s): T81.31XA - DISRUPTION OF EXTERNAL OPERATION (SURGICAL) WOUND, NEC, INIT SNOMED Code(s): 123544124682473 Plan: 1patient with postop cervical incision drainage in this patient who did have a previous revision and debridement in October 2021 with negative cultures at that p oint no did have a repeat revision done 05/06/2022, cultures are currently pending she did have normal CRP and a sed rate as well as pro-calcitonin 2patient seemed to showing some clinical improvement local cultures have been finalized Streptococcus agalactiae patient will continue on cefazolin 2 g every 8 hours plan is for 2-4 week course of therapy depending upon clinical response Time with Patient: Less than 30
[2022-05-12] MEDS: oxyCODONE-APAP 10-325MG 1 EACH TAB PO SCH ×6 (00:23→22:03)
[2022-05-12] MEDS: HYDROmorphone 0.5 MG/0.5 ML SYRINGE IVP PRN ×3 (01:51→09:28)
[2022-05-12] MEDS: MELOXICAM 7.5 MG TAB PO SCH (06:33)
[2022-05-12] MEDS: CYCLOBENZAPRINE 10 MG TAB PO SCH ×3 (06:33→22:04)
[2022-05-12] MEDS: GABAPENTIN 400 MG CAP PO SCH ×3 (06:37→21:01)
[2022-05-12] MEDS: polyethylene glycoL 3350 17 GM POWD.PACK PO SCH (08:19)
[2022-05-12] MEDS: POTASSIUM CHLORIDE ER 20 MEQ TAB.ER PO SCH (08:19)
[2022-05-12] MEDS: BUTALB/APAP/CAFF 50-325-40MG TAB PO SCH ×2 (08:19→21:00)
[2022-05-12] MEDS: LACTULOSE 20 GM/30 ML CUP PO SCH ×2 (08:19→21:01)
[2022-05-12] MEDS: FUROSEMIDE 40 MG TAB PO SCH (08:20)
--- NOTE | 2022-05-12 09:02 | P.PN ---
Subjective Progress Note Date: 05/12/22 Principal diagnosis: Wound drainage of posterior cervical incision Patient seen and examined at bedside. Patient was resting in bed. She was able to sit up in bed with no difficulty. She states her pain is managed on current regimen. Patient denies any headaches or blurred vision. Surgical dressing will be changed prior to discharge. Patient will be going home on IV antibiotics x4 weeks. We will attempt to get discharge needs arranged to get patient discharged later today. She states she has been ambulatory within room with no concerns. Patient has been afebrile, denies nausea/vomiting, or chest pain. Objective - Vital Signs Vital signs: Vital Signs Temp 97.2 F L 05/12/22 07:56 Pulse 78 05/12/22 07:56 Resp 19 05/12/22 07:56 BP 128/86 05/12/22 07:56 Pulse Ox 100 05/12/22 07:56 FiO2 Intake & Output 05/11/22 05/12/22 05/12/22 18:59 06:59 18:59 Weight 59.5 kg Other: # Voids 4 - Exam Physical Examination General: The patient is awake and alert, in no acute distress Skin: Skin is warm and dry with no obvious rashes or lesions. Hairy patches absent, no dorsal skin dimples, no cafe au lait spots. Surgical incision to posterior cervical, dressing CDI Eye: Pupils are equal, round and reactive to light, extra-ocular movements are intact; there is normal conjunctiva bilaterally. Neck: The neck is supple, there is no tenderness and ROM intact. Cardiovascular: There is a regular rate and rhythm. No murmur, rub or gallop is appreciated. Slight edema to BLE. Respiratory: Lungs are clear to auscultation, respirations are non-labored, breath sounds are equal. Gastrointestinal: Soft, non-distended, non-tender abdomen. Back: There is no tenderness to palpation in the midline, paralumbar, parathoracic or buttocks region. There is no obvious deformity . Musculoskeletal: ROM limited secondary to pain and stiffness from surgical procedure. Muscle strength in all major muscle groups of bilateral upper extremities 5/5, bilateral lower extremities 5/5. Neurological: CN 2-12 intact. There are no obvious motor or sensory deficits. Movement and coordination equal and intact. Sensory exam to light touch intact C5-T1 and intact from L2-S1. Reflexes 2/4 in bilateral upper and lower extremities. Negative Hoffmans, babinski, and clonus signs. Psychiatric: Cooperative, appropriate mood & affect, normal judgment. - Labs CBC & Chem 7: 05/10/22 06:13 05/10/22 06:13 Labs: Microbiology - Last 24 Hours (Table) 05/06/22 14:30 Anaerobic Culture - Final Neck 05/06/22 14:30 Gram Stain - Final Neck Wound Culture - Final Strep agalactiae - (group b) 05/08/22 07:03 Blood Culture - Preliminary Blood No Growth after 72 hours Assessment and Plan Assessment: Post Op Day 6: Cervical Irrigation and Debridement of wound Plan: -Appreciate consultant in ergonomics and safety and team management. -Activity: Ambulate QID, OOB all meals, up and about, limit lifting bending twisting to less than 5 lbs. -Daily PT/OT, increase ambulation strength and balance. -Pain control: Adequate at this time -Meds: reviewed -GI ppx: senna, Miralax -DVT PPX: Heparin -Hygiene: Shower today. Do not get incision wet, maintain CDI. Surgical dressing to be changed prior to discharge -Encourage IS 10x/hr -Dispo: Anticipate discharge home with homecare today *I reviewed and discussed this case with my attending Dr. Hudson, whom has reviewed this chart and films and is in agreement with assessment and plan of care as outlined above. I have personally seen and examined the patient, performed the documentation and the assessment and plan as written. Number of minutes spent on the visit: 15m.
--- NOTE | 2022-05-12 10:23 | P.DS ---
Providers Date of admission: 05/06/22 12:01 Expected date of discharge: 05/12/22 Attending physician: Jonathan Hudson DO Consults: 05/06/22 15:06 Consult Physician Routine Consulting Provider: Melinda Lua Consult Reason/Comments: s/p incision and drainage of posterior surgical wound Do you want consulting provider notified?: Yes 05/06/22 15:12 Consult Physician Routine Consulting Provider: Lazaro Phillips Consult Reason/Comments: Medical Management Do you want consulting provider notified?: Yes Primary care physician: Lazaro Phillips Hospital Course: Date of admission: 05/06/2022 Date of discharge: 05/12/2022 Admission diagnosis: Delayed healing posterior neck wound Discharge diagnosis: same Attending physician: Dr. Hudson Surgical procedures: 1. Incision and drainage with excisional debridement skin soft tissue fascia posterior neck 10 cm x 5 cm x 2 cm using the following -skin knife was used to excise tract skin and soft tissue - curet was used to scrape edges and remove foreign material 2. Complex closure 3 layered posterior neck Brief history: Patient is a 41-year-old female with a history of delayed healing posterior neck wound. At this point patient has failed conservative treatment measures and has opted to proceed with a elective I&D with excisional debridement skin soft tissue fascia posterior neck. Hospital course: Details of patient's surgery can be found in operative report. Patient tolerated the procedure well and was subsequently transported to orthopedic floor. Patient's orthopeidc and medical care was provided daily. Patient had daily laboratory tests performed for evaluation of overall blood counts. Patient had daily physical therapy to include strengthening range of motion as well as education with walker ambulation. Patient was noted to have a relatively uneventful postoperative course. Patient reported satisfactory pain control with oral pain medications by postoperative day 6. Patient showed satisfactory progress with physical therapy. Patient moved steadily through the program and had no difficulty meeting the goals by postoperative day 6. Given patient's otherwise satisfactory course and having met physical therapy goals, plan is to discharge patient home on postoperative day 6. Discharge condition/disposition: Patient will be discharged home in stable condition. Discharge medications: Instructions are given on resumption of patient's normal daily medications per primary care recommendation, in addition patient will be prescribed Duricef; senna. Spine Discharge and Recovery Instructions Date of Surgery: 05/06/2022 Diagnosis: 1. Delayed healing posterior neck wound Procedure: 1. Incision and drainage with excisional debridement skin soft tissue fascia posterior neck 10 cm x 5 cm x 2 cm using the following -skin knife was used to excise tract skin and soft tissue - curet was used to scrape edges and remove foreign material 2. Complex closure 3 layered posterior neck Medications: See medication list All medication refills should be obtained through your primary care doctor or your clinic spine surgeon. Please discuss prescription refills at your follow up appointment. Do not call the hospital for medication refills. Dressing: Leave your dressing in place for a total of 5 days post operatively. Then you may remove your dressing and leave open to air. Keep the area clean and if not able to keep area clean, then cover with sterile gauze and tape. Showering: You may shower 3 days after your procedure allowing soap and water to run over incision. Do not scrub. Do not soak. Blot dry. Follow up: Please confirm a follow up appointment with your surgeon 3 weeks post operatively. Please make an appointment to follow up with your PCP in 1-2 weeks after surgery for evaluation 3 phase, 3-week plan POST OP WEEKS 1-3 1. Lifting/carrying/pushing/pulling limited to less than 5 pounds. 2. Do not sit for longer than 15 minutes at one time. Get up and walk around. Prolonged sitting is NOT advised. If you lay down, see if you can tolerate laying down on you front (belly side) 3. Walk for periods of 15 minutes = 1 mile but no longer; do it multiple times times each day. 4. Ice your low back after activity. POST OP WEEKS 3-6 1. Lifting limited to less than 20 pounds. 2. Do not sit for longer than 30 minutes at a time. Frequently change positions. Use a sit-to stand workstation or take frequent breaks from sitting if you have returned to work. 3. Walk for 30 minutes each day. If possible, do these three or more times a day POST OP WEEKS 6+ At your 6-week appointment we will give you a physical therapy referral to focus on a core stabilization and strengthening program. You should also work on leg & buttock strengthening, hamstring & quadriceps stretching, and continue a low impact aerobic activity program such as swimming, walking, or riding a stationary bicycle. During the initial 6 weeks after your surgery, you are at the highest risk of re-injuring your spine. You should generally avoid BLTs (bending, lifting and twisting combination motions) and follow the above guidelines to reduce the chance of reinjury. You can anticipate post op appointments in our office at approximately 3 weeks and 6 weeks after your surgery. INCISION CARE: If your incision is not draining you do NOT need to cover it with a dressing. Keep your incision clean, dry and intact. In most cases, we apply skin glue, lelo or sutures to the incision at the time of surgery. This will be like a crust or have the appearance of a scab and will fall off in time on its own. The stitches or lelo need to be removed at 3 weeks post op appointment. You may begin to shower 3 days after surgery (this allows the glue to graham well). However, please avoid scrubbing the incision site or peeling off any of the skin glue. This will ensure optimal healing of your incision. Also, during this time avoid soaking the incision area in water - this includes swimming pools, hot tubs or baths. No ointments, lotions or oils on the incision until your surgeon allows. Leave lelo, sutures or glue in place. Neurological dysfunction that comes on suddenly can also be a sign of a stroke. Below some common symptoms of a stroke are listed: B - balance difficulty such as sudden onset walking or leaning to one side - NEW E - eye problem such as sudden double vision or trouble seeing on one side - NEW F - Facial weakness or numbness on one side - NEW A - Arm or leg weakness or numbness on one side - NEW S - Slurred speech or difficulty with word finding - NEW T - Time is BRAIN! Call 911 as soon as you recognize these symptoms Diet: Consume a regular diet rich in vegetables and lean protein such as chicken or fish. You should consume in a ratio of approximately 20% fats|40% carbohydrates|40%protein. Vegetables, sweet potatoes, brown rice or quinoa are examples of good carbohydrates. Chips, white bread, cookies and sweets/sugar are examples of bad carbohydrates. Limit your bad carbs, go wild with good carbs. "Life's Simple 7" Guidelines as per [place] [employer] These will help you reclaim your life after surgery and cellulose insulation helper in your recovery, keeping in mind your restrictions. (1) Get Active. Physical activity can help people lose weight, control high blood pressure and cholesterol, feel emotionally better, and sleep better. (2) Control Cholesterol. Avoid a diet high in saturated fat, trans fat, & cholesterol. Limit whole milk & cream, ice cream, butter, egg yolks, processed meats (like sausage and hot dogs), and fatty meats. Choose healthy foods that are low in saturated fat, trans fat and cholesterol which include: Fruits and vegetables, fiber rich grain products (like whole grain pasta and brown rice), lean meat such as chicken, fish, nuts, seeds, and legumes. (3) Eat Better. Eat small portions. Shop at the grocery with a list and do not stray from it. Tips for a healthy diet include: Limit sodium intake to less than 1500mg daily, avoid prepackaged, processed, and fast foods, choose a diet rich in fruits, vegetables, and whole grain, high fiber foods, and limit saturated & cholesterol in your diet. (4) Manage Blood Pressure. If you have high blood pressure, you should have a cuff at home so that you can check your blood pressure regularly. Be sure you have a good cuff. An arm one is generally better than a wrist one. Bring the cuff to a doctor's appointment to validate that the measurements that your cuff are taking are accurate. Take your blood pressure twice daily when you are sitting down and relaxing. Record the numbers in a log and bring this log with you to your doctors' appointments. (5) Lose Weight if your BMI is above 25. A healthy BMI is between 19-25. To calculate Your BMI, you may use a Standard BMI Calculator on the NIH BMI website: <www.nhlbi.nih.gov/guidelines/obesity/BMI/bmicalc.htm>. Weigh oneself daily. If you are overweight, set a goal to lose weight. A pound a week loss if needed is a good target. (6) Reduce Blood Sugar. Limit foods and liquids with "added sugars." (Added sugars include sucrose, fructose, glucose, maltose, dextrose, high fructose corn syrup, corn syrup, concentrated fruit juice and honey). (7) Stop Smoking. If you smoke, quitting smoking is one of the best things that you can do for your health. Smoking increases your risk of heart attack, stroke, and peripheral vascular disease, which is a build-up of plaque in your arteries. Please discard all the cigarettes and lighters in your house. Have a plan for what you will do when you have the urge to smoke. Direct and second- hand smoke shortens your life as well as the lives of your family, friends and others around you. For your health and the health of those around you, please consider quitting! Proper Bending Body Mechanics: Maintain a wide stance with one foot slightly in front of the other. Keep your back straight. Bend utilizing the strength in your hips and knees. Do not bend at the waist. Maintain the lifted object at your waist-level close to your body. Avoid lifting weight that causes immediately pain or pain anywhere in the body afterwards. Smoking/Nicotine If there was ever one thing that you could do to increase your overall health, decrease your risk of cardiovascular problems by about 39% the second you make the choice, it is to STOP SMOKING. Your body's most instant gratification is the second you stop smoking. We have all heard the studies, read the articles but it is true, smoking is extremely bad for your overall health, and moreover it is detrimental to your bone health. Nicotine, IN ANY FORM, kills bone cells, prevents your body from healing fractures, and significantly prolongs healing after surgery. In spine surgery specifically, it increases your risk of not healing your bones to create a fusion and increases your risk of having a revision surgery due to this up to 60%. I know it is hard. I know it feels impossible. But there are ways. Take control of your life. We are here to help you through it. And when you are ready, ask us and we can direct you to help if you desire. Use the START Plan to Quit Smoking (please visit the Helpguide.org website listed below for more information): S = Set a quit date. Choose a date within the next 2 weeks, so you have enough time to prepare without losing your motivation to quit. If you mainly smoke at work, quit on the weekend, so you have a few days to adjust to the change. T = Tell family, friends, and co-workers that you plan to quit. Let your friends and family in on your plan to quit smoking and tell them you need their support and encouragement to stop. Look for a quit charan who wants to stop smoking as well. You can help each other get through the rough times. A = Anticipate and plan for the challenges you'll face while quitting. Most people who begin smoking again do so within the first 3 months. You can help yourself make it through by preparing ahead for common challenges, such as nicotine withdrawal and cigarette cravings. R = Remove cigarettes and other tobacco products from your home, car, and work. Throw away all your cigarettes (no emergency pack!), lighters, ashtrays, and matches. Wash your clothes and freshen up anything that smells like smoke. Shampoo your car, clean your drapes and carpet, and steam your furniture. T = Talk to your doctor about getting help to quit. Your doctor can prescribe medication to help with withdrawal and suggest other alternatives. If you can't see a doctor, you can get many products over the counter at your local pharmacy or grocery store, including the nicotine patch, nicotine lozenges, and nicotine gum. Resources for Quitting Smoking: <https://www.[place].gov/documents/mdc h/Quit_Tobacco_Resources_for_patients_313480_7.pdf> Supplementation: Take recommended dosages of Vitamin D and Calcium to help fortify your bones and help them to heal. See your health maintenance packet for dosages and recommended levels. DVT/VTE prophylaxis: You will be given compression stockings from the hospital. Wear these daily for the first two weeks after surgery. You may take them off at night. You may be prescribed a medication to help thin your blood. Take this as directed. If you are not prescribed this medication, early and frequent ambulation has been shown to be the best prophylaxis to deep vein thrombosis and sequelae related to this event. Assessment: 1. Delayed healing posterior neck wound Procedures: 1. Incision and drainage with excisional debridement skin soft tissue fascia posterior neck 10 cm x 5 cm x 2 cm using the following -skin knife was used to excise tract skin and soft tissue - curet was used to scrape edges and remove foreign material 2. Complex closure 3 layered posterior neck Patient Condition at Discharge: Good Plan - Discharge Summary Discharge Rx Participant: Yes New Discharge Prescriptions: New cefaDROXiL [Duricef] 500 mg PO Q12HR 5 Days #10 cap Sennosides/Docusate Sodium [Senna Plus 8.6-50 mg Softgel] 1 each PO DAILY #20 capsule Meloxicam [Mobic] 15 mg PO DAILY #14 tablet Cyclobenzaprine [Flexeril] 10 mg PO TID #21 tab No Action Butalb/APAP/Caff 50-325-40Mg [Fioricet 50-325-40] 1 tab PO BID Albuterol Inhaler [Ventolin Hfa Inhaler] 1 puff INHALATION DAILY PRN PRN Reason: Dyspnea Ibuprofen [Motrin] 800 mg PO Q8H PRN PRN Reason: Pain Cyclobenzaprine [Flexeril] 10 mg PO TID #90 tab Gabapentin [Neurontin] 800 mg PO TID #90 tab oxyCODONE-APAP 10-325MG [Percocet 10-325 mg] 1 tab PO Q4H [place] Complete Vitamin 1 tab PO DAILY Discharge Medication List Butalb/APAP/Caff 50-325-40Mg [Fioricet 50-325-40] 1 tab PO BID 11/03/17 [Hi story] Albuterol Inhaler [Ventolin Hfa Inhaler] 1 puff INHALATION DAILY PRN 05/19/21 [History] Ibuprofen [Motrin] 800 mg PO Q8H PRN 09/23/21 [History] Cyclobenzaprine [Flexeril] 10 mg PO TID #90 tab 09/25/21 [Rx] Gabapentin [Neurontin] 800 mg PO TID #90 tab 09/25/21 [Rx] Flinestone Complete Vitamin 1 tab PO DAILY 05/03/22 [History] oxyCODONE-APAP 10-325MG [Percocet 10-325 mg] 1 tab PO Q4H 05/03/22 [History] Cyclobenzaprine [Flexeril] 10 mg PO TID #21 tab 05/12/22 [Rx] Meloxicam [Mobic] 15 mg PO DAILY #14 tablet 05/12/22 [Rx] Sennosides/Docusate Sodium [Senna Plus 8.6-50 mg Softgel] 1 each PO DAILY #20 capsule 05/12/22 [Rx] cefaDROXiL [Duricef] 500 mg PO Q12HR 5 Days #10 cap 05/12/22 [Rx] Follow up Appointment(s)/Referral(s): Lazaro Phillips MD [Primary Care Provider] - 1 Week [facility], [NON-STAFF] - As Needed [facility], [REFERRING] - As Needed Jonathan Hudson DO [Doctor of Osteopathic Medicine] - 05/21/22 9:20 am Patient Instructions/Handouts: Chronic Pain (DC), Narcotic Safety (DC), PICC (Peripherally Inserted Central Catheter) (DC) Activity/Diet/Wound Care/Special Instructions: Wash hands with soap and water prior to dressing changes Change dressing daily, keep clean and dry Follow up with Dr. Hudson in 2 weeks Follow up with Dr. Lua as scheduled Spine Discharge and Recovery Instructions Date of Surgery: 05/06/2022 Diagnosis: 1. Delayed healing posterior neck wound Procedure: 1. Incision and drainage with excisional debridement skin soft tissue fascia posterior neck 10 cm x 5 cm x 2 cm using the following -skin knife was used to excise tract skin and soft tissue - curet was used to scrape edges and remove foreign material 2. Complex closure 3 layered posterior neck Medications: See medication list All medication refills should be obtained through your primary care doctor or your clinic spine surgeon. Please discuss prescription refills at your follow up appointment. Do not call the hospital for medication refills. Dressing: Leave your dressing in place for a total of 5 days post operatively. Then you may remove your dressing and leave open to air. Keep the area clean and if not able to keep area clean, then cover with sterile gauze and tape. Showering: You may shower 3 days after your procedure allowing soap and water to run over incision. Do not scrub. Do not soak. Blot dry. Follow up: Please confirm a follow up appointment with your surgeon 3 weeks post operatively. Please make an appointment to follow up with your PCP in 1-2 weeks after surgery for evaluation 3 phase, 3-week plan POST OP WEEKS 1-3 1. Lifting/carrying/pushing/pulling limited to less than 5 pounds. 2. Do not sit for longer than 15 minutes at one time. Get up and walk around. Prolonged sitting is NOT advised. If you lay down, see if you can tolerate laying down on you front (belly side) 3. Walk for periods of 15 minutes = 1 mile but no longer; do it multiple times times each day. 4. Ice your low back after activity. POST OP WEEKS 3-6 1. Lifting limited to less than 20 pounds. 2. Do not sit for longer than 30 minutes at a time. Frequently change positions. Use a sit-to stand workstation or take frequent breaks from sitting if you have returned to work. 3. Walk for 30 minutes each day. If possible, do these three or more times a day POST OP WEEKS 6+ At your 6-week appointment we will give you a physical therapy referral to focus on a core stabilization and strengthening program. You should also work on leg & buttock strengthening, hamstring & quadriceps stretching, and continue a low impact aerobic activity program such as swimming, walking, or riding a stationary bicycle. During the initial 6 weeks after your surgery, you are at the highest risk of re-injuring your spine. You should generally avoid BLTs (bending, lifting and twisting combination motions) and follow the above guidelines to reduce the chance of reinjury. You can anticipate post op appointments in our office at approximately 3 weeks and 6 weeks after your surgery. INCISION CARE: If your incision is not draining you do NOT need to cover it with a dressing. Keep your incision clean, dry and intact. In most cases, we apply skin glue, lelo or sutures to the incision at the time of surgery. This will be like a crust or have the appearance of a scab and will fall off in time on its own. The stitches or lelo need to be removed at 3 weeks post op appointment. You may begin to shower 3 days after surgery (this allows the glue to graham well). However, please avoid scrubbing the incision site or peeling off any of the skin glue. This will ensure optimal healing of your incision. Also, during this time avoid soaking the incision area in water - this includes swimming pools, hot tubs or baths. No ointments, lotions or oils on the incision until your surgeon allows. Leave lelo, sutures or glue in place. Neurological dysfunction that comes on suddenly can also be a sign of a stroke. Below some common symptoms of a stroke are listed: B - balance difficulty such as sudden onset walking or leaning to one side - NEW E - eye problem such as sudden double vision or trouble seeing on one side - NEW F - Facial weakness or numbness on one side - NEW A - Arm or leg weakness or numbness on one side - NEW S - Slurred speech or difficulty with word finding - NEW T - Time is BRAIN! Call 911 as soon as you recognize these symptoms Diet: Consume a regular diet rich in vegetables and lean protein such as chicken or fish. You should consume in a ratio of approximately 20% fats|40% carbohydrates|40%protein. Vegetables, sweet potatoes, brown rice or quinoa are examples of good carbohydrates. Chips, white bread, cookies and sweets/sugar are examples of bad carbohydrates. Limit your bad carbs, go wild with good carbs. "Life's Simple 7" Guidelines as per [place] [employer] These will help you reclaim your life after surgery and cellulose insulation helper in your recovery, keeping in mind your restrictions. (1) Get Active. Physical activity can help people lose weight, control high blood pressure and cholesterol, feel emotionally better, and sleep better. (2) Control Cholesterol. Avoid a diet high in saturated fat, trans fat, & cholesterol. Limit whole milk & cream, ice cream, butter, egg yolks, processed meats (like sausage and hot dogs), and fatty meats. Choose healthy foods that are low in saturated fat, trans fat and cholesterol which include: Fruits and vegetables, fiber rich grain products (like whole grain pasta and brown rice), lean meat such as chicken, fish, nuts, seeds, and legumes. (3) Eat Better. Eat small portions. Shop at the grocery with a list and do not stray from it. Tips for a healthy diet include: Limit sodium intake to less than 1500mg daily, avoid prepackaged, processed, and fast foods, choose a diet rich in fruits, vegetables, and whole grain, high fiber foods, and limit saturated & cholesterol in your diet. (4) Manage Blood Pressure. If you have high blood pressure, you should have a cuff at home so that you can check your blood pressure regularly. Be sure you have a good cuff. An arm one is generally better than a wrist one. Bring the cuff to a doctor's appointment to validate that the measurements that your cuff are taking are accurate. Take your blood pressure twice daily when you are sitting down and relaxing. Record the numbers in a log and bring this log with you to your doctors' appointments. (5) Lose Weight if your BMI is above 25. A healthy BMI is between 19-25. To calculate Your BMI, you may use a Standard BMI Calculator on the NIH BMI website: <www.nhlbi.nih.gov/guidelines/obesity/BMI/bmicalc.htm>. Weigh oneself daily. If you are overweight, set a goal to lose weight. A pound a week loss if needed is a good target. (6) Reduce Blood Sugar. Limit foods and liquids with "added sugars." (Added sugars include sucrose, fructose, glucose, maltose, dextrose, high fructose corn syrup, corn syrup, concentrated fruit juice and honey). (7) Stop Smoking. If you smoke, quitting smoking is one of the best things that you can do for your health. Smoking increases your risk of heart attack, stroke, and peripheral vascular disease, which is a build-up of plaque in your arteries. Please discard all the cigarettes and lighters in your house. Have a plan for what you will do when you have the urge to smoke. Direct and second- hand smoke shortens your life as well as the lives of your family, friends and others around you. For your health and the health of those around you, please consider quitting! Proper Bending Body Mechanics: Maintain a wide stance with one foot slightly in front of the other. Keep your back straight. Bend utilizing the strength in your hips and knees. Do not bend at the waist. Maintain the lifted object at your waist-level close to your body. Avoid lifting weight that causes immediately pain or pain anywhere in the body afterwards. Smoking/Nicotine If there was ever one thing that you could do to increase your overall health, decrease your risk of cardiovascular problems by about 39% the second you make the choice, it is to STOP SMOKING. Your body's most instant gratification is the second you stop smoking. We have all heard the studies, read the articles but it is true, smoking is extremely bad for your overall health, and moreover it is detrimental to your bone health. Nicotine, IN ANY FORM, kills bone cells, prevents your body from healing fractures, and significantly prolongs healing after surgery. In spine surgery specifically, it increases your risk of not healing your bones to create a fus ion and increases your risk of having a revision surgery due to this up to 60%. I know it is hard. I know it feels impossible. But there are ways. Take control of your life. We are here to help you through it. And when you are ready, ask us and we can direct you to help if you desire. Use the START Plan to Quit Smoking (please visit the Helpguide.org website listed below for more information): S = Set a quit date. Choose a date within the next 2 weeks, so you have enough time to prepare without losing your motivation to quit. If you mainly smoke at work, quit on the weekend, so you have a few days to adjust to the change. T = Tell family, friends, and co-workers that you plan to quit. Let your friends and family in on your plan to quit smoking and tell them you need their support and encouragement to stop. Look for a quit charan who wants to stop smoking as well. You can help each other get through the rough times. A = Anticipate and plan for the challenges you'll face while quitting. Most people who begin smoking again do so within the first 3 months. You can help yourself make it through by preparing ahead for common challenges, such as nicotine withdrawal and cigarette cravings. R = Remove cigarettes and other tobacco products from your home, car, and work. Throw away all your cigarettes (no emergency pack!), lighters, ashtrays, and matches. Wash your clothes and freshen up anything that smells like smoke. Shampoo your car, clean your drapes and carpet, and steam your furniture. T = Talk to your doctor about getting help to quit. Your doctor can prescribe medication to help with withdrawal and suggest other alternatives. If you can't see a doctor, you can get many products over the counter at your local pharmacy or grocery store, including the nicotine patch, nicotine lozenges, and nicotine gum. Resources for Quitting Smoking: <https://www.[place].gov/documents/[facility]/Quit_Tobacco_Resources_for_patients_31 3480_7.pdf> Supplementation: Take recommended dosages of Vitamin D and Calcium to help fortify your bones and help them to heal. See your health maintenance packet for dosages and recommend ed levels. DVT/VTE prophylaxis: You will be given compression stockings from the hospital. Wear these daily for the first two weeks after surgery. You may take them off at night. You may be prescribed a medication to help thin your blood. Take this as directed. If you are not prescribed this medication, early and frequent ambulation has been shown to be the best prophylaxis to deep vein thrombosis and sequelae related to this event. Discharge Disposition: HOME WITH HOME HEALTH SERVICES
[2022-05-12] MEDS ORDERED: FUROSEMIDE 10 MG/ML 4 ML VIAL IV STA (10:49)
--- NOTE | 2022-05-12 11:19 | P.PN ---
Subjective Progress Note Date: 05/12/22 HISTORY OF PRESENT ILLNESS: This is a 41-year-old female Seen Today for the First Time with a P rior Medical History Significant for Significant Degenerative Disc Disease of the Cervical Spine Developed to Have a Significant Pain and Weakness in Both Upper Extremities Back in 2015 2016 When She Was Seen by Her Neurologist and She Underwent Epidural Injections with Myofascial Injection without Any Relief She Was Referred to See One of the Neurosurgeon at [facility] at that time she underwent anterior cervical discectomy with fusion of C5 and C7 back in 2018 initial procedure did not hold and the patient did up for second procedure back in 2019 with fusion she developed to have a significant staph infection at that time she went to [facility] in [place] and she underwent incision and drainage and she was hospitalized for 1. Family due to staph infection with sepsis 7 month later patient continued to have significant problem in her neck and she was complaining of increased pain and discomfort in the neck along with significant weakness and numbness in both upper extremities she was seen in consultation by Dr. Goodman olvera and she underwent C2 to T1 discectomy with fusion that was 05/26/2021 where she had posterior cervical discectomy with fusion patient developed to have a significant infection in April and now in April again so she underwent posterior incision and drainage and resection of the fascia with complex 3 layer closure I was asked as the patient for medical management. Patient also reported history of systemic lupus erythematosus she was on methotrexate but she was taken off with due to side effects she also reported history of rheumatoid arthritis I do not see any evidence of any synovitis at the time of her evaluation. 05/07: Patient is resting in bed and appears to be somewhat uncomfortable with complaints of pain in the posterior neck area. Prevana wound VAC is in place. Patient is scheduled for PICC line insertion today with plan for IV antibiotics at the time of discharge. Wound cultures are in progress and patient is followed by infectious disease. Doubt that we will be able to make any arrangements for discharge until early next week. 05/08: Patient is sitting up in bed in apparent distress, she has her wound VAC removed because it was leaking, she did have cultures results are pending at the time of dictation, she was started on Ancef 2 g IV piggyback every 8 hours, infectious disease is following along with the spine surgery, continue current pain management as outlined by spine surgery, continue with incentive spirometer, increase activity, patient is medically stable for discharge home when deemed appropriate by ID and spine surgery she already has a PICC line in place. 05/09: Patient sitting up in bed in no apparent distress, she has no issues last night, she continues to be on gabapentin 800 mg orally 3 times every day, she continues to be on Dilaudid for pain control, she continues to be on cyclobenzaprine 10 mg for muscle relaxer, increase activity, patient is tolerating her treatment very well, awaiting the final result of the culture for the patient be discharged home. 05/10: Wound culture is in process. Blood culture no growth at 48 hours. Patient remains afebrile, heart rate in the 70s, blood pressure 101/63, pulse ox 97% on room air. Dr. Lua is following closely and patient is continued on Kefzol. PICC line was placed last week with anticipation of IV antibiotics at the time of discharge from the hospital. Patient continues to complain of significant pain and has been continued on Flexeril, IV Dilaudid, meloxicam, Percocet, gabapentin. Patient is eating well with no nausea or vomiting. Most likely patient will be ready for discharge tomorrow. 05/11: Orthopedics is planning to change her dressing tomorrow prior to discharge. Patient continues to have difficulty managing pain control. Ultrasound of the bilateral lower extremities completed yesterday was negative for DVT. Patient is continued on IV Kefzol. Wound culture is showing strep agalactiae group B. Blood culture no growth after 72 hours. Patient remains afebrile, heart rate 84, blood pressure 104/70, pulse ox 99% on room air. Repeat blood work completed yesterday revealed WBC of 5, hemoglobin 10.4, platelet count 328. Sodium 136, potassium 5, chloride 102, CO2 25, BUN 13 creatinine 0.7. C-reactive protein is 0.4. 05/12: Patient has significant edema to the bilateral lower extremities. Lasix will be changed to IV 40 mg daily and repeat blood work ordered for tomorrow. Ultrasound bilateral lower extremities will be repeated to rule out DVT. Humaiar ent is scheduled for discharge home to day but we are requesting the patient stay another 24 hours until edema is improved and monitor lab work. REVIEW OF SYSTEMS: Constitutional: No documented fever, no chills, no night sweats. No weight change. No weakness, fatigue or lethargy. No daytime sleepiness. HEENT: No headache. No blurred vision or double vision, no loss of vision. No loss of Hearing, no ringing in the ears, no dizziness. No nasal drainage or congestion. No epistaxis. No sore throat. Lungs: No shortness of breath, no cough, no sputum production. No wheezing. Reports dyspnea with activity. Cardiovascular: No chest pain, bilateral lower extremity edema. No palpitations . No paroxysmal nocturnal dyspnea. No orthopnea. No lightheadedness or dizziness. No syncopal episodes. Abdominal: Denies abdominal pain. No nausea, vomiting. No diarrhea. No constipation. No bloody or tarry stools reports loss of appetite. Genitourinary: No dysuria, increased frequency, urgency. No urinary retention. Musculoskeletal: No myalgias. No muscle weakness, no gait dysfunction, no frequent falls. No back pain. Positive for neck pain. Integumentary: No wounds, no lesions. No rash or pruritus. No unusual bruising. No change in hair or nails. Neurologic: No aphasia. No facial droop. No change in mentation. No head injury. No headache. No paralysis. No paresthesia. Psychiatric: No depression. No anxiety. No mood swings. Endocrine: No abnormal blood sugars. No weight change. PHYSICAL EXAMINATION: General: 41-year-old female laying down in bed in no apparent distress HEENT: Head is atraumatic, normocephalic, pupils were equal round reactive to light and recommendation, extraocular muscle movement were intact, sclera nonicteric, conjunctivae were pale, mucous membranes of the mouth are somewhat dry. Neck: Supple, no JVP, normal carotid upstroke bilaterally, no lymphadenopathy. Chest: Decreased breath sounds at the bases, few rhonchi, no expiratory wheezes, no chest wall tenderness, no intercostal retractions. Heart: First heart sound is normal, second heart sounds normal there is no gallop or murmur. Abdomen: Soft, nontender, nondistended, positive bowel sounds, no hepatomegaly. Extremities: There is 2+ edema no calf tenderness DP +2 bilaterally. Neurologic examination: Patient is awake alert and oriented X 3, cranial nerves II-12 appear grossly intact, muscle power were 5 out of 5 in upper extremities and 5 out of 5 in bilateral lower extremities, deep tendon reflexes normal bilaterally. ASSESSMENT AND PLAN: 1. postoperative day # 6 status post incision and drainage of wound with resection of the fascia and complex 3 layer closure. Cultures in process, patient was started on IV antibiotic in the form of Ancef 2 g IV piggyback every 8 hours, infectious disease and spine surgery are following, we'll continue to monitor the patient very closely. The patient was instructed to use incentive spirometer to reduce the incidence of atelectasis and hospital-acquired pneumonia, early and relation to reduce venous thromboembolic competitions. Continue current pain regimen as per spine surgery. 2. Significant history of degenerative disc disease of the cervical spine with multiple surgical intervention that is competent located by staph infection according to the patient was not MRSA. Continue IV antibiotic, continue current pain management, continue current treatment as per spine surgery and infectious disease. Resume the patient gabapentin 800 mg orally 3 times every day. 3. Chronic tobacco use and dependence. Patient was counseled about smoking cessation and increased risk of CAD, CVA and malignancy. 4. Chronic marijuana use and dependence. Counseled against its use. 5. Reported history of SLE and rheumatoid arthritis patient does not appear to have an active diagnoses. 6. DVT prophylaxis. Early ambulation. 7. Constipation. Continue with Senokot and MiraLAX and add lactulose 20 g orally twice every day. 8. Lower extremity edema. Ultrasound will be repeated to rule out DVT. Lasix changed to IV 40 mg daily and repeat electrolytes and magnesium in the morning. Impression and plan of care have been directed as dictated by the signing physician. Bessy Manjarrez nurse practitioner acting as scribe for signing physician. Objective - Vital Signs Vital signs: Vital Signs Temp 97.2 F L 05/12/22 07:56 Pulse 78 05/12/22 07:56 Resp 19 05/12/22 07:56 BP 128/86 05/12/22 07:56 Pulse Ox 100 05/12/22 07:56 FiO2 Intake & Output 05/11/22 05/12/22 05/12/22 18:59 06:59 18:59 Weight 59.5 kg Other: # Voids 4 - Labs CBC & Chem 7: 05/10/22 06:13 05/10/22 06:13 Labs: Microbiology - Last 24 Hours (Table) 05/06/22 14:30 Anaerobic Culture - Final Neck 05/06/22 14:30 Gram Stain - Final Neck Wound Culture - Final Strep agalactiae - (group b) 05/08/22 07:03 Blood Culture - Preliminary Blood No Growth after 72 hours
--- NOTE | 2022-05-12 15:34 | US ---
EXAMINATION TYPE: US venous doppler duplex LE DATE OF EXAM: 05/12/2022 1:07 PM COMPARISON: NONE CLINICAL HISTORY: significant edema, yes to repeat US. Edema bilateral legs SIDE PERFORMED: bilateral TECHNIQUE: The lower extremity deep venous system is examined utilizing real time linear array sonog daniel with graded compression, doppler sonography and color-flow sonography. VESSELS IMAGED: Common Femoral Vein Deep Femoral Vein Greater Saphenous Vein * Femoral Vein Popliteal Vein Small Saphenous Vein * Proximal Calf Veins (* superficial vessels) Right Leg: No evidence of DVT. Multiple lymph nodes right groin, largest = 2.8cm Left Leg: No evidence of DVT. Multiple lymph nodes left groin, largest = 2.4cm IMPRESSION: 1. Bilateral lower extremity ultrasound negative for deep venous thrombosis. 2. Note is made of bilateral inguinal adenopathy.
[2022-05-12] MEDS ORDERED: CYCLOBENZAPRINE 10 MG TAB PO PRN (20:58)
[2022-05-12] MEDS ORDERED: methocarbamoL 500 MG TAB PO SCH (22:00)
[2022-05-12] MEDS: LACTATED RINGERS 1,000 ML IV SCH (22:48)
[2022-05-13] MEDS: oxyCODONE-APAP 10-325MG 1 EACH TAB PO SCH ×4 (01:04→12:04)
[2022-05-13] MEDS: MELOXICAM 7.5 MG TAB PO SCH (04:33)
[2022-05-13] MEDS: GABAPENTIN 400 MG CAP PO SCH (04:35)
--- NOTE | 2022-05-13 08:40 | P.PN ---
Subjective Progress Note Date: 05/13/22 Principal diagnosis: Wound drainage of posterior cervical incision Patient seen and examined at bedside. Patient was resting comfortably in bed. Surgical dressing CDI. Patient will be going home on IV antibiotics x4 weeks. She can be discharged once cleared from medicine. Patient has been afebrile, no nausea/vomiting, or chest pain. Objective - Vital Signs Vital signs: Vital Signs Temp 98.3 F 05/13/22 02:00 Pulse 84 05/13/22 02:00 Resp 17 05/13/22 02:00 BP 93/56 05/13/22 02:00 Pulse Ox 98 05/13/22 02:00 FiO2 Intake & Output 05/12/22 05/13/22 05/13/22 18:59 06:59 18:59 Other: Voiding Method Toilet # Voids 8 - Exam Physical Examination General: The patient is awake and alert, in no acute distress Skin: Skin is warm and dry with no obvious rashes or lesions. Hairy patches absent, no dorsal skin dimples, no cafe au lait spots. Surgical incision to posterior cervical, dressing CDI Eye: Pupils are equal, round and reactive to light, extra-ocular movements are intact; there is normal conjunctiva bilaterally. Neck: The neck is supple, there is no tenderness and ROM intact. Cardiovascular: There is a regular rate and rhythm. No murmur, rub or gallop is appreciated. Slight edema to BLE. Respiratory: Lungs are clear to auscultation, respirations are non-labored, breath sounds are equal. Gastrointestinal: Soft, non-distended, non-tender abdomen. Back: There is no tenderness to palpation in the midline, paralumbar, parathoracic or buttocks region. There is no obvious deformity . Musculoskeletal: ROM limited secondary to pain and stiffness from surgical procedure. Muscle strength in all major muscle groups of bilateral upper extremities 5/5, bilateral lower extremities 5/5. Neurological: CN 2-12 intact. There are no obvious motor or sensory deficits. Movement and coordination equal and intact. Sensory exam to light touch intact C5-T1 and intact from L2-S1. Reflexes 2/4 in bilateral upper and lower extremities. Negative Hoffmans, babinski, and clonus signs. Psychiatric: Cooperative, appropriate mood & affect, normal judgment. - Labs CBC & Chem 7: 05/10/22 06:13 05/10/22 06:13 Labs: Microbiology - Last 24 Hours (Table) 05/08/22 07:03 Blood Culture - Preliminary Blood No Growth after 96 hours Assessment and Plan Assessment: Post Op Day 7: Cervical Irrigation and Debridement of wound Plan: -Appreciate business analyst consultant and team management. -Activity: Ambulate QID, OOB all meals, up and about, limit lifting bending twisting to less than 5 lbs. -Daily PT/OT, increase ambulation strength and balance. -Pain control: Adequate at this time -Meds: reviewed -GI ppx: senna, Miralax -DVT PPX: Heparin -Hygiene: Shower today. Do not get incision wet, maintain CDI. Surgical dressing to be changed prior to discharge -Encourage IS 10x/hr -Dispo: Anticipate discharge home with homecare today *I reviewed and discussed this case with my attending Dr. Hudson, whom has reviewed this chart and films and is in agreement with assessment and plan of care as outlined above. I have personally seen and examined the patient, performed the documentation and the assessment and plan as written. Number of minutes spent on the visit: 15m.
[2022-05-13 08:55] LABS: HCT 35.4 % (37.2-46.3); HGB 11.2 g/dL (12.0-15.0); MCH 31.1 pg (27.0-32.0); MCHC 31.6 g/dL (32.0-37.0); MCV 98.3 fL (80.0-97.0); NRBC Per 100 WBC 0 /100 WBCS (0.0-0.0); Platelet Count 326 X 10*3/uL (140-440); RDW 16.5 % (11.5-14.5); WBC 6.45 X 10*3/uL (4.50-10.00)
[2022-05-13] MEDS: polyethylene glycoL 3350 17 GM POWD.PACK PO SCH (08:55)
[2022-05-13] MEDS: LACTULOSE 20 GM/30 ML CUP PO SCH (08:55)
[2022-05-13] MEDS: POTASSIUM CHLORIDE ER 20 MEQ TAB.ER PO SCH (08:55)
[2022-05-13] MEDS: BUTALB/APAP/CAFF 50-325-40MG TAB PO SCH (08:55)
[2022-05-13] MEDS: CYCLOBENZAPRINE 10 MG TAB PO SCH (08:55)
[2022-05-13] MEDS ORDERED: FUROSEMIDE 10 MG/ML 4 ML VIAL IV SCH (09:00)
[2022-05-13 09:17] VITALS: BP 106/66; TEMP 97.3
[2022-05-13 09:34] LABS: ALT 23 U/L (8-44); AST 40 U/L (13-35); African American GFR (CKD) 105.4 (60.0-200.0); Albumin/Globulin Ratio 1.67 (1.60-3.17); Alkaline Phosphatase 95 U/L (41-126); BUN/Creat Ratio 16.75 Ratio (12.00-20.00); Blood Urea Nitrogen 13.4 mg/dL (9.0-27.0); Calcium 9.3 mg/dL (8.7-10.3); Carbon Dioxide 24.8 mmol/L (20.0-27.5); Chloride 98 mmol/L (96-109); Globulin 2.4 g/dL (1.6-3.3); Glucose 79 mg/dL (70-110); Non-African American GFR(CKD) 90.9 (60.0-200.0); Potassium 5.1 mmol/L (3.5-5.5); Sodium 134 mmol/L (135-145); Total Bilirubin <0.15 mg/dL (0.30-1.20); Total Protein 6.4 g/dL (6.2-8.2)
[2022-05-13 10:18] VITALS: PULSE 84; RESP 14
--- NOTE | 2022-05-13 10:58 | P.PN ---
Subjective Progress Note Date: 05/12/22 Principal diagnosis: Cervical spine wound infection Patient is a 41-year-old female with a past medical history significant for C2-T1 posterior lateral fusion with C3-C7 laminectomy in this patient seem to have a problem with the postop drainage from the incision and di d have a previous revision in October 2021, cultures at that time negative now admitted to the hospital with draining wound and status post repeat revision. On today's evaluation that is 05/12/2022, the patient denies any fever or chills, patient pain to the neck area is currently controlled, the patient denies chest pain shortness of breath or cough. Denies having any nausea or vomiting no abdominal pain no diarrhea Objective - Vital Signs Vital signs: Vital Signs Temp 97.8 F 05/12/22 14:00 Pulse 71 05/12/22 14:00 Resp 17 05/12/22 14:00 BP 142/86 05/12/22 14:00 Pulse Ox 100 05/12/22 14:00 FiO2 Intake & Output 05/11/22 05/12/22 05/12/22 18:59 06:59 18:59 Weight 59.5 kg Other: # Voids 4 - Exam GENERAL DESCRIPTION: Middle-age female lying in bed in no distress Posterior neck incision stitches are intactin surrounding swelling redness or drainage RESPIRATORY SYSTEM: Unlabored breathing , decreased breath sounds at bases HEART: S1 S2 regular rate and rhythm , ABDOMEN: Soft , no tenderness EXTREMITIES: No edema feet - Labs CBC & Chem 7: 05/13/22 05:44 05/13/22 05:44 Labs: Microbiology - Last 24 Hours (Table) 05/08/22 07:03 Blood Culture - Preliminary Blood No Growth after 96 hours 05/06/22 14:30 Anaerobic Culture - Final Neck 05/06/22 14:30 Gram Stain - Final Neck Wound Culture - Final Strep agalactiae - (group b) Assessment and Plan (1) Disruption of external operation (surgical) wound, not elsewhere classified, initial encounter Current Visit: Yes Status: Acute Code(s): T81.31XA - DISRUPTION OF EXTERNAL OPERATION (SURGICAL) WOUND, NEC, INIT SNOMED Code(s): 766778394023296 Plan: 1patient with postop cervical incision drainage in this patient who did have a previous revision and debridement in October 2021 with negative cultures at that point no did have a repeat revision done 05/06/2022, cultures are currently pending she did have normal CRP and a sed rate as well as pro-calcitonin 2patient has shown clinical improvement local cultures have been finalized Streptococcus agalactiae patient to continue with the cefazolin and plan is for 2-4 weeks on discharge and close outpatient follow-up Time with Patient: Less than 30
--- NOTE | 2022-05-13 17:05 | P.PN ---
Subjective Progress Note Date: 05/13/22 HISTORY OF PRESENT ILLNESS: This is a 41-year-old female Seen Today for the First Time with a P rior Medical History Significant for Significant Degenerative Disc Disease of the Cervical Spine Developed to Have a Significant Pain and Weakness in Both Upper Extremities Back in 2015 2016 When She Was Seen by Her Neurologist and She Underwent Epidural Injections with Myofascial Injection without Any Relief She Was Referred to See One of the Neurosurgeon at [facility] at that time she underwent anterior cervical discectomy with fusion of C5 and C7 back in 2018 initial procedure did not hold and the patient did up for second procedure back in 2019 with fusion she developed to have a significant staph infection at that time she went to [facility] in [place] and she underwent incision and drainage and she was hospitalized for 1. Family due to staph infection with sepsis 7 month later patient continued to have significant problem in her neck and she was complaining of increased pain and discomfort in the neck along with significant weakness and numbness in both upper extremities she was seen in consultation by Dr. Goodman olvera and she underwent C2 to T1 discectomy with fusion that was 05/26/2021 where she had posterior cervical discectomy with fusion patient developed to have a significant infection in April and now in April again so she underwent posterior incision and drainage and resection of the fascia with complex 3 layer closure I was asked as the patient for medical management. Patient also reported history of systemic lupus erythematosus she was on methotrexate but she was taken off with due to side effects she also reported history of rheumatoid arthritis I do not see any evidence of any synovitis at the time of her evaluation. 05/07: Patient is resting in bed and appears to be somewhat uncomfortable with complaints of pain in the posterior neck area. Prevana wound VAC is in place. Patient is scheduled for PICC line insertion today with plan for IV antibiotics at the time of discharge. Wound cultures are in progress and patient is followed by infectious disease. Doubt that we will be able to make any arrangements for discharge until early next week. 05/08: Patient is sitting up in bed in apparent distress, she has her wound VAC removed because it was leaking, she did have cultures results are pending at the time of dictation, she was started on Ancef 2 g IV piggyback every 8 hours, infectious disease is following along with the spine surgery, continue current pain management as outlined by spine surgery, continue with incentive spirometer, increase activity, patient is medically stable for discharge home when deemed appropriate by ID and spine surgery she already has a PICC line in place. 05/09: Patient sitting up in bed in no apparent distress, she has no issues last night, she continues to be on gabapentin 800 mg orally 3 times every day, she continues to be on Dilaudid for pain control, she continues to be on cyclobenzaprine 10 mg for muscle relaxer, increase activity, patient is tolerating her treatment very well, awaiting the final result of the culture for the patient be discharged home. 05/10: Wound culture is in process. Blood culture no growth at 48 hours. Patient remains afebrile, heart rate in the 70s, blood pressure 101/63, pulse ox 97% on room air. Dr. Lua is following closely and patient is continued on Kefzol. PICC line was placed last week with anticipation of IV antibiotics at the time of discharge from the hospital. Patient continues to complain of significant pain and has been continued on Flexeril, IV Dilaudid, meloxicam, Percocet, gabapentin. Patient is eating well with no nausea or vomiting. Most likely patient will be ready for discharge tomorrow. 05/11: Orthopedics is planning to change her dressing tomorrow prior to discharge. Patient continues to have difficulty managing pain control. Ultrasound of the bilateral lower extremities completed yesterday was negative for DVT. Patient is continued on IV Kefzol. Wound culture is showing strep agalactiae group B. Blood culture no growth after 72 hours. Patient remains afebrile, heart rate 84, blood pressure 104/70, pulse ox 99% on room air. Repeat blood work completed yesterday revealed WBC of 5, hemoglobin 10.4, platelet count 328. Sodium 136, potassium 5, chloride 102, CO2 25, BUN 13 creatinine 0.7. C-reactive protein is 0.4. 05/12: Patient has significant edema to the bilateral lower extremities. Lasix will be changed to IV 40 mg daily and repeat blood work ordered for tomorrow. Ultrasound bilateral lower extremities will be repeated to rule out DVT. Humaira ent is scheduled for discharge home to day but we are requesting the patient stay another 24 hours until edema is improved and monitor lab work. 05/13: Patient's lower extremity edema significantly improved. She is being discharged at the time of evaluation. Patient denies any new concerns at this time. Did mention the results of the repeat her extremity ultrasound which was negative for DVT but also showed bilateral inguinal adenopathy. This will be further discussed at her appointment in the office. An appointment has been set up for next week. Dr. Lua has planned for Kefzol IV for 28 days. CBC is unremarkable. Electrolytes and renal function are normal. Magnesium 2.0. REVIEW OF SYSTEMS: Constitutional: No documented fever, no chills, no night sweats. No weight change. No weakness, fatigue or lethargy. No daytime sleepiness. HEENT: No headache. No blurred vision or double vision, no loss of vision. No loss of Hearing, no ringing in the ears, no dizziness. No nasal drainage or congestion. No epistaxis. No sore throat. Lungs: No shortness of breath, no cough, no sputum production. No wheezing. Reports dyspnea with activity. Cardiovascular: No chest pain, bilateral lower extremity edema. No palpitations. No paroxysmal nocturnal dyspnea. No orthopnea. No lightheadedness or dizziness. No syncopal episodes. Abdominal: Denies abdominal pain. No nausea, vomiting. No diarrhea. No constipation. No bloody or tarry stools reports loss of appetite. Genitourinary: No dysuria, increased frequency, urgency. No urinary retention. Musculoskeletal: No myalgias. No muscle weakness, no gait dysfunction, no frequent falls. No back pain. Positive for neck pain. Integumentary: No wounds, no lesions. No rash or pruritus. No unusual bruising. No change in hair or nails. Neurologic: No aphasia. No facial droop. No change in mentation. No head injury. No headache. No paralysis. No paresthesia. Psychiatric: No depression. No anxiety. No mood swings. Endocrine: No abnormal blood sugars. No weight change. PHYSICAL EXAMINATION: General: 41-year-old female laying down in bed in no apparent distress HEENT: Head is atraumatic, normocephalic, pupils were equal round reactive to light and recommendation, extraocular muscle movement were intact, sclera nonicteric, conjunctivae were pale, mucous membranes of the mouth are somewhat dry. Neck: Supple, no JVP, normal carotid upstroke bilaterally, no lymphadenopathy. Chest: Decreased breath sounds at the bases, few rhonchi, no expiratory wheezes, no chest wall tenderness, no intercostal retractions. Heart: First heart sound is normal, second heart sounds normal there is no gallop or murmur. Abdomen: Soft, nontender, nondistended, positive bowel sounds, no hepatomegaly. Extremities: There is 2+ edema no calf tenderness DP +2 bilaterally. Neurologic examination: Patient is awake alert and oriented X 3, cranial nerves II-12 appear grossly intact, muscle power were 5 out of 5 in upper extremities and 5 out of 5 in bilateral lower extremities, deep tendon reflexes normal bilat erally. ASSESSMENT AND PLAN: 1. postoperative day # 7 status post incision and drainage of wound with resection of the fascia and complex [address] Lua has recommended Kefzol for another 28 days outpatient. The patient was instructed to use incentive spirometer to reduce the incidence of atelectasis and hospital- acquired pneumonia, early and relation to reduce venous thromboembolic competitions. Continue current pain regimen as per spine surgery. 2. Significant history of degenerative disc disease of the cervical spine with multiple surgical intervention that is competent located by staph infection according to the patient was not MRSA. Continue IV antibiotic, continue current pain management, continue current treatment as per spine surgery and infectious disease. Resume the patient gabapentin 800 mg orally 3 times every day. 3. Chronic tobacco use and dependence. Patient was counseled about smoking cessation and increased risk of CAD, CVA and malignancy. 4. Chronic marijuana use and dependence. Counseled against its use. 5. Reported history of SLE and rheumatoid arthritis patient does not appear to have an active diagnoses. 6. DVT prophylaxis. Early ambulation. 7. Constipation. Continue with Senokot and MiraLAX and add lactulose 20 g oral ly twice every day. 8. Lower extremity edema, resolved. Ultrasound reveals bilateral inguinal erika nopathy which will be further evaluated at her office appointment. Impression and plan of care have been directed as dictated by the signing physician. Bessy Manjarrez nurse practitioner acting as scribe for signing physician. Objective - Vital Signs Vital signs: Vital Signs Temp 97.3 F L 05/13/22 08:00 Pulse 84 05/13/22 08:00 Resp 14 05/13/22 08:00 BP 106/66 05/13/22 08:00 Pulse Ox 100 05/13/22 08:00 FiO2 Intake & Output 05/12/22 05/13/22 05/13/22 18:59 06:59 18:59 Other: Voiding Method Toilet Toilet # Voids 8 - Labs CBC & Chem 7: 05/13/22 05:44 05/13/22 05:44 Labs: Abnormal Lab Results - Last 24 Hours (Table) 05/13/22 05/13/22 Range/Units 05:44 05:44 RBC 3.60 L (4.10-5.20) X 10*6/uL Hgb 11.2 L (12.0-15.0) g/dL Hct 35.4 L (37.2-46.3) % MCV 98.3 H (80.0-97.0) fL MCHC 31.6 L (32.0-37.0) g/dL RDW 16.5 H (11.5-14.5) % MPV 9.0 L (9.5-12.2) fL Sodium 134 L (135-145) mmol/L Total Bilirubin <0.15 L (0.30-1.20) mg/dL AST 40 H (13-35) U/L Microbiology - Last 24 Hours (Table) 05/08/22 07:03 Blood Culture - Preliminary Blood No Growth after 120 hours
== END 2022-05-13 12:55 | disposition home health service (06) | DRG 903 ==
LOC: 2ORMAIN 12:01 → 4SSUR 16:48
PROVIDERS: ADMIT Orthopaedic Surgery; ATTEND Orthopaedic Surgery
PROC: 0JB50ZZ Excision of Left Neck Subcutaneous Tissue and Fascia, Open Approach (ICD-10-PCS; 2022-05-06)
PROC: 0J950ZZ Drainage of Left Neck Subcutaneous Tissue and Fascia, Open Approach (ICD-10-PCS; 2022-05-06)
PROC: 0J940ZZ Drainage of Right Neck Subcutaneous Tissue and Fascia, Open Approach (ICD-10-PCS; 2022-05-06)
PROC: 0JB40ZZ Excision of Right Neck Subcutaneous Tissue and Fascia, Open Approach (ICD-10-PCS; principal; 2022-05-06 12:55)
PROC: 02HV33Z Insertion of Infusion Device into Superior Vena Cava, Percutaneous Approach (ICD-10-PCS; 2022-05-07)
DX: T81.31XA Disruption of external operation (surgical) wound, not elsewhere classified, initial encounter (principal); M32.19 Other organ or system involvement in systemic lupus erythematosus; F12.20 Cannabis dependence, uncomplicated; M06.9 Rheumatoid arthritis, unspecified; F17.210 Nicotine dependence, cigarettes, uncomplicated; K59.00 Constipation, unspecified; G47.9 Sleep disorder, unspecified; M50.30 Other cervical disc degeneration, unspecified cervical region; G89.4 Chronic pain syndrome; B95.4 Other streptococcus as the cause of diseases classified elsewhere; R60.0 Localized edema; R59.0 Localized enlarged lymph nodes; Y83.8 Other surgical procedures as the cause of abnormal reaction of the patient, or of later complication, without mention of misadventure at the time of the procedure; Z79.899 Other long term (current) drug therapy; Z98.1 Arthrodesis status; Z86.73 Personal history of transient ischemic attack (TIA), and cerebral infarction without residual deficits; Z86.16 Personal history of COVID-19; Z79.891 Long term (current) use of opiate analgesic; Z88.1 Allergy status to other antibiotic agents; Z88.8 Allergy status to other drugs, medicaments and biological substances; Z86.19 Personal history of other infectious and parasitic diseases; Z28.310 Unvaccinated for COVID-19
CPT/HCPCS: 36410; 36573; 76937; 80048; 80053; 81025; 83735; 84145; 85025; 85027; 85652; 86140; 86850; 86900; 86901; 87040; 87070; 87075; 87205; 88304; 93970

== ENCOUNTER → 2022-06-01 | Outpatient (CLI) | payer OTHER ==
--- NOTE | 2022-06-02 13:05 | CT ---
EXAMINATION TYPE: CT abdomen pelvis w con CT DLP: 450.4 mGycm, Automated exposure control for dose reduction was used. DATE OF EXAM: 06/01/2022 5:28 PM COMPARISON: None CLINICAL INDICATION:Female, 41 years old with history of R59.0LOCALIZED ENLARGED LYMPH NODES; enlarg ed lymph nodes TECHNIQUE: Axial CT of the abdomen and pelvis. Sagittal and coronal reformats were created on a [employer] workstation. Contrast used:100 mL of Isovue 300 with IV Contrast, Oral contrast used: with Oral Contrast FINDINGS: LOWER CHEST: Unremarkable ABDOMEN LIVER: Unremarkable GALLBLADDER AND BILE DUCTS: Unremarkable. PANCREAS: Unremarkable. SPLEEN: Unremarkable. ADRENAL GLANDS: Unremarkable. KIDNEYS AND URETERS: No evidence of hydronephrosis or renal calculus. The ureters are unremarkable. PELVIS BLADDER: Unremarkable REPRODUCTIVE: Bicornuate uterus morphology best appreciated on series 3 image 58 through 64 with smal l dip in the uterine fundus. Tubal ligation clips are seen bilaterally. Left ovarian cyst measuring u p to 3.5 cm. ABDOMEN & PELVIS STOMACH AND BOWEL: No evidence of bowel obstruction. PERITONEUM/RETROPERITONEUM: No evidence of pneumoperitoneum or free fluid. . VASCULATURE: No evidence of aortic aneurysm. MUSCULOSKELETAL: No acute osseous abnormalities LYMPH NODES: No gross evidence for lymphadenopathy. SOFT TISSUE/ABDOMINAL WALL: Small fat-containing umbilical hernia. IMPRESSION: 1. No evidence for acute intraluminal process. No evidence for lymphadenopathy. 2. Bicornuate uterus morphology suggested. 3. Left ovarian cyst measuring up to 2.5 cm.
== END | disposition home or self-care (01) ==
LOC: RADCTMAIN 15:20
PROVIDERS: ATTEND Internal Medicine
DX: N83.202 Unspecified ovarian cyst, left side (principal); R59.0 Localized enlarged lymph nodes
CPT/HCPCS: 74177; Q9967

== ENCOUNTER → 2023-01-20 | Outpatient (CLI) | payer OTHER ==
--- NOTE | 2023-01-20 13:53 | MR ---
EXAMINATION TYPE: MR cervical spine wo/w con DATE OF EXAM: 01/20/2023 COMPARISON: 01/07/2021 HISTORY: Pain, stiffness, fusion c2-t1, Hx of past infection CONTRAST: Performed utilizing 6 mL intravenous Gadavist gadolinium contrast. TECHNIQUE: Multiplanar multiecho imaging on a 3.0 Susan magnet is performed through the cervical spin e. FINDINGS: The craniovertebral junction is normal. Vertebral body alignment is normal. No focal dis c herniation or significant disc bulge is evident. There is increased signal within T1 vertebral level. Postcontrast imaging. Susceptibility artifact is present at levels with anterior cervical fusion screws. No suspicious enhancement is evident. IMPRESSIONS: 1. Some limitation due to anterior cervical fusion and susceptibility artifact. 2. Chronic signal changes T1 vertebral body. No loss of vertebral body height is evident. Some kyphos is is present at this level. 3. No spinal canal stenosis. No significant disc bulging or focal disc herniations are evident.
== END | disposition home or self-care (01) ==
LOC: RADMRIMAIN 07:49
PROVIDERS: ATTEND Orthopaedic Surgery
DX: M54.12 Radiculopathy, cervical region (principal); Z98.1 Arthrodesis status
CPT/HCPCS: 72156; A9585

== ENCOUNTER → 2023-07-18 | Outpatient (CLI) | payer OTHER ==
--- NOTE | 2023-07-20 19:58 | MM ---
Reason for Exam: Screening (asymptomatic). Patient History: Menarche at age 8. First Full-Term at age 12. Perimenopausal. Maternal aunt had breast cancer, age 45. Risk Values: Kasia 5 year model risk: 0.6%. NCI Lifetime model risk: 7.8%. Tissue Density: The breast tissue is heterogeneously dense. This may lower the sensitivity of mammography. Findings: Analyzed By CAD. No significant mass, suspicious microcalcification, or other discrete abnormality is seen. Superior asymmetric density right MLO view does not persist on 3-D images. Overall Assessment: Benign, BI-RAD 2 Management: Screening Mammogram of both breasts in 1 year. . Patient should continue monthly self-breast exams. A clinical breast exam by your physician is recommended on an annual basis. This exam should not preclude additional follow-up of suspicious palpable abnormalities. Note on Kasia scores and lifetime risk: 1. A Kasia score greater than 3% is considered moderate risk. If this is the case, consider specialist referral to assess eligibility for a risk reducing agent. 2. If overall lifetime risk for the development of breast cancer is 20% or higher, the patient may qualify for future screening with alternating mammogram and breast MRI. Electronically signed and approved by: Clark Shell M.D. Radiologist
== END | disposition home or self-care (01) ==
LOC: RADMAMWWP 15:16
PROVIDERS: ATTEND Internal Medicine
DX: Z12.31 Encounter for screening mammogram for malignant neoplasm of breast (principal); Z80.3 Family history of malignant neoplasm of breast
CPT/HCPCS: 77063; 77067

== ENCOUNTER → 2023-07-18 | Outpatient (CLI) | payer OTHER ==
--- NOTE | 2023-07-19 11:05 | US ---
EXAMINATION TYPE: US pelvis complete transvag DATE OF EXAM: 07/18/2023 COMPARISON: 06/17/2021 - Transvaginal CLINICAL INDICATION: Female, 42 years old with history of R10.2 PELVIC PAIN; Post intercourse pain x 1 week within the pelvis and low back; AUB x 2-3 months - multiple menses per month; Concern for cerv ical cancer (Maternal and Paternal aunts with Cervical cancer). A4; Hx Endometriosis. C-sect x 4. TECHNIQUE: . Transabdominal sonographic images of the pelvis were acquired. Transvaginal sonographi c images were medically necessary to better assess the following anatomy: Uterus, ovaries, and endome trium Date of LMP: 1 week ago EXAM MEASUREMENTS: Uterus: 7.5 x 4.4 x 6.2 cm Endometrial Stripe: Right = 1.3; Left = 0.5 cm Right Ovary: 2.4 x 1.8 x 1.4 cm Left Ovary: 4.8 x 2.7 x 2.8 cm 1. Uterus: Retroverted . Tiny 6 mm cervical nabothian cyst. 2. Endometrium: 2 endometrial horns are noted. 3. Right Ovary: wnl 4. Left Ovary: Thick walled cyst measuring 1.8 cm with some internal debris and prominent peripheral vascularity suggesting of a corpus luteum. An additional dominant follicle or functional cyst measur ing 2.6 cm. 5. Bilateral Adnexa: Prominent left adnexal vascularity. 6. Posterior cul-de-sac: wnl IMPRESSION: 1. 2 endometrial horns with stripe thickness up to 1.3 cm which should indicate secretory phase of me nstrual cycle. The presence of 2 endometrial horns may reflect a partially septate uterus. 2. A dominant follicle or functional cyst of the left ovary measuring 2.6 cm along with a 1.8 cm hemo rrhagic corpus luteum. 3. Prominent left adnexal vascularity may be physiologic but can also be seen in setting of pelvic co ngestion syndrome. Clinically correlate. 4. Tiny 6 mm cervical nabothian cyst.
== END | disposition home or self-care (01) ==
LOC: RADUSWWP 15:21
PROVIDERS: ATTEND Internal Medicine
DX: N83.202 Unspecified ovarian cyst, left side (principal); R10.2 Pelvic and perineal pain; N88.8 Other specified noninflammatory disorders of cervix uteri
CPT/HCPCS: 76830; 76856

== ENCOUNTER 2023-08-23 20:53 | Emergency (ER) | payer OTHER ==
[2023-08-23 21:23] VITALS: BP 119/82; PULSE 66; RESP 18; TEMP 97.9
[2023-08-23 21:42] LABS: Appearance,Urine Cloudy (Clear); Bilirubin,Urine Negative (Negative); Blood,Urine Negative (Negative); Color,Urine Yellow; Glucose,Urine (UA) Negative (Negative); Ketones,Urine Negative (Negative); Leukocyte Esterase,Urine Negative (Negative); Mucus,Urine Occasional /hpf; Nitrite,Urine Negative (Negative); PH, Urine 6.5 (5.0-8.0); Protein,Urine Trace (Negative); RBC,Urine 2 /hpf (0-5); Specific Gravity,Urine 1.029 (1.001-1.035); Squamous Epithelial Cell,Urine 17 /hpf (0-4); Urobilinogen,Urine <2.0 mg/dL (<2.0); WBC,Urine 6 /hpf (0-5)
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
[2023-08-23 23:47] LABS: Basophils # (A) 0.1 k/uL (0-0.2); Basophils % (A) 1 %; Eosinophils # (A) 0.2 k/uL (0-0.7); Eosinophils % (A) 2 %; HCT 37.9 % (34.0-46.0); HGB 12.4 gm/dL (11.4-16.0); Lymphocytes # (A) 3.3 k/uL (1.0-4.8); Lymphocytes % (A) 43 %; MCH 33.3 pg (25.0-35.0); MCHC 32.6 g/dL (31.0-37.0); MCV 102.2 fL (80.0-100.0); Macrocytosis Slight; Mean Platelet Volume 7.8; Monocytes # (A) 0.4 k/uL (0-1.0); Monocytes % (A) 6 %; Neutrophils # (A) 3.6 k/uL (1.3-7.7); Neutrophils % (A) 47 %; Platelet Count 293 k/uL (150-450); RBC 3.71 m/uL (3.80-5.40); RDW 13.7 % (11.5-15.5); WBC 7.8 k/uL (3.8-10.6)
[2023-08-23 23:58] LABS: ALT 27 U/L (4-34); AST 56 U/L (14-36); African American GFR (CKD) >90 (>60 ml/min/1.73 sqM); Albumin 4.6 g/dL (3.5-5.0); Alkaline Phosphatase 50 U/L (38-126); Anion Gap 8 mmol/L; Blood Urea Nitrogen 18 mg/dL (7-17); Calcium 8.4 mg/dL (8.4-10.2); Carbon Dioxide 19 mmol/L (22-30); Chloride 108 mmol/L (98-107); Glucose 90 mg/dL (74-99); Lipase 76 U/L (23-300); Non-African American GFR(CKD) >90 (>60 ml/min/1.73 sqM); Sodium 135 mmol/L (137-145); Total Bilirubin 1.1 mg/dL (0.2-1.3); Total Protein 7.5 g/dL (6.3-8.2)
[2023-08-24] MEDS: HYDROmorphone 1 MG/ML 1 ML SYRINGE IVP STA (00:18)
--- NOTE | 2023-08-24 01:37 | CT ---
EXAM: CT Abdomen and Pelvis With Intravenous Contrast CLINICAL HISTORY: ITS.REASON CT Reason: RLQ pain TECHNIQUE: Axial computed tomography images of the abdomen and pelvis with intravenous contrast. CTDI is 12.4 mGy and DLP is 562.3 mGy-cm. This CT exam was performed using one or more of the following dose reduction techniques: automated exposure control, adjustment of the mA and/or kV according to patient size, and/or use of iterative reconstruction technique. COMPARISON: No relevant prior studies available. FINDINGS: Lung bases: Unremarkable. No mass. No consolidation. ABDOMEN: Liver: Unremarkable. No mass. Gallbladder and bile ducts: Unremarkable. No calcified stones. No ductal dilation. Pancreas: Unremarkable. No mass. No ductal dilation. Spleen: Unremarkable. No splenomegaly. Adrenals: Unremarkable. No mass. Kidneys and ureters: Unremarkable. No hydronephrosis or delayed nephrogram. Stomach and bowel: Mild fecal retention, correlate for constipation. No obstruction. No mucosal thickening. PELVIS: Appendix: No findings to suggest acute appendicitis. Bladder: Unremarkable. No mass. Reproductive: Unremarkable as visualized. ABDOMEN and PELVIS: Intraperitoneal space: Unremarkable. No free air. No significant fluid collection. Bones/joints: Degenerative changes of the spine. No acute fracture. No dislocation. Soft tissues: Unremarkable. Vasculature: Atherosclerotic changes of the aorta. No abdominal aortic aneurysm. Lymph nodes: Unremarkable. No enlarged lymph nodes. IMPRESSION: No acute findings in the abdomen or pelvis.
== END 2023-08-24 02:17 | disposition home or self-care (01) ==
LOC: EC 20:53
DX: R10.31 Right lower quadrant pain (principal); Z87.891 Personal history of nicotine dependence; Z88.8 Allergy status to other drugs, medicaments and biological substances; Z88.5 Allergy status to narcotic agent
CPT/HCPCS: 36415; 74177; 80053; 81001; 83690; 85025; 96374; 99284

== ENCOUNTER → 2024-02-17 | Outpatient (CLI) | payer OTHER ==
--- NOTE | 2024-02-27 21:23 | BD ---
EXAMINATION TYPE: Axial Bone Density DATE OF EXAM: 02/17/2024 CLINICAL HISTORY: 43 years old Female. ICD-10 CODE: M81.0 AGE-RELATED OSTEOPOROSIS W/O CURRENT PATHO LO Height: 61.25in Weight: 113lb FRAX RISK QUESTIONS: Secondary Osteoporosis: Rheumatoid Arthritis: yes Current Tobacco Use: yes RISK FACTORS HISTORY OF: MEDICATIONS: EXAM MEASUREMENTS: Bone mineral densitometry was performed using the dotCloud System. Bone mineral density as measured about the Lumbar spine is: ----- L1-L4(G/cm2): 1.222 T Score Values are as follows: ----- L1: -0.3 ----- L2: 0.1 ----- L3: 1.5 ----- L4: 0.0 ----- L1-L4: 0.4 Z Score Values are as follows: ----- L1: 0.2 ----- L2: 0.5 ----- L3: 1.9 ----- L4: 0.4 ----- L1-L4: 0.8 First dexa at [facility] Bone mineral density about the R hip (g/cm2): 1.044 Bone mineral density about the L hip (g/cm2): 1.008 T Score values are as follows: -----R Neck: -0.5 -----L Neck: -0.7 -----R Total: 0.3 -----L Total: 0.0 Z Score values are as follows: -----R Neck: 0.3 -----L Neck: 0.1 -----R Total: 0.9 -----L Total: 0.6 First dexa at [facility] FRAX%s: The graph provided illustrates a 2.8% chance for a major osteoporotic fx and a 0.2% chance fo r the hips probability for fx in 10 years time. IMPRESSION: Normal (Values between +1 and -1 indicate normal bone mass). Consider repeating this study in 5 year s or sooner if there is some new clinical indication. NOTE: T-SCORE=SD OF THE YOUNG ADULT MEAN. [facility], , 02/27/2024 9:21 PM
== END | disposition home or self-care (01) ==
LOC: RADBDWWP 10:33
PROVIDERS: ATTEND Physical Medicine & Rehabilitation Pain Medicine
DX: Z01.818 Encounter for other preprocedural examination (principal); M81.0 Age-related osteoporosis without current pathological fracture; M06.9 Rheumatoid arthritis, unspecified
CPT/HCPCS: 77080

== ENCOUNTER → 2024-05-15 | Outpatient (CLI) | payer OTHER ==
--- NOTE | 2024-05-16 09:58 | BMR ---
EXAM DATE: 05/15/2024 EXAM DESCRIPTION: MRI-Breast Bilat (W/WO Contrast) INDICATION: Palpable lump in the left upper outer quadrant and right nipple. COMPARISON: Comparison is made with relevant prior imaging in PACS. CONTRAST: 5.0 cc of gadobutrol TECHNIQUE: Multiplanar MRI imaging of both breasts was performed with a dedicated breast coil, before and after intravenous administration of gadolinium contrast, using the standard breast mass protocol. Computer-aided detection was used to aid in interpretation. FINDINGS: General breast composition: The breast is heterogeneously dense Background parenchymal enhancement: Mild FINDINGS: Right Breast: Review of the dynamic contrast-enhanced series shows no rapidly enhancing masses, suspicious enhancement patterns or other abnormalities. The T2 weighted series shows scattered benign cysts. Left Breast: Review of the dynamic contrast-enhanced series shows benign intramammary lymph node in the upper outer breast at posterior depth. No rapidly enhancing masses, suspicious enhancement patterns or other abnormalities. The T2 weighted series shows IMPRESSION: Right Breast: BI-RADS Category3- Probably benign No MRI evidence of malignancy. The previously seen hypoechoic mass at 10 o'clock, 2 cm from the nipple on 04/05/2024 may correspond to a benign cluster is cyst however targeted ultrasound should be performed in 6 months to ensure stability. Recommendation: Right targeted ultrasound in 6 months. Left Breast: BI-RADS Category 1- Negative No MRI evidence of malignancy. Benign intramammary lymph node in the upper outer breast corresponding to sonographic finding seen on 04/05/2024. Recommendation: Return to routine screening. OVERALL ASSESSMENT -- BI-RADS 3 MTDD
== END | disposition home or self-care (01) ==
LOC: RADMRIMAIN 06:36
PROVIDERS: ATTEND Internal Medicine
DX: N63.11 Unspecified lump in the right breast, upper outer quadrant (principal); N63.22 Unspecified lump in the left breast, upper inner quadrant
CPT/HCPCS: C8908; A9585; 77049

== ENCOUNTER → 2024-05-16 | Outpatient (CLI) | payer OTHER ==
[2024-05-16 18:36] LABS: Basophils # (A) 0.04 X 10*3/uL (0.00-0.10); Basophils % (A) 0.8 %; Eosinophils # (A) 0.13 X 10*3/uL (0.04-0.35); Eosinophils % (A) 2.6 %; HCT 36.5 % (37.2-46.3); HGB 12.2 g/dL (12.0-15.0); Lymphocytes # (A) 2.56 X 10*3/uL (0.90-5.00); MCH 32.4 pg (27.0-32.0); MCHC 33.4 g/dL (32.0-37.0); MCV 96.8 FL (80.0-97.0); Mean Platelet Volume 9.3 FL (9.5-12.2); Monocytes # (A) 0.31 X 10*3/uL (0.20-1.00); Monocytes % (A) 6.2 %; NRBC Per 100 WBC 0 X 10*3/uL (0.00-0.01); Neutrophils # (A) 1.97 X 10*3/uL (1.80-7.70); Neutrophils % (A) 39.2 %; Platelet Count 286 X 10*3/uL (140-440); RBC 3.77 X 10*6/uL (4.10-5.20); RDW 13.9 % (11.5-14.5); WBC 5.02 X 10*3/uL (4.50-10.00)
[2024-05-16 19:59] LABS: Blood Urea Nitrogen 8.3 mg/dL (9.0-27.0); Carbon Dioxide 23.9 mmol/L (21.6-31.8); Chloride 105 mmol/L (96-109); Glucose 74 mg/dL (70-110); Potassium 3.9 mmol/L (3.5-5.5); Sodium 142 mmol/L (135-145)
== END | disposition home or self-care (01) ==
LOC: LABPAT 13:21
PROVIDERS: ATTEND Obstetrics & Gynecology
DX: Z01.818 Encounter for other preprocedural examination (principal)
CPT/HCPCS: 36415; 80051; 82565; 82947; 84520; 85025; 86850; 86900; 86901; 87086

== ENCOUNTER 2024-05-21 07:46 | Day surgery (SDC) | payer OTHER ==
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
[~2024-05-21 07:46] MED LIST changes: -ACETAMINOPHEN TAB 500 MG TAB PO PRN; -DEXAMETHASONE SOD PHOSPHATE 4 MG/ML 1 ML VIAL IV ONE; -GABAPENTIN 300 MG CAP PO PRN; +HYDROmorphone 0.5 MG/0.5 ML SYRINGE IVP PRN; +LIDOCAINE 1% (10MG/ML) FOR IV START INTRADERMA PRN; -ONDANSETRON 4 MG/2 ML VIAL IVP ONE; -ONDANSETRON 4 MG/2 ML VIAL IVP PRN; -TRANEXAMIC ACID IN NACL,ISO-OS 1,000 MG in SALINE 1 100ML.BAG IVPB PRN
[2024-05-21] MEDS: ONDANSETRON 4 MG/2 ML VIAL IVP ONE (08:45)
[2024-05-21] MEDS: LACTATED RINGERS 1,000 ML IV SCH (08:45)
[2024-05-21] MEDS: DEXAMETHASONE SOD PHOSPHATE 4 MG/ML 1 ML VIAL IV ONE (08:46)
[2024-05-21] MEDS: IV FLUID CONTINUATION 1,000 ML IV ONE (09:00)
[2024-05-21] MEDS: MORPHINE SULFATE (PF) 1 MG/ML AMP INTRATHECA ONE (09:25)
[2024-05-21] MEDS: fentaNYL (PF) 50 MCG/ML 2 ML AMP INTRATHECA ONE (09:25)
[2024-05-21] MEDS: MIDAZOLAM 2 MG/2 ML VIAL IV ONE (09:25)
[2024-05-21] MEDS: fentaNYL (PF) 50 MCG/ML 2 ML AMP IVP PRN (09:27)
[2024-05-21] MEDS ORDERED: ONDANSETRON 4 MG/2 ML VIAL IVP PRN (09:52)
[2024-05-21] MEDS ORDERED: NALOXONE 0.4 MG/ML 1 ML VIAL IV PRN (09:52)
[2024-05-21] MEDS ORDERED: diphenhydrAMINE 50 MG/ML 1 ML VIAL IVP PRN (09:52)
--- NOTE | 2024-05-21 09:52 | P.ANPRN ---
Procedure Note - Anesthesia - Epidural/Spinal Spinal Time Out Performed: Yes Date of Procedure: 05/21/24 Procedure Start Time: Procedure Stop Time: : Location of Patient: PreOp Indication: Acute Post-Operative Pain, Requested by Surgeon Sedation Type: Sedate with meaningful contact maintained Preparation: Sterile Prep Position: Sitting Needle Guage: 25 Blood Aspirated: No Events: Uneventful and Well Tolerated (Duramorph 300 mcg+ fentanyl 25 mcg injected intrathecally)
[2024-05-21] MEDS ORDERED: LIDOCAINE 1% INJ 10MG/ML (20 ML MDV) ONE (10:18)
[2024-05-21] MEDS ORDERED: PROPOFOL 10 MG/ML 20 ML VIAL IV ONE (10:18)
[2024-05-21] MEDS ORDERED: diphenhydrAMINE 50 MG/ML 1 ML VIAL ONE (10:18)
[2024-05-21] MEDS ORDERED: ePHEDrine 50 MG/ML 1 ML VIAL ONE (10:18)
[2024-05-21] MEDS ORDERED: SUCCINYLCHOLINE CHLORIDE 200 MG/10 ML VIAL IV ONE (10:18)
[2024-05-21] MEDS ORDERED: MIDAZOLAM 2 MG/2 ML VIAL ONE (10:18)
[2024-05-21] MEDS ORDERED: fentaNYL (PF) 50 MCG/ML 2 ML AMP ONE (10:18)
[2024-05-21] MEDS ORDERED: WATER FOR INJECTION, STERILE 10 ML VIAL IV ONE (10:18)
[2024-05-21] MEDS ORDERED: GLYCOPYRROLATE 0.2 MG/ML 2 ML VIAL ONE (10:18)
[2024-05-21] MEDS ORDERED: ROCURONIUM 10 MG/ML (5 ML VIAL) IV ONE (10:18)
[2024-05-21] MEDS ORDERED: MORPHINE SULFATE (PF) 0.3 MG/0.3 ML SYR ONE (10:18)
[2024-05-21] MEDS ORDERED: KETOROLAC 15 MG/ML 1 ML VIAL ONE (10:18)
[2024-05-21] MEDS ORDERED: NEOSTIGMINE 1 MG/ML 10 ML VIAL ONE (10:18)
[2024-05-21] MEDS: BUPIVACAINE (PF) 0.25% 30 ML VIAL SQ ONE (10:54)
[2024-05-21] MEDS: LACTATED RINGERS 1,000 ML IV ONE (11:38)
--- NOTE | 2024-05-21 12:00 | P.OP ---
Date of Procedure: 05/21/24 Preoperative Diagnosis: 1. didelphic uterus 2. dysmenorrhea 3. menorrhagia Postoperative Diagnosis: 1. didelphic uterus 2. dysmenorrhea 3. menorrhagia Procedure(s) Performed: total laparoscopic hysterectomy bilateral salpingectomy using da Manuelito,diagnostic cystoscopy and separation of vaginal septum Anesthesia: SILVIA Surgeon: Page Manley Head Baker #1: Ben Alonzo Estimated Blood Loss (ml): 10 IV fluids (ml): 800 Urine output (ml): 100 Pathology: other (uterus and both cervices) Condition: stable Disposition: PACU Operative Findings: Uterus and the left horn sounded to 6 cm. 2 cervixes noted and a vertical vaginal septum. Description of Procedure: Patient taken the operating room where general anesthesia was obtained without difficulty. She is prepped and draped in normal sterile fashion dorsal lithotomy position, legs placed in the Dariel stirrups. Weighted speculum placed in the vagina and the septum was noted immediately. The septum was grasped with 2 Lizbeth clamps and the Bovie was used to make an incision along the midline of the septum To the level of the cervix.. these were bovied and tied and then the Lizbeth clamps were removed. I was able to see both cervices without a problem and stay sutures were placed. The anterior lip of the cervix was grasped with single-tooth tenaculum.The uterus sounded to 6cm and the cervix diameter both cervices was 3.5 cm. The appropriate manipulator tip and ring were placed on the Abbey manipulator. The Abbey manipulator was then placed in the uterus. Adams catheter was also placed. Attention was then turned to the abdomen and gloves were changed. A 5 mm supraumbilical incision was made the scalpel and a 5 mm optical trocar was placed under direct visualization. 10 cm to the right of this and 2 cm down a 5 mm incision was made and 8 mm da Manuelito port was placed under direct visualization. Same measurements on the opposite side of the patient's abdomen, the 5 mm incision was made and 8 mm da Manuelito port was placed under direct visualization. In the left upper quadrant a 10 mm incision was made and a 10 mm optical trocar was placed under direct visualization. The 5 mm optical trocar was then replaced with the 8 mm da Manuelito camera port. The robot was docked on patient's right side. The camera was introduced and then the monopolar curved scissor and vessel sealer placed under direct visualization. I broke scrub and went to the physician console. The left mesosalpinx was cut and sealed using the vessel sealer. The left fallopian tube was then removed through the assistant statistician port. The left round ligament was sealed and cut using the vessel sealer. The posterior leaf of the broad ligament was taken down using the monopolar curved scissors. Anterior leaf of the broad ligament was then taken down using the monopolar curved scissors. The uterine artery wassealed and cut using the vessel sealer. The bladder flap was then started using the monopolar curved scissors. Attention was then turned to the right side of the patient's anatomy and the right mesosalpinx sealed and cut using the vessel sealer. The right round ligament was csealed and cut using the vessel sealer. Posterior leaf of the broad ligament was taken down using the monopolar curved scissors and the anterior leaf was taken down using the monopolar curved scissors. The uterine artery was sealed and cut using the vessel sealer. The bladder flap was then finished on this side. Anterior colpotomy was made using the monopolar curved scissors. The rest of the uterus was from the vaginal cuff by following the ring around with the monopolar curved scissors through the uterosacral ligaments back to the anterior portion. Once the uterus and cervix were amputated they were pulled through the vaginal cuff. Hemostasis was assured. The instruments were changed for the Cardier forcep and the ene suture cut. The vaginal cuff was then closed using 2-O stratafix barbed suture in a running fashion. Hemostasis was again assured and the pelvis was irrigated. All instruments were removed from the abdomen and the robot was undocked. I scrubbed back in to perform a cystoscopy. There were jets from both ureteral orifices. the stumps from the vaginal septum were stitched again to obtain hemostasis and then packing was placed.The abdominal incisions were closed with 4-0 Vicryl in a subcuticular fashion. Patient tolerated the procedure well, sponge and instrument counts correct 2 and she was taken to recovery room in stable condition condition
[2024-05-21] MEDS ORDERED: SIMETHICONE 80 MG CHEWABLE PO PRN (13:27)
[2024-05-21] MEDS ORDERED: oxyCODONE-APAP 10-325MG 1 EACH TAB PO PRN (13:27)
[2024-05-21] MEDS ORDERED: ALBUTEROL HFA INHALER INHALATION PRN (13:27)
[2024-05-21] MEDS ORDERED: IBUPROFEN 800 MG TAB PO PRN (13:27)
[2024-05-21] MEDS: droPERidol 5 MG/2 ML VIAL IVP ONE (14:17)
[2024-05-21] MEDS: HYDROmorphone 0.5 MG/0.5 ML SYRINGE IVP PRN (14:49)
[2024-05-21] MEDS: ACETAMINOPHEN TAB 500 MG TAB PO SCH (16:41)
[2024-05-21] MEDS: CYCLOBENZAPRINE 10 MG TAB PO SCH (16:42)
[2024-05-21] MEDS: GABAPENTIN 400 MG CAP PO SCH (16:42)
[2024-05-21] MEDS: KETOROLAC 15 MG/ML 1 ML VIAL IVP PRN (16:44)
[2024-05-21] MEDS: SENNOSIDES-DOCUSATE SODIUM 1 EACH TAB PO SCH (21:24)
[2024-05-21] MEDS: DULoxetine HCL 60 MG CAPSULE.DR PO SCH (21:25)
[2024-05-21] MEDS: MINOCYCLINE 50 MG CAP PO SCH (21:26)
[2024-05-21 22:34] VITALS: RESP 16
--- NOTE | 2024-05-22 07:13 | P.PN ---
Progress Note - Text Progress Note Date: 05/22/24 Patient ambulating w/o difficulty. Pain managed w/ multimodal analgesia. Denies weakness, paresthesia (except chronic upper extremity), or pruritis. Headache - similar to pt's chronic headaches and w/o postural component. Back - spinal site clean and dry A/P POD#1 s/p hysterectomy w/ spinal duramorph - continue multimodal analgesia
[2024-05-22 07:21] VITALS: BP 115/76; PULSE 68; TEMP 97.9
[2024-05-22 08:17] LABS: Basophils # (A) 0.03 X 10*3/uL (0.00-0.10); Basophils % (A) 0.4 %; Eosinophils # (A) 0.15 X 10*3/uL (0.04-0.35); HCT 31.6 % (37.2-46.3); HGB 10.2 g/dL (12.0-15.0); Lymphocytes # (A) 2.91 X 10*3/uL (0.90-5.00); Lymphocytes % (A) 39.5 %; MCH 32.7 pg (27.0-32.0); MCHC 32.3 g/dL (32.0-37.0); MCV 101.3 FL (80.0-97.0); Mean Platelet Volume 9.4 FL (9.5-12.2); Monocytes # (A) 0.52 X 10*3/uL (0.20-1.00); Monocytes % (A) 7.1 %; NRBC Per 100 WBC 0 X 10*3/uL (0.00-0.01); Neutrophils # (A) 3.73 X 10*3/uL (1.80-7.70); Neutrophils % (A) 50.7 %; Platelet Count 206 X 10*3/uL (140-440); RBC 3.12 X 10*6/uL (4.10-5.20); RDW 14.2 % (11.5-14.5); WBC 7.36 X 10*3/uL (4.50-10.00)
== END 2024-05-22 09:18 | disposition home or self-care (01) ==
LOC: OR 07:46 → 4SSUR 11:46 → OR 05-22 09:18
PROVIDERS: ATTEND Obstetrics & Gynecology
DX: D25.1 Intramural leiomyoma of uterus (principal); N80.03 Adenomyosis of the uterus; N94.6 Dysmenorrhea, unspecified; J45.909 Unspecified asthma, uncomplicated; K21.9 Gastro-esophageal reflux disease without esophagitis; M06.9 Rheumatoid arthritis, unspecified; I73.9 Peripheral vascular disease, unspecified; I67.9 Cerebrovascular disease, unspecified; I49.3 Ventricular premature depolarization; I25.2 Old myocardial infarction; G43.909 Migraine, unspecified, not intractable, without status migrainosus; F17.200 Nicotine dependence, unspecified, uncomplicated; F41.9 Anxiety disorder, unspecified; Z87.442 Personal history of urinary calculi; Z86.73 Personal history of transient ischemic attack (TIA), and cerebral infarction without residual deficits; Z90.710 Acquired absence of both cervix and uterus; Z90.49 Acquired absence of other specified parts of digestive tract; Z86.16 Personal history of COVID-19; Z82.61 Family history of arthritis; Z80.1 Family history of malignant neoplasm of trachea, bronchus and lung; Z88.1 Allergy status to other antibiotic agents; Z88.5 Allergy status to narcotic agent; Z79.1 Long term (current) use of non-steroidal anti-inflammatories (NSAID); Z79.51 Long term (current) use of inhaled steroids; Z79.899 Other long term (current) drug therapy
CPT/HCPCS: 58571; S2900; 81025; 85025; 88307

== ENCOUNTER → 2024-09-04 | Outpatient (CLI) | payer OTHER ==
[2024-09-04 14:40] VITALS: BP 113/73; PULSE 70; RESP 16; TEMP 98
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
== END ==
LOC: 3 N SLEEP 14:06
PROVIDERS: ATTEND Internal Medicine Critical Care Medicine
DX: G89.29 Other chronic pain (principal); K59.00 Constipation, unspecified; M79.7 Fibromyalgia; J45.909 Unspecified asthma, uncomplicated; E78.5 Hyperlipidemia, unspecified; F41.9 Anxiety disorder, unspecified; F17.200 Nicotine dependence, unspecified, uncomplicated; Z88.8 Allergy status to other drugs, medicaments and biological substances
CPT/HCPCS: 99211

== ENCOUNTER → 2024-11-05 | Outpatient (CLI) | payer OTHER ==
--- NOTE | 2024-11-05 09:20 | US ---
EXAMINATION TYPE: US abdomen complete DATE OF EXAM: 11/05/2024 COMPARISON: CT 08/24/2023 CLINICAL INDICATION: Female, 44 years old with history of R10.30 LOWER ABDOMINAL PAIN, UNSPECIFIED; L ower abdominal pain, cholecystectomy in 2017 TECHNIQUE: Grayscale and color Doppler imaging of the abdomen was performed. FINDINGS: EXAM MEASUREMENTS: Liver Length: 15.0 cm Gallbladder Wall: Surgically absent CBD: 0.5 cm, color Doppler imaging was utilized to isolate the common bile duct for measurement. Spleen: 7.9 cm Right Kidney: 12.3 x 3.4 x 4.9 cm Left Kidney: 11.3 x 4.7 x 5.0 cm COMMERCIAL MANAGER NOTES: Pancreas: Tail obscured by overlying bowel gas Liver: wnl, no dilated ducts, masses or cysts. Gallbladder: Surgically absent CBD: wnl Spleen: wnl Right Kidney: wnl, No hydronephrosis, calculi or masses seen ?extrarenal pelvis vs. mild pyelectasis vs. other? Left Kidney: wnl, No hydronephrosis, calculi or masses seen Upper IVC: wnl Abd Aorta: mild plaque throughout The liver is homogenous. The intrahepatic portion of the IVC and proximal abdominal aorta are within normal limits. Mild atherosclerotic plaque throughout the abdominal aorta. Gallbladder is surgically absent. Common bile duct is unremarkable. The visualized portions of the pancreas are homogenous. The spleen is unremarkable. Kidneys are symmetric. Mild right pelvocaliectasis. No renal lesions are seen. Left renal vein Nutcracker anatomy noted IMPRESSION: 1. 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 2. Postcholecystectomy changes. 3. Mild right renal pelvocaliectasis. [facility], , 11/05/2024 9:18 AM
--- NOTE | 2024-11-05 09:22 | US ---
EXAMINATION TYPE: US pelvis complete transvag DATE OF EXAM: 11/05/2024 COMPARISON: CT abdomen and pelvis 06/01/2022, pelvic ultrasound 07/18/2023 CLINICAL INDICATION: Female, 44 years old with history of lower abd pain; uterus removed Apr 2024 TECHNIQUE: Transvaginal (TV) and Transabdominal (TA) . Transabdominal grayscale sonographic images of the pelvis were acquired. Transvaginal sonographic im ages were medically necessary to better assess the following anatomy: Ovaries Doppler imaging: Not performed. FINDINGS: Date of LMP: Apr 2024 EXAM MEASUREMENTS: Uterus: Surgically absent Endometrial Stripe: Surgically absent Right Ovary: Not visualized due to bowel gas. Left Ovary: Not visualized due to bowel gas. 1. Uterus: Surgically absent 2. Endometrium: Surgically absent 3. Right Ovary: Obscured by overlying bowel gas 4. Left Ovary: Obscured by overlying bowel gas 5. Bilateral Adnexa: Obscured by overlying bowel gas 6. Posterior cul-de-sac: wnl Exam limited by bowel gas. The uterus and endometrium are surgical absent. Both ovaries are not visua lized due to overlying bowel gas. Overlying bowel gas limits evaluation of bilateral adnexa. No free fluid in the posterior cul-de-sac. IMPRESSION: 1. Posthysterectomy changes. 2. Nonvisualization of both ovaries due to overlying bowel gas. [facility], , 11/05/2024 9:20 AM
== END | disposition home or self-care (01) ==
LOC: RADUSWWP 07:52
PROVIDERS: ATTEND Internal Medicine Gastroenterology
DX: N28.89 Other specified disorders of kidney and ureter (principal); Z90.49 Acquired absence of other specified parts of digestive tract; Z90.710 Acquired absence of both cervix and uterus
CPT/HCPCS: 76700; 76830; 76856

== ENCOUNTER → 2024-12-17 | Outpatient (CLI) | payer OTHER ==
--- NOTE | 2024-12-17 10:50 | CT ---
EXAMINATION TYPE: CT angio abdomen, without and with contrast DATE OF EXAM: 12/17/2024 9:46 AM COMPARISON: 08/24/2023 CLINICAL INDICATION: Female, 44 years old with history of I87.1 Compression of vein; PHH, Compression of vein, Nutcracker phenomenon of renal vein TECHNIQUE: Initial CT of the abdomen without contrast. Subsequent CTA after administration of 100 mL Isovue 370 IV contrast. Coronal and sagittal reconstructions performed. 3-D reconstructions generated on a [employer] workstation CT DLP: 277.50 mGycm, Automated exposure control for dose reduction was used. FINDINGS: Heart normal size without pericardial effusion. Strandy atelectasis/scarring in the lower lungs with background emphysematous change. No pleural effusion. Noncontrast and early arterial phase imaging of the liver, adrenal glands, kidneys, spleen, and pancr eas show no gross abnormality. No dilated small bowel, free fluid, or free air. No mesenteric or retroperitoneal lymphadenopathy. Scattered mild to moderate stool. No pericolonic inflammatory change. Mild to moderate atherosclerotic calcifications without aneurysm. Celiac axis, SMA, and bilateral renal arteries are patent. There is an accessory branch right renal a rtery to the lower pole. EREN is patent. The aortic SMA distance is narrowed down to 3.5 mm with an angle of 12 degrees. There is also narrowing of the third portion of the duodenum as it crosses across the midline but no proximal dilatation seen. Bones: Moderate degenerative disc disease L2-L3. Pelvis not imaged. IMPRESSION: 1. Aortic SMA distance is narrowed down to 3.5 mm and shows a reduced angle of 12 degrees. 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 2. Scattered [id number] atherosclerotic calcifications abdominal aorta. Visceral arteries are p atent without significant stenoses. Incidental accessory right renal artery to the lower pole. [facility], , 12/17/2024 10:47 AM
== END | disposition home or self-care (01) ==
LOC: RADCTMAIN 07:48
PROVIDERS: ATTEND Internal Medicine Gastroenterology
DX: I87.1 Compression of vein (principal); I70.0 Atherosclerosis of aorta
CPT/HCPCS: 74175; Q9967